=== PATIENT | female | born 1955 | race Caucasian/White ===

== ENCOUNTER → 2018-05-03 07:01 | Outpatient (CLI) | payer OTHER, SELFPAY ==
--- NOTE | 2018-05-03 07:07 | BI_ITS ---
MAMMOGRAPHY - BILATERAL SCREENING REASON FOR EXAM: Female, 62 years old. Routine annual screening examination. PERTINENT HISTORY: Mother with breast cancer. TECHNIQUE: Digital bilateral breast gunnar (3D mammographic acquisition) in the CC and MLO projections. 2-D mediolateral oblique (MLO) and craniocaudad (CC) views of both breasts were obtained. CAD: Full Field Digital Mammography with Computer Added Detection was performed. COMPARISON: Comparison is made with prior study dated November 30, 2016 and November 07, 2015. FINDINGS: Breast Composition: There are scattered areas of fibroglandular density. There are no dominant masses or suspicious calcifications. No other significant abnormalities are identified. There has been no significant change since the prior study. BI/SCREENING MAMM (CAD), BILAT IMPRESSION: Stable bilateral screening mammogram. Yearly follow-up mammogram recommended. (A) ASSESSMENT CATEGORY: BIRADS Category 1: Negative. A letter regarding these results will be sent to the patient by the facility within 30 days. Approximately 10% of breast cancers are not detected by mammography. A normal mammogram should not delay biopsy of a clinically suspicious abnormality. [id number] Electronically Signed: Albaro Pena MD at 8:53 EST Tel [phone], Service support ,
== END ==
PROVIDERS: Family Provider Internal Medicine; PCP Internal Medicine; Referring Provider Obstetrics & Gynecology; Visit Provider Obstetrics & Gynecology
DX: Z12.31 Encounter for screening mammogram for malignant neoplasm of breast (principal)
CPT/HCPCS: 77063; 77067

== ENCOUNTER → 2018-06-02 13:59 | Outpatient (CLI) | payer OTHER, SELFPAY ==
[2018-06-06 10:36] LABS: HPV Reflexed? NOT INDICATED
--- OUTSIDE RECORDS SUMMARY | 2018-07-19 10:27 | XMS RPT_ITS | Continuity of Care Document ---
:1955 Author Organization [facility] Address [address] [facility] [address] [place] [address] Phone Care Team Providers Name Role Phone Nerissa CASTELLANO, Krysten Levi Unavailable Dr. Reginaldo Corbin Unavailable Erwin Rose Unavailable Maciej Cadena Unavailable Timothy CASTELLANO, Speedy S Unavailable Andrew CASTELLANO, Regan Unavailable RITA Mendez Unavailable Unavailable Slajacqueline TUBE TURNER, Moraima Unavailable Unavailable Unavailable Unavailable Problems Name Dates Details Abnormal fasting glucose (R73.01, 790.29) Status: Active Allergic rhinitis (J30.9, 477.9) Comments: off allergy shots. back this spring and seeing director database. add kaleb. will get abck to ENT. dulera singulair nasacort and nettipot. Status: Active Asthma (J45.909, 493.90) Comments: stable now. issue with getting dulera.allergy induced asthma per ENT Elmer Eid, off of asmanex, now on sigulair Status: Active Atrial tachycardia (I47.1, 427.89) Comments: 17 beat run noted on holter during day. pt never went to cardio because no cardio on plan here. now readdress today. no signs and symptoms now. on dilitizem in past and not notice difference . not worsen and know what feel like. told if get them and rest and bearing down not help over 15 min to ER Status: Active BMI 45.0-49.9, adult (Z68.42, V85.42) Status: Active Current nonsmoker (Renamed from Current non-smoker) (Z78.9, V49.89) Status: Active Deliveries (Parity) Comments: 2 Status: Active Elevated LFTs (R94.5, 790.6) Comments: liver up some. liver us show fatty liver and working now with rod piler. comign down some. Status: Active Encounter for routine adult medical exam with abnormal findings (Z00.01, V70.0) Comments: 03-22-17 [facility] [address] Thorpe. colonoscopy polyp due in 5 years mammo , BD Hep C neg. recommend shingles and flu today. talk about prevnar then pneumovax with asthma Status: Active Family history of heart disease (Z82.49, V17.49) Comments: brother at 56 yo Status: Active Fatigue (R53.83, 780.79) Comments: has been better. now recommend add exercises Status: Active Fatty liver (K76.0, 571.8) Comments: talk about liver cirrhosis risk must get weight off. Status: Active Hypercholesteremia (Renamed from Hypercholesterolemia) (E78.00, 272.0) Comments: reviewed with patient recent tests and chol higher than should be. must get diet under control. talk about again not where should be by next executive physical then meds. Status: Active Hypertension with heart disease (I11.9, 402.90) Comments: miss dose this am and mor complaint with losartan. has been 128/80's at home. 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 working on how to treat. at this point kaylin get left large hard lens. at this poitn not recommend richadr transplant. Status: Active Metabolic syndrome (E88.81, 277.7) Comments: would really like to try Trulicity and get her loosing weight. went over side effects including pancreatitis, nausea and vomiting, rare in rats of medullary thyroid cancer. pt with no famil y history of medullary thyroid cancer. told how to use and take and demonstrate in office Status: Active Nonsmoker (Z78.9, V49.89) Status: Active Obesity (Renamed from Obese) (E66.9, 278.00) Comments: doing yoga, sleep better with oren. walking once a week for 2 miles. will do cleanse then into healthy eating. if not see weight come off wtih cleanse and eating healthier then 24 hour urine for cortisol Status: Active OREN on CPAP (G47.33, 327.23) Comments: now on cpap machine. does notice improvement with sleep and daytime energy Status: Active Paresthesia of hand (R20.2, 782.0) Comments: occassional CTS and better than was has splints. more in am. will wear splints at night check NCS Status: Active Postmenopausal (Renamed from Post-menopausal) (Z78.0, V49.81) Status: Active Pregnancies () Comments: 2 Status: Active Stress reaction (F43.0, 308.9) Comments: hangerhoffer counseling. her not have the intimacy she wants. having new grandchild, mother getting heart valve replaced. she finally changed stressed job. she working [employer] as as [employer] which likes better. easier to communate. less emotional eating. refrig went out...so new one and with now better stocking with healthy foods. will be home earlier so can exercise Status: Active Medications Name Dates Details Adrenal Rebuilder Active uad 2 q am, 1 at 3pm ASPIRIN, 81MG (Oral Tablet) Active 1 qd (81 MG) Atorvastatin Calcium 10 MG Oral Tablet 1 (one) Tablet at night for 0 days Quantity: 90 {Tablet} Refills: 3 Ordered:22-Mar-2017 Nerissa CASTELLANO, Krysten Grande MD Start : 22-Mar-2017 Active Cytomel 5 MCG Oral Tablet 1 (one) Tablet qd for 0 days Quantity: 90 {Tablet} Refills: 3 Ordered:28-May-2017 Nerissa CASTELLANO, Krysten Grande MD Start : 28-May-2017 Active Dulera 100-5 MCG/ACT Inhalation Aerosol 1 (one) Puff bid for 0 days Quantity: 3 {Inhaler} Refills: 3 Ordered:10-Jun-2017 Krysten Dial MD, MD, Dana M Start : 10-Jun-2017 Active Escitalopram Oxalate 5 MG Oral Tablet 1 (one) Tablet daily for 0 days Quantity: 90 {Tablet} Refills: 3 Ordered:22-Mar-2017 Krysten Dial MD, MD, Dana M Start : 22-Mar-2017 Active FISH OIL CONCENTRATE, 1000MG (Oral Capsule) 1 Capsule qd for 0 days Quantity: 90 {Capsule} Refills: 0 Ordered:20-Jun-2012 Krysten Dial MD, MD, Dana M Start : 20-Jun-2012 Active LEVSIN/SL, 0.125MG (Sublingual Tablet Sublingual) 1 (one) Tab Sublingual Tab Sublingual every 6 hours prn SL for 0 days Quantity: 20 {Tablet} Refills: 1 Ordered:01-Mar-2015 RITA Mendez Start : 01-Mar-2015 Active Losartan Potassium 100 MG Oral Tablet 1 Tablet daily for 0 days Quantity: 90 {Tablet} Refills: 3 Ordered:29-Jul-2017 Krysten Dial MD, MD, Dana M Start : 29-Jul-2017 Active Losartan Potassium 100 MG Oral Tablet 1 Tablet daily for 0 days Quantity: 90 {Tablet} Refills: 3 Ordered:29-Jul-2017 Krysten Dial MD, MD, Dana M Start : 29-Jul-2017 Active Singulair 10 MG Oral Tablet 1 Tablet qd for 0 days Quantity: 90 {Tablet} Refills: 3 Ordered:10-Jun-2017 Krysten Dial MD, MD, Dana M Start : 10-Jun-2017 Active Super Adrenal Stress Formula 2 in am 1 in afternoon Active Synthroid 50 MCG Oral Tablet 1 Tablet daily for 0 days Quantity: 90 {Tablet} Refills: 3 Ordered:28-May-2017 Krysten Dial MD, MD, Dana M Start : 28-May-2017 Active ADRENAL (Oral Capsule) uad [address] Thorpe for 0 days Refills: 0 Ordered:30-May-2010 Lilia Bond LPN End : 30-May-2010 Inactive ADRENAL COMPLEX (Oral Capsule) uad [address] Thorpe for 0 days Refills: 0 Ordered:30-May-2010 Lilia Bond LPN End : 30-May-2010 Inactive Comments:compounding pharmacy ADVAIR DISKUS, 250-50MCG/DOSE (Inhalation Aerosol Powder Breath Activated) 1 Aero Pow Br Act bid for 0 days Quantity: 1 {Aero_Pow_Br_Act} Refills: 0 Ordered:14-Dec-2011 Yusra BROFrancoise Start : 16-Apr-2011 End : 14-Dec-2011 Inactive ALEVE, 220MG (Oral Tablet) 1 (one) Tablet Tablet q6-8hrs for 0 days Quantity: 30 {Tablet} Refills: 0 Ordered:11-Jul-2015 RITA Mendez Start : 14-May-2015 End : 11-Jul-2015 Inactive ALIGN (Oral Capsule) 1 Capsule daily for 0 days Quantity: 30 {Capsule} Refills: 0 Ordered:26-Jan-2013 RITA Mendez Start : 19-Sep-2012 End : 26-Jan-2013 Inactive AMLODIPINE BESYLATE, 5MG (Oral Tablet) 1 Tablet daily for 0 days Quantity: 30 {Tablet} Refills: 2 Ordered:20-Jun-2012 RITA Mendez Start : 18-Sep-2011 End : 20-Jun-2012 Inactive AMLODIPINE BESYLATE, 5MG (Oral Tablet) 1 Tablet daily for 0 days Quantity: 90 {Tablet} Refills: 3 Ordered:20-Jun-2012 RITA Mendez Start : 18-Sep-2011 End : 20-Jun-2012 Inactive ASMANEX 30 METERED DOSES, 220MCG/INH (Inhalation Aerosol Powder Breath Activated) 1 Aero Pow Br Act daily for 0 days Quantity: 30 {Aero_Pow_Br_Act} Refills: 6 Ordered:20-Jun-2012 RITA Mendez Start : 14-Dec-2011 End : 20-Jun-2012 Inactive ASPIRIN, 81MG (Oral Tablet) 1 qd for 0 days Refills: 0 Ordered:28-Mar-2010 RITA Mendez End : 28-Mar-2010 Inactive Cipro 500 MG Oral Tablet 1 (one) Tablet bid for 0 days Quantity: 14 {Tablet} Refills: 0 Ordered:01-Jan-2017 RITA Mendez Start : 13-Nov-2016 End : 01-Jan-2017 Inactive CIPROFLOXACIN HCL, 500MG (Oral Tablet) 1 (one) Tablet bid for 7 days Quantity: 14 {Tablet} Refills: 0 Ordered:14-May-2015 Francoise Meng CNP Start : 14-May-2015 End : 21-May-2015 Inactive CLINDAMYCIN HCL, 300MG (Oral Capsule) 1 (one) Capsule three times daily for 7 days Quantity: 21 {Capsule} Refills: 0 Ordered:11-Jul-2015 Bruno Garcia MD Start : 11-Jul-2015 End : 18-Jul-2015 Inactive FOLIC ACID, 800MCG (Oral Tablet) 1 qd for 0 days Refills: 0 Ordered:01-Sep-2013 RITA Mendez End : 01-Sep-2013 Inactive LEVAQUIN, 500MG (Oral Tablet) 1 Tablet daily for 7 days Quantity: 7 {Tablet} Refills: 0 Ordered:14-Dec-2011 Yusra CRATBREEFrancoise Start : 14-Dec-2011 End : 21-Dec-2011 Inactive MOBIC, 15MG (Oral Tablet) 1 Tablet daily for 0 days Quantity: 30 {Tablet} Refills: 0 Ordered:20-Jun-2012 RITA Mendez Start : 19-Apr-2012 End : 20-Jun-2012 Inactive NASACORT AQ, 55MCG/ACT (Nasal Aerosol Solution) 1-2 sprays each nostril qd/prn for 0 days Refills: 0 Ordered:30-Jan-2011 RITA Mendez End : 30-Jan-2011 Inactive NASONEX, 50MCG/ACT (Nasal Suspension) 2 sparys each nostril qd (50 MCG/ACT) Inactive PREDNISONE, 20MG (Oral Tablet) 1 Tablet 2bid x3 days, 1 bidx 3 day, 1/2 bid x3 days for 0 days Refills: 0 Ordered:20-Jun-2012 RITA Mendez Start : 14-Dec-2011 End : 20-Jun-2012 Inactive PROAIR HFA, 108 (90 Base)MCG/ACT (Inhalation Aerosol Solution) 2 (two) Puff(s) tid prn for 0 days Quantity: 1 {Aerosol_Soln} Refills: 0 Ordered:20-Jun-2012 RITA Mendez Start : 14-Dec-2011 End : 20-Jun-2012 Inactive SYNTHROID, 25MCG (Oral Tablet) 1 Tablet qd for 0 days Quantity: 30 {Tablet} Refills: 2 Ordered:07-Apr-2010 RITA Mendez Start : 20-Mar-2010 End : 07-Apr-2010 Inactive TESSALON PERLES, 100MG (Oral Capsule) 1 Capsule tid prn for 0 days Quantity: 30 {Capsule} Refills: 0 Ordered:20-Jun-2012 RITA Mendez Start : 14-Dec-2011 End : 20-Jun-2012 Inactive TRIAMCINOLONE ACETONIDE, 55MCG/ACT (Nasal Inhaler) 1 spray each nostril qd (55 MCG/ACT) Inactive ZANTAC, 300MG (Oral Tablet) 1 Tablet bid for 0 days Quantity: 60 {Tablet} Refills: 0 Ordered:26-Jan-2013 RITA Mendez Start : 19-Sep-2012 End : 26-Jan-2013 Inactive Zithromax Z-Juan 250 MG Oral Tablet 1 Tablet Tablet uad for 0 days Quantity: 1 {Tablet} Refills: 0 Ordered:13-Nov-2016 RITA Mendez Start : 07-Aug-2016 End : 13-Nov-2016 Inactive ZOFRAN, 4MG (Oral Tablet) 1 (one) Tablet q8 hrs prn for 0 days Quantity: 15 {Tablet} Refills: 0 Ordered:11-Jul-2015 RITA Mendez Start : 28-Jun-2015 End : 11-Jul-2015 Inactive CONTRAVE, 8/ 90MG (Oral Tablet) (Free Text) 1 (one) Tablet uad for 30 days Refills: 1 Ordered:08-Jun-2014 Krysten Dial MD, MD, Krysten Levi Start : 08-Jun-2014 End : 08-Jun-2014 Discontinued Comments:Week 1: 1 Tablet in the AMWeek 2: 1 Tablet in the AM and 1 Tablet in the PMWeek 3: 2 Tablets in the AM and 1 Tablet in the PMWeek 4: 2 Tablets in the AM and 2 Tablets in the PM DILTIAZEM HCL ER BEADS, 120MG (Oral Capsule Extended Release 24 Hour) 1 (one) Capsule ER 24HR Capsule ER 24HR daily for 0 days Quantity: 90 {Capsule} Refills: 3 Ordered:28-Jun-2015 Moraima Tan LPN Start : 08-Jun-2014 End : 28-Jun-2015 Discontinued PROBIOTIC (Oral Capsule) 1 qd End : 28-Jun-2015 Discontinued PROTONIX, 40MG (Oral Tablet Delayed Release) 1 qd (40 MG) End : 09-Jun-2010 Discontinued SAW PALMETTO COMPLEX (Oral Capsule) 1 qd for 0 days Refills: 0 Ordered:14-Dec-2011 Francoise Meng CNP End : 14-Dec-2011 Discontinued Comments:This order discontinued per [facility]. SUPER B COMPLEX (Oral Tablet) 1 qd for 0 days Refills: 0 Ordered:20-Jun-2012 RITA Mendez End : 20-Jun-2012 Discontinued Comments:This order discontinued per [facility]. TRIAMTERENE-HCTZ, 37.5-25MG (Oral Tablet) 1 Tablet qd for 0 days Quantity: 90 {Tablet} Refills: 3 Ordered:18-Jun-2011 Krysten Dial MD, MD, Dana M Start : 18-Jun-2011 End : 18-Jun-2011 Discontinued Trulicity 1.5 MG/0.5ML Subcutaneous Solution Pen-injector 1.5 Milligrams SC once weekly for 0 days Quantity: 9 {Pre-filled_Pen_Syringe} Refills: 3 Ordered:29-Jul-2017 Krysten Dial MD, MD, Dana M Start : 29-Jul-2017 End : 29-Jul-2017 Discontinued Victoza 18 MG/3ML Subcutaneous Solution Pen-injector 1 (one) Milliliter 0.6 mg sc daily for week then 1.2 mg ssc daily for 0 days Quantity: 1 {Each} Refills: 2 Ordered:12-Jan-2017 Krysten Dial MD, MD, Dana M Start : 12-Jan-2017 End : 12-Jan-2017 Discontinued Comments:with needles WELLBUTRIN XL, 150MG (Oral Tablet Extended Release 24 Hour) 1 (one) Tablet ER 24HR qd for 0 days Quantity: 90 {Tablet} Refills: 3 Ordered:08-Jun-2014 Krysten Dial MD, MD, Dana M Start : 08-Jun-2014 End : 01-Mar-2015 Discontinued WELLBUTRIN XL, 150MG (Oral Tablet Extended Release 24 Hour) 1 (one) Tablet ER 24HR qd for 0 days Quantity: 30 {Tablet} Refills: 3 Ordered:08-Jun-2014 Nerissa CASTELLANO, Krysten Dunbar MD, Krysten Levi Start : 08-Jun-2014 End : 01-Mar-2015 Discontinued Allergies and Adverse Reactions Name Dates Details Compazine *ANTIPSYCHOTICS/ANTIMANIC AGENTS* Status: Active (Allergy) Comments: Shock Mold Spores (Allergy) Status: Active Comments: rec. allergy injections Trees (Allergy) Status: Active Past Medical History Name Dates Details Abdominal pain, acute, right lower quadrant (R10.31, 789.03) Comments: in flank check urine ? colon consider muscular. had colonscopy few years ago. try levsin. not sound like GB but consider not better. if worsen then CT scan. Status: Inactive as of 05-Apr-2015 Abnormal TSH (R79.89, 790.6) Comments: endocrine Dr. Herrera at [facility], changed cytomel. adjusted 2-12. reduced cytomel to 3 25 mcq a day..now on 25 mcq once a day. same synthriod dose. notice difference. will be rechecking. Status: Inactive as of 06-Jul-2013 Acute foot pain, left (M79.672, 729.5) Status: Inactive as of 11-Jul-2015 Acute maxillary sinusitis, recurrence not specified (J01.00, 461.0) Status: Inactive as of 18-Sep-2016 Allergic rhinitis due to other allergen (J30.89, 477.8) Comments: dyllan Eid with allergy shots Status: Inactive as of 20-Jun-2012 BMI 40.0-44.9, adult (Z68.41, V85.41) Status: Inactive as of 13-Nov-2016 BMI 45.0-49.9, adult (Z68.42, V85.42) Comments: 47.47 Status: Inactive as of 18-Sep-2016 Bronchitis (J40, 490) Status: Inactive as of 26-Jan-2013 Chronic obstructive asthma with acute exacerbation (J44.1, 493.22) Comments: on sigulair, prn pro air Status: Inactive as of 26-Jan-2013 Cough (R05, 786.2) Status: Inactive as of 20-Jun-2012 Dehydration (E86.0, 276.51) Status: Inactive as of 11-Jul-2015 Dysuria (R30.0, 788.1) Status: Resolved as of 22-Mar-2017 Encounter for hepatitis C virus screening test for high risk patient (Z11.59, V73.89) Status: Resolved as of 22-Mar-2017 Flatulence (R14.3, 787.3) Comments: talk about ? cpap swallow air. talk about diet. on align handout given. track foods. Status: Inactive as of 01-Sep-2013 Flu-like symptoms (R68.89, 780.99) Status: Inactive as of 11-Jul-2015 Gastroenteritis (K52.9, 558.9) Status: Inactive as of 11-Jul-2015 Heartburn (Renamed from Bras) (R12, 787.1) Comments: more bloating. using alogn try adding zantac twice a day Status: Inactive as of 18-Jan-2014 Hormone imbalance (E34.9, 259.9) Comments: still internal heat ? elevated BP ? hormonal ? thryiod t3 being high. Status: Inactive as of 06-Jul-2013 Hyperkalemia (E87.5, 276.7) Status: Inactive as of 18-Sep-2016 Hypertension, benign (I10, 401.1) Comments: get back on losartan with elevated Status: Inactive as of 15-Feb-2014 Menorrhagia (N92.0, 626.2) Comments: better not heavy. did have menses again but not really totally postmenapausal. seeing wedding florist. Status: Inactive as of 06-Jul-2013 NEED FOR PROPHYLACTIC VACCINATION AND INOCULATION AGAINST INFLUENZA (V04.81) (Renamed from NEED FOR PROPHYLACTIC VACCINATION AND INOCULATION AGAINST INFLUENZA) (Z23, V04.81) Status: Inactive as of 19-Jun-2016 Need for Tdap vaccination (Z23, V06.1) Status: Inactive as of 19-Jun-2016 Other chest pain (R07.89, 786.59) Status: Inactive as of 26-Jan-2013 Pain in limb (729.5) Comments: lower legs end of day ? weight and showear. oa. will check doppler. nsaid weight loss stretch Status: Inactive as of 15-Feb-2014 Pharyngitis, acute (J02.9, 462) Status: Inactive as of 26-Jan-2013 Pre-operative examination (Z01.818, V72.84) Status: Inactive as of 26-Jan-2013 Pre-syncope (Renamed from Near syncope) (R55, 780.2) Comments: lighthead. sounded vagal. better now. will do echo. not sound like seizure. Status: Resolved as of 19-Apr-2014 Sebaceous cyst (L72.3, 706.2) Comments: Infected sebaceous cyst. Doesn't seem like it's going to benefit from excision today as its infected. Start clindamycin 300 mg 3 times a day for total of 7 days.Take probiotics with the clindamycin.Pt was advised to use monistat cream OTC if gets vaginal yeast infection.If it keeps bothering her in 4-6 weeks will come back for excision.60-year-old female with past medical history of hypertension, O SA on CPAP presents with a sebaceous cyst on the left mid back area, near bra line. patient noticed a lesion on her back to 3 days ago when taking off her shirt. Also noticed stable yellowish discharge on the shirt. It was also itchy but not painful. Had not had before. patient's had noticed that and wanted her to see a doctor. Denies having any fevers Status: Inactive as of 09-Aug-2015 Shortness of breath at rest (R06.02, 786.05) Comments: nonspecific ekg and with famiy history need to check stress could be asthma. 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 get brace. try rest forearm, nsaids not better then come in inject. Status: Inactive as of 20-Jun-2012 Urinary frequency (R35.0, 788.41) Status: Inactive as of 26-Jan-2013 UTI (urinary tract infection) (N39.0, 599.0) Status: Inactive as of 11-Jul-2015 UTI symptoms (R39.9, 788.99) Status: Inactive as of 11-Jul-2015 Vomiting and diarrhea (R11.10, 787.03) Status: Inactive as of 11-Jul-2015 WWV V73.21 Comments: Dr. thorpe. colonscopy 2008 Status: Inactive as of 06-Jul-2013 Procedures Procedure Dates Details Female ablation 2004 Dr. Powell Completed TAHBSO 2012 Completed Tonsillectomy Completed Comments: 19 years old Tubal Ligation Completed Date Value Details 30-Nov-2016 SCREENING MAMM (CAD), BILAT Result: Comments: See Note; NOTES: [facility] Imaging Services [address] [place] [address] Verdana 4d SCREENING MAMM (CAD), BILAT MR#: [id number] Acct: [id number] Name: GRZEGORZ BANGURA Rep #: [id number] : 1955 F 61 From: Sarbjit Hansen MD PCP: Krysten Dial MD Status: REG CLI Study: SCREENING MAMM (CAD), BILAT Date of Exam: 11/30/16 Exam# [id number] Ordering Dr: Marie Thorpe MD MAMMOGRAPHY - BILATERAL SCREENING REASON FOR EXAM: Female, 61 years old. Routine annual screening examination. PERTINENT HISTORY: FM HX MOTHER 71, 10# GAIN, RT LOQ RESOLVING SEBACEOUS CYST SHABBIR ED TECHNIQUE: Digital bilateral breast gunnar (3D mammographic acquisition) in the CC and MLO projections. 2-D mediolateral oblique (MLO) and craniocaudad (CC) views of both breasts were obtained. CAD: F ull Field Digital Mammography with Computer Added Detection was performed. COMPARISON: Nov 07 2015 7:14AM and mammogram from Sep 11 2014 7:14AM FINDINGS: Breast Co mposition: There are scattered areas of fibroglandular density. There are no dominant masses or suspicious calcifications. No other significant abnormalities are identified. HPBI/SCREENING MAMM (CAD), BILAT IMPRESSION: Stable bilateral screening mammogram. Yearly follow-up mammogram recommended. (A) ASSESS MENT CATEGORY: BIRADS Category 2: Benign. A letter regarding these results will be sent to the patient by the facility within 30 days. Approximately 10% of breast cancers are not detected by mammograph y. A normal mammogram should not delay biopsy of a clinically suspicious abnormality. [id number] Electronically Signed: Sarbjit Hansen MD at 14:44 EDT Tel , Service support , CC: Ruthie Thorpe MD; Krysten Dial MD Tube Inspector: Signed 25-Feb-2016 Dexa Bone Density Study (HP) Result: Comments: See Note; NOTES: [facility] Imaging Services [address] [facility] [address] Verdana 4d Dexa Bone Density Study (HP) MR#: [id number] Acct: [id number] Name: PHAN Shaquille Rep #: [id number] : 1955 F 60 From: Albaro Pnea MD PCP: Krysten Dial MD Status: REG CLI Study: Dexa Bone Density Study (HP) Date of Exam: 02/25/16 Exam# [id number] Ordering Dr: Krysten Portillo MD STUDY: DUAL ENERGY X-RAY ABSORPTIOMETRY / DXA REASON FOR EXAM: Female, 60 years old. The patient is postmenopausal. TECHNIQUE: Bone Mineral Density (BMD) measurements of lumbar spine a nd bilateral hips were obtained. COMPARISON: None. FINDINGS: Lumbar Spine (L1-L4): g/cm2 (1.246) / T-score (0.6) / Z-score (1.9) Findings are suggestive of normal bone density with a low fracture risk. Left Femur Total: g/cm2 (1.249) / T-score (1.9) / Z-score (2.9) Left Femoral Neck: g/cm2 (1.113) / T-score (0.5) / Z- score (1.8) Right Femur Total: g/cm2 (1.154) / T-score (1.2) / Z-score (2.2) Right Femoral Neck: g/cm2 (1.075) / T-score (0.3) / Z-score (1.6) HPBD/Dexa Bone Density Study (HP) IMPRESSION: The patient is considered normal as outlined below according to World Tristin Organization (WHO) criteria with a low fracture risk. Reference Information: The T-scor e is the number of standard deviations above or below the standard which is normal for young adults at their peak bone mineral density. The World Health Organization (WHO) interprets the T-scores as fol lows: Above -1 Normal bone density Between -1 and -2.5 Osteopenia Equal to / or below -2.5 Osteoporosis As a practical clinical guideline, osteopenia may be graded as follows: Mild -1 through -1.5 Mod erate -1.6 through -2.0 Severe -2.1 through -2.4 The Z-score is the number of standard deviations above or below age-matched controls. A Z-score of less than -1.5 would be considered abnormal. Referen martell: 1. NIH Osteoporosis and Related Bone Diseases http://www.osteo.org 2. International Society for Clinical Densitometry http://www.iscd.org 3. National Osteoporosis Foundation http://www.nof.org Lupe ctronically Signed: Albaro Pena MD at 9:34 EDT Tel [phone], Service support [phone], CC: Krysten Dial MD Tube Inspector: Signed 07-Nov-2015 Bilat Scrn Digital AND CAD Result: Comments: See Note; NOTES: [facility] Imaging Services [address] [facility] [place] [address] Verdana 4d Bilat Scrn Digital AND CAD MR#: [id number] Acct: [id number] Name: ARCHANA BANGURA Rep #: [id number] : 1955 F 60 From: Albaro Pena MD PCP: Krysten Dial MD Status: REG CLI Study: Jackson Hamlinn Digital AND CAD Date of Exam: 11/07/15 Exam# [id number] Order ing Dr: Ruthie Thorpe MD MAMMOGRAPHY - BILATERAL SCREENING REASON FOR EXAM: Female, 60 years old. Routine annual screening examination. PERTINENT HISTORY: Mother with breast cancer. TECHNIQUE : Digital bilateral breast tomosynthesis (3-D mammographic acquisition) in the CC and MLO projections. Synthesized 2-D images (C-View reconstruction from tomosynthesis acquisition) providing bilateral breast CC and MLO views. Mediolateral oblique (MLO) and craniocaudad (CC) views of both breasts were obtained. CAD: Full Field Digital Mammography with Computer Added Detection was performed. COMP ARISON: Comparison is made with prior study dated September 11, 2014 and September 01, 2013. FINDINGS: Breast Composition: There are scattered areas of fibroglandular de nsity. There are no dominant masses or suspicious calcifications. No other significant abnormalities are identified. There has been no significant change since the prior study. IMPRESSION: Stable bilateral screening mammogram. Yearly follow- up mammogram recommended. (A) ASSESSMENT CATEGORY: BIRADS Category 1: Negati ve. A letter regarding these results will be sent to the patient by the facility within 30 days. Approximately 10% of breast cancers are not detected by mammography. A normal mammogram should not de lay biopsy of a clinically suspicious abnormality. [id number] Electronically Signed: Albaro Pena MD at 11:07 EDT Tel [phone], Service support [phone], CC: Ruthie Thorpe MD; Krysten Dial MD Tube Inspector: Signed 28-Jun-2015 Gallbladder Result: Comments: See Note; NOTES: [facility] Imaging Services [address] [place] [address] [address] 4d Gallbladder MR#: [id number] Acct: [id number] Name: ARCHANA BANGURA Rep #: [id number] : 1955 F 60 From: Albaro Pena MD PCP: Krysten Dial MD Status: REG CLI Study: Gallbladder Date of Exam: 06/28/15 Exam# [id number] Ordering Dr: Francoise Meng STUDY: ABDOMINAL ULTRASOUND - RIGHT UPPER QUADRANT REASON FOR VISIT: Female, 60 years old. 3 day history of right upper quadrant pain with nausea and vomiting. TECHNIQUE: Ultrasound evaluation of the rig ht upper quadrant was performed with real-time and static downs-scale imaging. TECHNICAL QUALITY: Adequate. COMPARISON: Comparison is made with prior study dated September 08, 2013. FINDINGS: Liver: The liver is mildly enlarged and measures 19.1 cm. 3 The bile ducts are within normal limits. There is hepatic color flow. The direction of portal flow is hepatop etal. There is no demonstrated mass lesion. Gallbladder: Normal distended gallbladder. The gallbladder wall measures 2.9 mm. There is a negative sonographic Funk's sign. There is no pericholecyst ic fluid. There are no gallstones. Common Bile Duct (C.B.D.): The common bile duct measures 4.3 mm. Pancreas: Normal size of the head, body and tail of the pancreas. There is normal echogenicity of the pancreas. There is no demonstrated pancreatic mass or cyst. Right Kidney: Normal size of the right kidney. The right kidney measures 11.5 cm x 6.5 cm x 6.8 cm. Normal renal cortex. The right co rtex measures 2.1 cm. There is no demonstrated renal mass or cyst. There is no right hydronephrosis. IMPRESSION: Mild hepatomegaly with fatty infiltration of th e liver. Electronically Signed: Albaro Pena MD at 11:40 EST Tel [phone], Service support [phone], CC: Francoise Meng; Krysten Dial MD Tube Inspector: Signed 14-May-2015 Foot min 3 Views Result: Comments: See Note; NOTES: [facility] Imaging Services [address] [place] [address] Verdana 4d Foot min 3 Views MR#: [id number] Acct: [id number] Name: PRICE Rep #: [id number] : 1955 F 60 From: Vazquez Briggs MD PCP: Krysten Dial MD Status: REG CLI Study: Foot min 3 Views Date of Exam: 05/14/15 Exam# [id number] Ordering Dr: Francoise Meng STUDY: X-RAY - LEFT FOOT CLINICAL: Female, 60 years old. Pain across the top of the foot TECHNIQUE: 3 view(s) of the foot. COMPARISON: None. FINDINGS: There is a plantar calcaneal spur. There are degenerative changes of the first tarsometatarsal joint with dorsal osteophytes. A flattening of the heads of the second and third metatarsals which could b e related to stress subchondral fractures or bony infarcts. There are degenerative changes of the first metatarsal phalangeal joint with dorsal osteophytes. There are degenerative changes of the firs t metatarsal sesamoid joints. Normal interphalangeal joint of the great toe. Normal phalanges of the great toe. Normal second through fifth metatarsophalangeal joints. Normal interphalangeal joints and phalanges of the lesser toes. The soft tissue structures are unremarkable. IMPRESSION: Osteoarthritis of the first MTP joint and first tarsometatarsal join t. Prominent plantar calcaneal spur. Flattening of the heads of the second and third metatarsals which could be related to stress subchondral fracture or bone infarcts. Electronically Signed: Adam Briggs MD, FACR at 19:17 EST , Service support [phone], RAD/Foot min 3 Views IMPRESSION: 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 Prominent plantar calcaneal spur. Flattening of the heads of the second and third metatarsals which could be related to stress subchondral fracture or cyrus ne infarcts. Electronically Signed: Vazquez Briggs MD, FACR at 19:17 EST , Service support [phone], CC: Francoise Meng; Krysten Dial MD Tube Inspector: Signed 04-Jan-2015 PT Discharge Summary Result: Comments: See Note; NOTES: [facility] [address] [place] [address] Fax REHABILITATION SERVICES DISCHARGE SUMMARY MR#: [id number] Acct: [id number] Name: ARCHANA BANGURA Rep #: [id number] : 1955 59 From: Roberto Leon Referring Dr.: Krysten Dial MD Status: PRE RCR Ev Date: Date: DATE OF SERVICE: REFERRING PHYSICIAN: Dr. Krysten Dial. Archana Bangura was evaluated at [facility] on the date of October 18, 2014 with chief diagnosis of right s houlder pain and treated for a total of 1 followup physical therapy visit through the date October 31, 2014. At that time, this patient reported 0/10 right shoulder pain. I issued this patient a home exer cise program consisting of rotator cuff strengthening exercises that she demo to be independent with. We planned on continuing for 1 more followup physical therapy visit if needed per this patient's r equest in order to review her home exercise program. However, this patient did not show up through today's date of December 31, 2014 and therefore will be officially discharged with the one treatment goa l of being independent with home exercise program being achieved. Roberto Leon, PT T: NTS JOB: [id number] <Electronically signed by Roberto Leon > 01/04/15 0937 CC: Signed 22-Oct-2014 Inital Evaluation - PT Result: Comments: See Note; NOTES: [facility] [place] [address] [facility] [place] [address] Fax REHABILITATION SERVICES INITIAL EVALUATION MR#: [id number] Acct: [id number] Name: ARCHANA BANGURA Rep #: [id number] : 1955 59 From: Roberto Leon Referring Dr.: Krysten Dial MD Status: DIS RCR [facility] Date: DATE OF SERVICE: 10/18/2014 REFERRING PHYSICIAN: Krysten Dial M.D. SUBJECTIVE INFORMATION: A 59-year-old female referred to [facility] on the date of October 18, 2014 with chief complaint of right shoulder pain. This patient reports having right shoulder pain for approximately 4-5 months. The patient reports that her pain had an insidious onset in natur e. The patient notes that she does have occasional sleep difficulty at this time secondary to pain. The patient reports that she does sleep on her stomach oftentimes waking with her right arm undern eath her head. This patient is right hand dominant. The patient reports that her hands will occasionally go numb upon awakening in the morning as well as whenever she showers and then dries her hair with a chair maker. This patient denies any cervical spine pain at this time. The patient reports that most of her pain is on the lateral aspect of her right shoulder. The patient reports that reac avery behind her really increases her pain. The patient also reports when she is lying on her left side in bed and externally rotates her shoulder in order to pull covers over her that she experience s increased pain. The patient has had no recent diagnostic tests. 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 The patient currentl y reports that her pain is rated at 0-1/10 while sitting here in the clinic at rest, but notes it elevates to 5/10 at worst. OBJECTIVE: With palpation, this patient is very tender along the feeder operator ior superior aspect of her right shoulder along the distribution of the supraspinatus muscle. This patient also has minimal tenderness where the supraspinatus inserts into the lateral humerus. With active range of motion, left shoulder, flexion is 165 degrees, external rotation is 55 degrees, internal rotation is within normal limits and abduction is 180 degrees. With active range of motion of the right shoulder, flexion is 160 degrees, external rotation is 58 degrees, internal rotation is minimally limited and abduction is 172 degrees. With manual muscle testing of the left shoulder, th is patient is grossly 5/5 throughout. With manual muscle testing of the right shoulder flexion is 5/5, external rotation is 4+/5, internal rotation is 4+/5 and abduction is 5/5. With special testing , this patient does present with a positive empty can sign today indicating possible pathology to the supraspinatus muscle. With neurological testing, bilateral upper extremity sensation is within n ormal limits to light touch throughout this patient's dermatomal pattern and bilateral bicipital reflexes rated at 1/3. ASSESSMENT: This patient has right shoulder pain, decreased range motion in the right shoulder and weakness in right shoulder secondary to rotator cuff syndrome of the right shoulder. Rehabilitation potential for this patient is good. PROBLEMS: 1. Right shoulder pain. 2 . Decreased range of motion in right shoulder. 3. Weakness in right upper extremity. 4. Difficulty with sleeping. 5. Difficulty with reaching behind her back. GOALS: For this patient are as follow s: This patient will be independent with home exercise program after 1-2 physical therapy visits. PLAN: Plan of care for this patient will be as follows: I will develop a home exercise program fo r this patient secondary to financial concerns in order to promote right shoulder strengthening with primary focus on rotator cuff and scapular stabilization exercises. I will use ultrasound and/or cold pack in order to control this patient's pain. I plan on seeing this patient for 2 followup visits. Roberto Leon PT T: CHRIS JOB: [id number] <Electronically signed by Roberto lopez > 10/22/14 1124 CC: Signed For Medicare only, by signing this I certify the plan of care. Physicians Signature Date 11-Sep-2014 Bilat Scrn Digital AND CAD Result: Comments: See Note; NOTES: [facility] Imaging Services [address] [place] [address] Breast Imaging Report MR#: [id number] Acct: [id number] Name: ARCHANA BANGURA Rep #: [id number] : 1955 F 59 From: Albaro Pena MD PCP: Krysten Dial MD Status: PRE CLI Study: Bilat Scrn Digital AND CAD Date of Exam: 09/11/14 Exam# [id number] Ordering Dr: Ruthie Thorpe MAMMOGRAPHY - BILATERAL SCREENING REASON FOR EXAM: Female, 59 years old. Routine annual screening examination. PERTINENT HISTORY: Mother with breast cancer. TECHNIQUE: Digital examination. Mediolateral oblique (MLO) and craniocaudad (CC) views of both breasts were obtained. CAD: CAD was performed on this study. COMPARISON: Comparison is made with prior study dated September 01, 2013 and July 15, 2012. FINDINGS: Breast Composition: There are scattered areas of fibroglandular density. There are no dominant masses or suspicious calcifications. No other significant abnormalities are identified. There has been no significant change since the prior study. IMPRESSION: Stable bilateral screening mammogram . Yearly follow-up recommended. (A) ASSESSMENT CATEGORY: BIRADS Category 2: Benign. A letter regarding these results will be sent to the patient by the facility within 30 days. Approximately 10% of breast cancers are not detected by mammography. A normal mammogram should not delay biopsy of a clinically suspicious abnormality. Electronically Signed: Kavin Pena MD at 8:27 EDT Tel [phone], Service support [phone], CC: Ruthie Thorpe MD; Krysten Dial MD Tube Inspector: Signed 19-Apr-2014 Spirometry ([id number]) Result: 08-Sep-2013 Liver Result: Comments: See Note; NOTES: [facility] Imaging Services [address] [place] [address] Ultrasound Report MR#: [id number] Acct: [id number] Name: ARCHANA BANGURA Rep #: [id number] : 1955 F 58 From: Albaro Pena MD PCP: Krysten Dial MD Status: REG CLI Study: Liver Date of Exam: 09/08/13 Exam# [id number] Ordering Dr: Krysten Dial MD STUDY: ABDOMINAL UL TRASOUND - RIGHT UPPER QUADRANT REASON FOR VISIT: Female, 58 years old. Elevated liver function tests. Postprandial discomfort. TECHNIQUE: Ultrasound evaluation of the right upper quadrant was per formed with real-time and static downs-scale imaging. TECHNICAL QUALITY: Adequate. COMPARISON: None. FINDINGS: Liver: The liver is mildly enlarged and measure s 18.2 cm. There is increased echogenicity consistent with fatty infiltration. The bile ducts are within normal limits. There is hepatic color flow. The direction of portal flow is hepatopetal. There is no demonstrated mass lesion. Gallbladder: Normal distended gallbladder. The gallbladder wall measures 2.9 mm. There is a negative sonographic Funk's sign. There is no pericholecystic fluid. Th ere are no gallstones. Common Bile Duct (C.B.D.): The common bile duct measures 5.8 mm. Pancreas: Normal size of the head, body and tail of the pancreas. There is increased echogenicity of the panc reas. There is no demonstrated pancreatic mass or cyst. Right Kidney: Normal size of the right kidney. The right kidney measures 11.2 cm. Normal renal cortex. The right cortex measures 1.3 cm. There is no demonstrated renal mass or cyst. There is no right hydronephrosis. IMPRESSION: Mild hepatomegaly and fatty infiltration of the liver. Electronically Sig mitch: Albaro Pena M.D. at 10:46 EDT , Service support [phone], CC: Krysten Dial MD Tube Inspector: Signed Family History Unknown Family Member Name Dates Details Brother 1 Comments: HTN, [place] at 56 yo. younger. nonsmoker Status: Active Brother 2 Comments: HTN, high cholesterol, younger. muscular dystrophy? Status: Active Father Comments: prostate cancer, Type II diabetes, heart disease early in 50's, HTN, age 76 Status: Active Mother Comments: Breast Cancer 72 yo, depression/anxiety, MVP. 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 Comments: updated 09-18-11 Status: Inactive Vital Signs Date Test Result Details :52 Temperature 97.6 f Comments: Method: Temporal Pulse 78 /min Comments: Pattern: Regular Respiration Rate 20 /min Comments: Pattern: Unlabored O2 SAT 97 % Comments: Room air BP Systolic 144 mm[Hg] Comments: Patient Position: Sitting; Cuff Location: Left Arm; Cuff Size: Large BP Diastolic 94 mm[Hg] Comments: Patient Position: Sitting; Cuff Location: Left Arm; Cuff Size: Large Weight 262 lb Height 62.5 in Body Mass Index Calculated 47.16 kg/m2 Body Surface Area Calculated 2.16 m2 :47 Temperature 97.6 f Comments: Method: Temporal Pulse 74 /min Comments: Pattern: Regular Respiration Rate 20 /min Comments: Pattern: Unlabored O2 SAT 98 % Comments: Room air BP Systolic 146 mm[Hg] Comments: Patient Position: Sitting; Cuff Location: Left Arm; Cuff Size: Large BP Diastolic 96 mm[Hg] Comments: Patient Position: Sitting; Cuff Location: Left Arm; Cuff Size: Large Weight 264 lb Height 62.5 in Body Mass Index Calculated 47.52 kg/m2 Body Surface Area Calculated 2.16 m2 :17 Temperature 97.6 f Comments: Method: Temporal Pulse 78 /min Comments: Pattern: Regular Respiration Rate 24 /min Comments: Pattern: Unlabored O2 SAT 98 % Comments: Room air BP Systolic 134 mm[Hg] Comments: Patient Position: Sitting; Cuff Location: Left Arm; Cuff Size: Large BP Diastolic 90 mm[Hg] Comments: Patient Position: Sitting; Cuff Location: Left Arm; Cuff Size: Large Weight 265 lb Height 62.5 in Body Mass Index Calculated 47.7 kg/m2 Body Surface Area Calculated 2.17 m2 :36 Temperature 97.6 f Comments: Method: Temporal Pulse 80 /min Comments: Pattern: Regular Respiration Rate 22 /min Comments: Pattern: Unlabored O2 SAT 97 % Comments: Room air BP Systolic 126 mm[Hg] Comments: Patient Position: Sitting; Cuff Location: Left Arm; Cuff Size: Large BP Diastolic 90 mm[Hg] Comments: Patient Position: Sitting; Cuff Location: Left Arm; Cuff Size: Large Weight 266 lb Height 63 in Body Mass Index Calculated 47.12 kg/m2 Body Surface Area Calculated 2.18 m2 :41 Temperature 97.6 f Comments: Method: Temporal Pulse 78 /min Comments: Pattern: Regular Respiration Rate 20 /min Comments: Pattern: Unlabored O2 SAT 98 % Comments: Room air BP Systolic 144 mm[Hg] Comments: Patient Position: Sitting; Cuff Location: Left Arm; Cuff Size: Large BP Diastolic 92 mm[Hg] Comments: Patient Position: Sitting; Cuff Location: Left Arm; Cuff Size: Large Weight 264 lb Height 63 in Body Mass Index Calculated 46.77 kg/m2 Body Surface Area Calculated 2.18 m2 :19 Comments: just took BP med, not quite in system yet BP Systolic 138 mm[Hg] Comments: Patient Position: Sitting; Cuff Location: Left Arm; Cuff Size: Standard BP Diastolic 98 mm[Hg] Comments: Patient Position: Sitting; Cuff Location: Left Arm; Cuff Size: Standard :49 BP Systolic 160 mm[Hg] Comments: Patient Position: Sitting BP Diastolic 90 mm[Hg] Comments: Patient Position: Sitting :06 Temperature 97.6 f Comments: Method: Temporal Pulse 94 /min Comments: Pattern: Regular Respiration Rate 20 /min Comments: Pattern: Unlabored O2 SAT 97 % Comments: Room air BP Systolic 164 mm[Hg] Comments: Patient Position: Sitting; Cuff Location: Left Arm; Cuff Size: Large BP Diastolic 100 mm[Hg] Comments: Patient Position: Sitting; Cuff Location: Left Arm; Cuff Size: Large Weight 264 lb Height 63 in Body Mass Index Calculated 46.77 kg/m2 Body Surface Area Calculated 2.18 m2 :36 Temperature 98.2 f Pulse 96 /min Comments: Pattern: Regular Respiration Rate 17 /min Comments: Pattern: Unlabored O2 SAT 97 % Comments: Room air BP Systolic 142 mm[Hg] Comments: Patient Position: Sitting; Cuff Location: Left Arm; Cuff Size: Standard BP Diastolic 88 mm[Hg] Comments: Patient Position: Sitting; Cuff Location: Left Arm; Cuff Size: Standard Weight 263 lb Height 63 in Body Mass Index Calculated 46.59 kg/m2 Body Surface Area Calculated 2.17 m2 :04 Temperature 97.6 f Comments: Method: Temporal Pulse 84 /min Comments: Pattern: Regular Respiration Rate 24 /min Comments: Pattern: Unlabored O2 SAT 97 % Comments: Room air BP Systolic 140 mm[Hg] Comments: Patient Position: Sitting; Cuff Location: Left Arm; Cuff Size: Large BP Diastolic 90 mm[Hg] Comments: Patient Position: Sitting; Cuff Location: Left Arm; Cuff Size: Large Weight 268 lb Height 63 in Body Mass Index Calculated 47.47 kg/m2 Body Surface Area Calculated 2.19 m2 :07 Temperature 97.6 f Comments: Method: Temporal Pulse 70 /min Comments: Pattern: Regular Respiration Rate 18 /min Comments: Pattern: Unlabored O2 SAT 98 % Comments: Room air BP Systolic 120 mm[Hg] Comments: Patient Position: Sitting; Cuff Location: Left Arm; Cuff Size: Large BP Diastolic 90 mm[Hg] Comments: Patient Position: Sitting; Cuff Location: Left Arm; Cuff Size: Large Weight 254 lb Height 63 in Body Mass Index Calculated 44.99 kg/m2 Body Surface Area Calculated 2.14 m2 :24 BP Systolic 146 mm[Hg] Comments: Patient Position: Sitting; Cuff Size: Large BP Diastolic 92 mm[Hg] Comments: Patient Position: Sitting; Cuff Size: Large :09 Temperature 97.6 f Comments: Method: Temporal Pulse 78 /min Comments: Pattern: Regular Respiration Rate 24 /min Comments: Pattern: Unlabored O2 SAT 98 % Comments: Room air BP Systolic 140 mm[Hg] Comments: Patient Position: Sitting; Cuff Location: Left Arm; Cuff Size: Large BP Diastolic 90 mm[Hg] Comments: Patient Position: Sitting; Cuff Location: Left Arm; Cuff Size: Large Weight 256 lb Height 63.25 in Body Mass Index Calculated 44.99 kg/m2 Body Surface Area Calculated 2.15 m2 :04 Temperature 97.6 f Comments: Method: Temporal Pulse 80 /min Comments: Pattern: Regular Respiration Rate 18 /min Comments: Pattern: Unlabored O2 SAT 97 % Comments: Room air BP Systolic 130 mm[Hg] Comments: Patient Position: Sitting; Cuff Location: Left Arm; Cuff Size: Large BP Diastolic 90 mm[Hg] Comments: Patient Position: Sitting; Cuff Location: Left Arm; Cuff Size: Large Weight 259 lb Height 63.25 in Body Mass Index Calculated 45.52 kg/m2 Body Surface Area Calculated 2.16 m2 :03 Temperature 97.6 f Comments: Method: Temporal Pulse 72 /min Comments: Pattern: Regular Respiration Rate 18 /min Comments: Pattern: Unlabored O2 SAT 98 % Comments: Room air BP Systolic 160 mm[Hg] Comments: Patient Position: Sitting; Cuff Location: Left Arm; Cuff Size: Large BP Diastolic 90 mm[Hg] Comments: Patient Position: Sitting; Cuff Location: Left Arm; Cuff Size: Large Weight 255 lb Height 63.25 in Body Mass Index Calculated 44.81 kg/m2 Body Surface Area Calculated 2.15 m2 :38 Temperature 97.9 f Comments: Method: Temporal Pulse 78 /min Comments: Pattern: Regular Respiration Rate 18 /min Comments: Pattern: Unlabored O2 SAT 98 % Comments: Room air BP Systolic 164 mm[Hg] Comments: Patient Position: Sitting; Cuff Location: Left Arm; Cuff Size: Large BP Diastolic 100 mm[Hg] Comments: Patient Position: Sitting; Cuff Location: Left Arm; Cuff Size: Large Weight 250 lb Height 63.25 in Body Mass Index Calculated 43.94 kg/m2 Body Surface Area Calculated 2.13 m2 :56 Temperature 98 f Pulse 81 /min Comments: Pattern: Regular Respiration Rate 18 /min Comments: Pattern: Unlabored O2 SAT 97 % Comments: Room air BP Systolic 118 mm[Hg] Comments: Patient Position: Sitting; Cuff Location: Left Arm; Cuff Size: Standard BP Diastolic 82 mm[Hg] Comments: Patient Position: Sitting; Cuff Location: Left Arm; Cuff Size: Standard Weight 250 lb Height 63.25 in Body Mass Index Calculated 43.94 kg/m2 Body Surface Area Calculated 2.13 m2 :05 Temperature 97.4 f Pulse 92 /min Comments: Pattern: Regular Respiration Rate 17 /min Comments: Pattern: Unlabored O2 SAT 98 % Comments: Room air BP Systolic 140 mm[Hg] Comments: Patient Position: Sitting; Cuff Location: Left Arm; Cuff Size: Standard BP Diastolic 88 mm[Hg] Comments: Patient Position: Sitting; Cuff Location: Left Arm; Cuff Size: Standard Weight 250 lb Height 63.25 in Body Mass Index Calculated 43.94 kg/m2 Body Surface Area Calculated 2.13 m2 :46 Temperature 97.8 f Comments: Method: Temporal Pulse 74 /min Comments: Pattern: Regular Respiration Rate 18 /min Comments: Pattern: Unlabored O2 SAT 98 % Comments: Room air BP Systolic 144 mm[Hg] Comments: Patient Position: Sitting; Cuff Location: Left Arm; Cuff Size: Large BP Diastolic 86 mm[Hg] Comments: Patient Position: Sitting; Cuff Location: Left Arm; Cuff Size: Large Weight 247 lb Height 63.25 in Body Mass Index Calculated 43.41 kg/m2 Body Surface Area Calculated 2.12 m2 :55 Temperature 97.9 f Comments: Method: Temporal Pulse 84 /min Comments: Pattern: Regular Respiration Rate 18 /min Comments: Pattern: Unlabored O2 SAT 97 % Comments: Room air BP Systolic 120 mm[Hg] Comments: Patient Position: Sitting; Cuff Location: Left Arm; Cuff Size: Large BP Diastolic 80 mm[Hg] Comments: Patient Position: Sitting; Cuff Location: Left Arm; Cuff Size: Large Weight 247 lb Height 63.25 in Body Mass Index Calculated 43.41 kg/m2 Body Surface Area Calculated 2.12 m2 :58 Temperature 97.8 f Comments: Method: Temporal Pulse 78 /min Comments: Pattern: Regular Respiration Rate 24 /min Comments: Pattern: Unlabored O2 SAT 98 % Comments: Room air BP Systolic 140 mm[Hg] Comments: Patient Position: Sitting; Cuff Location: Left Arm; Cuff Size: Large BP Diastolic 90 mm[Hg] Comments: Patient Position: Sitting; Cuff Location: Left Arm; Cuff Size: Large Weight 248 lb Height 63.25 in Body Mass Index Calculated 43.58 kg/m2 Body Surface Area Calculated 2.13 m2 :36 Temperature 97.6 f Comments: Method: Temporal Pulse 74 /min Comments: Pattern: Regular Respiration Rate 20 /min Comments: Pattern: Unlabored O2 SAT 98 % Comments: Room air BP Systolic 160 mm[Hg] Comments: Patient Position: Sitting; Cuff Location: Left Arm; Cuff Size: Large BP Diastolic 90 mm[Hg] Comments: Patient Position: Sitting; Cuff Location: Left Arm; Cuff Size: Large Weight 247 lb Height 63.25 in Body Mass Index Calculated 43.41 kg/m2 Body Surface Area Calculated 2.12 m2 :16 Temperature 97.8 f Comments: Method: Temporal Pulse 78 /min Comments: Pattern: Regular Respiration Rate 20 /min Comments: Pattern: Unlabored BP Systolic 120 mm[Hg] Comments: Patient Position: Sitting; Cuff Location: Left Arm; Cuff Size: Large BP Diastolic 80 mm[Hg] Comments: Patient Position: Sitting; Cuff Location: Left Arm; Cuff Size: Large Weight 245 lb Height 63.25 in Body Mass Index Calculated 43.06 kg/m2 Body Surface Area Calculated 2.11 m2 :06 Temperature 97.6 f Comments: Method: Temporal Pulse 72 /min Comments: Pattern: Regular Respiration Rate 20 /min Comments: Pattern: Unlabored O2 SAT 97 % Comments: Room air BP Systolic 132 mm[Hg] Comments: Patient Position: Sitting; Cuff Location: Left Arm; Cuff Size: Large BP Diastolic 80 mm[Hg] Comments: Patient Position: Sitting; Cuff Location: Left Arm; Cuff Size: Large Weight 246 lb Height 63.25 in Body Mass Index Calculated 43.23 kg/m2 Body Surface Area Calculated 2.12 m2 :32 Temperature 97.6 f Comments: Method: Temporal Pulse 70 /min Comments: Pattern: Regular Respiration Rate 20 /min Comments: Pattern: Unlabored BP Systolic 140 mm[Hg] Comments: Patient Position: Sitting; Cuff Location: Left Arm; Cuff Size: Large BP Diastolic 84 mm[Hg] Comments: Patient Position: Sitting; Cuff Location: Left Arm; Cuff Size: Large Weight 248 lb Height 63.25 in Body Mass Index Calculated 43.58 kg/m2 Body Surface Area Calculated 2.13 m2 :15 Temperature 97.6 f Comments: Method: Oral Pulse 76 /min Comments: Pattern: Regular Respiration Rate 20 /min Comments: Pattern: Unlabored BP Systolic 142 mm[Hg] Comments: Patient Position: Sitting; Cuff Location: Left Arm; Cuff Size: Large BP Diastolic 80 mm[Hg] Comments: Patient Position: Sitting; Cuff Location: Left Arm; Cuff Size: Large Weight 242 lb Height 63.25 in Body Mass Index Calculated 42.53 kg/m2 Body Surface Area Calculated 2.1 m2 :07 Comments: stressors with home daughter moving out of state, with prostate cancer Temperature 97.6 f Comments: Method: Oral Pulse 76 /min Comments: Pattern: Regular Respiration Rate 20 /min Comments: Pattern: Unlabored BP Systolic 144 mm[Hg] Comments: Patient Position: Sitting; Cuff Location: Left Arm; Cuff Size: Large BP Diastolic 100 mm[Hg] Comments: Patient Position: Sitting; Cuff Location: Left Arm; Cuff Size: Large Weight 242 lb Height 63.25 in Body Mass Index Calculated 42.53 kg/m2 Body Surface Area Calculated 2.1 m2 :13 Temperature 97.6 f Comments: Method: Oral Pulse 76 /min Comments: Pattern: Regular Respiration Rate 20 /min Comments: Pattern: Unlabored BP Systolic 142 mm[Hg] Comments: Patient Position: Sitting; Cuff Location: Left Arm; Cuff Size: Large BP Diastolic 98 mm[Hg] Comments: Patient Position: Sitting; Cuff Location: Left Arm; Cuff Size: Large Weight 241 lb Height 63.25 in Body Mass Index Calculated 42.35 kg/m2 Body Surface Area Calculated 2.1 m2 :19 Temperature 97.6 f Comments: Method: Oral Pulse 74 /min Comments: Pattern: Regular Respiration Rate 20 /min Comments: Pattern: Unlabored BP Systolic 140 mm[Hg] Comments: Patient Position: Sitting; Cuff Location: Left Arm; Cuff Size: Large BP Diastolic 90 mm[Hg] Comments: Patient Position: Sitting; Cuff Location: Left Arm; Cuff Size: Large Weight 244 lb Height 63.25 in Body Mass Index Calculated 42.88 kg/m2 Body Surface Area Calculated 2.11 m2 :21 Temperature 98.2 f Comments: Method: Oral Pulse 74 /min Comments: Pattern: Regular Respiration Rate 20 /min Comments: Pattern: Unlabored BP Systolic 164 mm[Hg] Comments: Patient Position: Sitting; Cuff Location: Left Arm; Cuff Size: Large BP Diastolic 90 mm[Hg] Comments: Patient Position: Sitting; Cuff Location: Left Arm; Cuff Size: Large Weight 242 lb Height 63.25 in Body Mass Index Calculated 42.53 kg/m2 Body Surface Area Calculated 2.1 m2 :31 Temperature 98.2 f Comments: Method: Temporal Pulse 70 /min Comments: Pattern: Regular Respiration Rate 16 /min Comments: Pattern: Unlabored O2 SAT 97 % Comments: Room air BP Systolic 122 mm[Hg] Comments: Patient Position: Sitting; Cuff Location: Left Arm; Cuff Size: Standard BP Diastolic 70 mm[Hg] Comments: Patient Position: Sitting; Cuff Location: Left Arm; Cuff Size: Standard Weight 234 lb Height 63.25 in Body Mass Index Calculated 41.12 kg/m2 Body Surface Area Calculated 2.07 m2 :38 Comments: patient has been off her b/p med for approx a month says was 140/[address] Guthrie office this am Temperature 97.9 f Comments: Method: Oral Pulse 72 /min Comments: Pattern: Regular Respiration Rate 20 /min Comments: Pattern: Unlabored BP Systolic 164 mm[Hg] Comments: Patient Position: Sitting; Cuff Location: Left Arm; Cuff Size: Standard BP Diastolic 100 mm[Hg] Comments: Patient Position: Sitting; Cuff Location: Left Arm; Cuff Size: Standard Weight 234 lb Height 63.25 in Body Mass Index Calculated 41.12 kg/m2 Body Surface Area Calculated 2.07 m2 :13 Temperature 97.9 f Comments: Method: Oral Pulse 64 /min Comments: Pattern: Regular Respiration Rate 18 /min Comments: Pattern: Unlabored BP Systolic 140 mm[Hg] Comments: Patient Position: Sitting; Cuff Location: Left Arm; Cuff Size: Large BP Diastolic 82 mm[Hg] Comments: Patient Position: Sitting; Cuff Location: Left Arm; Cuff Size: Large Weight 239 lb Height 63.25 in Body Mass Index Calculated 42 kg/m2 Body Surface Area Calculated 2.09 m2 :59 Temperature 98.2 f Comments: Method: Temporal Pulse 78 /min Comments: Pattern: Regular Respiration Rate 16 /min Comments: Pattern: Unlabored O2 SAT 98 % Comments: Room air BP Systolic 132 mm[Hg] Comments: Patient Position: Sitting; Cuff Location: Left Arm; Cuff Size: Standard BP Diastolic 74 mm[Hg] Comments: Patient Position: Sitting; Cuff Location: Left Arm; Cuff Size: Standard Weight 239 lb Height 63.25 in Body Mass Index Calculated 42 kg/m2 Body Surface Area Calculated 2.09 m2 :27 Temperature 97.2 f Comments: Method: Temporal Pulse 80 /min Comments: Pattern: Regular Respiration Rate 18 /min Comments: Pattern: Unlabored O2 SAT 98 % Comments: Room air BP Systolic 152 mm[Hg] Comments: Patient Position: Sitting; Cuff Location: Left Arm; Cuff Size: Standard BP Diastolic 88 mm[Hg] Comments: Patient Position: Sitting; Cuff Location: Left Arm; Cuff Size: Standard Weight 239 lb Height 63.25 in Body Mass Index Calculated 42 kg/m2 Body Surface Area Calculated 2.09 m2 :36 Temperature 97.8 f Comments: Method: Oral Pulse 74 /min Comments: Pattern: Regular Respiration Rate 18 /min Comments: Pattern: Unlabored BP Systolic 122 mm[Hg] Comments: Patient Position: Sitting; Cuff Location: Left Arm; Cuff Size: Large BP Diastolic 80 mm[Hg] Comments: Patient Position: Sitting; Cuff Location: Left Arm; Cuff Size: Large Weight 236 lb Height 63.25 in Body Mass Index Calculated 41.48 kg/m2 Body Surface Area Calculated 2.08 m2 :37 Temperature 98.2 f Comments: Method: Oral Pulse 76 /min Comments: Pattern: Regular Respiration Rate 16 /min Comments: Pattern: Unlabored BP Systolic 124 mm[Hg] Comments: Patient Position: Sitting; Cuff Location: Left Arm; Cuff Size: Standard BP Diastolic 78 mm[Hg] Comments: Patient Position: Sitting; Cuff Location: Left Arm; Cuff Size: Standard Weight 233 lb Height 63.25 in Body Mass Index Calculated 40.95 kg/m2 Body Surface Area Calculated 2.07 m2 :47 Temperature 98.9 f Comments: Method: Oral Pulse 78 /min Comments: Pattern: Regular Respiration Rate 18 /min Comments: Pattern: Unlabored O2 SAT 97 % Comments: Room air BP Systolic 134 mm[Hg] Comments: Patient Position: Sitting; Cuff Location: Left Arm; Cuff Size: Standard BP Diastolic 86 mm[Hg] Comments: Patient Position: Sitting; Cuff Location: Left Arm; Cuff Size: Standard Weight 233 lb Height 63.25 in Body Mass Index Calculated 40.95 kg/m2 Body Surface Area Calculated 2.07 m2 :24 Temperature 98.4 f Comments: Method: Oral Pulse 90 /min Comments: Pattern: Regular Respiration Rate 20 /min O2 SAT 97 % Comments: Room air BP Systolic 144 mm[Hg] Comments: Patient Position: Sitting; Cuff Location: Left Arm; Cuff Size: Standard BP Diastolic 88 mm[Hg] Comments: Patient Position: Sitting; Cuff Location: Left Arm; Cuff Size: Standard Weight 233 lb Height 63.25 in Body Mass Index Calculated 40.95 kg/m2 Body Surface Area Calculated 2.07 m2 :06 Temperature 97.9 f Comments: Method: Oral Pulse 70 /min Comments: Pattern: Regular Respiration Rate 20 /min Comments: Pattern: Unlabored BP Systolic 164 mm[Hg] Comments: Patient Position: Sitting; Cuff Location: Left Arm; Cuff Size: Large BP Diastolic 90 mm[Hg] Comments: Patient Position: Sitting; Cuff Location: Left Arm; Cuff Size: Large Weight 233 lb Height 63.25 in Body Mass Index Calculated 40.95 kg/m2 Body Surface Area Calculated 2.07 m2 :18 Temperature 97.7 f Comments: Method: Oral Pulse 74 /min Comments: Pattern: Regular Respiration Rate 18 /min Comments: Pattern: Unlabored BP Systolic 134 mm[Hg] Comments: Patient Position: Sitting; Cuff Location: Left Arm; Cuff Size: Standard BP Diastolic 86 mm[Hg] Comments: Patient Position: Sitting; Cuff Location: Left Arm; Cuff Size: Standard Weight 228 lb Height 63.25 in Body Mass Index Calculated 40.07 kg/m2 Body Surface Area Calculated 2.05 m2 :44 Temperature 98.3 f Comments: Method: Oral Pulse 80 /min Comments: Pattern: Regular Respiration Rate 20 /min Comments: Pattern: Unlabored BP Systolic 122 mm[Hg] Comments: Patient Position: Sitting; Cuff Location: Left Arm; Cuff Size: Large BP Diastolic 80 mm[Hg] Comments: Patient Position: Sitting; Cuff Location: Left Arm; Cuff Size: Large Weight 233 lb Height 63.25 in Body Mass Index Calculated 40.95 kg/m2 Body Surface Area Calculated 2.07 m2 :16 Temperature 98.3 f Comments: Method: Oral Pulse 70 /min Comments: Pattern: Regular Respiration Rate 18 /min Comments: Pattern: Unlabored BP Systolic 120 mm[Hg] Comments: Patient Position: Sitting; Cuff Location: Left Arm; Cuff Size: Standard BP Diastolic 80 mm[Hg] Comments: Patient Position: Sitting; Cuff Location: Left Arm; Cuff Size: Standard Weight 226 lb Height 63.25 in Body Mass Index Calculated 39.72 kg/m2 Body Surface Area Calculated 2.04 m2 :44 Temperature 98 f Comments: Method: Oral Pulse 84 /min Comments: Pattern: Regular Respiration Rate 16 /min Comments: Pattern: Unlabored O2 SAT 97 % Comments: Room air BP Systolic 130 mm[Hg] Comments: Patient Position: Sitting; Cuff Location: Left Arm; Cuff Size: Large BP Diastolic 82 mm[Hg] Comments: Patient Position: Sitting; Cuff Location: Left Arm; Cuff Size: Large Weight 225 lb Height 63.25 in Body Mass Index Calculated 39.54 kg/m2 Body Surface Area Calculated 2.04 m2 :26 Temperature 96.3 f Comments: Method: Oral Pulse 76 /min Comments: Pattern: Regular Respiration Rate 18 /min Comments: Pattern: Unlabored BP Systolic 132 mm[Hg] Comments: Patient Position: Sitting; Cuff Location: Left Arm; Cuff Size: Large BP Diastolic 80 mm[Hg] Comments: Patient Position: Sitting; Cuff Location: Left Arm; Cuff Size: Large :51 Pulse 74 /min Comments: Pattern: Regular Respiration Rate 16 /min Comments: Pattern: Unlabored BP Systolic 132 mm[Hg] Comments: Patient Position: Sitting; Cuff Location: Left Arm; Cuff Size: Standard BP Diastolic 82 mm[Hg] Comments: Patient Position: Sitting; Cuff Location: Left Arm; Cuff Size: Standard Weight 226 lb Height 62.75 in Body Mass Index Calculated 40.35 kg/m2 Body Surface Area Calculated 2.03 m2 :27 Temperature 98.1 f Comments: Method: Oral Pulse 84 /min Comments: Pattern: Regular Respiration Rate 20 /min Comments: Pattern: Unlabored O2 SAT 97 % Comments: Room air BP Systolic 122 mm[Hg] Comments: Patient Position: Sitting; Cuff Location: Left Arm; Cuff Size: Large BP Diastolic 80 mm[Hg] Comments: Patient Position: Sitting; Cuff Location: Left Arm; Cuff Size: Large Weight 226 lb Height 62.75 in Body Mass Index Calculated 40.35 kg/m2 Body Surface Area Calculated 2.03 m2 :24 Temperature 97.6 f Comments: Method: Oral Pulse 68 /min Comments: Pattern: Regular Respiration Rate 18 /min Comments: Pattern: Unlabored BP Systolic 134 mm[Hg] Comments: Patient Position: Sitting; Cuff Location: Left Arm; Cuff Size: Large BP Diastolic 86 mm[Hg] Comments: Patient Position: Sitting; Cuff Location: Left Arm; Cuff Size: Large Weight 226 lb Height 62.75 in Body Mass Index Calculated 40.35 kg/m2 Body Surface Area Calculated 2.03 m2 :57 Pulse 78 /min Comments: Pattern: Regular Respiration Rate 18 /min Comments: Pattern: Unlabored BP Systolic 134 mm[Hg] Comments: Patient Position: Sitting; Cuff Location: Left Arm; Cuff Size: Standard BP Diastolic 82 mm[Hg] Comments: Patient Position: Sitting; Cuff Location: Left Arm; Cuff Size: Standard :35 Temperature 97.9 f Comments: Method: Oral Pulse 82 /min Comments: Pattern: Regular Respiration Rate 18 /min Comments: Pattern: Unlabored BP Systolic 160 mm[Hg] Comments: Patient Position: Sitting; Cuff Location: Left Arm; Cuff Size: Large BP Diastolic 100 mm[Hg] Comments: Patient Position: Sitting; Cuff Location: Left Arm; Cuff Size: Large Weight 226 lb Height 62.75 in Body Mass Index Calculated 40.35 kg/m2 Body Surface Area Calculated 2.03 m2 :31 Temperature 98.2 f Comments: Method: Oral Pulse 64 /min Comments: Pattern: Regular Respiration Rate 20 /min Comments: Pattern: Unlabored BP Systolic 144 mm[Hg] Comments: Patient Position: Sitting; Cuff Location: Left Arm; Cuff Size: Large BP Diastolic 90 mm[Hg] Comments: Patient Position: Sitting; Cuff Location: Left Arm; Cuff Size: Large Weight 226 lb Height 62.75 in Body Mass Index Calculated 40.35 kg/m2 Body Surface Area Calculated 2.03 m2 Results Date Description Value Details :31 METABOLIC PANEL, COMPREHENSIVE Comments: PATIENT WAS FASTINGPERFORMED BY: ARIADNE [facility] Zykasv3642 [facility] [id number] ([id number]) ALT (SGPT) 52 [iU]/L (Abnormal) Range: 0-32 AST (SGOT) 51 [iU]/L (Abnormal) Range: 0-40 Alkaline Phosphatase, S 68 [iU]/L (Normal) Range: 39-117 Bilirubin, Total 0.5 mg/dL (Normal) Range: 0.0-1.2 A/G Ratio 1.3 (Normal) Range: 1.2-2.2 Globulin, Total 3.2 g/dL (Normal) Range: 1.5-4.5 Albumin, Serum 4.2 g/dL (Normal) Range: 3.6-4.8 Protein, Total, Serum 7.4 g/dL (Normal) Range: 6.0-8.5 Calcium, Serum 9.6 mg/dL (Normal) Range: 8.7-10.3 Carbon Dioxide, Total 22 mmol/L (Normal) Range: 18-29 Chloride, Serum 100 mmol/L (Normal) Range: 96-106 Potassium, Serum 4.8 mmol/L (Normal) Range: 3.5-5.2 Sodium, Serum 139 mmol/L (Normal) Range: 134-144 BUN/Creatinine Ratio 20 (Normal) Range: 12-28 eGFR If Africn Am 100 mL/min/1.73 (Normal) eGFR If NonAfricn Am 86 mL/min/1.73 (Normal) Creatinine, Serum 0.74 mg/dL (Normal) Range: 0.57-1.00 BUN 15 mg/dL (Normal) Range: 8-27 Glucose, Serum 97 mg/dL (Normal) Range: 65-99 -Jul-20177:31 LIPID PANEL (63171) Comments: PATIENT WAS FASTINGPERFORMED BY: [facility] [id number] [facility] [id number] LDL/HDL Ratio 2.5 {ratio_units} (Normal) Range: 0.0-3.2 Comments: LDL/HDL Ratio Men Women 1/2 Avg.Risk 1.0 1.5 Av g.Risk 3.6 3.2 2X Avg.Risk 6.2 5.0 3X Avg.Risk 8.0 6.1 LDL Cholesterol Calc 150 mg/dL (Abnormal) Range: 0-99 VLDL Cholesterol Christopher 23 mg/dL (Normal) Range: 5-40 HDL Cholesterol 59 mg/dL (Normal) Triglycerides 115 mg/dL (Normal) Range: 0-149 Cholesterol, Total 232 mg/dL (Abnormal) Range: 100-199 :30 HEPATITIS C ANTIBODY Comments: PATIENT WAS FASTINGPERFORMED BY: DOMAIN TherapeuticsP[facility] CenterZfltvk5853 [facility] [id number] Information: NURSE DRAW (43937) Hep C Virus Ab <0.1 {s/co_ratio} (Normal) Range: 0.0-0.9 Comments: Negative: < 0.8 Indeterminate: 0.8 - 0.9 Positive: > 0.9 . The CDC recommends that a positive HCV antibody result be followed up with a HCV Nucleic Acid Amplification test (565616). :44 HgA1C , Office (29547) HgA1C , Office 5.7 % (Normal) Range: 4.6 - 7.1 :32 Vitamin B-12 (cyanocobalamin) Comments: PATIENT WAS FASTINGPERFORMED BY: [employer] [id number] BY: DOM[facility]rapeuticsP[facility] CenterDakfsl7414 [facility] [id number] (27870) Vitamin B12 867 pg/mL (Normal) Range: 211-946 :32 CALCIFIDIOL (52132) VIT D Comments: PATIENT WAS FASTINGPERFORMED BY: [employer] [id number] BY: DOMAIN TherapeuticsLauren Ville 9555670 [facility] [id number] 25 Vitamin D, 25-Hydroxy 49.1 ng/mL (Normal) Range: 30.0-100.0 Comments: Vitamin D deficiency has been defined by the [place] of[place] and an Endocrine Society practice guideline as alevel of serum 25-OH vitamin D less than 20 ng/mL (1,2).The Endocrine Society went on to further define vitamin Dinsufficiency as a level between 21 and 29 ng/mL (2).1. IOM ([place] of [employer]). 2010. Dietary reference intakes for calcium and D. [place]: The National Academies Press.2. Joe MF, Bailee NC, Woody PALM, et al. Evaluation, treatment, and prevention of vitamin D deficiency: an Endocrine Society clinical practice guideline. JCEM. 2010; 96(7):1911-30. :32 MICROALBUMIN: CREATININE Comments: PATIENT WAS FASTINGPERFORMED BY: [employer] [place] [address] [id number] BY: [employer] Qitjpj3697 [facility] [id number] RATIO (27483) AND (55099) Microalb/Creat Ratio 11.2 {mg/g_creat} (Normal) Range: 0.0-30.0 Microalbumin, Urine 18.2 ug/mL (Normal) Creatinine, Urine 162.1 mg/dL (Normal) :32 CBC, Platelets & Auto Comments: PATIENT WAS FASTINGPERFORMED BY: [employer] [place] [address] [id number] BY: [employer]6370 [facility] CareWoven SystemsFormerly [facility] [id number] Diff (68296) Immature Grans (Abs) 0.0 {x10E3/uL} (Normal) Range: 0.0-0.1 Immature Granulocytes 0 % (Normal) Baso (Absolute) 0.0 {x10E3/uL} (Normal) Range: 0.0-0.2 Eos (Absolute) 0.2 {x10E3/uL} (Normal) Range: 0.0-0.4 Monocytes(Absolute) 0.7 {x10E3/uL} (Normal) Range: 0.1-0.9 Lymphs (Absolute) 2.0 {x10E3/uL} (Normal) Range: 0.7-3.1 Neutrophils (Absolute) 3.0 {x10E3/uL} (Normal) Range: 1.4-7.0 Basos 1 % (Normal) Eos 3 % (Normal) Monocytes 12 % (Normal) Lymphs 34 % (Normal) Neutrophils 50 % (Normal) Platelets 258 {x10E3/uL} (Normal) Range: 150-379 RDW 14.6 % (Normal) Range: 12.3-15.4 MCHC 33.6 g/dL (Normal) Range: 31.5-35.7 MCH 31.0 pg (Normal) Range: 26.6-33.0 MCV 92 fL (Normal) Range: 79-97 Hematocrit 41.7 % (Normal) Range: 34.0-46.6 Hemoglobin 14.0 g/dL (Normal) Range: 11.1-15.9 RBC 4.52 {x10E6/uL} (Normal) Range: 3.77-5.28 WBC 5.9 {x10E3/uL} (Normal) Range: 3.4-10.8 :32 Metabolic Panel, Comments: PATIENT WAS FASTINGPERFORMED BY: BN [facility] [address] [id number] BY: CB [facility] [id number] [facility] [id number] Comprehensive (91439) ALT (SGPT) 46 [iU]/L (Abnormal) Range: 0-32 AST (SGOT) 36 [iU]/L (Normal) Range: 0-40 Alkaline Phosphatase, S 67 [iU]/L (Normal) Range: 39-117 Bilirubin, Total 0.2 mg/dL (Normal) Range: 0.0-1.2 A/G Ratio 1.3 (Normal) Range: 1.2-2.2 Globulin, Total 3.1 g/dL (Normal) Range: 1.5-4.5 Albumin, Serum 3.9 g/dL (Normal) Range: 3.6-4.8 Protein, Total, Serum 7.0 g/dL (Normal) Range: 6.0-8.5 Calcium, Serum 9.2 mg/dL (Normal) Range: 8.7-10.3 Carbon Dioxide, Total 21 mmol/L (Normal) Range: 18-29 Chloride, Serum 104 mmol/L (Normal) Range: 96-106 Potassium, Serum 4.9 mmol/L (Normal) Range: 3.5-5.2 Sodium, Serum 140 mmol/L (Normal) Range: 134-144 BUN/Creatinine Ratio 18 (Normal) Range: 12-28 eGFR If Africn Am 93 mL/min/1.73 (Normal) eGFR If NonAfricn Am 80 mL/min/1.73 (Normal) Creatinine, Serum 0.79 mg/dL (Normal) Range: 0.57-1.00 BUN 14 mg/dL (Normal) Range: 8-27 Glucose, Serum 109 mg/dL (Abnormal) Range: 65-99 08-Bgo-13377:32 LIPOPROTEIN, BLD, BY NMR Comments: PATIENT WAS FASTINGPERFORMED BY: BN [facility] [id number] [facility] [id number] BY: CB [facility] Gstbjt0762 [facility] [id number] Information: NURSE DRAW (91916) LP-IR Score 42 (Normal) Comments: INSULIN RESISTANCE MARKER <--Insulin Sensitive Insulin Resistant--> Percentile in Reference PopulationInsulin Resistance ScoreLP-IR Score Low 25th 50th 75th High <27 27 45 63 >63LP-IR Score is inaccurate if patient is non-fasting. .The LP-IR score is a laboratory developed i [facility] that has beenassociated with insulin resistance and diabetes risk and should beused as one component of a physician's clinical assessment. TheLP-IR score listed above has not been cleared by the [place] Food andDrug Administration. LDL Size 21.4 nm (Normal) Comments: INTERPRETATIVE INFORMATION PARTICLE CONCENTRATION AND SIZE <--Lower CVD Risk Highe r CVD Risk--> LDL AND HDL PARTICLES Percentile in Reference Population HDL-P (total) High 75th 50th 25th Low >34.9 34.9 30.5 26.7 <26.7 . Small LDL-P Low 25th 50th 75th High <117 117 527 839 >839 . LDL Size <-Large (Pattern A)-> <-Small (Pattern B)-> 23.0 20.6 20.5 19.0 Small LDL-P and LDL Size are associated with CVD risk, but not afterLDL-P is taken into account. .These assays were developed and their performance characteristicsdetermined by [employer]. These assays have not been cleared by [place] Food and Drug Administration. The clinical utility of theselaboratory values have not been fully established. Small LDL-P 450 nmol/L (Normal) HDL-P (Total) 34.5 umol/L (Normal) Cholesterol, Total 184 mg/dL (Normal) Range: 100-199 Triglycerides 86 mg/dL (Normal) Range: 0-149 HDL-C 55 mg/dL (Normal) LDL-C 112 mg/dL (Abnormal) Range: 0-99 Comments: . Optimal < 100 Above optimal 100 - 129 Borderline 1 30 - 159 High 160 - 189 Very high > 189 .LDL-C is inaccurate if patient is non-fasting. LDL-P 1340 nmol/L (Abnormal) Comments: Low < 1000 Moderate 1000 - 1299 Borderline-High 1300 - 1599 High 1600 - 2000 Very High > 2000 :32 T3, FREE (TRIDOTHYRONINE) Comments: PATIENT WAS FASTINGPERFORMED BY: [employer] [id number] BY: [employer]70 [facility] [id number] (85320) Triiodothyronine,Free,Serum 4.2 pg/mL (Normal) Range: 2.0-4.4 :32 T4, FREE (THYROXINE) Comments: PATIENT WAS FASTINGPERFORMED BY: [employer] [id number] BY: [employer]70 [facility] [id number] (64076) T4,Free(Direct) 1.02 ng/dL (Normal) Range: 0.82-1.77 :32 TSH (39556) Comments: PATIENT WAS FASTINGPERFORMED BY: [employer] [id number] BY: [employer]70 [facility] [id number] TSH 2.070 {uIU/mL} (Normal) Range: 0.450-4.500 :49 URINE ANNETTE CULTURE-IDENTIFICATN Comments: PATIENT NOT FASTINGPERFORMED BY: [place]its[place] 9629070 [facility] [id number] Information: [id number] SRC:UC (13646) Result 1 MUG (Normal) Comments: Mixed urogenital flora10,000-25,000 colony forming units per mL Urine Final report (Normal) Culture,Comprehensive :47 Urinalysis, Office (40101) UA - LEUKOCYTE ESTERASE Small (Normal) UA - NITRITE Negative (Normal) URINE UROBILINGN TEMO TIMED 2 mg/dL (Normal) UA - PROTEIN Negative mg/dL (Normal) UA - PH 6.0 (Normal) UA - BLOOD Negative (Normal) UA - SPECIFIC GRAVITY 1.025 (Normal) UA - KETONES Negative mg/dL (Normal) UA - BILIRUBIN Negative (Normal) UA - GLUCOSE Negative (Normal) :47 HgA1C , Office (48475) HgA1C , Office 5.7 % (Normal) Range: 4.6 - 7.1 :11 HgA1C , Office (63654) HgA1C , Office 5.7 % (Normal) Range: 4.6 - 7.1 :43 TSH (63294) Comments: PATIENT WAS FASTINGPERFORMED BY: [employer] [id number] BY: [facility]Mar[facility]6370 [facility] [id number] TSH 2.950 {uIU/mL} (Normal) Range: 0.450-4.500 :43 LIPOPROTEIN, BLD, BY NMR Comments: PATIENT WAS FASTINGPERFORMED BY: [employer] [id number] BY: [facility]itsMar[facility] Hospital6370 [facility] [id number] (40941) LP-IR Score 39 (Normal) Comments: INSULIN RESISTANCE MARKER <--Insulin Sensitive Insulin Resistant--> Percentile in Reference PopulationInsulin Resistance ScoreLP-IR Score Low 25th 50th 75th High <27 27 45 63 >63LP-IR Score is inaccurate if patient is non-fasting. .The LP-IR score is a laboratory developed i [facility] that has beenassociated with insulin resistance and diabetes risk and should beused as one component of a physician's clinical assessment. TheLP-IR score listed above has not been cleared by the [place] Food andDrug Administration. LDL Size 21.5 nm (Normal) Comments: INTERPRETATIVE INFORMATION PARTICLE CONCENTRATION AND SIZE <--Lower CVD Risk Highe r CVD Risk--> LDL AND HDL PARTICLES Percentile in Reference Population HDL-P (total) High 75th 50th 25th Low >34.9 34.9 30.5 26.7 <26.7 . Small LDL-P Low 25th 50th 75th High <117 117 527 839 >839 . LDL Size <-Large (Pattern A)-> <-Small (Pattern B)-> 23.0 20.6 20.5 19.0 Small LDL-P and LDL Size are associated with CVD risk, but not afterLDL-P is taken into account. .These assays were developed and their performance characteristicsdetermined by [employer]. These assays have not been cleared by [place] Food and Drug Administration. The clinical utility of theselaboratory values have not been fully established. Small LDL-P 470 nmol/L (Normal) HDL-P (Total) 33.1 umol/L (Normal) Cholesterol, Total 220 mg/dL (Abnormal) Range: 100-199 Triglycerides 107 mg/dL (Normal) Range: 0-149 HDL-C 53 mg/dL (Normal) LDL-C 146 mg/dL (Abnormal) Range: 0-99 Comments: . Optimal < 100 Above optimal 100 - 129 Borderline 1 30 - 159 High 160 - 189 Very high > 189 .LDL-C is inaccurate if patient is non-fasting. LDL-P 1293 nmol/L (Abnormal) Comments: Low < 1000 Moderate 1000 - 1299 Borderline-High 1300 - 1599 High 1600 - 2000 Very High > 2000 75-Wxb-16861:43 CBC, Platelets & Auto Comments: PATIENT WAS FASTINGPERFORMED BY: BN [facility] Rzcmrwmrog4979 [facility] [id number] BY: CB [facility] Psjozv7203 [facility] [id number] Diff (79580) Immature Grans (Abs) 0.0 {x10E3/uL} (Normal) Range: 0.0-0.1 Immature Granulocytes 0 % (Normal) Baso (Absolute) 0.0 {x10E3/uL} (Normal) Range: 0.0-0.2 Eos (Absolute) 0.1 {x10E3/uL} (Normal) Range: 0.0-0.4 Monocytes(Absolute) 0.7 {x10E3/uL} (Normal) Range: 0.1-0.9 Lymphs (Absolute) 2.1 {x10E3/uL} (Normal) Range: 0.7-3.1 Neutrophils (Absolute) 3.0 {x10E3/uL} (Normal) Range: 1.4-7.0 Basos 1 % (Normal) Eos 2 % (Normal) Monocytes 11 % (Normal) Lymphs 36 % (Normal) Neutrophils 50 % (Normal) Platelets 266 {x10E3/uL} (Normal) Range: 150-379 RDW 14.3 % (Normal) Range: 12.3-15.4 MCHC 33.1 g/dL (Normal) Range: 31.5-35.7 MCH 30.6 pg (Normal) Range: 26.6-33.0 MCV 92 fL (Normal) Range: 79-97 Hematocrit 43.8 % (Normal) Range: 34.0-46.6 Hemoglobin 14.5 g/dL (Normal) Range: 11.1-15.9 RBC 4.74 {x10E6/uL} (Normal) Range: 3.77-5.28 WBC 5.9 {x10E3/uL} (Normal) Range: 3.4-10.8 :43 Metabolic Panel, Comments: PATIENT WAS FASTINGPERFORMED BY: BN [facility] Vhjvverxmx9200 [facility] [id number] BY: CB [facility] Gsnlek5797 [address] [place] [id number]; fu 3- Comprehensive (80548) ALT (SGPT) 49 [iU]/L (Abnormal) Range: 0-32 AST (SGOT) 40 [iU]/L (Normal) Range: 0-40 Alkaline Phosphatase, S 70 [iU]/L (Normal) Range: 39-117 Bilirubin, Total 0.3 mg/dL (Normal) Range: 0.0-1.2 A/G Ratio 1.5 (Normal) Range: 1.2-2.2 Comments: Please note reference interval change Globulin, Total 2.8 g/dL (Normal) Range: 1.5-4.5 Albumin, Serum 4.1 g/dL (Normal) Range: 3.6-4.8 Protein, Total, Serum 6.9 g/dL (Normal) Range: 6.0-8.5 Calcium, Serum 9.5 mg/dL (Normal) Range: 8.7-10.3 Carbon Dioxide, Total 21 mmol/L (Normal) Range: 18-29 Chloride, Serum 102 mmol/L (Normal) Range: 96-106 Potassium, Serum 4.6 mmol/L (Normal) Range: 3.5-5.2 Sodium, Serum 142 mmol/L (Normal) Range: 134-144 BUN/Creatinine Ratio 21 (Normal) Range: 11-26 eGFR If Africn Am 97 mL/min/1.73 (Normal) eGFR If NonAfricn Am 84 mL/min/1.73 (Normal) Creatinine, Serum 0.76 mg/dL (Normal) Range: 0.57-1.00 BUN 16 mg/dL (Normal) Range: 8-27 Glucose, Serum 116 mg/dL (Abnormal) Range: 65-99 :13 HgA1C , Office (39181) HgA1C , Office 5.8 % (Normal) Range: 4.6 - 7.1 :07 POTASSIUM SERUM (14051) Comments: one month; PATIENT WAS FASTINGPERFORMED BY: [employer] [id number] BY: [place] 8501370 [facility] [id number] Potassium, Serum 4.5 mmol/L (Normal) Range: 3.5-5.2 :07 HEPATIC FUNCTION PANEL Comments: in one month and three months (approximately); PATIENT WAS FASTINGPERFORMED BY: [employer] [id number] BY: [facility]6370 [facility] [id number] (49927) ALT (SGPT) 77 [iU]/L (Abnormal) Range: 0-32 AST (SGOT) 62 [iU]/L (Abnormal) Range: 0-40 Alkaline Phosphatase, S 69 [iU]/L (Normal) Range: 39-117 Bilirubin, Direct 0.11 mg/dL (Normal) Range: 0.00-0.40 Bilirubin, Total 0.4 mg/dL (Normal) Range: 0.0-1.2 Albumin, Serum 4.1 g/dL (Normal) Range: 3.6-4.8 Protein, Total, Serum 7.2 g/dL (Normal) Range: 6.0-8.5 :07 LIPOPROTEIN, BLD, BY NMR Comments: in three months (approximately); PATIENT WAS FASTINGPERFORMED BY: [employer] [id number] BY: [place] 8501370 [facility] [id number] (96138) LP-IR Score 77 (Abnormal) Comments: INSULIN RESISTANCE MARKER <--Insulin Sensitive Insulin Resistant--> Percentile in Reference PopulationInsulin Resistance ScoreLP-IR Score Low 25th 50th 75th High <27 27 45 63 >63LP-IR Score is inaccurate if patient is non-fasting. .The LP-IR score is a laboratory developed i [facility] that has beenassociated with insulin resistance and diabetes risk and should beused as one component of a physician's clinical assessment. TheLP-IR score listed above has not been cleared by the [place] Food andDrug Administration. LDL Size 21.0 nm (Normal) Comments: INTERPRETATIVE INFORMATION PARTICLE CONCENTRATION AND SIZE <--Lower CVD Risk Highe r CVD Risk--> LDL AND HDL PARTICLES Percentile in Reference Population HDL-P (total) High 75th 50th 25th Low >34.9 34.9 30.5 26.7 <26.7 . Small LDL-P Low 25th 50th 75th High <117 117 527 839 >839 . LDL Size <-Large (Pattern A)-> <-Small (Pattern B)-> 23.0 20.6 20.5 19.0 Small LDL-P and LDL Size are associated with CVD risk, but not afterLDL-P is taken into account. .These assays were developed and their performance characteristicsdetermined by [employer]. These assays have not been cleared by [place] Food and Drug Administration. The clinical utility of theselaboratory values have not been fully established. Small LDL-P 870 nmol/L (Abnormal) HDL-P (Total) 33.4 umol/L (Normal) Cholesterol, Total 228 mg/dL (Abnormal) Range: 100-199 Triglycerides 99 mg/dL (Normal) Range: 0-149 HDL-C 51 mg/dL (Normal) LDL-C 157 mg/dL (Abnormal) Range: 0-99 Comments: . Optimal < 100 Above optimal 100 - 129 Borderline 1 30 - 159 High 160 - 189 Very high > 189 .LDL-C is inaccurate if patient is non-fasting. LDL-P 1992 nmol/L (Abnormal) Comments: Low < 1000 Moderate 1000 - 1299 Borderline-High 1300 - 1599 High 1600 - 2000 Very High > 1999:10 HgA1C , Office (99774) HgA1C , Office 5.8 % (Normal) Range: 4.6 - 7.1 :47 CBC WITH MANUAL DIFF Comments: PATIENT NOT FASTINGPERFORMED BY: [facility] TherapeuticsCarlsbad Medical CenterEyshfa4637 [facility] [id number] Information: [id number] (99693) Immature Grans (Abs) 0.0 {x10E3/uL} (Normal) Range: 0.0-0.1 Immature Granulocytes 0 % (Normal) Baso (Absolute) 0.0 {x10E3/uL} (Normal) Range: 0.0-0.2 Eos (Absolute) 0.1 {x10E3/uL} (Normal) Range: 0.0-0.4 Monocytes(Absolute) 0.6 {x10E3/uL} (Normal) Range: 0.1-0.9 Lymphs (Absolute) 1.8 {x10E3/uL} (Normal) Range: 0.7-3.1 Neutrophils (Absolute) 3.2 {x10E3/uL} (Normal) Range: 1.4-7.0 Basos 1 % (Normal) Eos 2 % (Normal) Monocytes 10 % (Normal) Lymphs 32 % (Normal) Neutrophils 55 % (Normal) Platelets 283 {x10E3/uL} (Normal) Range: 150-379 RDW 14.6 % (Normal) Range: 12.3-15.4 MCHC 34.4 g/dL (Normal) Range: 31.5-35.7 MCH 30.8 pg (Normal) Range: 26.6-33.0 MCV 90 fL (Normal) Range: 79-97 Hematocrit 40.4 % (Normal) Range: 34.0-46.6 Hemoglobin 13.9 g/dL (Normal) Range: 11.1-15.9 RBC 4.51 {x10E6/uL} (Normal) Range: 3.77-5.28 WBC 5.8 {x10E3/uL} (Normal) Range: 3.4-10.8 :47 TSH (82415) Comments: PATIENT NOT FASTINGPERFORMED BY: [facility]6370 [facility] [id number]; apt. 2-19 TSH 2.390 {uIU/mL} (Normal) Range: 0.450-4.500 :48 HSLUI-DGMGVGADNNE-BROEQ (87790) Comments: PATIENT WAS FASTINGPERFORMED BY: [facility] TherapeuticsPenn Medicine Princeton Medical CenterGebuds7436 [facility] [id number] AFP, Serum, Tumor Marker 1.7 ng/mL (Normal) Range: 0.0-8.3 Comments: Altagracia ECLIA methodology :48 HEPATITIS PANEL (90521) Comments: PATIENT WAS FASTINGPERFORMED BY: [employer] [id number] Hep C Virus Ab <0.1 {s/co_ratio} (Normal) Range: 0.0-0.9 Comments: Negative: < 0.8 Indeterminate: 0.8 - 0.9 Positive: > 0.9 . The CDC recommends that a positive HCV antibody result be followed up with a HCV Nucleic Acid Amplification test (897678). Hep B Core Ab, IgM Negative (Normal) HBsAg Screen Negative (Normal) Hep A Ab, IgM Negative (Normal) :48 LIPID PANEL (17912) Comments: PATIENT WAS FASTINGPERFORMED BY: [employer] [id number]; apt. 2-19 LDL/HDL Ratio 2.0 {ratio_units} (Normal) Range: 0.0-3.2 Comments: LDL/HDL Ratio Men Women 1/2 Avg.Risk 1.0 1.5 Av g.Risk 3.6 3.2 2X Avg.Risk 6.2 5.0 3X Avg.Risk 8.0 6.1 LDL Cholesterol Calc 121 mg/dL (Abnormal) Range: 0-99 VLDL Cholesterol Christopher 19 mg/dL (Normal) Range: 5-40 HDL Cholesterol 61 mg/dL (Normal) Comments: According to ATP-III Guidelines, HDL-C >59 mg/dL is considered anegative risk factor for CHD. Triglycerides 96 mg/dL (Normal) Range: 0-149 Cholesterol, Total 201 mg/dL (Abnormal) Range: 100-199 :48 METABOLIC PANEL, Comments: PATIENT WAS FASTINGPERFORMED BY: [facility] TherapeuticsP[facility] Medicine [facility] Medical CenterDnngyf9782 [facility] [id number] Information: [id number],2ND ORDER COMPREHENSIVE (97991) ALT (SGPT) 36 [iU]/L (Abnormal) Range: 0-32 AST (SGOT) 34 [iU]/L (Normal) Range: 0-40 Alkaline Phosphatase, S 63 [iU]/L (Normal) Range: 39-117 Bilirubin, Total 0.5 mg/dL (Normal) Range: 0.0-1.2 A/G Ratio 1.5 (Normal) Range: 1.1-2.5 Globulin, Total 2.8 g/dL (Normal) Range: 1.5-4.5 Albumin, Serum 4.2 g/dL (Normal) Range: 3.6-4.8 Protein, Total, Serum 7.0 g/dL (Normal) Range: 6.0-8.5 Calcium, Serum 9.5 mg/dL (Normal) Range: 8.7-10.3 Carbon Dioxide, Total 22 mmol/L (Normal) Range: 18-29 Chloride, Serum 100 mmol/L (Normal) Range: 97-108 Potassium, Serum 4.6 mmol/L (Normal) Range: 3.5-5.2 Sodium, Serum 138 mmol/L (Normal) Range: 134-144 BUN/Creatinine Ratio 20 (Normal) Range: 11-26 eGFR If Africn Am 106 mL/min/1.73 (Normal) eGFR If NonAfricn Am 92 mL/min/1.73 (Normal) Creatinine, Serum 0.71 mg/dL (Normal) Range: 0.57-1.00 BUN 14 mg/dL (Normal) Range: 8-27 Glucose, Serum 96 mg/dL (Normal) Range: 65-99 28-Jun-20159:29 CBC, Platelets & Auto Diff Comments: PATIENT NOT FASTINGPERFORMED BY: [facility]6370 [facility] [id number] Information: [id number] (81799) Immature Grans (Abs) 0.0 {x10E3/uL} (Normal) Range: 0.0-0.1 Immature Granulocytes 0 % (Normal) Baso (Absolute) 0.0 {x10E3/uL} (Normal) Range: 0.0-0.2 Eos (Absolute) 0.1 {x10E3/uL} (Normal) Range: 0.0-0.4 Monocytes(Absolute) 1.0 {x10E3/uL} (Abnormal) Range: 0.1-0.9 Lymphs (Absolute) 1.3 {x10E3/uL} (Normal) Range: 0.7-3.1 Neutrophils (Absolute) 4.3 {x10E3/uL} (Normal) Range: 1.4-7.0 Basos 0 % (Normal) Eos 1 % (Normal) Monocytes 16 % (Normal) Lymphs 19 % (Normal) Neutrophils 64 % (Normal) Platelets 241 {x10E3/uL} (Normal) Range: 150-379 RDW 14.5 % (Normal) Range: 12.3-15.4 MCHC 33.4 g/dL (Normal) Range: 31.5-35.7 MCH 30.3 pg (Normal) Range: 26.6-33.0 MCV 91 fL (Normal) Range: 79-97 Hematocrit 42.5 % (Normal) Range: 34.0-46.6 Hemoglobin 14.2 g/dL (Normal) Range: 11.1-15.9 RBC 4.69 {x10E6/uL} (Normal) Range: 3.77-5.28 WBC 6.7 {x10E3/uL} (Normal) Range: 3.4-10.8 :29 Renal function Panel (61750) Comments: PATIENT NOT FASTINGPERFORMED BY: LabCoP[facility] Medicine [facility] Medical CenterFbeamw3166 [facility] [id number] Albumin, Serum 3.8 g/dL (Normal) Range: 3.6-4.8 Phosphorus, Serum 3.2 mg/dL (Normal) Range: 2.5-4.5 Calcium, Serum 8.4 mg/dL (Abnormal) Range: 8.7-10.3 Carbon Dioxide, Total 24 mmol/L (Normal) Range: 18-29 Chloride, Serum 104 mmol/L (Normal) Range: 97-108 Potassium, Serum 4.3 mmol/L (Normal) Range: 3.5-5.2 Sodium, Serum 142 mmol/L (Normal) Range: 134-144 BUN/Creatinine Ratio 20 (Normal) Range: 11-26 eGFR If Africn Am 110 mL/min/1.73 (Normal) eGFR If NonAfricn Am 96 mL/min/1.73 (Normal) Creatinine, Serum 0.66 mg/dL (Normal) Range: 0.57-1.00 BUN 13 mg/dL (Normal) Range: 8-27 Glucose, Serum 88 mg/dL (Normal) Range: 65-99 :58 Rapid Flu (52034 x 2) Influenza A Ag Negative a/b (Normal) 07-Iyx-498104:09 URINE ANNETTE CULTURE-TEMO COL Comments: PATIENT NOT FASTINGPERFORMED BY: BatonP[facility] Medicine [facility] Medical CenterOizqah6220 [facility] [id number] Information: SRC:UR [id number] COUNT (11956) Result 1 NG36 (Normal) Comments: No growth in 36 - 48 hours. Urine Culture,Comprehensive Final report (Normal) :05 Urinalysis, Office (73055) UA - LEUKOCYTE ESTERASE Trace (Normal) UA - NITRITE Negative (Normal) URINE UROBILINGN TEMO TIMED Normal mg/dL (Normal) UA - PROTEIN Negative mg/dL (Normal) UA - PH 5 (Abnormal) UA - BLOOD Negative (Normal) UA - SPECIFIC GRAVITY 1.030 (Abnormal) UA - KETONES Negative mg/dL (Normal) UA - BILIRUBIN Negative (Normal) UA - GLUCOSE Negative (Normal) :28 URINE ANNETTE CULTURE-IDENTIFICATN Comments: PATIENT NOT FASTINGPERFORMED BY: [facility]CoP[facility] Medical CenterFkwcdc7536 [facility] [id number] Information: [id number] (89720) Result 1 NG36 (Normal) Comments: No growth in 36 - 48 hours. Urine Culture,Comprehensive Final report (Normal) :50 Urinalysis, Office (92697) UA - LEUKOCYTE ESTERASE Negative (Normal) UA - NITRITE Negative (Normal) URINE UROBILINGN TEMO TIMED 2 mg/dL (Normal) UA - PROTEIN Negative mg/dL (Normal) UA - PH 5.0 (Normal) UA - BLOOD Negative (Normal) UA - SPECIFIC GRAVITY 1.030 (Abnormal) UA - KETONES Negative mg/dL (Normal) UA - BILIRUBIN Negative (Normal) UA - GLUCOSE Negative (Normal) :01 URINE ANNETTE CULTURE-IDENTIFICATN Comments: PATIENT NOT FASTINGPERFORMED BY: [employer] Pflgad8121 [facility] [id number] Information: [id number] (96294) Result 2 MUG (Normal) Comments: Mixed urogenital flora1,000 Colonies/mL S = Susceptible; I = Intermediate; R = Resistant P = Positive; N = Negative MICS are expressed in micrograms per mL Anti biotic RSLT#1 RSLT#2 RSLT#3 RSLT#4Amoxicillin/Clavulanic Acid RCefazolin RCefepime SCeftriaxone SCefuroxime RCephalothin RCiprofloxacin SErtapenem SGentamicin SImipenem SLevofloxacin SNitrofurantoin RPiperacillin STetracycline RTobramycin STrimethoprim/Sulfa S Result 1 Serratia marcescens Comments: 200 Colonies/mL . (Abnormal) Urine Final report Culture,Comprehensi (Abnormal) ve :16 HgA1C , Office (48404) HgA1C , Office 5.6 % (Normal) Range: 4.6 - 7.1 :16 Blood Glucose , Office (19112) Blood Glucose , Office 110 (Normal) :59 Urinalysis, Office (97535) UA - LEUKOCYTE ESTERASE Trace (Normal) UA - NITRITE Negative (Normal) URINE UROBILINGN TEMO TIMED Normal mg/dL (Normal) UA - PROTEIN Negative mg/dL (Normal) UA - PH 5 (Abnormal) UA - BLOOD Negative (Normal) UA - SPECIFIC GRAVITY 1.015 (Normal) UA - KETONES Negative mg/dL (Normal) UA - BILIRUBIN Negative (Normal) UA - GLUCOSE Negative (Normal) 5-Lom-868581:41 Metabolic Panel, Comprehensive Comments: PATIENT WAS FASTINGPERFORMED BY: DOM[facility] TherapeuticsP[facility] CenterBjsvlv4017 [facility] [id number] (20697) ALT (SGPT) 30 [iU]/L (Normal) Range: 0-32 AST (SGOT) 26 [iU]/L (Normal) Range: 0-40 Alkaline Phosphatase, S 70 [iU]/L (Normal) Range: 39-117 Bilirubin, Total 0.3 mg/dL (Normal) Range: 0.0-1.2 A/G Ratio 1.7 (Normal) Range: 1.1-2.5 Globulin, Total 2.6 g/dL (Normal) Range: 1.5-4.5 Albumin, Serum 4.3 g/dL (Normal) Range: 3.6-4.8 Protein, Total, Serum 6.9 g/dL (Normal) Range: 6.0-8.5 Calcium, Serum 9.5 mg/dL (Normal) Range: 8.7-10.3 Carbon Dioxide, Total 22 mmol/L (Normal) Range: 18-29 Chloride, Serum 101 mmol/L (Normal) Range: 97-108 Potassium, Serum 4.4 mmol/L (Normal) Range: 3.5-5.2 Sodium, Serum 140 mmol/L (Normal) Range: 134-144 BUN/Creatinine Ratio 17 (Normal) Range: 11-26 eGFR If Africn Am 96 mL/min/1.73 (Normal) eGFR If NonAfricn Am 83 mL/min/1.73 (Normal) Creatinine, Serum 0.78 mg/dL (Normal) Range: 0.57-1.00 BUN 13 mg/dL (Normal) Range: 8-27 Glucose, Serum 109 mg/dL (Abnormal) Range: 65-99 3-Jgj-291946:41 Lipid Panel (50886) Comments: PATIENT WAS FASTINGPERFORMED BY: LabCoP[facility] CenterZzenky9114 [facility] [id number]; apt 9-11 LDL/HDL Ratio 2.3 {ratio_units} (Normal) Range: 0.0-3.2 Comments: LDL/HDL Ratio Men Women 1/2 Avg.Risk 1.0 1.5 Av g.Risk 3.6 3.2 2X Avg.Risk 6.2 5.0 3X Avg.Risk 8.0 6.1 LDL Cholesterol Calc 128 mg/dL (Abnormal) Range: 0-99 VLDL Cholesterol Christopher 18 mg/dL (Normal) Range: 5-40 HDL Cholesterol 55 mg/dL (Normal) Comments: According to ATP-III Guidelines, HDL-C >59 mg/dL is considered anegative risk factor for CHD. Triglycerides 88 mg/dL (Normal) Range: 0-149 Cholesterol, Total 201 mg/dL (Abnormal) Range: 100-199 :41 CBC WITH MANUAL DIFF Comments: PATIENT WAS FASTINGPERFORMED BY: [facility]6370 [facility] [id number] Information: [id number] (21726) Immature Grans (Abs) 0.0 {x10E3/uL} (Normal) Range: 0.0-0.1 Immature Granulocytes 0 % (Normal) Baso (Absolute) 0.0 {x10E3/uL} (Normal) Range: 0.0-0.2 Eos (Absolute) 0.1 {x10E3/uL} (Normal) Range: 0.0-0.4 Monocytes(Absolute) 0.5 {x10E3/uL} (Normal) Range: 0.1-0.9 Lymphs (Absolute) 2.1 {x10E3/uL} (Normal) Range: 0.7-3.1 Neutrophils (Absolute) 3.6 {x10E3/uL} (Normal) Range: 1.4-7.0 Basos 1 % (Normal) Eos 2 % (Normal) Monocytes 8 % (Normal) Lymphs 33 % (Normal) Neutrophils 56 % (Normal) Platelets 258 {x10E3/uL} (Normal) Range: 150-379 RDW 14.2 % (Normal) Range: 12.3-15.4 MCHC 34.3 g/dL (Normal) Range: 31.5-35.7 MCH 30.3 pg (Normal) Range: 26.6-33.0 MCV 88 fL (Normal) Range: 79-97 Hematocrit 39.6 % (Normal) Range: 34.0-46.6 Hemoglobin 13.6 g/dL (Normal) Range: 11.1-15.9 RBC 4.49 {x10E6/uL} (Normal) Range: 3.77-5.28 WBC 6.5 {x10E3/uL} (Normal) Range: 3.4-10.8 6-Nun-463329:41 TSH (67412) Comments: PATIENT WAS FASTINGPERFORMED BY: LabCoP[facility] CenterCpuibl8210 [facility] [id number] TSH 2.690 {uIU/mL} (Normal) Range: 0.450-4.500 :40 HgA1C , Office (13067) HgA1C , Office 5.6 % (Normal) Range: 4.6 - 7.1 :40 Blood Glucose , Office (05151) Blood Glucose , Office 98 (Normal) :11 TSH (82432) Comments: PATIENT WAS FASTINGPERFORMED BY: LabSoloStocksP[facility] Medicine [facility] Medical CenterJlwiza8017 [facility] [id number] TSH 2.680 {uIU/mL} (Normal) Range: 0.450-4.500 :11 METABOLIC PANEL, COMPREHENSIVE Comments: PATIENT WAS FASTINGPERFORMED BY: [facility] Rdxati6824 [facility] [id number] (84276) ALT (SGPT) 35 [iU]/L (Abnormal) Range: 0-32 AST (SGOT) 30 [iU]/L (Normal) Range: 0-40 Alkaline Phosphatase, S 71 [iU]/L (Normal) Range: 39-117 Bilirubin, Total 0.2 mg/dL (Normal) Range: 0.0-1.2 A/G Ratio 1.6 (Normal) Range: 1.1-2.5 Globulin, Total 2.9 g/dL (Normal) Range: 1.5-4.5 Albumin, Serum 4.5 g/dL (Normal) Range: 3.6-4.8 Protein, Total, Serum 7.4 g/dL (Normal) Range: 6.0-8.5 Calcium, Serum 9.4 mg/dL (Normal) Range: 8.7-10.3 Comments: Please note reference interval change Carbon Dioxide, Total 21 mmol/L (Normal) Range: 18-29 Chloride, Serum 100 mmol/L (Normal) Range: 97-108 Potassium, Serum 4.6 mmol/L (Normal) Range: 3.5-5.2 Sodium, Serum 139 mmol/L (Normal) Range: 134-144 BUN/Creatinine Ratio 18 (Normal) Range: 11-26 eGFR If Africn Am 87 mL/min/1.73 (Normal) eGFR If NonAfricn Am 76 mL/min/1.73 (Normal) Creatinine, Serum 0.84 mg/dL (Normal) Range: 0.57-1.00 BUN 15 mg/dL (Normal) Range: 8-27 Glucose, Serum 97 mg/dL (Normal) Range: 65-99 :11 LIPID PANEL (12952) Comments: PATIENT WAS FASTINGPERFORMED BY: [facility]Mar[facility]6370 [facility] [id number] LDL/HDL Ratio 2.3 {ratio_units} (Normal) Range: 0.0-3.2 Comments: LDL/HDL Ratio Men Women 1/2 Avg.Risk 1.0 1.5 Av g.Risk 3.6 3.2 2X Avg.Risk 6.2 5.0 3X Avg.Risk 8.0 6.1 LDL Cholesterol Calc 139 mg/dL (Abnormal) Range: 0-99 VLDL Cholesterol Christopher 23 mg/dL (Normal) Range: 5-40 HDL Cholesterol 60 mg/dL (Normal) Comments: According to ATP-III Guidelines, HDL-C >59 mg/dL is considered anegative risk factor for CHD. Triglycerides 115 mg/dL (Normal) Range: 0-149 Cholesterol, Total 222 mg/dL (Abnormal) Range: 100-199 :11 CBC W/AUTO DIFF WBC Comments: PATIENT WAS FASTINGPERFORMED BY: [facility]itsMar[facility] Hospital6370 [facility] [id number] Information: [id number] (50923) Immature Grans (Abs) 0.0 {x10E3/uL} (Normal) Range: 0.0-0.1 Immature Granulocytes 0 % (Normal) Baso (Absolute) 0.0 {x10E3/uL} (Normal) Range: 0.0-0.2 Eos (Absolute) 0.1 {x10E3/uL} (Normal) Range: 0.0-0.4 Monocytes(Absolute) 0.6 {x10E3/uL} (Normal) Range: 0.1-0.9 Lymphs (Absolute) 2.1 {x10E3/uL} (Normal) Range: 0.7-3.1 Neutrophils (Absolute) 3.6 {x10E3/uL} (Normal) Range: 1.4-7.0 Basos 1 % (Normal) Eos 2 % (Normal) Monocytes 9 % (Normal) Lymphs 32 % (Normal) Neutrophils 56 % (Normal) Platelets 273 {x10E3/uL} (Normal) Range: 150-379 RDW 14.5 % (Normal) Range: 12.3-15.4 MCHC 34.0 g/dL (Normal) Range: 31.5-35.7 MCH 30.0 pg (Normal) Range: 26.6-33.0 MCV 88 fL (Normal) Range: 79-97 Hematocrit 40.9 % (Normal) Range: 34.0-46.6 Hemoglobin 13.9 g/dL (Normal) Range: 11.1-15.9 RBC 4.63 {x10E6/uL} (Normal) Range: 3.77-5.28 WBC 6.5 {x10E3/uL} (Normal) Range: 3.4-10.8 :37 HgA1C , Office (19618) HgA1C , Office 5.9 % (Normal) Range: 4.6 - 7.1 :36 Blood Glucose , Office (69657) Blood Glucose , Office 107 (Normal) :44 Metabolic Panel, Comments: PATIENT WAS FASTINGPERFORMED BY: LabCoP[facility] CenterDnfymz4263 [facility] [id number] Information: [id number] ORDER Comprehensive (64422) ALT (SGPT) 35 [iU]/L (Abnormal) Range: 0-32 AST (SGOT) 32 [iU]/L (Normal) Range: 0-40 Alkaline Phosphatase, S 78 [iU]/L (Normal) Range: 39-117 Bilirubin, Total 0.3 mg/dL (Normal) Range: 0.0-1.2 A/G Ratio 1.4 (Normal) Range: 1.1-2.5 Globulin, Total 3.0 g/dL (Normal) Range: 1.5-4.5 Albumin, Serum 4.2 g/dL (Normal) Range: 3.5-5.5 Protein, Total, Serum 7.2 g/dL (Normal) Range: 6.0-8.5 Calcium, Serum 9.7 mg/dL (Normal) Range: 8.7-10.2 Carbon Dioxide, Total 25 mmol/L (Normal) Range: 18-29 Chloride, Serum 99 mmol/L (Normal) Range: 97-108 Potassium, Serum 5.0 mmol/L (Normal) Range: 3.5-5.2 Sodium, Serum 139 mmol/L (Normal) Range: 134-144 BUN/Creatinine Ratio 18 (Normal) Range: 9-23 eGFR If Africn Am 99 mL/min/1.73 (Normal) eGFR If NonAfricn Am 86 mL/min/1.73 (Normal) Creatinine, Serum 0.76 mg/dL (Normal) Range: 0.57-1.00 BUN 14 mg/dL (Normal) Range: 6-24 Glucose, Serum 96 mg/dL (Normal) Range: 65-99 :44 HEPATITIS PANEL (05990) Comments: PATIENT WAS FASTINGPERFORMED BY: [facility] [id number] [facility] [id number] Hep C Virus Ab <0.1 {s/co_ratio} (Normal) Range: 0.0-0.9 Comments: Negative: < 0.8 Indeterminate: 0.8 - 0.9 Positive: > 0.9 . In order to reduce the incidence of a false positive result, the CDC recommends that all s/co ratios between 1.0 and 10.9 be confirmed by a more specific supplemental or PCR testing. [facility] offers HCV Ab w/Reflex to Verification test #[id number]. Hep B Core Ab, IgM Negative (Normal) HBsAg Screen Negative (Normal) Hep A Ab, IgM Negative (Normal) :44 FERRITIN ([id number]) Comments: PATIENT WAS FASTINGPERFORMED BY: [facility]6370 [facility] [id number] Ferritin, Serum 72 ng/mL (Normal) Range: 15-150 :44 CBC WITH MANUAL DIFF Comments: PATIENT WAS FASTINGPERFORMED BY: [facility] [id number] Information: [id number] (14468) Immature Grans (Abs) 0.0 {x10E3/uL} (Normal) Range: 0.0-0.1 Immature Granulocytes 0 % (Normal) Baso (Absolute) 0.0 {x10E3/uL} (Normal) Range: 0.0-0.2 Eos (Absolute) 0.1 {x10E3/uL} (Normal) Range: 0.0-0.4 Monocytes(Absolute) 0.6 {x10E3/uL} (Normal) Range: 0.1-0.9 Lymphs (Absolute) 1.6 {x10E3/uL} (Normal) Range: 0.7-3.1 Neutrophils (Absolute) 3.5 {x10E3/uL} (Normal) Range: 1.4-7.0 Basos 1 % (Normal) Eos 2 % (Normal) Monocytes 11 % (Normal) Lymphs 27 % (Normal) Neutrophils 59 % (Normal) Platelets 268 {x10E3/uL} (Normal) Range: 150-379 RDW 14.1 % (Normal) Range: 12.3-15.4 MCHC 33.7 g/dL (Normal) Range: 31.5-35.7 MCH 30.3 pg (Normal) Range: 26.6-33.0 MCV 90 fL (Normal) Range: 79-97 Hematocrit 40.3 % (Normal) Range: 34.0-46.6 Hemoglobin 13.6 g/dL (Normal) Range: 11.1-15.9 RBC 4.49 {x10E6/uL} (Normal) Range: 3.77-5.28 WBC 5.9 {x10E3/uL} (Normal) Range: 3.4-10.8 :44 HEPATIC FUNCTION PANEL Comments: PATIENT WAS FASTINGPERFORMED BY: [facility]6[address] [facility] [id number] (19677) ALT (SGPT) 36 [iU]/L (Abnormal) Range: 0-32 AST (SGOT) 29 [iU]/L (Normal) Range: 0-40 Alkaline Phosphatase, S 80 [iU]/L (Normal) Range: 39-117 Bilirubin, Direct 0.10 mg/dL (Normal) Range: 0.00-0.40 Bilirubin, Total 0.3 mg/dL (Normal) Range: 0.0-1.2 Albumin, Serum 4.2 g/dL (Normal) Range: 3.5-5.5 Protein, Total, Serum 7.0 g/dL (Normal) Range: 6.0-8.5 :13 HgA1C , Office (19506) HgA1C , Office 5.9 % (Normal) Range: 4.6 - 7.1 :13 Blood Glucose , Office (95118) Blood Glucose , Office 110 (Normal) :14 HEPATIC FUNCTION PANEL Comments: PATIENT WAS FASTINGPERFORMED BY: DOMAIN TherapeuticsLauren Ville 9555670 [facility] [id number]; elevated but not critical -- has appt already sched (28481) ALT (SGPT) 43 [iU]/L (Abnormal) Range: 0-32 AST (SGOT) 39 [iU]/L (Normal) Range: 0-40 Alkaline Phosphatase, S 76 [iU]/L (Normal) Range: 39-117 Bilirubin, Direct 0.12 mg/dL (Normal) Range: 0.00-0.40 Bilirubin, Total 0.4 mg/dL (Normal) Range: 0.0-1.2 Albumin, Serum 4.2 g/dL (Normal) Range: 3.5-5.5 Protein, Total, Serum 7.0 g/dL (Normal) Range: 6.0-8.5 :14 LIPID PANEL (79093) Comments: PATIENT WAS FASTINGPERFORMED BY: DOMAIN TherapeuticsLauren [place] 9555670 [facility] [id number] Information: [id number] LDL/HDL Ratio 2.0 {ratio_units} (Normal) Range: 0.0-3.2 LDL Cholesterol Calc 118 mg/dL (Abnormal) Range: 0-99 VLDL Cholesterol Christopher 22 mg/dL (Normal) Range: 5-40 HDL Cholesterol 60 mg/dL (Normal) Comments: According to ATP-III Guidelines, HDL-C >59 mg/dL is considered anegative risk factor for CHD. Triglycerides 111 mg/dL (Normal) Range: 0-149 Cholesterol, Total 200 mg/dL (Abnormal) Range: 100-199 :14 TSH (THYROID STIMULATING Comments: PATIENT NOT FASTINGPERFORMED BY: DOMAIN TherapeuticsP[facility] Medicine Princeton Medical CenterGofvty5712 [facility] [id number] Information: [id number],2ND ORDER HORMONE) (93515) TSH 2.290 {uIU/mL} (Normal) Range: 0.450-4.500 :22 TSH (43852) Comments: PATIENT NOT FASTINGPERFORMED BY: [facility]6370 [facility] [id number] TSH 1.850 {uIU/mL} (Normal) Range: 0.450-4.500 :22 HEPATIC FUNCTION PANEL Comments: PATIENT NOT FASTINGPERFORMED BY: [facility]6370 [facility] [id number] Information: [id number] (34119) ALT (SGPT) 40 [iU]/L (Abnormal) Range: 0-32 Alkaline Phosphatase, S 70 [iU]/L (Normal) Range: 39-117 AST (SGOT) 34 [iU]/L (Normal) Range: 0-40 Bilirubin, Direct 0.09 mg/dL (Normal) Range: 0.00-0.40 Bilirubin, Total 0.3 mg/dL (Normal) Range: 0.0-1.2 Albumin, Serum 4.3 g/dL (Normal) Range: 3.5-5.5 Protein, Total, Serum 7.1 g/dL (Normal) Range: 6.0-8.5 :22 HgA1C , Office (13858) HgA1C , Office 6.0 % (Normal) Range: 4.6 - 7.1 :22 Blood Glucose , Office (55454) Blood Glucose , Office 113 (Normal) :51 METABOLIC PANEL, COMPREHENSIVE Comments: PATIENT WAS FASTINGPERFORMED BY: [facility]6370 [facility] [id number] (77610) ALT (SGPT) 40 [iU]/L (Abnormal) Range: 0-32 AST (SGOT) 33 [iU]/L (Normal) Range: 0-40 Alkaline Phosphatase, S 73 [iU]/L (Normal) Range: 39-117 Bilirubin, Total 0.3 mg/dL (Normal) Range: 0.0-1.2 A/G Ratio 1.4 (Normal) Range: 1.1-2.5 Globulin, Total 2.9 g/dL (Normal) Range: 1.5-4.5 Albumin, Serum 4.2 g/dL (Normal) Range: 3.5-5.5 Protein, Total, Serum 7.1 g/dL (Normal) Range: 6.0-8.5 Calcium, Serum 9.7 mg/dL (Normal) Range: 8.7-10.2 Carbon Dioxide, Total 24 mmol/L (Normal) Range: 19-28 Chloride, Serum 101 mmol/L (Normal) Range: 97-108 Potassium, Serum 5.1 mmol/L (Normal) Range: 3.5-5.2 Sodium, Serum 138 mmol/L (Normal) Range: 134-144 BUN/Creatinine Ratio 17 (Normal) Range: 9-23 eGFR If Africn Am 101 mL/min/1.73 (Normal) eGFR If NonAfricn Am 88 mL/min/1.73 (Normal) Creatinine, Serum 0.75 mg/dL (Normal) Range: 0.57-1.00 BUN 13 mg/dL (Normal) Range: 6-24 Glucose, Serum 92 mg/dL (Normal) Range: 65-99 85-Fzm-98170:51 CBC WITH MANUAL DIFF Comments: PATIENT WAS FASTINGPERFORMED BY: LabCoP[facility] Medicine [facility] Medical CenterLvdwgp7247 [facility] [id number] Information: [id number] (83183) Immature Grans (Abs) 0.0 {x10E3/uL} (Normal) Range: 0.0-0.1 Immature Granulocytes 0 % (Normal) Range: 0-2 Baso (Absolute) 0.0 {x10E3/uL} (Normal) Range: 0.0-0.2 Eos (Absolute) 0.1 {x10E3/uL} (Normal) Range: 0.0-0.4 Monocytes(Absolute) 0.7 {x10E3/uL} (Normal) Range: 0.1-0.9 Lymphs (Absolute) 1.6 {x10E3/uL} (Normal) Range: 0.7-3.1 Neutrophils (Absolute) 3.4 {x10E3/uL} (Normal) Range: 1.4-7.0 Basos 1 % (Normal) Range: 0-3 Eos 2 % (Normal) Range: 0-5 Monocytes 12 % (Normal) Range: 4-12 Lymphs 27 % (Normal) Range: 14-46 Neutrophils 58 % (Normal) Range: 40-74 Platelets 268 {x10E3/uL} (Normal) Range: 155-379 RDW 13.9 % (Normal) Range: 12.3-15.4 MCHC 34.7 g/dL (Normal) Range: 31.5-35.7 MCH 30.9 pg (Normal) Range: 26.6-33.0 MCV 89 fL (Normal) Range: 79-97 Hematocrit 40.6 % (Normal) Range: 34.0-46.6 Hemoglobin 14.1 g/dL (Normal) Range: 11.1-15.9 RBC 4.57 {x10E6/uL} (Normal) Range: 3.77-5.28 WBC 5.8 {x10E3/uL} (Normal) Range: 3.4-10.8 :51 LIPID PANEL (59383) Comments: PATIENT WAS FASTINGPERFORMED BY: [employer] [facility] [id number] LDL/HDL Ratio 2.3 {ratio_units} (Normal) Range: 0.0-3.2 LDL Cholesterol Calc 138 mg/dL (Abnormal) Range: 0-99 VLDL Cholesterol Christopher 21 mg/dL (Normal) Range: 5-40 HDL Cholesterol 60 mg/dL (Normal) Comments: According to ATP-III Guidelines, HDL-C >59 mg/dL is considered anegative risk factor for CHD. Triglycerides 105 mg/dL (Normal) Range: 0-149 Cholesterol, Total 219 mg/dL (Abnormal) Range: 100-199 :17 TSH (48459) Comments: PATIENT WAS FASTINGPERFORMED BY: BatonP[facility] Medicine [facility] Medical CenterOpokmc2782 [facility] [id number] TSH 1.960 {uIU/mL} (Normal) Range: 0.450-4.500 :17 METABOLIC PANEL, Comments: PATIENT WAS FASTINGPERFORMED BY: BatonP[facility] Medicine [facility] Medical CenterZudaiq5770 [facility] [id number] Information: [id number] COMPREHENSIVE (08998) ALT (SGPT) 33 [iU]/L (Abnormal) Range: 0-32 AST (SGOT) 29 [iU]/L (Normal) Range: 0-40 Alkaline Phosphatase, S 84 [iU]/L (Normal) Range: 42-107 Comments: Effective April 24, 2013 the reference interval for Alkaline Phosphatase, S will be changing to: Age Male Female 0 - 1 day 45 - 111 45 - 111 2 - 5 days 46 - 119 46 - 119 6 - 10 days 48 - 229 48 - 229 11 - 3 0 days 59 - 414 59 - 414 1 - 6 months 91 - 445 91 - 445 7 - 12 months 124 - 341 124 - 341 1 - 3 years 130 - 317 130 - 317 4 - 6 years 133 - 309 133 - 309 7 - 12 years 134 - 349 134 - 349 13 years 143 - 396 68 - 209 14 years 107 - 340 62 - 149 15 years 84 - 254 54 - 121 16 years 71 - 186 49 - 108 17 years 61 - 146 45 - 101 18 years 56 - 127 43 - 101 >18 years 39 - 117 39 - 117 Bilirubin, Total 0.3 mg/dL (Normal) Range: 0.0-1.2 A/G Ratio 1.4 (Normal) Range: 1.1-2.5 Globulin, Total 3.0 g/dL (Normal) Range: 1.5-4.5 Albumin, Serum 4.3 g/dL (Normal) Range: 3.5-5.5 Protein, Total, Serum 7.3 g/dL (Normal) Range: 6.0-8.5 Calcium, Serum 9.4 mg/dL (Normal) Range: 8.7-10.2 Carbon Dioxide, Total 21 mmol/L (Normal) Range: 19-28 Chloride, Serum 103 mmol/L (Normal) Range: 97-108 Potassium, Serum 5.0 mmol/L (Normal) Range: 3.5-5.2 Sodium, Serum 140 mmol/L (Normal) Range: 134-144 BUN/Creatinine Ratio 20 (Normal) Range: 9-23 eGFR If Africn Am 102 mL/min/1.73 (Normal) eGFR If NonAfricn Am 88 mL/min/1.73 (Normal) Creatinine, Serum 0.75 mg/dL (Normal) Range: 0.57-1.00 BUN 15 mg/dL (Normal) Range: 6-24 Glucose, Serum 88 mg/dL (Normal) Range: 65-99 2-Wcx-474098:45 Blood Glucose , Office (82509) Blood Glucose , Office 89 (Normal) :45 HgA1C , Office (80863) HgA1C , Office 5.6 % (Normal) Range: 4.6 - 7.1 88-Iwz-08547:22 FOOT MIN 3 VIEWS Radiology Report See Note (Normal) Comments: PROCEDURE: X-RAY - RIGHT FOOT CLINICAL: Female, 57 years old. Pain TECHNIQUE: 3 view(s) of the foot. COMPARISON: None. FINDINGS: No fractures or dislocations are demonstrated. There is an 8mmo steophytic spur of the inferior calcaneus. There is narrowing of thefirst metatarsophalangeal joint with some osteophyte formation andsclerosis. Moderate degenerative change. No lytic osseous lesions areobserved. IMPRESSION:1. Moderate degenerative changes about the first metatarsophalangealjoint. 2. 8mm osteophytic spur of the inferior calcaneus.. Signed:Alexandre Womack M.D.November 10, 2012 at 8:55 :21 AM [id number] Signed RU/RU If you are the referring physician and would like to consult with theradiologist who provided this interpretation, please contact Andree Mcleod. a t [phone]. If this radiologist is unavailable, youwillbe directed to another radiologist to assist. If you are a patient with a question regarding this report, pleasecontactyour referring physician directly. Professional Interpretation Provided By: [employer], Phone , These documents contain legally protected and confidential healthinformation intended only for the use of the individual or entity namedabove. If you are not the intended recipient, you are hereby notifiedthatany disclosure, copying, distribution, or other use of these documents isstrictly prohibited . If you have received this information in error,pleasenotify the sender immediately and arrange for the return or destructionofthese documents. Dictated on 11/10/12854 by Alexandre WomackTransishane d on 11/10/1259 by ITS IMPORTSign by Alexandre Womack on 11/10/12 0900 Sign by: Alexandre Womack :45 T4, FREE (THYROXINE) (06159) Comments: PATIENT WAS FASTINGPERFORMED BY: [facility] Vjjpls2034 [address] RoadDublin [place] [id number] T4,Free(Direct) 1.06 ng/dL (Normal) Range: 0.82-1.77 :45 T3, FREE (TRIDOTHYRONINE) (56313) Comments: PATIENT WAS FASTINGPERFORMED BY: [facility] Xmrzdh1770 [address] RoadDublin [place] [id number] Triiodothyronine,Free,Serum 3.7 pg/mL (Normal) Range: 2.0-4.4 :45 TSH (48208) Comments: PATIENT WAS FASTINGPERFORMED BY: [facility] Zswyff3875 [address] RoadDublin [place] [id number] TSH 1.670 {uIU/mL} (Normal) Range: 0.450-4.500 :45 METABOLIC PANEL, COMPREHENSIVE Comments: PATIENT WAS FASTINGPERFORMED BY: [facility] Vskvwg[address] [facility]blin [place] [id number] (15916) ALT (SGPT) 31 [iU]/L (Normal) Range: 0-32 AST (SGOT) 29 [iU]/L (Normal) Range: 0-40 Alkaline Phosphatase, S 72 [iU]/L (Normal) Range: 42-107 Bilirubin, Total 0.4 mg/dL (Normal) Range: 0.0-1.2 A/G Ratio 1.4 (Normal) Range: 1.1-2.5 Globulin, Total 2.9 g/dL (Normal) Range: 1.5-4.5 Albumin, Serum 4.2 g/dL (Normal) Range: 3.5-5.5 Protein, Total, Serum 7.1 g/dL (Normal) Range: 6.0-8.5 Calcium, Serum 9.3 mg/dL (Normal) Range: 8.7-10.2 Carbon Dioxide, Total 23 mmol/L (Normal) Range: 19-28 Chloride, Serum 106 mmol/L (Normal) Range: 97-108 Potassium, Serum 4.8 mmol/L (Normal) Range: 3.5-5.2 Sodium, Serum 140 mmol/L (Normal) Range: 134-144 BUN/Creatinine Ratio 23 (Normal) Range: 9-23 eGFR If Africn Am 109 mL/min/1.73 (Normal) eGFR If NonAfricn Am 94 mL/min/1.73 (Normal) Creatinine, Serum 0.71 mg/dL (Normal) Range: 0.57-1.00 BUN 16 mg/dL (Normal) Range: 6-24 Glucose, Serum 96 mg/dL (Normal) Range: 65-99 :45 LIPID PANEL (59417) Comments: PATIENT WAS FASTINGPERFORMED BY: [employer]6370 [facility] [id number] LDL/HDL Ratio 2.7 {ratio_units} (Normal) Range: 0.0-3.2 LDL Cholesterol Calc 127 mg/dL (Abnormal) Range: 0-99 VLDL Cholesterol Christopher 27 mg/dL (Normal) Range: 5-40 HDL Cholesterol 47 mg/dL (Normal) Comments: According to ATP-III Guidelines, HDL-C >59 mg/dL is considered anegative risk factor for CHD. Triglycerides 133 mg/dL (Normal) Range: 0-149 Cholesterol, Total 201 mg/dL (Abnormal) Range: 100-199 :45 CBC WITH MANUAL DIFF Comments: PATIENT WAS FASTINGPERFORMED BY: [employer] Securitylin6370 [facility] [id number] Information: [id number] (33106) Immature Grans (Abs) 0.0 {x10E3/uL} Range: 0.0-0.1 (Normal) Immature Granulocytes 0 % (Normal) Range: 0-2 Baso (Absolute) 0.0 {x10E3/uL} Range: 0.0-0.2 (Normal) Eos (Absolute) 0.1 {x10E3/uL} Range: 0.0-0.4 (Normal) Monocytes(Absolute) 0.6 {x10E3/uL} Range: 0.1-1.0 (Normal) Lymphs (Absolute) 1.6 {x10E3/uL} Range: 0.7-4.5 (Normal) Neutrophils (Absolute) 3.2 {x10E3/uL} Range: 1.8-7.8 (Normal) Basos 1 % (Normal) Range: 0-3 Eos 2 % (Normal) Range: 0-7 Monocytes 11 % (Normal) Range: 4-13 Lymphs 30 % (Normal) Range: 14-46 Neutrophils 56 % (Normal) Range: 40-74 Platelets 253 {x10E3/uL} Range: 140-415 (Normal) RDW 13.8 % (Normal) Range: 12.3-15.4 MCHC 33.4 g/dL (Normal) Range: 31.5-35.7 MCH 30.0 pg (Normal) Range: 26.6-33.0 MCV 90 fL (Normal) Range: 79-97 Hematocrit 41.6 % (Normal) Range: 34.0-46.6 Hemoglobin 13.9 g/dL (Normal) Range: 11.1-15.9 RBC 4.64 {x10E6/uL} Range: 3.77-5.28 (Normal) WBC 5.5 {x10E3/uL} Range: 4.0-10.5 (Normal) TSH 1.770 {uIU/mL} Comments: PATIENT WAS FASTINGPERFORMED BY: DOMAIN TherapeuticsP[facility] Medicine [facility] Medical CenterWscefd4815 [facility] [id number] Information: [id number] :02 (Normal) Range: 0.450-4.500 Written Authorization WAR (Normal) Comments: PATIENT WAS FASTINGPERFORMED BY: [facility]6370 [facility] [id number] :02 Comments: Written Authorization Received.Authorization received from DR DIAL [id number] by Ignacia Lozano :02 LIPID PANEL (10483) Comments: PATIENT WAS FASTINGPERFORMED BY: [facility]6370 [facility] [id number] LDL/HDL Ratio 2.3 {ratio_units} (Normal) Range: 0.0-3.2 LDL Cholesterol Calc 133 mg/dL (Abnormal) Range: 0-99 VLDL Cholesterol Christopher 23 mg/dL (Normal) Range: 5-40 HDL Cholesterol 59 mg/dL (Normal) Comments: According to ATP-III Guidelines, HDL-C >59 mg/dL is considered anegative risk factor for CHD. Triglycerides 116 mg/dL (Normal) Range: 0-149 Cholesterol, Total 215 mg/dL (Abnormal) Range: 100-199 :02 CBC (Auto) (55505) Comments: PATIENT WAS FASTINGPERFORMED BY: [facility] Caddies70 [facility] [id number] Platelets 269 {x10E3/uL} (Normal) Range: 140-415 RDW 14.4 % (Normal) Range: 12.3-15.4 MCHC 33.6 g/dL (Normal) Range: 31.5-35.7 MCH 29.8 pg (Normal) Range: 26.6-33.0 MCV 89 fL (Normal) Range: 79-97 Hematocrit 40.5 % (Normal) Range: 34.0-46.6 Hemoglobin 13.6 g/dL (Normal) Range: 11.1-15.9 RBC 4.57 {x10E6/uL} (Normal) Range: 3.77-5.28 WBC 6.2 {x10E3/uL} (Normal) Range: 4.0-10.5 :02 Metabolic Panel, Comments: PATIENT WAS FASTINGPERFORMED BY: LabCoP[facility] Medical CenterIanwit8330 [facility] [id number] Information: [id number] [facility] (23111) ALT (SGPT) 32 [iU]/L (Normal) Range: 0-32 AST (SGOT) 28 [iU]/L (Normal) Range: 0-40 Alkaline Phosphatase, S 70 [iU]/L (Normal) Range: 25-150 Bilirubin, Total 0.3 mg/dL (Normal) Range: 0.0-1.2 A/G Ratio 1.4 (Normal) Range: 1.1-2.5 Globulin, Total 3.1 g/dL (Normal) Range: 1.5-4.5 Albumin, Serum 4.2 g/dL (Normal) Range: 3.5-5.5 Protein, Total, Serum 7.3 g/dL (Normal) Range: 6.0-8.5 Calcium, Serum 10.2 mg/dL (Normal) Range: 8.7-10.2 Carbon Dioxide, Total 24 mmol/L (Normal) Range: 20-32 Chloride, Serum 104 mmol/L (Normal) Range: 97-108 Potassium, Serum 4.9 mmol/L (Normal) Range: 3.5-5.2 Sodium, Serum 140 mmol/L (Normal) Range: 134-144 BUN/Creatinine Ratio 26 (Abnormal) Range: 9-23 eGFR If Africn Am 110 mL/min/1.73 (Normal) eGFR If NonAfricn Am 96 mL/min/1.73 (Normal) Creatinine, Serum 0.70 mg/dL (Normal) Range: 0.57-1.00 BUN 18 mg/dL (Normal) Range: 6-24 Glucose, Serum 101 mg/dL (Abnormal) Range: 65-99 :02 T3, FREE (TRIDOTHYRONINE) (29405) Comments: PATIENT WAS FASTINGPERFORMED BY: [employer] Sqshcy4893 [facility] [id number] Triiodothyronine,Free,Serum 3.9 pg/mL (Normal) Range: 2.0-4.4 :02 T4, FREE (THYROXINE) (97768) Comments: PATIENT WAS FASTINGPERFORMED BY: [employer] Uvuywy2096 [facility] [id number] T4,Free(Direct) 0.94 ng/dL (Normal) Range: 0.82-1.77 :02 T4, TOTAL (37827) Comments: PATIENT WAS FASTINGPERFORMED BY: DOMAIN TherapeuticsCarlsbad Medical CenterQohilg5998 [facility] [id number] Thyroxine (T4) 7.3 ug/dL (Normal) Range: 4.5-12.0 :07 TSH (48162) Comments: PATIENT NOT FASTINGPERFORMED BY: BatonCarlsbad Medical CenterPcbpzp2373 [facility] [id number] Information: [id number] TSH 1.970 {uIU/mL} (Normal) Range: 0.450-4.500 :35 URINE ANNETTE CULTURE (TEMO Comments: and sensitivity; PATIENT NOT FASTINGPERFORMED BY: DOMAIN TherapeuticsP[facility] Medicine [facility] Medical CenterXzljfc9594 [facility] [id number] Information: SRC: [id number] COL COUNT) (64717) Result 1 BETAGB (Normal) Comments: Beta hemolytic Streptococcus, group B10,000- 25,000 colony forming units per mLPenicillin and ampicillin are drugs of choice for treatment ofbeta-hemolytic streptococcal infections. Susceptibility testin g ofpenicillins and other beta-lactam agents approved by the FDA fortreatment of beta-hemolytic streptococcal infections need not beperformed routinely because nonsusceptible isolates are extremelyrare in any beta-hemolytic streptococcus and have not been reportedfor Streptococcus pyogenes (group A). (CLSI 2010) Urine Final report (Normal) Culture,Comprehensive 20-Jjc-606540:49 Urinalysis, Office (14019) UA - LEUKOCYTE ESTERASE Negative (Normal) UA - NITRITE Negative (Normal) URINE UROBILINGN TEMO TIMED Normal mg/dL (Normal) UA - PROTEIN Negative mg/dL (Normal) UA - PH 7.0 (Normal) UA - BLOOD Negative (Normal) UA - SPECIFIC GRAVITY 1.025 (Normal) UA - KETONES Negative mg/dL (Normal) UA - GLUCOSE Negative (Normal) :15 CBC WITH MANUAL DIFF Comments: PATIENT WAS FASTINGPERFORMED BY: [facility] Xskfmh8546 [facility] [id number] Information: [id number] (54840) Immature Grans (Abs) 0.0 {x10E3/uL} (Normal) Range: 0.0-0.1 Immature Granulocytes 0 % (Normal) Range: 0-2 Baso (Absolute) 0.0 {x10E3/uL} (Normal) Range: 0.0-0.2 Eos (Absolute) 0.1 {x10E3/uL} (Normal) Range: 0.0-0.4 Monocytes(Absolute) 0.5 {x10E3/uL} (Normal) Range: 0.1-1.0 Lymphs (Absolute) 2.1 {x10E3/uL} (Normal) Range: 0.7-4.5 Neutrophils (Absolute) 3.6 {x10E3/uL} (Normal) Range: 1.8-7.8 Basos 1 % (Normal) Range: 0-3 Eos 2 % (Normal) Range: 0-7 Monocytes 8 % (Normal) Range: 4-13 Lymphs 33 % (Normal) Range: 14-46 Neutrophils 56 % (Normal) Range: 40-74 Platelets 275 {x10E3/uL} (Normal) Range: 140-415 RDW 14.3 % (Normal) Range: 11.7-15.0 MCHC 35.0 g/dL (Normal) Range: 32.0-36.0 MCH 31.2 pg (Normal) Range: 27.0-34.0 MCV 89 fL (Normal) Range: 80-98 Hematocrit 41.1 % (Normal) Range: 34.0-44.0 Hemoglobin 14.4 g/dL (Normal) Range: 11.5-15.0 RBC 4.61 {x10E6/uL} (Normal) Range: 3.80-5.10 WBC 6.4 {x10E3/uL} (Normal) Range: 4.0-10.5 :15 LIPID PANEL (65412) Comments: PATIENT WAS FASTINGPERFORMED BY: [employer] [facility] [id number] LDL/HDL Ratio 2.5 {ratio_units} (Normal) Range: 0.0-3.2 LDL Cholesterol Calc 140 mg/dL (Abnormal) Range: 0-99 VLDL Cholesterol Christopher 25 mg/dL (Normal) Range: 5-40 HDL Cholesterol 57 mg/dL (Normal) Comments: According to ATP-III Guidelines, HDL-C >59 mg/dL is considered anegative risk factor for CHD. Triglycerides 124 mg/dL (Normal) Range: 0-149 Cholesterol, Total 222 mg/dL (Abnormal) Range: 100-199 :15 HEPATIC FUNCTION PANEL Comments: PATIENT WAS FASTINGPERFORMED BY: [employer] Securitylin6370 [facility] [id number] (88295) ALT (SGPT) 32 [iU]/L (Normal) Range: 0-40 AST (SGOT) 29 [iU]/L (Normal) Range: 0-40 Alkaline Phosphatase, S 69 [iU]/L (Normal) Range: 25-150 Bilirubin, Direct 0.10 mg/dL (Normal) Range: 0.00-0.40 Bilirubin, Total 0.4 mg/dL (Normal) Range: 0.0-1.2 Albumin, Serum 4.3 g/dL (Normal) Range: 3.5-5.5 Protein, Total, Serum 7.4 g/dL (Normal) Range: 6.0-8.5 :15 Metabolic Panel, Basic (39796) Comments: PATIENT WAS FASTINGPERFORMED BY: [employer] [facility] [id number] Calcium, Serum 9.6 mg/dL (Normal) Range: 8.7-10.2 Carbon Dioxide, Total 22 mmol/L (Normal) Range: 20-32 Chloride, Serum 102 mmol/L (Normal) Range: 97-108 Potassium, Serum 4.6 mmol/L (Normal) Range: 3.5-5.2 Sodium, Serum 135 mmol/L (Normal) Range: 134-144 BUN/Creatinine Ratio 19 (Normal) Range: 9-23 eGFR If Africn Am 112 mL/min/1.73 (Normal) eGFR If NonAfricn Am 97 mL/min/1.73 (Normal) Creatinine, Serum 0.69 mg/dL (Normal) Range: 0.57-1.00 BUN 13 mg/dL (Normal) Range: 6-24 Glucose, Serum 96 mg/dL (Normal) Range: 65-99 :15 TSH (37955) Comments: PATIENT WAS FASTINGPERFORMED BY: DOMAIN TherapeuticsP[facility] Medicine [facility] Medical CenterDvotck9523 [facility] [id number] TSH 1.500 {uIU/mL} (Normal) Range: 0.450-4.500 :15 T4, FREE (THYROXINE) (51108) Comments: PATIENT WAS FASTINGPERFORMED BY: DOMAIN TherapeuticsP[facility] Medicine [facility] Medical CenterSgubyt4324 [facility] [id number] T4,Free(Direct) 0.96 ng/dL (Normal) Range: 0.82-1.77 :15 T3, FREE (TRIDOTHYRONINE) ([id number]) Comments: PATIENT WAS FASTINGPERFORMED BY: [facility]Co[facility] [id number] [facility] [id number] Triiodothyronine,Free,Serum 3.3 pg/mL (Normal) Range: 2.0-4.4 :02 FT3 4.0 pg/mL (Abnormal) Range: 2.18-3.98 :02 T4F 0.87 ng/dL (Normal) Range: 0.76-1.46 :02 TSH 0.76 {uIU/mL} (Normal) Range: 0.358-3.74 :02 BMP GAP 8 (Normal) Range: 5-15 CO2 25.0 mmol/L (Normal) Range: 21.0-32.0 CL 105 mmol/L (Normal) Range: 98-107 K 4.7 mmol/L (Normal) Range: 3.5-5.1 NA 138 mmol/L (Normal) Range: 136-145 CA 9.0 mg/dL (Normal) Range: 8.5-10.1 BC 18.8 {RATIO} (Normal) Range: 10-20 GFRAA 96 mL/min (Normal) GFR 79 mL/min (Normal) CREAT 0.8 mg/dL (Normal) Range: 0.6-1.0 BUN 15 mg/dL (Normal) Range: 7-18 GLU 98 mg/dL (Normal) Range: 70-110 :48 TSH 0.37 {uIU/mL} (Normal) Range: 0.358-3.74 :48 T4 FREE DIRECT 0.57 ng/dL (Abnormal) Range: 0.76-1.46 :48 FREE T3 6.1 pg/mL (Abnormal) Comments: appt 04/16/11 Range: 2.18-3.98 :48 BMP GAP 9 (Normal) Range: 5-15 CO2 26.0 mmol/L (Normal) Range: 21.0-32.0 CL 102 mmol/L (Normal) Range: 98-107 K 4.2 mmol/L (Normal) Range: 3.5-5.1 NA 137 mmol/L (Normal) Range: 136-145 CA 8.8 mg/dL (Normal) Range: 8.5-10.1 BUN/CRE 20.0 {RATIO} (Normal) Range: 10-20 EST GFR - AA 112 mL/min (Normal) EST GFR 92 mL/min (Normal) CREAT,SERUM 0.7 mg/dL (Normal) Range: 0.6-1.0 BUN 14 mg/dL (Normal) Range: 7-18 GLU 97 mg/dL (Normal) Range: 70-110 :48 CBCD,SMEAR DIFF RED CELL MORPH SeeNote {NORMAL} (Normal) Comments: Result: NORM C+C PLT EST SeeNote (Normal) Comments: Result: ADEQUATE BASOPHIL 1 % (Normal) Range: 0-1 EOS 5 % (Normal) Range: 0-5 MONOCYTE 6 % (Normal) Range: 0-10 LYMPH 37 % (Normal) Range: 19-41 SEGS 51 % (Normal) Range: 47-70 CELLS COUNTED 100 (Normal) ABSOLUTE NEUT 4.1 3/uL (Normal) Range: 2.0-7.7 PLT 293 K/mm3 (Normal) Range: 150-450 RDW 13.5 % (Normal) Range: 11.6-14.6 MCHC 34.8 g/dL (Normal) Range: 32-36 MCH 31.7 pg (Normal) Range: 27.0-32.0 MCV 91.1 fL (Normal) Range: 81-99 HCT 40.9 % (Normal) Range: 37-47 HGB 14.2 g/dL (Normal) Range: 12.0-16.0 RBC 4.49 {M/mm3} (Normal) Range: 4.2-5.4 WBC 6.9 K/mm3 (Normal) Range: 4.4-11.0 :48 LIPID VLDL 27 mg/dL (Normal) Range: 5-40 LDL 132 mg/dL (Abnormal) Range: 0-130 HDL 51 mg/dL (Normal) Comments: Reference Range HDL <40 mg/dL Low HDL Cholesterol HDL >or= 60 mg/dL High HDL Cholesterol TRIG 137 mg/dL (Normal) Comments: Serum Triglycerides Reference Interval Normal <150 mg/dL Borderline high 150 - 199 mg/dL High 200 - 499 mg/dL Very High > or = 500 mg/dL CHOL 210 mg/dL (Abnormal) Comments: <200 mg/dL Desirable 200-240 mg/dL Borderline >240 mg/dL High Risk :48 LIVER D BILI 0.15 mg/dL (Normal) Range: 0.00-0.30 T BILI 0.60 mg/dL (Normal) Range: 0.00-1.00 ALT 42 U/L (Normal) Range: 12-78 ALK P 60 U/L (Normal) Range: 50-136 AST 29 U/L (Normal) Range: 15-37 ALB 3.8 g/dL (Normal) Range: 3.4-5.0 T PROT 7.7 g/dL (Normal) Range: 6.4-8.2 :37 Rapid Strep Test, Office (26201) Rapid Strep Test, Office Negative (Normal) :37 HgA1C , Office (46253) HgA1C , Office 6.0 % (Normal) Range: 4.6 - 7.1 :37 Blood Glucose , Office (70064) Blood Glucose , Office 122 (Normal) :26 T4 FREE DIRECT 0.40 ng/dL (Abnormal) Range: 0.76-1.46 :26 TSH 1.31 {uIU/mL} (Normal) Range: 0.358-3.74 :26 FREE T3 6.7 pg/mL (Abnormal) Range: 2.18-3.98 :26 LIPID VLDL 16 mg/dL (Normal) Range: 5-40 LDL 116 mg/dL (Normal) Range: 0-130 HDL 43 mg/dL (Normal) Comments: Reference Range HDL <40 mg/dL Low HDL Cholesterol HDL >or= 60 mg/dL High HDL Cholesterol TRIG 81 mg/dL (Normal) Comments: Serum Triglycerides Reference Interval Normal <150 mg/dL Borderline high 150 - 199 mg/dL High 200 - 499 mg/dL Very High > or = 500 mg/dL CHOL 175 mg/dL (Normal) Comments: <200 mg/dL Desirable 200-240 mg/dL Borderline >240 mg/dL High Risk :26 LIVER D BILI 0.11 mg/dL (Normal) Range: 0.00-0.30 T BILI 0.30 mg/dL (Normal) Range: 0.00-1.00 ALT 30 U/L (Normal) Range: 12-78 ALK P 54 U/L (Normal) Range: 50-136 AST 21 U/L (Normal) Range: 15-37 ALB 3.3 g/dL (Abnormal) Range: 3.4-5.0 T PROT 6.4 g/dL (Normal) Range: 6.4-8.2 :26 BMP GAP 8 (Normal) Range: 5-15 CO2 25.0 mmol/L (Normal) Range: 21.0-32.0 CL 109 mmol/L (Abnormal) Range: 98-107 K 4.6 mmol/L (Normal) Range: 3.5-5.1 NA 142 mmol/L (Normal) Range: 136-145 CA 8.7 mg/dL (Normal) Range: 8.5-10.1 BUN/CRE 20.0 {RATIO} (Normal) Range: 10-20 EST GFR - AA 112 mL/min (Normal) EST GFR 92 mL/min (Normal) CREAT,SERUM 0.7 mg/dL (Normal) Range: 0.6-1.0 BUN 14 mg/dL (Normal) Range: 7-18 GLU 102 mg/dL (Normal) Range: 70-110 98-Vzm-127640:26 CBCD,SMEAR DIFF RED CELL MORPH SeeNote {NORMAL} (Normal) Comments: Result: NORM C+C PLT EST SeeNote (Normal) Comments: Result: ADEQUATE EOS 4 % (Normal) Range: 0-5 LYMPH 43 % (Abnormal) Range: 19-41 SEGS 53 % (Normal) Range: 47-70 CELLS COUNTED 100 (Normal) ABSOLUTE NEUT 2.4 3/uL (Normal) Range: 2.0-7.7 PLT 256 K/mm3 (Normal) Range: 150-450 RDW 13.1 % (Normal) Range: 11.6-14.6 MCHC 33.9 g/dL (Normal) Range: 32-36 MCH 31.4 pg (Normal) Range: 27.0-32.0 MCV 92.6 fL (Normal) Range: 81-99 HCT 37.0 % (Normal) Range: 37-47 HGB 12.6 g/dL (Normal) Range: 12.0-16.0 RBC 4.00 {M/mm3} (Abnormal) Range: 4.2-5.4 WBC 5.0 K/mm3 (Normal) Range: 4.4-11.0 :09 FREE T3 6.7 pg/mL (Abnormal) Range: 2.18-3.98 : T4 FREE DIRECT 0.38 ng/dL (Abnormal) Range: 0.76-1.46 : TSH 1.34 {uIU/mL} (Normal) Range: 0.358-3.74 :07 BMP GAP 10 (Normal) Range: 5-15 BUN/CRE 20.0 {RATIO} (Normal) Range: 10-20 CA 9.3 mg/dL (Normal) Range: 8.5-10.1 CL 103 mmol/L (Normal) Range: 98-107 CO2 27.0 mmol/L (Normal) Range: 21.0-32.0 EST GFR - AA 96 mL/min (Normal) K 4.5 mmol/L (Normal) Range: 3.5-5.1 NA 140 mmol/L (Normal) Range: 136-145 CREAT,SERUM 0.8 mg/dL (Normal) Range: 0.6-1.0 EST GFR 79 mL/min (Normal) BUN 16 mg/dL (Normal) Range: 7-18 GLU 94 mg/dL (Normal) Range: 70-110 :07 CULTURE, THROAT See Note (Normal) Comments: Normal throat ronda isolated. No beta-hemolyticstreptococcus isolated. :07 EBVIgG/M [id number] EB-NAg [id number] > 8.0 {AI} (Abnormal) Range: 0.0-0.8 Comments: Negative <0.9 Equivocal 0.9 - 1.0 Positive >1.0 INTERPRETATION Comment (Normal) Comments: EBV Interpretation Chart . Interpretation VCA-IgM EA-IgG VCA-IgG NA-ABS . Susceptible - - - - Acute Infection + +or- +or- - Convalescent Phase +or- +or- + + Chronic or Reactivated - + + +or- Old Infection - - +or- + + Antibody Pr esent - Antibody AbsentPerformed at: [facility] [place], [place] [id number] Director: Melanie Hartman MD, Phone: [phone] EB-EA IgG 66922 1.3 {AI} (Abnormal) Range: 0.0-0.8 Comments: Negative <0.9 Equivocal 0.9 - 1.0 Positive >1.0 EB-VCA [id number] > 8.0 {AI} (Abnormal) Range: 0.0-0.8 Comments: Negative <0.9 Equivocal 0.9 - 1.0 Positive >1.0 EB-VCA [id number] < 0.2 {AI} (Normal) Range: 0.0-0.8 Comments: Negative <0.9 Equivocal 0.9 - 1.0 Positive >1.0 :07 FREE T3 7.0 pg/mL (Abnormal) Range: 2.18-3.98 :07 T4 FREE DIRECT 0.46 ng/dL (Abnormal) Range: 0.76-1.46 :07 TSH 1.82 {uIU/mL} (Normal) Range: 0.358-3.74 :50 Rapid Strep Test, Office (31434) Rapid Strep Test, Negative (Normal) Office :36 EB-NAg [id number] > 8.0 {AI} (Abnormal) Range: 0.0-0.8 Comments: Negative <0.9 Equivocal 0.9 - 1.0 Positive >1.0 :36 EB-VCA [id number] > 8.0 {AI} (Abnormal) Range: 0.0-0.8 Comments: Negative <0.9 Equivocal 0.9 - 1.0 Positive >1.0 :36 EB-EA IgG 36698 1.5 {AI} (Abnormal) Range: 0.0-0.8 Comments: Negative <0.9 Equivocal 0.9 - 1.0 Positive >1.0Performed at: [facility] [place], [place] [id number] Director: Melanie Hartman MD, Phone: [phone] :25 CKMB Comments: Please Note: TROPONIN REFERENCE RANGE CHANGEEffective MAY 21, 2009. CPKMB 0.5 ng/mL (Normal) Range: 0.0-5.0 Comments: CK-MB and RI Interpretation MB Relative Index Non-AMI <or= 5 NA Indeterminate > 5 <or= 4 AMI > 5 > 4 CPK TOTAL 60 U/L (Normal) Range: 21-215 :25 TROPONIN-I < 0.02 ng/mL (Normal) Comments: Please Note: TROPONIN REFERENCE RANGE CHANGEEffective MAY 21, 2009. Comments: TROPONIN-I EXPECTED VALUES <0.05 NEGATIVE 0.06 - 0.59 AT RISK OF TN > OR = 0.60 SUGGEST TN : CKMB Comments: Please Note: TROPONIN REFERENCE RANGE CHANGEEffective MAY 21, 2009. CPKMB < 0.5 ng/mL (Normal) Range: 0.0-5.0 Comments: CK-MB and RI Interpretation MB Relative Index Non-AMI <or= 5 NA Indeterminate > 5 <or= 4 AMI > 5 > 4 CPK TOTAL 50 U/L (Normal) Range: 21-215 :01 TROPONIN-I < 0.02 ng/mL (Normal) Comments: Please Note: TROPONIN REFERENCE RANGE CHANGEEffective MAY 21, 2009. Comments: TROPONIN-I EXPECTED VALUES <0.05 NEGATIVE 0.06 - 0.59 AT RISK OF TN > OR = 0.60 SUGGEST TN [id number]:40 TROPONIN-I < 0.02 ng/mL (Normal) Comments: Please Note: TROPONIN REFERENCE RANGE CHANGEEffective MAY 21, 2009. Comments: TROPONIN-I EXPECTED VALUES <0.05 NEGATIVE 0.06 - 0.59 AT RISK OF TN > OR = 0.60 SUGGEST TN : CORTISOL 11.41 ug/dL (Normal) Range: 3.09-22.40 Comments: Adult (AM) 4.30 - 22.40 ug/dLAdult (PM) 3.09 - 16.66 ug/dL :00 FREE T3 2.8 pg/mL (Normal) Range: 2.18-3.98 : T4 FREE DIRECT 0.51 ng/dL (Abnormal) Range: 0.76-1.46 :00 TSH 1.54 {uIU/mL} (Normal) Range: 0.358-3.74 :26 HgA1C , Office (73445) HgA1C , Office 5.4 % (Normal) Range: 4.6 - 7.1 :26 Blood Glucose , Office (67590) Blood Glucose , Office 89 (Normal) :54 CORTISOL 7.59 ug/dL (Normal) Range: 3.09-22.40 Comments: Adult (AM) 4.30 - 22.40 ug/dLAdult (PM) 3.09 - 16.66 ug/dL :54 DHEA SULF 4697 33.4 ug/dL (Normal) Range: 18.9-205.0 :54 ESTRADIOL 4515 28.9 pg/mL (Normal) Comments: Adult Female:Follicular phase 12.5 - 166.0Ovulation phase 85.8 - 498.0Luteal phase 43.8 - 211.0Postmenopausal <6.0 - 54.1Tdfiwghkl1kz trimester 215.0 - >4300.0Girls (1- 10 years) 6.0 - 27.0Roche ECLIA methodology :54 FREE T3 2.1 pg/mL (Abnormal) Range: 2.18-3.98 :54 GLU 90 mg/dL (Normal) Range: 70-110 :54 INSULIN 4333 16.9 {uIU/mL} Range: 0.0-24.9 (Normal) Comments: Performed at: [facility] [id number] Director: Melanie Hartman MD, Phone: [phone] :54 PROGESTER. 4317 2.7 ng/mL (Normal) Comments: Follicular phase 0.2 - 1.5Luteal phase 1.7 - 27.0Ovulation phase 0.8 - 3.0First trimester 8.8 - 48.6Second trimester 12.4 - 75.8Third trimester 58.5 - 222.3Postmenopausal 0.1 - 0.8 :54 T4 FREE DIRECT 0.83 ng/dL (Normal) Range: 0.76-1.46 :54 TESTOSTER 4226 10 ng/dL (Normal) Range: 6-82 :54 TSH 2.67 {uIU/mL} Range: 0.358-3.74 (Normal) Plan of Care Name Dates Details Instructions Hypercholesteremia (Renamed from Hypercholesterolemia) : Cholesterol mgmt Indication: Hypercholesteremia (Renamed from Hypercholesterolemia) Hypercholesteremia (Renamed from Hypercholesterolemia) : *Cholesterol - Nonprescription Treatment Indication: Hypercholesteremia (Renamed from Hypercholesterolemia) Hypercholesteremia (Renamed from Hypercholesterolemia) : *Cholesterol - Medication Side Effects Indication: Hypercholesteremia (Renamed from Hypercholesterolemia) Sebaceous cyst : *Antibiotic Usage Education - Female Indication: Sebaceous cyst Dehydration : *Abd Pain Red Flags Indication: Dehydration Dehydration : Diarrhea instructions Indication: Dehydration UTI symptoms : Follow up if no improvement or if symptoms worsen Indication: UTI symptoms Asthma : Eprescribed prescriptions (G8553) Indication: Asthma Stress reaction : Eprescribed prescriptions (G8553) Indication: Stress reaction Obesity (Renamed from Obese) : Contrave Patient Instructions Indication: Obesity (Renamed from Obese) Asthma : Asthma: Brief Version *: allergic reaction Indication: Asthma Stress reaction : Eprescribed prescriptions (G8553) Indication: Stress reaction Flatulence : Flatulence (Gas): bloating Indication: Flatulence NEED FOR PROPHYLACTIC VACCINATION AND INOCULATION AGAINST INFLUENZA (V04.81) (Renamed from NEED FOR PROPHYLACTIC VACCINATION AND INOCULATION AGAINST INFLUENZA) : Flu (Influenza) *: flu Indication: NEED FOR PROPHYLACTIC VACCINATION AND INOCULATION AGAINST INFLUENZA (V04.81) (Renamed from NEED FOR PROPHYLACTIC VACCINATION AND INOCULATION AGAINST INFLUENZA) NEED FOR PROPHYLACTIC VACCINATION AND INOCULATION AGAINST INFLUENZA (V04.81) (Renamed from NEED FOR PROPHYLACTIC VACCINATION AND INOCULATION AGAINST INFLUENZA) : Flu (Influenza) *: flu shot Indication: NEED FOR PROPHYLACTIC VACCINATION AND INOCULATION AGAINST INFLUENZA (V04.81) (Renamed from NEED FOR PROPHYLACTIC VACCINATION AND INOCULATION AGAINST INFLUENZA) Hypertension, benign : High Blood Pressure (Essential Hypertension) *: cardiovascular health Indication: Hypertension, benign Urinary frequency : Follow up if no improvement or if symptoms worsen Indication: Urinary frequency Allergic rhinitis due to other allergen : Follow up in 2 weeks Indication: Allergic rhinitis due to other allergen Allergic rhinitis due to other allergen : Allergy proofing Indication: Allergic rhinitis due to other allergen Allergic rhinitis due to other allergen : Allergy control Indication: Allergic rhinitis due to other allergen Pharyngitis, acute : *URI Treatment Indication: Pharyngitis, acute Bronchitis : *URI Treatment Indication: Bronchitis Bronchitis : *URI Symptoms Indication: Bronchitis Bronchitis : *Antibiotic Usage Education - Female Indication: Bronchitis Planned Observations Metabolic Panel, Comprehensive (78579)Indication: Hypertension with heart disease On: :53 Request CBC WITH MANUAL DIFF (60177)Indication: Hypertension with heart disease On: :53 Request MICROALBUMIN: CREATININE RATIO (64868) AND (09678)Indication: Hypertension with heart disease On: :53 Request URINALYSIS (47797)Indication: Hypertension with heart disease On: :53 Request OCCULT BLOOD FECES SCREEN (43437)Indication: Dehydration On: :30 Request OVA & PARASITE DIR SMEAR (70720)Indication: Dehydration On: :30 Request LEUKOCYTE COUNT, FECAL (41971)Indication: Dehydration On: :30 Request C-DIFFICILE, STOOL (85521)Indication: Dehydration On: :30 Request ANNETTE CULTURE-STOOL (55902)Indication: Dehydration On: :30 Request Metabolic Panel, Basic (78262)Indication: Hypertension, benign On: 69-Hlb-341797:06 Request Comments: due in 1 week. Metabolic Panel, Basic (26574)Indication: Hypertension, benign On: 71-Ady-678887:40 Request ANNETTE CULTURE-OTHER (30925)Indication: Pharyngitis, acute On: :37 Request TSH (96946)Indication: Abnormal TSH On: :30 Request T4, FREE (THYROXINE) (31366)Indication: Abnormal TSH On: :30 Request T3, FREE (TRIDOTHYRONINE) (70778)Indication: Abnormal TSH On: :30 Request TSH (54048)Indication: Abnormal TSH On: :57 Request T4, FREE (THYROXINE) (99328)Indication: Abnormal TSH On: :57 Request T3, FREE (TRIDOTHYRONINE) (67145)Indication: Abnormal TSH On: :57 Request ANNETTE CULTURE-OTHER (49504)Indication: Pharyngitis, acute On: :50 Request EB ANTIBODY EARLY ANTIGN (78706)Indication: Fatigue On: 28-Mar-20108:00 Request Comments: today EB ANTIBODY VIRAL CAPSID (59600) [id number]: Fatigue On: :57 Request EB ANTIBODY NUCLR ANTIGN (74512)Indication: Fatigue On: :57 Request Planned Encounters Medical; [facility] Pre Wellness Exam (DB Nurse) - On: 14-Apr-2018 7:15 [facility] RITA Mendez; [facility] Well[facility] Exam (Doctor) - On: 28-Apr-2018 7:00 [facility] Nerissa CASTELLANO, Krysten Hogan MD Planned Procedures COMPLETE ELECTROMYOGRAPHY (EMG) WITH On: 19-Jun-2016 Intent NERVE CONDUCTION STUDIES OF EACH EXTREMITY (96383)By: Krysten Dial MD, MD, Dana M Flu Vaccine (Quadrivalent) 00464Yg: On: 08-May-2016 Intent Krysten Dial MD, MD, Dana M Comments: Lot:[id number]:12/18/16Dose:0.5mLRoute:IMSite:L DltdGiven By:MLVIS signed Nuclear Stress Test/Stress On: 10-Feb-2016 Intent SPECT/TreadmillBy: Krysten Dial MD, MD, Dana M DEXA SCAN AXIAL SKELETON (81399)By: On: 10-Feb-2016 Intent Krysten Dial MD, MD, Dana M TDAP VACCINE >7 IM (23156)By: Nerissa On: 10-Feb-2016 Intent Krysten CASTELLANO MD, Dana M Comments: tdaplot:[id number]:07/12/18site:lt deltroute:IMDMARY ELLEN Lusi IV Needle placement (85669)By: Yusra On: 28-Jun-2015 Intent Francoise CRABTREE Ultrasound - GallbladderBy: Deisiladnonshanika SHIP PAINTER HELPER, On: 28-Jun-2015 Intent Francoise Trotter INFUSION, NORMAL SALINE SOLUTION , On: 28-Jun-2015 Intent 1000 CC (Special Coverage Instructions Comments: lot [id number] ccright antecubas TUBE TURNER Apply. See MCM: 9) ([id number])By: Yusra CRABTREE Francoise Trotter Radiology - Foot - LeftBy: Yusra CRABTREE, On: 14-May-2015 Intent Francoise Trotter ADMINISTRATION OF INFLUENZA VIRUS On: 05-Apr-2015 Intent VACCINE (G0008)By: Krysten Dial MD, MD, Dana M Flu Vaccine (Quadrivalent) 07385Df: On: 05-Apr-2015 Intent Krysten Dial MD, MD, Dana M Comments: Lot #:[id number] date:2015Amount given:0.5mlRoute: IMSite given:L DltdGiven by: Nnamdi and ABN signed Quad Flu Flu Vaccine (Quadrivalent) 84969Gp: On: 19-Apr-2014 Intent Krysten Dial MD, MD, Dana M ADMINISTRATION OF INFLUENZA VIRUS On: 19-Apr-2014 Intent VACCINE (G0008)By: Aruna Amaral Venous Doppler - RightBy: Nerissa CASTELLANO, On: 18-Jan-2014 Intent Krysten Hogan MD EKG (77680)By: Krysten Dial MD On: 01-Sep-2013 Intent Krysten Dial MD Comments: see scanned document of test done to see results reviewed today with patient Ultrasound - GallbladderBy: Nerissa On: 01-Sep-2013 Krysten Carter MD, MD, Dana M Ultrasound - LiverBy: Krysten Dial MD On: 01-Sep-2013 Krysten Coppola MD Holter Monitor 24 hrsBy: Nerissa CASTELLANO, On: 01-Sep-2013 Intent Krysten Hogan MD Eprescribed prescriptions (G8553)By: On: 01-Sep-2013 Krysten Paris MD, MD, Dana M Holter Monitor 24 hrsBy: Nerissa CASTELLANO, On: 02-Jun-2013 Intent Krysten Hogan MD Echo CompleteBy: Krysten Dial MD On: 02-Jun-2013 Intent Krysten Dial MD Eprescribed prescriptions (G8553)By: On: 02-Jun-2013 Intent Long TUBE TURNER, Kady L FLU VAC, SPLIT, >3 YEARS, INTRAMUSC On: 14-Apr-2013 Intent (15707)By: Meagan Hoffman Comments: lot [id number] 2014site/route L latonya, IMamt 0.5mlVIS and ABN signed when applicableChelsea, WEB OPERATIONS SPECIALIST IMMUNIZ ADMNIN, 1 VAC, SNGL/COMBO On: 14-Apr-2013 Intent (13010)By: Meagan Hoffman Radiology - Foot - RightBy: Nerissa On: 10-Nov-2012 Intent Krysten CASTELLANO MD, Dana M Comments: please call wet read Eprescribed prescriptions (G8553)By: On: 19-Sep-2012 Intent Long TUBE TURNER, Kady L EKG (11702)By: RITA Mendez On: 20-Jun-2012 Intent Aerosol Treatment (06381)By: Deisiesa On: 30-Nov-2011 Intent Francoise CRABTREE Spirometry (75564)By: Nerissa CASTELLANO, On: 26-Sep-2010 Intent Krysten Hogan MD Comments: re do of one that was not abl eot be performed at last visit. Spirometry (45704)By: Nerissa CASTELLANO, On: 18-Sep-2010 Intent Krysten Hogan MD Pulse Oximetry (01920)By: Jessie RN, On: 18-Sep-2010 Intent Leidy Pulse Oximetry (37033)By: Andrea On: 17-Apr-2010 Intent RITA ELECTROCARDIOGRAM, COMPLETE (ECG) On: 01-Apr-2010 Intent (70217)By: Vikki Wetzel Planned Medications INFUSION, NORMAL SALINE SOLUTION , 1000 CC Ordered: 28-Jun-2015 Pending Ciesa Francoise CRABTREE Instructions Name Dates Details BMI 45.0-49.9, adult : How to access health information online Indication: BMI 45.0-49.9, adult BMI 45.0-49.9, adult : How to access health information online - Detail Indication: BMI 45.0-49.9, adult BMI 45.0-49.9, adult : Patient Instructions Indication: BMI 45.0-49.9, adult BMI 45.0-49.9, adult : How to access health information online Indication: BMI 45.0-49.9, adult BMI 45.0-49.9, adult : How to access health information online - Detail Indication: BMI 45.0-49.9, adult BMI 45.0-49.9, adult : Patient Instructions Indication: BMI 45.0-49.9, adult BMI 45.0-49.9, adult : How to access health information online Indication: BMI 45.0-49.9, adult BMI 45.0-49.9, adult : How to access health information online - Detail Indication: BMI 45.0-49.9, adult BMI 45.0-49.9, adult : Patient Instructions Indication: BMI 45.0-49.9, adult Dysuria : How to access health information online Indication: Dysuria Dysuria : How to access health information online - Detail Indication: Dysuria Dysuria : Patient Instructions Indication: Dysuria BMI 45.0-49.9, adult : How to access health information online Indication: BMI 45.0-49.9, adult BMI 45.0-49.9, adult : How to access health information online - Detail Indication: BMI 45.0-49.9, adult BMI 45.0-49.9, adult : Patient Instructions Indication: BMI 45.0-49.9, adult BMI 45.0-49.9, adult : How to access health information online Indication: BMI 45.0-49.9, adult BMI 45.0-49.9, adult : How to access health information online - Detail Indication: BMI 45.0-49.9, adult BMI 45.0-49.9, adult : Patient Instructions Indication: BMI 45.0-49.9, adult BMI 40.0-44.9, adult : How to access health information online Indication: BMI 40.0-44.9, adult BMI 40.0-44.9, adult : How to access health information online - Detail Indication: BMI 40.0-44.9, adult BMI 40.0-44.9, adult : Patient Instructions Indication: BMI 40.0-44.9, adult Hypertension with heart disease : How to access health information online Indication: Hypertension with heart disease Hypertension with heart disease : How to access health information online - Detail Indication: Hypertension with heart disease Hypertension with heart disease : Patient Instructions Indication: Hypertension with heart disease Hypertension with heart disease : How to access health information online Indication: Hypertension with heart disease Hypertension with heart disease : How to access health information online - Detail Indication: Hypertension with heart disease Hypertension with heart disease : Patient Instructions Indication: Hypertension with heart disease Impaired fasting glucose (Renamed from Elevated fasting blood sugar) : How to access health information online Indication: Impaired fasting glucose (Renamed from Elevated fasting blood sugar) Impaired fasting glucose (Renamed from Elevated fasting blood sugar) : How to access health information online - Detail Indication: Impaired fasting glucose (Renamed from Elevated fasting blood sugar) Impaired fasting glucose (Renamed from Elevated fasting blood sugar) : Patient Instructions Indication: Impaired fasting glucose (Renamed from Elevated fasting blood sugar) Sebaceous cyst : How to access health information online Indication: Sebaceous cyst Sebaceous cyst : How to access health information online - Detail Indication: Sebaceous cyst Sebaceous cyst : Patient Instructions Indication: Sebaceous cyst UTI (urinary tract infection) : How to access health information online Indication: UTI (urinary tract infection) UTI (urinary tract infection) : How to access health information online - Detail Indication: UTI (urinary tract infection) UTI (urinary tract infection) : Patient Instructions Indication: UTI (urinary tract infection) Abdominal pain, acute, right lower quadrant : How to access health information online Indication: Abdominal pain, acute, right lower quadrant Abdominal pain, acute, right lower quadrant : How to access health information online - Detail Indication: Abdominal pain, acute, right lower quadrant Abdominal pain, acute, right lower quadrant : Patient Instructions Indication: Abdominal pain, acute, right lower quadrant Obesity (Renamed from Obese) : Patient Instructions Indication: Obesity (Renamed from Obese) Asthma : Patient Instructions Indication: Asthma Stress reaction : How to access health information online - Detail Indication: Stress reaction Hypertension, benign : Patient Instructions Indication: Hypertension, benign Hypertension, benign : Patient Instructions Indication: Hypertension, benign Fatigue : Patient Instructions Indication: Fatigue Encounters Lab Order On: 25-Mar-2018 12:52 Encounter Diagnosis: Hypertension with heart disease End: 25-Mar-2018 12:54 [facility] Office Visit On: 29-Jul-2017 6:51 Encounter Reason: Follow up acute care visit - The patient feeling better since last seen and improving. Patient has been compliant with instructions. Current medication use: no side effects and compliant with dosing reg End: 29-Jul-2017 7:18 imen. Patient sleeps 7 hours per night. Impact of disease: emotional impact-moderate. Nutrition: balanced diet and supplemental vitamins. The medical issues the patient is following up for include other (weight check).Encounter Diagnosis: BMI 45.0-49.9, adult, Nonsmoker, Obesity (Renamed from Obese), Metabolic syndrome, Hypertension with heart disease [facility] Office Visit On: 10-Jun-2017 6:47 Encounter Reason: Follow up acute care visit - The patient feeling better since last seen. Current medication use: no side effects. Patient sleeps 7 hours per night. Impact of disease: emotional impact-moderate. Nutritio End: 10-Jun-2017 7:31 n: balanced diet and supplemental vitamins. The medical issues the patient is following up for include other (obesity/weight).Encounter Diagnosis: BMI 45.0-49.9, adult, Nonsmoker, Elevated LFTs, Hypertension with heart disease, Stress reaction, Metabolic syndrome [facility] Office Visit On: 22-Mar-2017 13:15 Encounter Diagnosis: Encounter for routine adult medical exam with abnormal findings, Fatty liver, Postmenopausal (Renamed from Post-menopausal), Elevated LFTs, Atrial tachycardia, Keratoconus, bilateral, BMI 45.0-49.9, adult, Nonsmoker, End: 29-Mar-2017 19:40 Paresthesia of hand, Asthma, Family history of heart disease, Hypertension with heart disease, Stress reaction, OREN on CPAP, Metabolic syndrome, Obesity (Renamed from Obese), Fatigue, Hypercholesteremia (Renamed from Hypercholesterolemia), Allergic rhinitis, Hypothyroidism, Abnormal fasting glucose [facility] Lab Order On: 02-Mar-2017 8:02 Encounter Diagnosis: Encounter for hepatitis C virus screening test for high risk patient End: 02-Mar-2017 8:05 [facility] Phone Encounter On: 12-Jan-2017 20:47 Encounter Diagnosis: Metabolic syndrome End: 12-Jan-2017 20:51 [facility] Office Visit On: 01-Jan-2017 7:36 Encounter Reason: Follow up for chronic medical issues - The patient feels well with minor complaints, has decreased energy level and is sleeping well. Patient has been compliant with instructions. Current medication use End: 01-Jan-2017 8:20 : no side effects, compliant with dosing regimen and considered effective by patient. Patient sleeps 7 hours per night. Impact of disease: emotional impact-moderate. Nutrition: balanced diet and supplem ental vitamins. The medical issues the patient is following up for include asthma, blood sugar issues, cardiac issues, depression (anxiety), high blood pressure, high cholesterol, hypothyroid and other (obesity, elevated lft's, OREN on cpap). Encounter Diagnosis: BMI 45.0-49.9, adult, Nonsmoker, Impaired fasting glucose (Renamed from Elevated fasting blood sugar), Paresthesia of hand, Family history of heart disease, Asthma, Postmenopausal (Renamed from Post-menopausal), Fatty liver, Elevated LFTs, Keratoconus, bilateral, Atrial tachycardia, Hypertension with heart disease, Hypercholesteremia (Renamed from Hypercholesterolemia), Fatigue, Hypothyroidism, Allergic rhinitis, OREN on CPAP, Stress reaction, Obesity (Renamed from Obese) , Prediabetes, Metabolic syndrome [facility] Office Visit On: 13-Nov-2016 7:40 Encounter Reason: Follow up for chronic medical issues - The patient feels well with minor complaints and has decreased energy level. Patient has been compliant with instructions. Current medication use: no side effects, End: 13-Nov-2016 8:15 compliant with dosing regimen and considered effective by patient. Patient sleeps 6 hours per night. Impact of disease: emotional impact-moderate. Nutrition: balanced diet and supplemental vitamins. Th e medical issues the patient is following up for include asthma, blood sugar issues, cardiac issues, depression, high blood pressure, high cholesterol, hypothyroid and other (obesity, elevated lft's, OREN on Cpap ).Encounter Diagnosis: BMI 45.0-49.9, adult, Nonsmoker, Impaired fasting glucose (Renamed from Elevated fasting blood sugar), Dysuria, Obesity (Renamed from Obese), Stress reaction, Hypercholesteremia (Renamed from Hypercholesterolemia), Hypertension with heart disease, Hypothyroidism, Fatigue [facility] Phone Encounter On: 09-Oct-2016 8:11 [facility] End: 09-Oct-2016 8:24 Office Visit On: 18-Sep-2016 7:06 Encounter Reason: Follow up for chronic medical issues - The patient feels well with minor complaints and has decreased energy level. Patient has been compliant with instructions. Current medication use: no side effects, End: 18-Sep-2016 7:50 compliant with dosing regimen and considered effective by patient. Patient sleeps 7 hours per night. Impact of disease: emotional impact-moderate. Nutrition: balanced diet and supplemental vitamins. Th e medical issues the patient is following up for include asthma, blood sugar issues, cardiac issues, depression (anxiety ), high blood pressure, high cholesterol, hypothyroid and other (obesity, OREN, fatty liver ).Encounter Diagnosis: BMI 45.0-49.9, adult, Nonsmoker, Impaired fasting glucose (Renamed from Elevated fasting blood sugar), Paresthesia of hand, Keratoconus, bilateral, Family history of heart disease, Fatty liver, Postmenopausal (Renamed from Post-menopausal), Atrial tachycardia, Hypothyroidism, Hypercholesteremia (Renamed from Hypercholesterolemia), Allergic rhinitis, Obesity (Renamed from Obese), Hypertension with heart disease, Stress reaction, OREN on CPAP, Asthma, Elevated LFTs, Fatigue, BMI 40.0-44.9, adult [facility] Office Visit On: 07-Aug-2016 6:32 Encounter Reason: Forms - The patient presents to the office to be evaluate for work form (see scanned in form filled out)., [ADDITIONAL REASON] Cold Symptoms - Symptoms include sneezing, nasal congestion, runny nose, postnas End: 07-Aug-2016 7:13 al drainage, sore throat, facial pressure and headache. Onset was 3 day(s) ago. The symptoms occur constantly. The patient describes this as worsening. Previous presentation included sneezing, nasal con gestion, runny nose, postnasal drainage and sore throat. Note for Cold symptoms: pt had scheduled time off coming up she was working towards this time off to mentally regroup. patient needs time off foranxiety and mentally reprieve. Her boss has caused isses with work. 2 people in her job have had heart attacks. she is emotionally on edge. she does not sleep well. having anxiety attacks. Encounter Diagnosis: BMI 45.0-49.9, adult, Nonsmoker, Stress reaction, Obesity (Renamed from Obese), Hypertension with heart disease, Acute maxillary sinusitis, recurrence not specified [facility] Office Visit On: 19-Jun-2016 7:04 Encounter Reason: Follow up for chronic medical issues - The patient feels well with minor complaints and has decreased energy level. Patient has been compliant with instructions. Current medication use: no side effects, End: 19-Jun-2016 7:47 compliant with dosing regimen and considered effective by patient. Patient sleeps 6 hours per night. Impact of disease: emotional impact-moderate. Nutrition: balanced diet and supplemental vitamins. Th e medical issues the patient is following up for include asthma, blood sugar issues, cardiac issues, depression, high blood pressure, high cholesterol, hypothyroid and other (obesity, fatty liver, elevated lft's, keratoconus, OREN on cpap ). Encounter Diagnosis: BMI 45.0-49.9, adult, Current nonsmoker (Renamed from Current non-smoker), Paresthesia of hand, Impaired fasting glucose (Renamed from Elevated fasting blood sugar), Obesity (Renamed from Obese), Fatty liver, Family history of heart disease, Fatigue, OREN on CPAP, Elevated LFTs, Allergic rhinitis, Asthma, Hypercholesteremia (Renamed from Hypercholesterolemia), Hypothyroidism, Hypertension with heart disease, Atrial tachycardia, Postmenopausal (Renamed from Post-menopausal), Hyperkalemia, Keratoconus, bilateral, Stress reaction, BMI 40.0-44.9, adult [facility] Office Visit On: 08-May-2016 7:25 Encounter Reason: Injections - The medication the patient is here to receive is other (flu).Encounter Diagnosis: NEED FOR PROPHYLACTIC VACCINATION AND INOCULATION AGAINST INFLUENZA (V04.81) End: 10-May-2016 9:10 [facility] Phone Encounter On: 18-Feb-2016 9:19 Encounter Diagnosis: Atrial tachycardia End: 18-Feb-2016 9:20 [facility] Office Visit On: 10-Feb-2016 8:07 Encounter Diagnosis: BMI 40.0-44.9, adult, Current nonsmoker (Renamed from Current non-smoker), Encounter for routine adult medical exam with abnormal findings, Elevated LFTs, OREN on CPAP, Asthma, Allergic rhinitis, Hypothyroidism, End: 11-Feb-2016 8:14 Impaired fasting glucose (Renamed from Elevated fasting blood sugar), Fatty liver, Atrial tachycardia, Obesity (Renamed from Obese), Paresthesia of hand, Fatigue, Hypertension with heart disease, Stress reaction, Family history of heart disease, Hypercholesteremia (Renamed from Hypercholesterolemia), Hyperkalemia, Keratoconus, bilateral, Shortness of breath at rest, Need for Tdap vaccination, Postmenopausal (Renamed from Post-menopausal) [facility] Nurse Visit (Non-[place]) On: 17-Jan-2016 10:36 [facility] End: 17-Jan-2016 11:45 Office Visit On: 19-Dec-2015 7:09 Encounter Reason: Follow up acute care visit - The patient feels the same. Patient has been compliant with instructions. Current medication use: no side effects, compliant with dosing regimen and considered effective by End: 19-Dec-2015 7:40 patient. Patient sleeps 6 hours per night. Impact of disease: emotional impact-mild. Nutrition: balanced diet and supplemental vitamins. The medical issues the patient is following up for include high blood pressure.Encounter Diagnosis: Hypertension with heart disease, Current nonsmoker (Renamed from Current non-smoker), Allergic rhinitis, Hypothyroidism, Impaired fasting glucose (Renamed from Elevated fasting blood sugar), Obesity (Renamed from Obese), Atrial tachycardia, Stress reaction, Elevated LFTs, OREN on CPAP, Asthma, Fatty liver, Paresthesia of hand, Fatigue [facility] Office Visit On: 27-Sep-2015 7:04 Encounter Reason: Follow up acute care visit - The patient feeling better since last seen and improving. Patient has been compliant with instructions. Current medication use: no side effects, compliant with dosing regime End: 30-Sep-2015 6:57 n and considered effective by patient. Patient sleeps 7 hours per night. Impact of disease: emotional impact-mild. Nutrition: balanced diet and supplemental vitamins. The medical issues the patient is following up for include high blood pressure. Encounter Diagnosis: Hypertension with heart disease, Current nonsmoker (Renamed from Current non-smoker), OREN on CPAP, Asthma [facility] Office Visit On: 09-Aug-2015 7:03 Encounter Reason: Follow up for chronic medical issues - The patient feels well with minor complaints and has decreased energy level. Patient has been compliant with instructions. Current medication use: no side effects, End: 09-Aug-2015 7:44 compliant with dosing regimen and considered effective by patient. Patient sleeps 7 hours per night. Impact of disease: emotional impact-mild. Nutrition: balanced diet and supplemental vitamins. The me dical issues the patient is following up for include asthma, blood sugar issues, cardiac issues, depression, high blood pressure, high cholesterol, hypothyroid and other (obesity, elevated lft's, OREN on cpap).Encounter Diagnosis: Impaired fasting glucose (Renamed from Elevated fasting blood sugar), Current nonsmoker (Renamed from Current non-smoker), Asthma, Hypothyroidism, Fatigue, Elevated LFTs, Fatty liver, Stress reaction, Paresthesia of hand, Allergic rhinitis, Hypertension with heart disease, Obesity (Renamed from Obese), Atrial tachycardia, OREN on CPAP [facility] Office Visit On: 11-Jul-2015 14:38 Encounter Diagnosis: Sebaceous cyst, Current nonsmoker (Renamed from Current non- smoker), Hypothyroidism, Hypertension with heart disease End: 11-Jul-2015 15:30 [facility] Phone Encounter On: 28-Jun-2015 13:11 Encounter Diagnosis: Fatty liver End: 28-Jun-2015 13:20 [facility] Office Visit On: 28-Jun-2015 7:49 Encounter Reason: Diarrhea - Adult - The last clinic visit was 3 day(s) ago. Symptoms include diarrhea, abdominal pain, nausea and vomiting (gone now, but had it wednesday). The stools are described as loose and green. O End: 28-Jun-2015 9:24 nset was sudden 3 day(s) ago. Onset followed foreign travel ([facility] for new years). The symptoms occur intermittently. The episodes occur 6 time(s) a day. This is described as improving. Symptoms are not exacerbated by eating, spicy foods, greasy foods, dairy products, stress or activity. Symptoms are not relieved by antidiarrheals, antiemetics, antispasmodics, stomach rest, high fiber diet or fluid intake. Associated symptoms do not include irritability, lethargy, headache, weight loss, myalgias, rash, dry mouth, excessive thirst, sunken eyes, diminished tears or decreased urine outp ut. Previous presentation included diarrhea, abdominal pain, nausea and vomiting.Encounter Diagnosis: Vomiting and diarrhea, Dehydration, Gastroenteritis [facility] Office Visit On: 14-May-2015 8:02 Encounter Reason: Foot Problem - This condition occurred without any known injury. The injury involved the left foot. This occurred 1 month(s) ago at home. Symptoms include foot pain. Symptoms are located in the left buster End: 14-May-2015 8:28 t. Onset was gradual 1 month(s) ago. The symptoms occur intermittently. The patient describes symptoms as unchanged. Symptoms are not exacerbated by tight shoes, weight bearing, walking, standing or dir ect pressure. Associated symptoms do not include thickened toenails, discolored toenails, peeling skin, ingrown toenails, pain with shoes, inability to fit shoes, low arch, ankle swelling, limited weigh t bearing, abnormal gait, leg pain or back pain. The patient is not currently being treated for this problem. By report there is good compliance with treatment. Pertinent medical history does not includ e bunions, hammertoe, onychomycosis, peripheral neuropathy, gangrene, synovitis, tenosynovitis, diabetes, osteoporosis, rheumatoid arthritis, connective tissue disease, claudication, degenerative joint disease, congenital foot deformity, plantar fasciitis, metatarsalgia, heel spurs, Tolliver neuroma or stress fracture. Previous presentation included foot pain., [ADDITIONAL REASON] Urinary problems - The onset of the urinary problems has been gradual. Encounter Diagnosis: UTI symptoms, Acute foot pain, left [facility] Office Visit On: 05-Apr-2015 6:24 Encounter Reason: Follow up acute care visit - The patient feeling better since last seen and improving. Patient has been compliant with instructions. Current medication use: no side effects, compliant with dosing regime End: 05-Apr-2015 8:38 n and considered effective by patient. Patient sleeps 7 hours per night. Impact of disease: emotional impact-mild. Nutrition: balanced diet and supplemental vitamins. The medical issues the patient is following up for include depression and UTI. Encounter Diagnosis: Current nonsmoker (Renamed from Current non-smoker), UTI (urinary tract infection), NEED FOR PROPHYLACTIC VACCINATION AND INOCULATION AGAINST INFLUENZA (V04.81), Stress reaction [facility] Refill Request On: 05-Mar-2015 12:56 Encounter Diagnosis: UTI (urinary tract infection) End: 05-Mar-2015 12:58 [facility] Office Visit On: 01-Mar-2015 6:55 Encounter Reason: Follow up for chronic medical issues - The patient feels well with minor complaints and has decreased energy level. Patient has been compliant with instructions. Current medication use: no side effects, End: 01-Mar-2015 7:35 compliant with dosing regimen and considered effective by patient. Patient sleeps 6 hours per night. Impact of disease: emotional impact-moderate. Nutrition: balanced diet and supplemental vitamins. Th e medical issues the patient is following up for include asthma, blood sugar issues, cardiac issues, depression, high blood pressure, high cholesterol, hypothyroid and other (obesity, OREN, elevated LFT's ).Encounter Diagnosis: Hypothyroidism(244.9), Abdominal Pain,RLQ (789.03), Atrial tachycardia, Obstructive sleep apnea (327.23), Asthma (493.11), Fatigue, Impaired fasting glucose (Renamed from Elevated fasting blood sugar), Stress Reaction (308.4), Paresthesia of hand, Elevated LFT (794.8), Obesity (Renamed from Obese), Hypertension with Heart Disease (402.90), Allergic Rhinitis(477.9) [facility] Lab Order On: 22-Feb-2015 10:23 Encounter Diagnosis: Hypothyroidism(244.9), Elevated LFT (794.8) End: 22-Feb-2015 10:25 [facility] Office Visit On: 16-Nov-2014 7:58 Encounter Diagnosis: Obesity (Renamed from Obese), Stress Reaction (308.4), Hypertension with Heart Disease (402.90), Allergic Rhinitis(477.9), Paresthesia of hand End: 16-Nov-2014 9:05 [facility] Office Visit On: 11-Oct-2014 7:35 Encounter Reason: Follow up for chronic medical issues - The patient feels well with minor complaints and has decreased energy level. Patient has been compliant with instructions. Current medication use: no side effects, End: 11-Oct-2014 8:00 compliant with dosing regimen and considered effective by patient. Patient sleeps 6 hours per night. Impact of disease: emotional impact-mild. Nutrition: balanced diet and supplemental vitamins. The ne dical issues the patient is following up for include asthma, blood sugar issues, cardiac issues, depression, high cholesterol, hypothyroid and other (obesity, allergic rhinitis, OREN, elevated LFT's ).Encounter Diagnosis: Asthma (493.11), Impaired fasting glucose (Renamed from Elevated fasting blood sugar), Allergic Rhinitis(477.9), Fatigue, Obstructive sleep apnea (327.23), Elevated LFT (794.8), Atrial tachycardia, Obesity (Renamed from Obese), Hypertension with Heart Disease (402.90), Stress Reaction (308.4), Hypothyroidism(244.9) [facility] Office Visit On: 19-Jul-2014 7:15 Encounter Reason: Follow up acute care visit - The patient feeling better since last seen and improving. Patient has been compliant with instructions. Current medication use: no side effects, compliant with dosing regime End: 19-Jul-2014 7:45 n and considered effective by patient. Patient sleeps 6 hours per night. Impact of disease: emotional impact-mild. Nutrition: balanced diet and supplemental vitamins. The medical issues the patient is f ollowing up for include other (wellbutrin and review last labs ).Encounter Diagnosis: Hypothyroidism(244.9), Obesity (Renamed from Obese), Stress Reaction (308.4), Hypertension with Heart Disease (402.90) [facility] Office Visit On: 08-Jun-2014 7:06 Encounter Reason: Follow up acute care visit - The patient feeling better since last seen and improving. Patient has been compliant with instructions. Current medication use: experiencing side effects (some nausea with c End: 08-Jun-2014 7:33 ontrave will re try it ). Patient sleeps 6 hours per night. Impact of disease: emotional impact-moderate. Nutrition: balanced diet and supplemental vitamins. The medical issues the patient is following up for include other (obesity ). Encounter Diagnosis: Hypertension with Heart Disease (402.90), Obesity (Renamed from Obese), Stress Reaction (308.4), Obstructive sleep apnea (327.23) [facility] Office Visit On: 19-Apr-2014 8:13 Encounter Diagnosis: Asthma (493.11), NEED FOR PROPHYLACTIC VACCINATION AND INOCULATION AGAINST INFLUENZA (V04.81) End: 20-Apr-2014 6:35 [facility] Office Visit On: 19-Apr-2014 7:32 Encounter Reason: Follow up for chronic medical issues - The patient feels well with minor complaints and has decreased energy level. Patient has been compliant with instructions. Current medication use: no side effects, End: 19-Apr-2014 8:04 compliant with dosing regimen and considered effective by patient. Patient sleeps 6 hours per night. Impact of disease: emotional impact-mild. Nutrition: balanced diet and supplemental vitamins. The me dical issues the patient is following up for include asthma, blood sugar issues, cardiac issues, high blood pressure, high cholesterol, hypothyroid and other (obesity, OREN, allergic rhinitis ).Encounter Diagnosis: Impaired fasting glucose (Renamed from Elevated fasting blood sugar), Asthma (493.11), Allergic Rhinitis(477.9), Fatigue, Obstructive sleep apnea (327.23), Hypothyroidism(244.9), Elevated LFT (794.8), Obesity (Renamed from Obese), Hypertension with Heart Disease (402.90), Stress Reaction (308.4), Pre-syncope (Renamed from Near syncope), Atrial tachycardia [facility] Office Visit On: 15-Feb-2014 7:14 Encounter Reason: Follow up acute care visit - The patient feeling better since last seen and improving. Patient has been compliant with instructions. Current medication use: no side effects, compliant with dosing regime End: 15-Feb-2014 8:01 n and considered effective by patient. Patient sleeps 7 hours per night. Impact of disease: emotional impact-mild. Nutrition: balanced diet and supplemental vitamins. The medical issues the patient is following up for include other (anxiety, HTN ). Encounter Diagnosis: Stress Reaction (308.4), Hypertension with Heart Disease (402.90), Obesity (Renamed from Obese) [facility] Office Visit On: 18-Jan-2014 7:07 Encounter Reason: Follow up for chronic medical issues - The patient feels well with minor complaints and has decreased energy level. Patient has been compliant with instructions. Current medication use: no side effects, End: 18-Jan-2014 7:37 compliant with dosing regimen and considered effective by patient. Patient sleeps 7 (uses cpap ) hours per night. Impact of disease: emotional impact-mild. Nutrition: balanced diet. The medical issues the patient is following up for include asthma, blood sugar issues, cardiac issues, high blood pressure, high cholesterol, hypothyroid and other (obesity, OREN, allergic rhinitis, elevated LFT's ).Encounter Diagnosis: Hypertension with Heart Disease (402.90), Impaired fasting glucose (Renamed from Elevated fasting blood sugar), Allergic Rhinitis(477.9), Asthma (493.11), Hypothyroidism(244.9), Obstructive sleep apnea (327.23), Pre-syncope (Renamed from Near syncope), Atrial tachycardia, Elevated LFT (794.8), Fatigue, Obesity (Renamed from Obese), Pain in limb (729.5), Stress Reaction (308.4), Hypertension,benign(401.1) [facility] Office Visit On: 16-Oct-2013 13:13 Encounter Reason: Follow up, Diagnostic Procedure Results - Diagnostic tests include other (labs ). Date: (10-06-13). Current symptoms include other (allergy sx. ).Encounter Diagnosis: Obesity (Renamed from Obese), End: 16-Oct-2013 13:49 Hypertension with Heart Disease (402.90), Fatigue, Elevated LFT (794.8), Atrial tachycardia [facility] Phone Encounter On: 13-Sep-2013 9:06 Encounter Diagnosis: Hypothyroidism(244.9) End: 13-Sep-2013 9:09 [facility] Office Visit On: 01-Sep-2013 7:19 Encounter Reason: Follow up for chronic medical issues - The patient feels well with minor complaints and has decreased energy level. Patient has been compliant with instructions. Current medication use: no side effects. End: 01-Sep-2013 7:51 Patient sleeps 6 (uses cpap ) hours per night. Impact of disease: emotional impact- mild. Nutrition: balanced diet and supplemental vitamins. The medical issues the patient is following up for include a sthma, blood sugar issues, cardiac issues, high blood pressure, hypothyroid and other (obesity, OREN, fatgiue, allergic rhinitis ).Encounter Diagnosis: Impaired fasting glucose (Renamed from Elevated fasting blood sugar), Hypertension with Heart Disease (402.90), Allergic Rhinitis(477.9), Asthma (493.11), Fatigue, Obesity (Renamed from Obese), Hypothyroidism(244.9), Obstructive sleep apnea (327.23), Flatulence, Pre-syncope (Renamed from Near syncope), Atrial tachycardia, Heartburn (Renamed from Brash), Elevated LFT (794.8) [facility] Office Visit On: 06-Jul-2013 7:20 Encounter Reason: Follow up, Diagnostic Procedure Results - Diagnostic tests include other (holter ) and ECHO. Date: ().Encounter Diagnosis: Hypertension,benign(401.1), Atrial tachycardia, Pre-syncope (Renamed from Near syncope), End: 06-Jul-2013 7:54 Hypertension with Heart Disease (402.90), Obstructive sleep apnea (327.23), Flatulence [facility] Office Visit On: 02-Jun-2013 13:31 Encounter Reason: DizzinessEncounter Diagnosis: Hypertension,benign(401.1), Pre- syncope (Renamed from Near syncope), Fatigue, Obstructive sleep apnea (327.23) End: 02-Jun-2013 14:02 [facility] Office Visit On: 14-Apr-2013 10:05 Encounter Reason: Injections - The medication the patient is here to receive is other (flu vaccine).Encounter Diagnosis: NEED FOR PROPHYLACTIC VACCINATION AND INOCULATION AGAINST INFLUENZA (V04.81) End: 17-Apr-2013 7:51 [facility] Office Visit On: 26-Jan-2013 11:38 Encounter Reason: Follow up for chronic medical issues - The patient feels well with minor complaints and has decreased energy level. Current medication use: no side effects. Patient sleeps 7 hours per night. Impact of d End: 26-Jan-2013 12:31 isease: emotional impact-moderate. Nutrition: balanced diet and supplemental vitamins. The medical issues the patient is following up for include cardiac issues, gastric reflux, high blood pressure, hig h cholesterol, hypothyroid and other (obesity, allergic rhinitis, menorrhagia ).Encounter Diagnosis: Impaired fasting glucose (790.21), Hypertension,benign(401.1), Hypothyroidism(244.9), Hormonal Imbalance (259.9), Menorrhagia(626.2), Abnormal TSH (794.5), Fatigue (780.79), Asthma (493.11), Allergic Rhinitis(477.9), Obesity (278.00), Heartburn (787.1), WWV V73.21 [facility] Office Visit On: 10-Nov-2012 7:13 Encounter Reason: Foot Problem - This condition occurred following a specific injury. The injury involved the right foot. This occurred 1 week(s) ago at home. Symptoms include foot pain, foot swelling and foot skin lesio End: 10-Nov-2012 8:13 ns, while symptoms do not include foot numbness. Symptoms are located in the right foot. The symptoms occur constantly. The patient describes symptoms as moderate in severity and unchanged.Encounter Diagnosis: Hypertension,benign(401.1), Foot pain (729.5) [facility] Office Visit On: 17-Oct-2012 7:57 Encounter Reason: Follow up tests - Date: (September 2012)., [ADDITIONAL REASON] Follow up acute care visit - The patient feels the same (also has black toe nail following pedicure). Encounter Diagnosis: Fatigue (780.79), Hypothyroidism(244.9), End: 17-Oct-2012 8:56 Obesity (278.00), Hypertension,benign(401.1), Heartburn (787.1) [facility] Office Visit On: 19-Sep-2012 8:27 Encounter Reason: Fatigue - Onset was 3 month(s) ago., [ADDITIONAL REASON] indigestion Encounter Diagnosis: Fatigue (780.79), Hypothyroidism(244.9), Hypertension,benign(401.1), Heartburn (787.1) End: 19-Sep-2012 9:00 [facility] Office Visit On: 20-Jun-2012 11:35 Encounter Reason: Preoperative evaluation - The patient feels well with minor complaints, has good energy level and is sleeping well. Surgical procedures include: other (Robotic assist Total hysterectomy ). Date of proce End: 20-Jun-2012 12:09 dure: (06-30-12 Dr. Thorpe ) . There have been no problems with general anesthesia or blood/blood products. Prosthetics include: contact lens and other (metal post implant ).Encounter Diagnosis: PRE-OPERATIVE EXAMINATION, UNSPECIFIED (V72.84), Hypertension,benign(401.1), Asthma (493.11), Obesity (278.00), Hypothyroidism(244.9) [facility] Office Visit On: 19-Apr-2012 14:33 Encounter Reason: Arm pain - The pain has been occurring for 2 weeks. The course has been increasing (here a little worse, catches more).Encounter Diagnosis: Tennis elbow syndrome (726.32) End: 19-Apr-2012 15:01 [facility] Office Visit On: 14-Dec-2011 15:49 Encounter Reason: Urinary problems - The urinary problems have been occurring for 2 days., [ADDITIONAL REASON] Follow up acute care visit - The patient does not feel well (I am a little nakul End: 14-Dec-2011 17:33 r with the cough but not where I think I should be and now I have odor and mucous with my urine.). Patient has been compliant with instructions. The medical issues the patient is following up for include other. Encounter Diagnosis: Cough (786.2), Asthma (493.11), Urinary frequency (788.41) [facility] Office Visit On: 30-Nov-2011 11:18 Encounter Reason: Bronchitis - The onset of the bronchitis has been sudden and has been occurring in an increasing pattern for 3 days. The course has been increasing. The bronchitis has no relieving factors. Associated End: 30-Nov-2011 12:03 features include chest tightness and shortness of breath. No previous evaluations were reported.The patient has a habit to not smoke.Encounter Diagnosis: CHRONIC OBSTRUCTIVE ASTHMA WITH (ACUTE) EXACERBATION (493.22), Allergic rhinitis due to other allergen (477.8) [facility] Lab Order On: 04-Nov-2011 8:38 Encounter Diagnosis: Abnormal TSH (794.5), Hypertension,benign(401.1) End: 04-Nov-2011 8:41 [facility] Annotation/Addendum On: 08-Oct-2011 15:05 Encounter Diagnosis: Hypertension,benign(401.1) End: 08-Oct-2011 15:06 [facility] Office Visit On: 18-Sep-2011 14:06 Encounter Reason: Follow up tests - Diagnostic tests include other (labs ). Date: (). Current symptoms include other (HTN).Encounter Diagnosis: Hypertension,benign(401.1), Fatigue (780.79), Abnormal TSH (794.5), Hormonal Imbalance (259.9), End: 18-Sep-2011 14:50 Obesity (278.00) [facility] Office Visit On: 18-Jun-2011 7:18 Encounter Reason: Follow up for chronic medical issues - The patient feels well with minor complaints and has decreased energy level. Patient has been compliant with instructions. Current medication use: no side effects, End: 18-Jun-2011 7:42 compliant with dosing regimen and considered effective by patient. Patient sleeps 7 hours per night. Impact of disease: emotional impact-mild. Nutrition: balanced diet and supplemental vitamins. The ne dical issues the patient is following up for include asthma, cardiac issues, depression, high blood pressure, hypothyroid and other (obesity, allergic rhinitis ).Encounter Diagnosis: Abnormal TSH (794.5), Fatigue (780.79), Hypertension,benign(401.1) , Hormonal Imbalance (259.9) [facility] Office Visit On: 16-Apr-2011 7:42 Encounter Reason: Follow up tests - Diagnostic tests include other (labs). Date: (04/08/11).Encounter Diagnosis: Abnormal TSH (794.5), Fatigue (780.79), Obesity (278.00), Asthma (493.11) End: 16-Apr-2011 8:13 [facility] Office Visit On: 30-Jan-2011 7:16 Encounter Diagnosis: Abnormal TSH (794.5), Menorrhagia(626.2), Impaired fasting glucose (790.21), ACUTE PHARYNGITIS (462.) End: 30-Jan-2011 7:37 [facility] Office Visit On: 26-Sep-2010 8:52 Encounter Reason: Nurse procedure visit - Reason for visit: other (spirometry).Encounter Diagnosis: Asthma (493.11) End: 28-Sep-2010 9:00 [facility] Office Visit On: 18-Sep-2010 7:39 Encounter Reason: Follow up for chronic medical issues - The patient feels well with minor complaints (shortness of breath says r/t her asthma), has decreased energy level and is sleeping poorly. Patient has been complia End: 18-Sep-2010 8:18 nt with instructions. Current medication use: no side effects, compliant with dosing regimen and considered effective by patient. Patient sleeps 6 hours per night. Impact of disease: emotional impact-mi ld. Nutrition: poor nutrition and supplemental vitamins. The medical issues the patient is following up for include All identified problems below, asthma and high blood pressure.Encounter Diagnosis: SYMPTOM, SHORTNESS OF BREATH (786.05), Abnormal TSH (794.5), Hypertension,benign(401.1), Fatigue (780.79), Asthma (493.11), Obesity (278.00) [facility] Office Visit On: 09-Jun-2010 16:18 Encounter Reason: Follow up acute care visit - The patient feeling better since last seen (I am not on the adrenal builders, I am not taking the asthmatic inhaler and I had to see my director database and my ENT dosent want me o End: 09-Jun-2010 17:12 n the inhaler. And I am not take the protonix. and I am taking 1/2 the welbutrin in half (150XL). I respond very strongly to meds.). Patient has been non- compliant (see note on changes . . some were per ENT) with instructions. Patient sleeps 6 hours per night. Nutrition: balanced diet and supplemental vitamins., [ADDITIONAL REASON] Follow up, Laboratory Test Results - Lab results: other (abmormal EBVIgG/ M 2166 55, Free T3 and Free T4 --05/30/10). Encounter Diagnosis: Abnormal TSH (794.5), Hypertension,benign(401.1), Asthma (493.11), Fatigue (780.79), Allergic Rhinitis(477.9), Hormonal Imbalance (259.9) [facility] Phone Encounter On: 30-May-2010 7:56 Encounter Diagnosis: Abnormal TSH (794.5) End: 30-May-2010 7:58 [facility] Office Visit On: 30-May-2010 7:43 Encounter Reason: Sore throat - The onset of the sore throat has been sudden and has been occurring in a persistent pattern for 2 days. The course has been worsening. The symptoms have been associated with foreign body s End: 30-May-2010 8:23 ensation in throat, change in voice, cough (dry ), difficulty in swallowing, post- nasal drip, recent contact with a person with sore throat ([employer] ([employer])) and swelling of neck glands, whil e the symptoms have not been associated with chills or ear pain.Encounter Diagnosis: ACUTE PHARYNGITIS (462.) [facility] Office Visit On: 17-Apr-2010 11:27 Encounter Reason: Cough - The onset of the cough has been acute and has been occurring in a persistent pattern for days (3). The course has been recurrent. The cough is characterized as productive of mucoid sputum. The a End: 17-Apr-2010 12:06 mount of sputum produced is scanty. The cough occurs all the time. The symptoms have been associated with dyspnea, hoarseness and runny nose.Encounter Diagnosis: SYMPTOM, SHORTNESS OF BREATH (786.05), BRONCHITIS, NOT SPECIFIED ACUTE OR CHRONIC (490.) [facility] Office Visit On: 07-Apr-2010 10:20 Encounter Reason: Follow up hospital - Reason for ER visit: note: (chest pain, elevated b/p). The patient feels well with minor complaints and has decreased energy level. Patient has been compliant with instructions. Cur End: 07-Apr-2010 10:52 rent medication use: compliant with dosing regimen. Patient sleeps 7 hours per night. Impact of disease: emotional impact-mild. Nutrition: balanced diet and supplemental vitamins. The hospital results of the stress test wereEncounter Diagnosis: Chest pain (786.59), Fatigue (780.79), Allergic Rhinitis(477.9), Asthma (493.11) [facility] Office Visit On: 01-Apr-2010 14:53 Encounter Reason: Chest pain at rest - The onset of the pain has been gradual and has been occurring in a recurrent pattern for 1 week. The pain is described as a moderate pressure sensation (sternum ). The pain is descr End: 01-Apr-2010 15:58 ibed as being located in the substernal area. The pain radiates to the back. The symptoms have no aggravating factors. The symptoms have been associated with headache.Encounter Diagnosis: Hypertension,benign(401.1), Chest pain (786.59), Fatigue (780.79), Abnormal TSH (794.5) [facility] Office Visit On: 28-Mar-2010 7:34 Encounter Diagnosis: Abnormal TSH (794.5), Fatigue (780.79), Allergic Rhinitis(477.9), Hypertension,benign(401.1) End: 28-Mar-2010 8:23 [facility] Phone Encounter On: 20-Mar-2010 9:52 [facility] End: 20-Mar-2010 9:53 Historical Summary On: 17-Feb-2010 13:43 [facility] End: 17-Feb-2010 13:43 Office Visit On: 10-Feb-2010 15:31 Encounter Reason: new patient female physical - Last seen between 1-3 months ago. General health: feels well with minor complaints and has decreased energy level. The patient's appetite is normal. Nutrition: normal/adequ End: 10-Feb-2010 16:41 ate. Exercises 3 days per week. Sleeps on average 7 hours per night. Normal bowel and bladder habits. Safety measures include appropriate use of safety belts and home smoke detectors. Current emotional problems include anxiety and depression. screening, colonoscopy (2003) ,screening, mammography (2009) ,screening, Pap smear (Dr. Thorpe 2009) ,screening, visual acuity (2008) and rectal exam (2009). Encounter Diagnosis: Obesity (278.00), Hypertension,benign(401.1), Allergic Rhinitis(477.9), Hormonal Imbalance (259.9), Asthma (493.11), Abnormal TSH (794.5), Fatigue (780.79), Menorrhagia(626.2) [facility] [employer] [place] [facility] [place]Ed[place]; shanika guarantor
--- OUTSIDE RECORDS SUMMARY | 2018-07-19 10:29 | XMS RPT_ITS | Continuity of Care Document ---
:1955 Author Organization [facility] Address [address] [facility] [address] [place] [address] Phone Care Team Providers Name Role Phone Nerissa CASTELLANO, Krysten Levi Unavailable Dr. Reginaldo Corbin Unavailable Erwin Rose Unavailable Maciej Cadena Unavailable Timothy CASTELLANO, Speedy S Unavailable Andrew CASTELLANO, Regan Unavailable RITA Mendez Unavailable Unavailable Slajacqueline CANS VACUUM TESTER, Moraima Unavailable Unavailable Unavailable Unavailable Problems Name Dates Details Abnormal fasting glucose (R73.01, 790.29) Status: Active Allergic rhinitis (J30.9, 477.9) Comments: off allergy shots. back this spring and seeing caser shoe parts. add kaleb. will get abck to ENT. 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 comign down some. Status: Active Encounter for routine adult medical exam with abnormal findings (Z00.01, V70.0) Comments: 03-22-17 [facility] [address] Thorpe. colonoscopy polyp due [...] hard lens. at this poitn not recommend richard transplant. Status: Active Metabolic syndrome (E88.81, 277.7) Comments: would really like to try Trulicity and get her loosing weight. went over side effects including pancreatitis, nausea and vomiting, rare in rats of medullary thyroid cancer. pt with no famil y history of medullary thyroid cancer. told how to use and take and demonstrate in office Status: Active NEED FOR PROPHYLACTIC VACCINATION AND INOCULATION AGAINST INFLUENZA (V04.81) (Renamed from NEED FOR PROPHYLACTIC VACCINATION AND INOCULATION AGAINST INFLUENZA) (Z23, V04.81) Status: Active Nonsmoker (Z78.9, V49.89) Status: Active [...] she finally changed stressed job. she working [employer] as as [employer] which likes better. easier to communate. less [...] {Tablet} Refills: 3 Ordered:22-Mar-2017 Nerissa CASTELLANO, Krysten Dunbar MD, Krysten Levi Start : 22-Mar-2017 Active Cytomel 5 MCG Oral Tablet 1 (one) Tablet qd for 0 days Quantity: 90 {Tablet} Refills: 3 Ordered:28-May-2017 Krysten Dial MD, MD, Dana M Start : 28-May-2017 Active Dulera 100-5 MCG/ACT [...] 90 {Tablet} Refills: 3 Ordered:28-May-2017 Krysten Dial MDonezzi MD, Krysten Levi Start : 28-May-2017 Active ADRENAL (Oral Capsule) [...] days Quantity: 1 {Aero_Pow_Br_Act} Refills: 0 Ordered:14-Dec-2011 Francoise Meng CNP Start : 16-Apr-2011 End : 14-Dec-2011 Inactive [...] days Quantity: 14 {Tablet} Refills: 0 Ordered:14-May-2015 Emilysarabjit BROFrancoise Start : 14-May-2015 End : 21-May-2015 Inactive [...] days Quantity: 7 {Tablet} Refills: 0 Ordered:14-Dec-2011 Emilysarabjit CRABTREEFrancoise Start : 14-Dec-2011 End : 21-Dec-2011 Inactive [...] days Quantity: 90 {Capsule} Refills: 3 Ordered:28-Jun-2015 SlaMoraima phillips LPN Start : 08-Jun-2014 End : 28-Jun-2015 Discontinued PROBIOTIC (Oral Capsule) 1 qd End : 28-Jun-2015 Discontinued PROTONIX, 40MG (Oral Tablet Delayed Release) 1 qd (40 MG) End : 09-Jun-2010 Discontinued SAW PALMETTO COMPLEX (Oral Capsule) 1 qd for 0 days Refills: 0 Ordered:14-Dec-2011 Yusra CRABTREEFrancoise E End : 14-Dec-2011 Discontinued Comments:This order discontinued [...] (R79.89, 790.6) Comments: endocrine Dr. Herrera at [facility], changed cytomel. adjusted 2-12. reduced cytomel to [...] Inactive as of 11-Jul-2015 Heartburn (Renamed from Brash) (R12, 787.1) Comments: more bloating. using alogn [...] again but not really totally postmenapausal. seeing manager continuous improvement. Status: Inactive as of 06-Jul-2013 Need for Tdap vaccination (Z23, V06.1) Status: [...] (CAD), BILAT Result: Comments: See Note; NOTES: [facility] Imaging Services [address] [place] [address] Verdana 4d SCREENING MAMM (CAD), BILAT MR#: [id number] Acct: [id number] Name: GRZEGORZ BANGURA Rep #: [id number] : 1955 F 61 From: Sarbjit Hansen MD PCP: Krysten Dial MD Status: REG CLI Study: SCREENING MAMM (CAD), BILAT Date of Exam: 11/30/16 Exam# [id number] Ordering Dr: Marie Thorpe MD MAMMOGRAPHY - [...] delay biopsy of a clinically suspicious abnormality. [id number] Electronically Signed: Sarbjit Hansen MD at 14:44 EDT Tel , Service support [phone], CC: Ruthie Thorpe MD; Krysten Dial MD Cna Instructor: Signed 25-Feb-2016 Dexa Bone Density Study (HP) Result: Comments: See Note; NOTES: [facility] Imaging Services [address] [place] [address] Verdana 4d Dexa Bone Density Study (HP) MR#: [id number] Acct: [id number] Name: PRICE Rep #: [id number] : 1955 F 60 From: Albaro Pena MD PCP: Krysten Dial MD Status: REG CLI Study: Dexa Bone Density Study (HP) Date of Exam: 02/25/16 Exam# [id number] Ordering Dr: Krysten Portillo MD STUDY: DUAL [...] Albaro Pena MD at 9:34 EDT Tel [phone], Service support [phone], CC: Krysten Dial MD Cna Instructor: Signed 07-Nov-2015 Bilat Scrn Digital AND CAD Result: Comments: See Note; NOTES: [facility] Imaging Services [address] [place] [address] Verdana 4d Bilat Scrn Digital AND CAD MR#: [id number] Acct: [id number] Name: ARCHANA BANGURA Rep #: [id number] : 1955 F 60 From: Albaro Pena MD PCP: Bonezzi MD,Krysten Status: REG CLI Study: Bilat Scrn Digital AND CAD Date of Exam: 11/07/15 Exam# [id number] Order ing Dr: Ruthie Thorpe MD MAMMOGRAPHY [...] lay biopsy of a clinically suspicious abnormality. [id number] Electronically Signed: Albaro Pena MD at 11:07 EDT Tel [phone], Service support [phone], CC: Ruthie Thorpe MD; Krysten Dial MD Cna Instructor: Signed 28-Jun-2015 Gallbladder Result: Comments: See Note; NOTES: [facility] Imaging Services [address] [place], [place] [address] [address] Luis Enrique 4d Gallbladder MR#: [id number] Acct: [id number] Name: ARCHANA BANGURA Rep #: [id number] : 1955 F 60 From: Albaro Pena MD PCP: Krysten Dial MD Status: REG CLI Study: Gallbladder Date of Exam: 06/28/15 Exam# [id number] Ordering Dr: Francoise Meng STUDY: ABDOMINAL ULTRASOUND [...] Albaro Pena MD at 11:40 EST Tel [phone], Service support [phone], CC: Francoise Meng; Krysten Dial MD Cna Instructor: Signed 14-May-2015 Foot min 3 Views Result: Comments: See Note; NOTES: [facility] Imaging Services [address] [place] [address] Verdana 4d Foot min 3 Views MR#: [id number] Acct: [id number] Name: PRICE Rep #: [id number] : 1955 F 60 From: Vazquez Briggs MD PCP: Krysten Dial MD Status: REG CLI Study: Foot min 3 Views Date of Exam: 05/14/15 Exam# [id number] Ordering Dr: Francoise Meng STUDY: X-RAY - [...] FACR at 19:17 EST , Service support [phone], RAD/Foot min 3 Views IMPRESSION: 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 Prominent plantar calcaneal spur. Flattening of the heads of the second and third metatarsals which could be related to stress subchondral fracture or cyrus ne infarcts. Electronically Signed: Vazquez Briggs MD, FACR at 19:17 EST , Service support [phone], CC: Francoise Meng; Krysten Dial MD Cna Instructor: Signed 04-Jan-2015 PT Discharge Summary Result: Comments: See Note; NOTES: [facility] Physical Therapy [address] [place] [address] Fax REHABILITATION SERVICES DISCHARGE SUMMARY MR#: [id number] Acct: [id number] Name: ARCHANA BANGURA Rep #: [id number] : 1955 59 From: Roberto Leon Referring Dr.: Krysten Dial MD Status: PRE RCR Eval Date: Date: DATE OF SERVICE: REFERRING PHYSICIAN: Dr. Krysten Dial. Archana Bangura was evaluated at [facility] on the date of October [...] achieved. Roberto Leon, PT T: NTS JOB: [id number] <Electronically signed by Roberto Leon > 01/04/15 0937 CC: Signed 22-Oct-2014 Inital Evaluation - PT Result: Comments: See Note; NOTES: [facility] Physical Therapy [place] [address] [facility] [place] [address] Fax REHABILITATION SERVICES INITIAL EVALUATION MR#: [id number] Acct: [id number] Name: ARCHANA BANGURA Rep #: [id number] : 1955 59 From: Roberto Leon Referring Dr.: Krysten Dial MD Status: DIS RCR [facility] Date: DATE OF SERVICE: 10/18/2014 REFERRING PHYSICIAN: Krysten Dial M.D. 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 Roberto Leon, PT T: CHRIS JOB: [id number] <Electronically signed by Roberto lopez > 10/22/14 1124 CC: Signed For Medicare only, by signing this I certify the plan of care. Physicians Signature Date 11-Sep-2014 Bilat Scrn Digital AND CAD Result: Comments: See Note; NOTES: [facility] Imaging Services [address] [place] [address] Breast Imaging Report MR#: [id number] Acct: [id number] Name: ARCHANA BANGURA Rep #: [id number] : 1955 F 59 From: Albaro Pena MD PCP: Krysten Dial MD Status: PRE CLI Study: Bilat Scrn Digital AND CAD Date of Exam: 09/11/14 Exam# [id number] Ordering Dr: Ruthie Thorpe MAMMOGRAPHY - BILATERAL [...] Kavin Pena MD at 8:27 EDT Tel [phone], Service support [phone], CC: Ruthie Thorpe MD; Krysten Dial MD Cna Instructor: Signed 19-Apr-2014 Spirometry (76116) Result: 08-Sep-2013 Liver Result: Comments: See Note; NOTES: [facility] Imaging Services [address] [place] [address] Ultrasound Report MR#: [id number] Acct: [id number] Name: ARCHANA BANGURA Rep #: [id number] : 1955 F 58 From: Albaro Pena MD PCP: Krysten Dial MD Status: REG CLI Study: Liver Date of Exam: 09/08/13 Exam# [id number] Ordering Dr: Krysten Dial MD STUDY: ABDOMINAL [...] M.D. at 10:46 EDT , Service support [phone], CC: Krysten Dial MD Cna Instructor: Signed Family History Unknown Family Member Name Dates Details Brother 1 Comments: HTN, [place] at 56 yo. younger. 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 Exercise History Comments: [...] COMPREHENSIVE Comments: PATIENT WAS FASTINGPERFORMED BY: ARIADNE [facility] Bvswmk2715 [facility] [id number] (13027) ALT (SGPT) 52 [iU]/L (Abnormal) Range: 0-32 [...] Glucose, Serum 97 mg/dL (Normal) Range: 65-99 29-Jul-20177:31 LIPID PANEL (37851) Comments: PATIENT WAS FASTINGPERFORMED BY: LabCoSaint Clare's Hospital at SussexBohifm2234 [address] [facility] [id number] LDL/HDL Ratio 2.5 {ratio_units} (Normal) Range: 0.0-3.2 [...] C ANTIBODY Comments: PATIENT WAS FASTINGPERFORMED BY: Carolus TherapeuticsSaint Clare's Hospital at SussexTmuega0796 [facility] [id number] Information: NURSE DRAW (47991) Hep C Virus Ab <0.1 {s/co_ratio} (Normal) Range: 0.0-0.9 Comments: Negative: < 0.8 Indeterminate: 0.8 - 0.9 Positive: > 0.9 . The CDC recommends that a positive HCV antibody result be followed up with a HCV Nucleic Acid Amplification test (544591). :44 HgA1C , Office (03207) HgA1C , Office 5.7 % (Normal) Range: 4.6 - 7.1 :32 Vitamin B-12 (cyanocobalamin) Comments: PATIENT WAS FASTINGPERFORMED BY: [employer] [id number] BY: Vuv AnalyticsSarah [place] [address] [facility] [id number] (63809) Vitamin B12 867 pg/mL (Normal) Range: 211-946 :32 CALCIFIDIOL (44091) VIT D Comments: PATIENT WAS FASTINGPERFORMED BY: [employer] [id number] BY: Vuv AnalyticsSarah [place] [address] [facility] [id number] 25 Vitamin D, 25-Hydroxy 49.1 ng/mL (Normal) Range: 30.0-100.0 Comments: Vitamin D deficiency has been defined by the [place] of[place]icine and an Endocrine Society practice guideline as alevel of serum 25-OH vitamin D less than 20 ng/mL (1,2).The Endocrine Society went on to further define vitamin Dinsufficiency as a level between 21 and 29 ng/mL (2).1. IOM ([place] of [employer]). 2010. Dietary reference intakes for calcium and D. [place]: The National Academies Press.2. Joe MF, Bailee [place], Woody PALM, et al. Evaluation, treatment, and prevention of vitamin D deficiency: an Endocrine Society clinical practice guideline. JCEM. 2010; 96(7):1911-30. :32 MICROALBUMIN: CREATININE Comments: PATIENT WAS FASTINGPERFORMED BY: [employer] [id number] BY: [employer]70 [facility] [id number] RATIO (74161) AND (51411) Microalb/Creat Ratio 11.2 {mg/g_creat} (Normal) Range: 0.0-30.0 Microalbumin, Urine 18.2 ug/mL (Normal) Creatinine, Urine 162.1 mg/dL (Normal) :32 CBC, Platelets & Auto Comments: PATIENT WAS FASTINGPERFORMED BY: CC video[address] [place] [address] [id number] BY: [employer]6370 [address] [facility] [id number] Diff (61655) Immature Grans (Abs) 0.0 {x10E3/uL} (Normal) Range: [...] 3.77-5.28 WBC 5.9 {x10E3/uL} (Normal) Range: 3.4-10.8 84-Zoq-04894:32 Metabolic Panel, Comments: PATIENT WAS FASTINGPERFORMED BY: BN [facility] Wdlzexsbdh3225 [facility] [id number] BY: CB [facility] Tforso6819 [facility] [id number] Comprehensive (05095) ALT (SGPT) 46 [iU]/L (Abnormal) Range: 0-32 [...] Glucose, Serum 109 mg/dL (Abnormal) Range: 65-99 23-Gvv-37365:32 LIPOPROTEIN, BLD, BY NMR Comments: PATIENT WAS FASTINGPERFORMED BY: BN [facility] Twltkehrsa0787 [facility] [id number] BY: CB [facility] Bjyclq0611 [facility] [id number] Information: NURSE DRAW (12509) LP-IR Score 42 (Normal) Comments: INSULIN RESISTANCE MARKER <--Insulin Sensitive Insulin Resistant--> Percentile in Reference PopulationInsulin Resistance ScoreLP-IR Score Low 25th 50th 75th High <27 27 45 63 >63LP-IR Score is inaccurate if patient is non-fasting. .The LP-IR score is a laboratory developed i [facility] that has beenassociated with insulin resistance and [...] were developed and their performance characteristicsdetermined by [employer]. These assays have not been cleared by [...] FREE (TRIDOTHYRONINE) Comments: PATIENT WAS FASTINGPERFORMED BY: [employer] [id number] BY: Carolus TherapeuticsKayenta Health CenterDftqno4559 [facility] [id number] (43988) Triiodothyronine,Free,Serum 4.2 pg/mL (Normal) Range: 2.0-4.4 :32 T4, FREE (THYROXINE) Comments: PATIENT WAS FASTINGPERFORMED BY: [employer] [id number] BY: [employer] Zrzqev0107 [facility] [id number] (49815) T4,Free(Direct) 1.02 ng/dL (Normal) Range: 0.82-1.77 :32 TSH (71376) Comments: PATIENT WAS FASTINGPERFORMED BY: [employer] [id number] BY: [employer] Etomoq9456 [facility] [id number] TSH 2.070 {uIU/mL} (Normal) Range: 0.450-4.500 :49 URINE ANNETTE CULTURE-IDENTIFICATN Comments: PATIENT NOT FASTINGPERFORMED BY: Vuv AnalyticsSarah [place] 4473170 [facility] [id number] Information: [id number] SRC:UC (12238) Result 1 MUG (Normal) Comments: Mixed urogenital flora10,000-25,000 colony forming units per mL Urine Final report (Normal) Culture,Comprehensive :47 Urinalysis, Office (60141) UA - LEUKOCYTE ESTERASE Small (Normal) UA - NITRITE Negative (Normal) URINE UROBILINGN TEMO TIMED 2 mg/dL (Normal) UA - PROTEIN Negative mg/dL (Normal) UA - PH 6.0 (Normal) UA - BLOOD Negative (Normal) UA - SPECIFIC GRAVITY 1.025 (Normal) UA - KETONES Negative mg/dL (Normal) UA - BILIRUBIN Negative (Normal) UA - GLUCOSE Negative (Normal) :47 HgA1C , Office (23316) HgA1C , Office 5.7 % (Normal) Range: 4.6 - 7.1 :11 HgA1C , Office (78411) HgA1C , Office 5.7 % (Normal) Range: 4.6 - 7.1 :43 TSH (47162) Comments: PATIENT WAS FASTINGPERFORMED BY: [employer] [id number] BY: LabMun[facility]6370 [facility] [id number] TSH 2.950 {uIU/mL} (Normal) Range: 0.450-4.500 :43 LIPOPROTEIN, BLD, BY NMR Comments: PATIENT WAS FASTINGPERFORMED BY: Lab[address] [id number] BY: [facility]6370 [facility] [id number] (55226) LP-IR Score 39 (Normal) Comments: INSULIN RESISTANCE MARKER <--Insulin Sensitive Insulin Resistant--> Percentile in Reference PopulationInsulin Resistance ScoreLP-IR Score Low 25th 50th 75th High <27 27 45 63 >63LP-IR Score is inaccurate if patient is non-fasting. .The LP-IR score is a laboratory developed i [facility] that has beenassociated with insulin resistance and [...] were developed and their performance characteristicsdetermined by [employer]. These assays have not been cleared by [...] 1600 - 2000 Very High > 2000 81-Xhd-45710:43 CBC, Platelets & Auto Comments: PATIENT WAS FASTINGPERFORMED BY: BN [facility] Alblwpazva8282 [facility] [id number] BY: CB [facility] Dqbtnx9586 [facility] [id number] Diff (49617) Immature Grans (Abs) 0.0 {x10E3/uL} (Normal) Range: [...] Comments: PATIENT WAS FASTINGPERFORMED BY: BN [facility] Zyioegdsbn9897 [facility] [id number] BY: CB [facility] Ppazue6361 [address] [place] [id number]; fu 3- Comprehensive (45567) ALT (SGPT) 49 [iU]/L (Abnormal) Range: 0-32 [...] (Abnormal) Range: 65-99 :13 HgA1C , Office (85064) HgA1C , Office 5.8 % (Normal) Range: 4.6 - 7.1 :07 POTASSIUM SERUM (59330) Comments: one month; PATIENT WAS FASTINGPERFORMED BY: [employer] [id number] BY: [place] [address] [facility] [id number] Potassium, Serum 4.5 mmol/L (Normal) Range: 3.5-5.2 :07 HEPATIC FUNCTION PANEL Comments: in one month and three months (approximately); PATIENT WAS FASTINGPERFORMED BY: [employer] [id number] BY: [place] [address]32[address] [facility] [id number] (46986) ALT (SGPT) 77 [iU]/L (Abnormal) Range: 0-32 [...] three months (approximately); PATIENT WAS FASTINGPERFORMED BY: [employer] [id number] BY: [facility]6370 [facility] [id number] (42385) LP-IR Score 77 (Abnormal) Comments: INSULIN RESISTANCE MARKER <--Insulin Sensitive Insulin Resistant--> Percentile in Reference PopulationInsulin Resistance ScoreLP-IR Score Low 25th 50th 75th High <27 27 45 63 >63LP-IR Score is inaccurate if patient is non-fasting. .The LP-IR score is a laboratory developed i [facility] that has beenassociated with insulin resistance and [...] were developed and their performance characteristicsdetermined by [employer]. These assays have not been cleared by [...] High 1600 - 2000 Very High > 09-Aug-20157:10 HgA1C , Office (13048) HgA1C , Office 5.8 % (Normal) Range: 4.6 - 7.1 :47 CBC WITH MANUAL DIFF Comments: PATIENT NOT FASTINGPERFORMED BY: Carolus TherapeuticsSaint Clare's Hospital at SussexJtjtgh4488 [facility] [id number] Information: [id number] (98554) Immature Grans (Abs) 0.0 {x10E3/uL} (Normal) Range: [...] 5.8 {x10E3/uL} (Normal) Range: 3.4-10.8 :47 TSH (86360) Comments: PATIENT NOT FASTINGPERFORMED BY: LabCoSaint Clare's Hospital at SussexMmgdki7097 [facility] [id number]; [address] TSH 2.390 {uIU/mL} (Normal) Range: 0.450-4.500 :48 BJKOX-XYRVVZUKREL-NNVOM (63273) Comments: PATIENT WAS FASTINGPERFORMED BY: Carolus TherapeuticsSaint Clare's Hospital at SussexJixvei7649 [facility] [id number] AFP, Serum, Tumor Marker 1.7 ng/mL (Normal) Range: 0.0-8.3 Comments: Altagracia ECLIA methodology :48 HEPATITIS PANEL (95463) Comments: PATIENT WAS FASTINGPERFORMED BY: Vuv AnalyticsMunson Healthcare [facility] Hospital6370 [facility] [id number] Hep C Virus Ab <0.1 {s/co_ratio} (Normal) Range: 0.0-0.9 Comments: Negative: < 0.8 Indeterminate: 0.8 - 0.9 Positive: > 0.9 . The CDC recommends that a positive HCV antibody result be followed up with a HCV Nucleic Acid Amplification test (324830). Hep B Core Ab, IgM Negative (Normal) HBsAg Screen Negative (Normal) Hep A Ab, IgM Negative (Normal) :48 LIPID PANEL (07135) Comments: PATIENT WAS FASTINGPERFORMED BY: Carolus TherapeuticsSaint Clare's Hospital at SussexIsmyae5740 [facility] [id number]; [address] LDL/HDL Ratio 2.0 {ratio_units} (Normal) [...] METABOLIC PANEL, Comments: PATIENT WAS FASTINGPERFORMED BY: Vuv AnalyticsMunson Healthcare [facility] Hospital6370 [facility] [id number] Information: [id number],2ND ORDER COMPREHENSIVE (91540) ALT (SGPT) 36 [iU]/L (Abnormal) Range: 0-32 [...] Auto Diff Comments: PATIENT NOT FASTINGPERFORMED BY: [facility] Jgambl1341 [facility] [id number] Information: [id number],[id number] (55795) Immature Grans (Abs) 0.0 {x10E3/uL} (Normal) Range: [...] 3.77-5.28 WBC 6.7 {x10E3/uL} (Normal) Range: 3.4-10.8 28-Jun-20159:29 Renal function Panel (32810) Comments: PATIENT NOT FASTINGPERFORMED BY: LabCoSaint Clare's Hospital at SussexGmcbti6860 [facility] [id number] Albumin, Serum 3.8 g/dL (Normal) Range: 3.6-4.8 [...] mg/dL (Normal) Range: 65-99 :58 Rapid Flu (41460 x 2) Influenza A Ag Negative a/b (Normal) 55-Kba-501143:09 URINE ANNETTE CULTURE-TEMO COL Comments: PATIENT NOT FASTINGPERFORMED BY: [employer] DX LabeRepublik[address] [id number] Information: SRC:UR [id number] COUNT (17128) Result 1 NG36 (Normal) Comments: No growth in 36 - 48 hours. Urine Culture,Comprehensive Final report (Normal) :05 Urinalysis, Office (12723) UA - LEUKOCYTE ESTERASE Trace (Normal) UA [...] ANNETTE CULTURE-IDENTIFICATN Comments: PATIENT NOT FASTINGPERFORMED BY: LabCoFaith [place] 0304770 [facility] [id number] Information: [id number] (01336) Result 1 NG36 (Normal) Comments: No growth in 36 - 48 hours. Urine Culture,Comprehensive Final report (Normal) :50 Urinalysis, Office (24308) UA - LEUKOCYTE ESTERASE Negative (Normal) UA - NITRITE Negative (Normal) URINE UROBILINGN TEMO TIMED 2 mg/dL (Normal) UA - PROTEIN Negative mg/dL (Normal) UA - PH 5.0 (Normal) UA - BLOOD Negative (Normal) UA - SPECIFIC GRAVITY 1.030 (Abnormal) UA - KETONES Negative mg/dL (Normal) UA - BILIRUBIN Negative (Normal) UA - GLUCOSE Negative (Normal) 06-Xay-55705:01 URINE ANNETTE CULTURE-IDENTIFICATN Comments: PATIENT NOT FASTINGPERFORMED BY: Carolus TherapeuticsSaint Clare's Hospital at SussexGletoh3208 [facility] [id number] Information: [id number] (03799) Result 2 MUG (Normal) Comments: Mixed urogenital [...] Culture,Comprehensi (Abnormal) ve :16 HgA1C , Office (17568) HgA1C , Office 5.6 % (Normal) Range: 4.6 - 7.1 :16 Blood Glucose , Office (97724) Blood Glucose , Office 110 (Normal) :59 Urinalysis, Office (70982) UA - LEUKOCYTE ESTERASE Trace (Normal) UA - NITRITE Negative (Normal) URINE UROBILINGN TEMO TIMED Normal mg/dL (Normal) UA - PROTEIN Negative mg/dL (Normal) UA - PH 5 (Abnormal) UA - BLOOD Negative (Normal) UA - SPECIFIC GRAVITY 1.015 (Normal) UA - KETONES Negative mg/dL (Normal) UA - BILIRUBIN Negative (Normal) UA - GLUCOSE Negative (Normal) 7-Vso-335085:41 Metabolic Panel, Comprehensive Comments: PATIENT WAS FASTINGPERFORMED BY: V[facility] AnalyticsMunson Healthcare [facility] [id number] (34806) ALT (SGPT) 30 [iU]/L (Normal) Range: 0-32 [...] Glucose, Serum 109 mg/dL (Abnormal) Range: 65-99 5-Idx-766609:41 Lipid Panel (64350) Comments: PATIENT WAS FASTINGPERFORMED BY: LabCoSaint [facility]'s Hospital at SussexMswzfp9611 [facility] [id number]; apt 9[address] LDL/HDL Ratio 2.3 {ratio_units} (Normal) [...] MANUAL DIFF Comments: PATIENT WAS FASTINGPERFORMED BY: [facility] [id number] Information: [id number] (12313) Immature Grans (Abs) 0.0 {x10E3/uL} (Normal) Range: [...] 3.77-5.28 WBC 6.5 {x10E3/uL} (Normal) Range: 3.4-10.8 :41 TSH (13023) Comments: PATIENT WAS FASTINGPERFORMED BY: LabCoSaint [facility]'s Hospital at SussexHzruur9967 [facility] [id number] TSH 2.690 {uIU/mL} (Normal) Range: 0.450-4.500 :40 HgA1C , Office (40833) HgA1C , Office 5.6 % (Normal) Range: 4.6 - 7.1 :40 Blood Glucose , Office (32695) Blood Glucose , Office 98 (Normal) :11 TSH (63154) Comments: PATIENT WAS FASTINGPERFORMED BY: LabCoSaint [facility]'s Hospital at SussexRaflaj3427 [facility] [id number] TSH 2.680 {uIU/mL} (Normal) Range: 0.450-4.500 :11 METABOLIC PANEL, COMPREHENSIVE Comments: PATIENT WAS FASTINGPERFORMED BY: LabCoSaint Clare's Hospital at SussexOyejls9014 [facility] [id number] (53953) ALT (SGPT) 35 [iU]/L (Abnormal) Range: 0-32 [...] mg/dL (Normal) Range: 65-99 :11 LIPID PANEL (56913) Comments: PATIENT WAS FASTINGPERFORMED BY: [facility] [id number] LDL/HDL Ratio 2.3 {ratio_units} (Normal) Range: 0.0-3.2 [...] Cholesterol, Total 222 mg/dL (Abnormal) Range: 100-199 49-Qbt-52875:11 CBC W/AUTO DIFF WBC Comments: PATIENT WAS FASTINGPERFORMED BY: [facility]6370 [facility] [id number] Information: [id number] (93811) Immature Grans (Abs) 0.0 {x10E3/uL} (Normal) Range: [...] (Normal) Range: 3.4-10.8 :37 HgA1C , Office (67935) HgA1C , Office 5.9 % (Normal) Range: 4.6 - 7.1 :36 Blood Glucose , Office (41955) Blood Glucose , Office 107 (Normal) :44 Metabolic Panel, Comments: PATIENT WAS FASTINGPERFORMED BY: LabCoSaint [facility]'s Hospital at SussexWajrob8779 [facility] [id number] Information: [id number] ORDER Comprehensive (40537) ALT (SGPT) 35 [iU]/L (Abnormal) Range: 0-32 [...] mg/dL (Normal) Range: 65-99 :44 HEPATITIS PANEL (50193) Comments: PATIENT WAS FASTINGPERFORMED BY: [facility] AnalyticsMunson Healthcare [facility] [id number] Hep C Virus Ab <0.1 {s/co_ratio} (Normal) Range: 0.0-0.9 Comments: Negative: < 0.8 Indeterminate: 0.8 - 0.9 Positive: > 0.9 . In order to reduce the incidence of a false positive result, the CDC recommends that all s/co ratios between 1.0 and 10.9 be confirmed by a more specific supplemental or PCR testing. [facility] offers HCV Ab w/Reflex to Verification test #[id number]. Hep B Core Ab, IgM Negative (Normal) HBsAg Screen Negative (Normal) Hep A Ab, IgM Negative (Normal) :44 FERRITIN (59832) Comments: PATIENT WAS FASTINGPERFORMED BY: [facility]6[address] [facility] [id number] Ferritin, Serum 72 ng/mL (Normal) Range: 15-150 :44 CBC WITH MANUAL DIFF Comments: PATIENT WAS FASTINGPERFORMED BY: [facility]6370 [facility] [id number] Information: [id number] (37394) Immature Grans (Abs) 0.0 {x10E3/uL} (Normal) Range: [...] FUNCTION PANEL Comments: PATIENT WAS FASTINGPERFORMED BY: LabCoSaint Clare's Hospital at SussexHpxfel3614 [facility] [id number] (50008) ALT (SGPT) 36 [iU]/L (Abnormal) Range: 0-32 AST (SGOT) 29 [iU]/L (Normal) Range: 0-40 Alkaline Phosphatase, S 80 [iU]/L (Normal) Range: 39-117 Bilirubin, Direct 0.10 mg/dL (Normal) Range: 0.00-0.40 Bilirubin, Total 0.3 mg/dL (Normal) Range: 0.0-1.2 Albumin, Serum 4.2 g/dL (Normal) Range: 3.5-5.5 Protein, Total, Serum 7.0 g/dL (Normal) Range: 6.0-8.5 :13 HgA1C , Office (31084) HgA1C , Office 5.9 % (Normal) Range: 4.6 - 7.1 :13 Blood Glucose , Office (56403) Blood Glucose , Office 110 (Normal) :14 HEPATIC FUNCTION PANEL Comments: PATIENT WAS FASTINGPERFORMED BY: Carolus TherapeuticsKayenta Health CenterKuzqsq2005 [facility] [id number]; elevated but not critical -- has appt already sched (44430) ALT (SGPT) 43 [iU]/L (Abnormal) Range: 0-32 AST (SGOT) 39 [iU]/L (Normal) Range: 0-40 Alkaline Phosphatase, S 76 [iU]/L (Normal) Range: 39-117 Bilirubin, Direct 0.12 mg/dL (Normal) Range: 0.00-0.40 Bilirubin, Total 0.4 mg/dL (Normal) Range: 0.0-1.2 Albumin, Serum 4.2 g/dL (Normal) Range: 3.5-5.5 Protein, Total, Serum 7.0 g/dL (Normal) Range: 6.0-8.5 :14 LIPID PANEL (63475) Comments: PATIENT WAS FASTINGPERFORMED BY: Carolus TherapeuticsKayenta Health CenterLxacvm8804 [facility] [id number] Information: [id number] LDL/HDL Ratio 2.0 {ratio_units} (Normal) Range: 0.0-3.2 [...] (THYROID STIMULATING Comments: PATIENT NOT FASTINGPERFORMED BY: Carolus TherapeuticsSaint Clare's Hospital at SussexXptntk8499 [facility] [id number] Information: [id number],2ND ORDER HORMONE) (47372) TSH 2.290 {uIU/mL} (Normal) Range: 0.450-4.500 :22 TSH (97687) Comments: PATIENT NOT FASTINGPERFORMED BY: [facility]6370 [facility] [id number] TSH 1.850 {uIU/mL} (Normal) Range: 0.450-4.500 :22 HEPATIC FUNCTION PANEL Comments: PATIENT NOT FASTINGPERFORMED BY: [place] 8032270 [facility] [id number] Information: [id number] (79822) ALT (SGPT) 40 [iU]/L (Abnormal) Range: 0-32 Alkaline Phosphatase, S 70 [iU]/L (Normal) Range: 39-117 AST (SGOT) 34 [iU]/L (Normal) Range: 0-40 Bilirubin, Direct 0.09 mg/dL (Normal) Range: 0.00-0.40 Bilirubin, Total 0.3 mg/dL (Normal) Range: 0.0-1.2 Albumin, Serum 4.3 g/dL (Normal) Range: 3.5-5.5 Protein, Total, Serum 7.1 g/dL (Normal) Range: 6.0-8.5 :22 HgA1C , Office (41595) HgA1C , Office 6.0 % (Normal) Range: 4.6 - 7.1 :22 Blood Glucose , Office (01401) Blood Glucose , Office 113 (Normal) :51 METABOLIC PANEL, COMPREHENSIVE Comments: PATIENT WAS FASTINGPERFORMED BY: [facility]6370 [facility] [id number] (28272) ALT (SGPT) 40 [iU]/L (Abnormal) Range: 0-32 [...] Glucose, Serum 92 mg/dL (Normal) Range: 65-99 11-Kyn-52484:51 CBC WITH MANUAL DIFF Comments: PATIENT WAS FASTINGPERFORMED BY: LabCoSaint Clare's Hospital at SussexVtxxrv7124 [facility] [id number] Information: [id number] (70308) Immature Grans (Abs) 0.0 {x10E3/uL} (Normal) Range: [...] {x10E3/uL} (Normal) Range: 3.4-10.8 :51 LIPID PANEL (38513) Comments: PATIENT WAS FASTINGPERFORMED BY: [employer] [place] [facility] [id number] LDL/HDL Ratio 2.3 {ratio_units} (Normal) Range: 0.0-3.2 LDL Cholesterol Calc 138 mg/dL (Abnormal) Range: 0-99 VLDL Cholesterol Christopher 21 mg/dL (Normal) Range: 5-40 HDL Cholesterol 60 mg/dL (Normal) Comments: According to ATP-III Guidelines, HDL-C >59 mg/dL is considered anegative risk factor for CHD. Triglycerides 105 mg/dL (Normal) Range: 0-149 Cholesterol, Total 219 mg/dL (Abnormal) Range: 100-199 :17 TSH (13365) Comments: PATIENT WAS FASTINGPERFORMED BY: Carolus TherapeuticsSaint Clare's Hospital at SussexBspqqv7526 [facility] [id number] TSH 1.960 {uIU/mL} (Normal) Range: 0.450-4.500 :17 METABOLIC PANEL, Comments: PATIENT WAS FASTINGPERFORMED BY: Carolus TherapeuticsSaint Clare's Hospital at SussexYcihgq[address] [place] [address] [id number] Information: [id number] COMPREHENSIVE (08472) ALT (SGPT) 33 [iU]/L (Abnormal) Range: 0-32 [...] Glucose, Serum 88 mg/dL (Normal) Range: 65-99 0-Wpv-853814:45 Blood Glucose , Office (46327) Blood Glucose , Office 89 (Normal) 8-Aze-697392:45 HgA1C , Office (33353) HgA1C , Office 5.6 % (Normal) Range: 4.6 - 7.1 93-Qsb-33242:22 FOOT MIN 3 VIEWS Radiology Report See [...] M.D.November 10, 2012 at 8:55 :21 AM [id number] Signed RU/RU If you are the referring physician and would like to consult with theradiologist who provided this interpretation, please contact Andree Mcleod. a t [phone]. If this radiologist is unavailable, youwillbe directed to another radiologist to assist. If you are a patient with a question regarding this report, pleasecontactyour referring physician directly. Professional Interpretation Provided By: [email or web address], Phone , These documents contain legally protected [...] destructionofthese documents. Dictated on 11/10/12854 by Alexandre WomackTranscribe d on 11/10/1259 by ITS IMPORTSign by Alexandre Womack on 11/10/12 0900 Sign by: Alexandre Womack :45 T4, FREE (THYROXINE) (42523) Comments: PATIENT WAS FASTINGPERFORMED BY: LabCo Spubvh7787 [facility] [id number] T4,Free(Direct) 1.06 ng/dL (Normal) Range: 0.82-1.77 :45 T3, FREE (TRIDOTHYRONINE) (27758) Comments: PATIENT WAS FASTINGPERFORMED BY: LabCo Oomwro6454 [facility] [id number] Triiodothyronine,Free,Serum 3.7 pg/mL (Normal) Range: 2.0-4.4 :45 TSH (25736) Comments: PATIENT WAS FASTINGPERFORMED BY: LabCo Pvmtqb2431 [facility] [id number] TSH 1.670 {uIU/mL} (Normal) Range: 0.450-4.500 :45 METABOLIC PANEL, COMPREHENSIVE Comments: PATIENT WAS FASTINGPERFORMED BY: LabeRepublik Lonyjw7627 [facility] [id number] (35797) ALT (SGPT) 31 [iU]/L (Normal) Range: 0-32 [...] mg/dL (Normal) Range: 65-99 :45 LIPID PANEL (55238) Comments: PATIENT WAS FASTINGPERFORMED BY: [employer]6370 [facility] [id number] LDL/HDL Ratio 2.7 {ratio_units} (Normal) Range: 0.0-3.2 [...] MANUAL DIFF Comments: PATIENT WAS FASTINGPERFORMED BY: Carolus TherapeuticsSaint Clare's Hospital at SussexHpsxqj3866 [facility] [id number] Information: [id number] (65371) Immature Grans (Abs) 0.0 {x10E3/uL} Range: 0.0-0.1 [...] 1.770 {uIU/mL} Comments: PATIENT WAS FASTINGPERFORMED BY: Carolus TherapeuticsSaint Clare's Hospital at SussexHdkrqk8001 [facility] [id number] Information: [id number] :02 (Normal) Range: 0.450-4.500 Written Authorization WAR (Normal) Comments: PATIENT WAS FASTINGPERFORMED BY: Carolus TherapeuticsSaint Clare's Hospital at SussexKfxkot4859 [facility] [id number] :02 Comments: Written Authorization Received.Authorization received from DR DIAL [id number] by Ignacia Lozano :02 LIPID PANEL (46292) Comments: PATIENT WAS FASTINGPERFORMED BY: Carolus TherapeuticsSaint Clare's Hospital at SussexAwpire7994 [facility] [id number] LDL/HDL Ratio 2.3 {ratio_units} (Normal) Range: 0.0-3.2 LDL Cholesterol Calc 133 mg/dL (Abnormal) Range: 0-99 VLDL Cholesterol Christopher 23 mg/dL (Normal) Range: 5-40 HDL Cholesterol 59 mg/dL (Normal) Comments: According to ATP-III Guidelines, HDL-C >59 mg/dL is considered anegative risk factor for CHD. Triglycerides 116 mg/dL (Normal) Range: 0-149 Cholesterol, Total 215 mg/dL (Abnormal) Range: 100-199 :02 CBC (Auto) (67765) Comments: PATIENT WAS FASTINGPERFORMED BY: [employer]6370 [facility] [id number] Platelets 269 {x10E3/uL} (Normal) Range: 140-415 RDW 14.4 % (Normal) Range: 12.3-15.4 MCHC 33.6 g/dL (Normal) Range: 31.5-35.7 MCH 29.8 pg (Normal) Range: 26.6-33.0 MCV 89 fL (Normal) Range: 79-97 Hematocrit 40.5 % (Normal) Range: 34.0-46.6 Hemoglobin 13.6 g/dL (Normal) Range: 11.1-15.9 RBC 4.57 {x10E6/uL} (Normal) Range: 3.77-5.28 WBC 6.2 {x10E3/uL} (Normal) Range: 4.0-10.5 :02 Metabolic Panel, Comments: PATIENT WAS FASTINGPERFORMED BY: [employer] Bffsdy8305 [facility] [id number] Information: [id number] Comprehensive (19419) ALT (SGPT) 32 [iU]/L (Normal) Range: 0-32 [...] (Abnormal) Range: 65-99 :02 T3, FREE (TRIDOTHYRONINE) (24276) Comments: PATIENT WAS FASTINGPERFORMED BY: [employer] [place] [facility] [id number] Triiodothyronine,Free,Serum 3.9 pg/mL (Normal) Range: 2.0-4.4 :02 T4, FREE (THYROXINE) (39208) Comments: PATIENT WAS FASTINGPERFORMED BY: Carolus TherapeuticsKayenta Health CenterNsptqf7936 [facility] [id number] T4,Free(Direct) 0.94 ng/dL (Normal) Range: 0.82-1.77 :02 T4, TOTAL (57601) Comments: PATIENT WAS FASTINGPERFORMED BY: LiveNinjaKayenta Health CenterPycfpl7815 [facility] [id number] Thyroxine (T4) 7.3 ug/dL (Normal) Range: 4.5-12.0 :07 TSH (93516) Comments: PATIENT NOT FASTINGPERFORMED BY: LiveNinjaKayenta Health CenterVuvhfz5464 [facility] [id number] Information: [id number] TSH 1.970 {uIU/mL} (Normal) Range: 0.450-4.500 72-Djw-76799:35 URINE ANNETTE CULTURE (TEMO Comments: and sensitivity; PATIENT NOT FASTINGPERFORMED BY: LabCoSaint Clare's Hospital at SussexNtxiwm2849 [facility] [id number] Information: SRC:JOSTIN [id number] COL COUNT) (60968) Result 1 BETAGB (Normal) Comments: Beta hemolytic [...] (CLSI 2010) Urine Final report (Normal) Culture,Comprehensive 50-Emd-747976:49 Urinalysis, Office (00549) UA - LEUKOCYTE ESTERASE Negative (Normal) UA - NITRITE Negative (Normal) URINE UROBILINGN TEMO TIMED Normal mg/dL (Normal) UA - PROTEIN Negative mg/dL (Normal) UA - PH 7.0 (Normal) UA - BLOOD Negative (Normal) UA - SPECIFIC GRAVITY 1.025 (Normal) UA - KETONES Negative mg/dL (Normal) UA - GLUCOSE Negative (Normal) :15 CBC WITH MANUAL DIFF Comments: PATIENT WAS FASTINGPERFORMED BY: LabCoSaint Clare's Hospital at SussexJcnsxf4638 [facility] [id number] Information: [id number] (65017) Immature Grans (Abs) 0.0 {x10E3/uL} (Normal) Range: [...] {x10E3/uL} (Normal) Range: 4.0-10.5 :15 LIPID PANEL (50170) Comments: PATIENT WAS FASTINGPERFORMED BY: [employer] [facility] [id number] LDL/HDL Ratio 2.5 {ratio_units} (Normal) Range: 0.0-3.2 [...] FUNCTION PANEL Comments: PATIENT WAS FASTINGPERFORMED BY: LiveNinjaSaint Clare's Hospital at SussexXnoskt3376 [facility] [id number] (72012) ALT (SGPT) 32 [iU]/L (Normal) Range: 0-40 AST (SGOT) 29 [iU]/L (Normal) Range: 0-40 Alkaline Phosphatase, S 69 [iU]/L (Normal) Range: 25-150 Bilirubin, Direct 0.10 mg/dL (Normal) Range: 0.00-0.40 Bilirubin, Total 0.4 mg/dL (Normal) Range: 0.0-1.2 Albumin, Serum 4.3 g/dL (Normal) Range: 3.5-5.5 Protein, Total, Serum 7.4 g/dL (Normal) Range: 6.0-8.5 :15 Metabolic Panel, Basic (62356) Comments: PATIENT WAS FASTINGPERFORMED BY: [employer] Deotrr1666 [facility] [id number] Calcium, Serum 9.6 mg/dL (Normal) Range: 8.7-10.2 [...] 96 mg/dL (Normal) Range: 65-99 :15 TSH (49560) Comments: PATIENT WAS FASTINGPERFORMED BY: Carolus TherapeuticsSaint Clare's Hospital at SussexPaqrbx3081 [facility] [id number] TSH 1.500 {uIU/mL} (Normal) Range: 0.450-4.500 :15 T4, FREE (THYROXINE) (40019) Comments: PATIENT WAS FASTINGPERFORMED BY: Vuv AnalyticsMunson Healthcare [facility]6370 [facility] [id number] T4,Free(Direct) 0.96 ng/dL (Normal) Range: 0.82-1.77 :15 T3, FREE (TRIDOTHYRONINE) (03551) Comments: PATIENT WAS FASTINGPERFORMED BY: LabCoSaint Clare's Hospital at SussexFewwef8017 [facility] [id number] Triiodothyronine,Free,Serum 3.3 pg/mL (Normal) Range: 2.0-4.4 :02 [...] Range: 6.4-8.2 :37 Rapid Strep Test, Office (31611) Rapid Strep Test, Office Negative (Normal) :37 HgA1C , Office (55744) HgA1C , Office 6.0 % (Normal) Range: 4.6 - 7.1 :37 Blood Glucose , Office (42414) Blood Glucose , Office 122 (Normal) :26 [...] 7-18 GLU 102 mg/dL (Normal) Range: 70-110 94-Zmn-671124:26 CBCD,SMEAR DIFF RED CELL MORPH SeeNote {NORMAL} [...] FREE DIRECT 0.38 ng/dL (Abnormal) Range: 0.76-1.46 :09 TSH 1.34 {uIU/mL} (Normal) Range: 0.358-3.74 :07 [...] ronda isolated. No beta-hemolyticstreptococcus isolated. :07 EBVIgG/M [id number] EB-NAg LpF94567 > 8.0 {AI} (Abnormal) Range: 0.0-0.8 Comments: [...] Antibody Pr esent - Antibody AbsentPerformed at: [facility] [place], [place] [id number] Director: Melanie Hartman MD, Phone: [phone] EB-EA IgG 43905 1.3 {AI} (Abnormal) Range: 0.0-0.8 Comments: Negative <0.9 Equivocal 0.9 - 1.0 Positive >1.0 EB-VCA UtG34475 > 8.0 {AI} (Abnormal) Range: 0.0-0.8 Comments: Negative <0.9 Equivocal 0.9 - 1.0 Positive >1.0 EB-VCA QlY41017 < 0.2 {AI} (Normal) Range: 0.0-0.8 Comments: Negative <0.9 Equivocal 0.9 - 1.0 Positive >1.0 :07 FREE T3 7.0 pg/mL (Abnormal) Range: 2.18-3.98 :07 T4 FREE DIRECT 0.46 ng/dL (Abnormal) Range: 0.76-1.46 :07 TSH 1.82 {uIU/mL} (Normal) Range: 0.358-3.74 :50 Rapid Strep Test, Office (12345) Rapid Strep Test, Negative (Normal) Office :36 EB-NAg WtY84863 > 8.0 {AI} (Abnormal) Range: 0.0-0.8 Comments: Negative <0.9 Equivocal 0.9 - 1.0 Positive >1.0 :36 EB-VCA RpT57675 > 8.0 {AI} (Abnormal) Range: 0.0-0.8 Comments: Negative <0.9 Equivocal 0.9 - 1.0 Positive >1.0 :36 EB-EA IgG 71454 1.5 {AI} (Abnormal) Range: 0.0-0.8 Comments: Negative <0.9 Equivocal 0.9 - 1.0 Positive >1.0Performed at: [facility] [place], [place] [id number] Director: Melanie Hartman MD, Phone: [phone] 90-Pok-13063:25 CKMB Comments: Please Note: TROPONIN REFERENCE RANGE [...] NEGATIVE 0.06 - 0.59 AT RISK OF SD > OR = 0.60 SUGGEST SD :01 CKMB Comments: Please Note: TROPONIN REFERENCE RANGE [...] NEGATIVE 0.06 - 0.59 AT RISK OF SD > OR = 0.60 SUGGEST SD 52-Bxx-836870:40 TROPONIN-I < 0.02 ng/mL (Normal) Comments: Please Note: TROPONIN REFERENCE RANGE CHANGEEffective MAY 21, 2009. Comments: TROPONIN-I EXPECTED VALUES <0.05 NEGATIVE 0.06 - 0.59 AT RISK OF SD > OR = 0.60 SUGGEST SD : CORTISOL 11.41 ug/dL (Normal) Range: 3.09-22.40 Comments: Adult (AM) 4.30 - 22.40 ug/dLAdult (PM) 3.09 - 16.66 ug/dL : FREE T3 2.8 pg/mL (Normal) Range: 2.18-3.98 : T4 FREE DIRECT 0.51 ng/dL (Abnormal) Range: 0.76-1.46 :00 TSH 1.54 {uIU/mL} (Normal) Range: 0.358-3.74 :26 HgA1C , Office (08265) HgA1C , Office 5.4 % (Normal) Range: 4.6 - 7.1 :26 Blood Glucose , Office (97877) Blood Glucose , Office 89 (Normal) :54 CORTISOL 7.59 ug/dL (Normal) Range: 3.09-22.40 Comments: Adult (AM) 4.30 - 22.40 ug/dLAdult (PM) 3.09 - 16.66 ug/dL :54 DHEA SULF 4697 33.4 ug/dL (Normal) Range: 18.9-205.0 :54 ESTRADIOL 4515 28.9 pg/mL (Normal) Comments: Adult Female:Follicular phase 12.5 - 166.0Ovulation phase 85.8 - 498.0Luteal phase 43.8 - 211.0Postmenopausal <6.0 - 54.4Xxzttjrmo1bw trimester 215.0 - >4300.0Girls (1- 10 years) 6.0 - 27.0Roche ECLIA methodology :54 FREE T3 2.1 pg/mL (Abnormal) Range: 2.18-3.98 :54 GLU 90 mg/dL (Normal) Range: 70-110 :54 INSULIN 4333 16.9 {uIU/mL} Range: 0.0-24.9 (Normal) Comments: Performed at: [facility] [address] [id number] Director: Melanie Hartman MD, Phone: [phone] :[phone] PROGESTER. 4317 2.7 ng/mL (Normal) Comments: [...] Indication: Bronchitis Planned Observations Metabolic Panel, Comprehensive (92646)Indication: Hypertension with heart disease On: :53 Request CBC WITH MANUAL DIFF (07167)Indication: Hypertension with heart disease On: :53 Request MICROALBUMIN: CREATININE RATIO (95116) AND (70863)Indication: Hypertension with heart disease On: :53 Request URINALYSIS (29179)Indication: Hypertension with heart disease On: :53 Request OCCULT BLOOD FECES SCREEN (22515)Indication: Dehydration On: :30 Request OVA & PARASITE DIR SMEAR (87936)Indication: Dehydration On: :30 Request LEUKOCYTE COUNT, FECAL (49315)Indication: Dehydration On: :30 Request C-DIFFICILE, STOOL (81392)Indication: Dehydration On: :30 Request ANNETTE CULTURE-STOOL (17676)Indication: Dehydration On: :30 Request Metabolic Panel, Basic (45633)Indication: Hypertension, benign On: 85-Fwl-375723:06 Request Comments: due in 1 week. Metabolic Panel, Basic (21810)Indication: Hypertension, benign On: 89-Qti-828505:40 Request ANNETTE CULTURE-OTHER (92758)Indication: Pharyngitis, acute On: :37 Request TSH (45723)Indication: Abnormal TSH On: :30 Request T4, FREE (THYROXINE) (68966)Indication: Abnormal TSH On: :30 Request T3, FREE (TRIDOTHYRONINE) (27169)Indication: Abnormal TSH On: :30 Request TSH (72200)Indication: Abnormal TSH On: :57 Request T4, FREE (THYROXINE) (53557)Indication: Abnormal TSH On: :57 Request T3, FREE (TRIDOTHYRONINE) (12886)Indication: Abnormal TSH On: :57 Request ANNETTE CULTURE-OTHER (00354)Indication: Pharyngitis, acute On: :50 Request EB ANTIBODY EARLY ANTIGN (93087)Indication: Fatigue On: 28-Mar-20108:00 Request Comments: today EB ANTIBODY VIRAL CAPSID (33580) W7Ejttiteqme: Fatigue On: :57 Request EB ANTIBODY NUCLR ANTIGN (02343)Indication: Fatigue On: :57 Request Planned Encounters Medical; [facility] Pre Wellness Exam (DB Nurse) - On: 14-Apr-2018 7:15 [facility] RITA Mendez Medical; [facility] Wellness Exam (Doctor) - On: 28-Apr-2018 7:00 [facility] Nerissa CASTELLANO, Krysten Hogan MD Planned Procedures Flu Vaccine (Quadrivalent) On: 08-Apr-2018 Intent 77603Uy: RITA Mendez Comments: Lot #:[id number] date: 6-53-95Flhhzy given:0.5mlRoute: IMSite given:L DltdGiven by: DBVIS and ABN signed [employer] COMPLETE ELECTROMYOGRAPHY (EMG) On: 19-Jun-2016 Intent WITH NERVE CONDUCTION STUDIES OF EACH EXTREMITY (24937)By: Krysten Dial MD, MD, Dana M Flu Vaccine (Quadrivalent) On: 08-May-2016 Intent 81538Le: Krysten Dial MD Comments: Lot:[id number]:12/18/16Dose:0.5mLRoute:IMSite:L DltdGiven By:MLVIS signed Krysten Dial MD Nuclear Stress Test/Stress On: 10-Feb-2016 Intent SPECT/TreadmillBy: Krysten Dial MD, MD, Dana M DEXA SCAN AXIAL SKELETON On: 10-Feb-2016 Intent (97748)By: Krysten Dial MD, MD, Dana M TDAP VACCINE >7 IM (62357)By: On: 10-Feb-2016 Intent Krysten Dial MD, MD, Comments: tdaplot:CY3A3jmz:07/12/18site:lt deltroute:IMD.MARY ELLEN Canales IV Needle placement (96225)By: On: 28-Jun-2015 Intent Yusra CRABTREE Zakia Ultrasound - GallbladderBy: Ciesa On: 28-Jun-2015 Intent BRO Zakia INFUSION, NORMAL SALINE SOLUTION , On: 28-Jun-2015 Intent 1000 CC (Special Coverage Comments: [id number] ccright antecubas CANS VACUUM TESTER Instructions Apply. See MCM: 2049) ([id number])By: Francoise Meng CNP Radiology - Foot - LeftBy: Yusra On: 14-May-2015 Intent BRO Zakia ADMINISTRATION OF INFLUENZA VIRUS On: 05-Apr-2015 Intent VACCINE (G0008)By: Krysten Dial MD, MD, Dana M Flu Vaccine (Quadrivalent) On: 05-Apr-2015 Intent 33276Sx: Krysten Dial MD Comments: Lot #:[id number] date:Amount given:0.5mlRoute: IMSite given:L DltdGiven by: ElaineVIS and ABN signed Quad Flu Krysten Dial MD Flu Vaccine (Quadrivalent) On: 19-Apr-2014 Intent 20730Cc: Krysten Dial MD, MD, Dana M ADMINISTRATION OF INFLUENZA VIRUS On: 19-Apr-2014 Intent VACCINE (G0008)By: Aruna Amaral Venous Doppler - RightBy: Nerissa On: 18-Jan-2014 Intent Krysten CASTELLANO MD, Dana M EKG ([id number])By: Krysten Dial MD On: 01-Sep-2013 Intent Krysten Dial MD Comments: see scanned document of test done to see results reviewed today with patient Ultrasound - GallbladderBy: On: 01-Sep-2013 Intent Krysten Dial MD, MD, Dana M Ultrasound - LiverBy: Nerissa CASTELLANO, On: 01-Sep-2013 Intent Krysten Hogan MD Holter Monitor 24 hrsBy: Nerissa On: 01-Sep-2013 Intent Krysten CASTELLANO MD, Dana M Eprescribed prescriptions On: 01-Sep-2013 Intent (G8553)By: Krysten iDal MD, MD, Dana M Holter Monitor 24 hrsBy: Nerissa On: 02-Jun-2013 Intent Krysten CASTELLANO MD, Dana M Echo CompleteBy: Krysten Dial MD On: 02-Jun-2013 Intent Krysten Colunga MD Eprescribed prescriptions On: 02-Jun-2013 Intent (G8553)By: Kady Deleon LPN FLU VAC, SPLIT, >3 YEARS, On: 14-Apr-2013 Intent INTRAMUSC (24611)By: Dalton, Comments: lot [id number] 2014site/route L latonya, IMamt 0.5mlVIS and ABN signed when applicableChelsea, [facility] Meagan IMMUNIZ ADMNIN, 1 VAC, SNGL/COMBO On: 14-Apr-2013 Intent (16822)By: Meagan Hoffman Radiology - Foot - RightBy: On: 10-Nov-2012 Intent Krysten Dial MD, MD, Comments: please call wet read Krysten Levi Eprescribed prescriptions On: 19-Sep-2012 Intent (G8553)By: Kady Deleon LPN EKG ([id number])By: RITA Mendez On: 20-Jun-2012 Intent Aerosol Treatment (80174)By: Yusra On: 30-Nov-2011 Intent Francoise CRABTREE E Spirometry (87112)By: Nerissa CASTELLANO, On: 26-Sep-2010 Intent Krysten Hogan MD Comments: re do of one that was not abl eot be performed at last visit. Spirometry (85096)By: Nerissa CASTELLANO, On: 18-Sep-2010 Intent Krysten Hogan MD Pulse Oximetry (43161)By: Jessie RN, On: 18-Sep-2010 Intent Leidy Pulse Oximetry (56308)By: Andrea On: 17-Apr-2010 Intent RITA ELECTROCARDIOGRAM, COMPLETE (ECG) On: 01-Apr-2010 Intent (49363)By: Vikki Wetzel Planned Medications INFUSION, NORMAL SALINE SOLUTION , 1000 CC Ordered: 28-Jun-2015 Pending Francoise Meng CNP Instructions Name Dates Details BMI 45.0-49.9, adult [...] Fatigue : Patient Instructions Indication: Fatigue Encounters Office Visit On: 08-Apr-2018 11:30 Encounter Diagnosis: NEED FOR PROPHYLACTIC VACCINATION AND INOCULATION AGAINST INFLUENZA (V04.81) End: 08-Apr-2018 13:57 [facility] Order On: 25-Mar-2018 12:52 Encounter Diagnosis: [...] Nutrition: balanced diet and supplemental vitamins. The ia dical issues the patient is following up [...] 3 day(s) ago. Onset followed foreign travel ([facility] for new years). The symptoms occur intermittently. [...] Nutrition: balanced diet and supplemental vitamins. The ia dical issues the patient is following up [...] inhaler and I had to see my caser shoe parts and my ENT dosent want me o [...] contact with a person with sore throat (works [employer]) and swelling of neck glands, whil e [...] (780.79), Menorrhagia(626.2) [facility] Payers [facility] Rehabilitation InstituteDeisiRubina BANGURA; sarabjit guarantor
--- OUTSIDE RECORDS SUMMARY | 2018-07-19 10:30 | XMS RPT_ITS | Continuity of Care Document ---
:1955 Author Organization [facility] Address [address] [facility] [address] [place] [address] Phone Care Team Providers Name Role Phone Nerissa CASTELLANO, Krysten Levi Unavailable Dr. Reginaldo Corbin Unavailable Erwin Rose Unavailable Maciej Cadena Unavailable Timothy CASTELLANO, Speedy S Unavailable Andrew CASTELLANO, Regan Unavailable RITA Mendez Unavailable Unavailable Slajacqueline BAIT PAINTER, Moraima Unavailable Unavailable Unavailable Unavailable Problems Name Dates Details Abnormal fasting glucose (R73.01, 790.29) Status: Active Allergic rhinitis (J30.9, 477.9) Comments: off allergy shots. back this spring and seeing photocopying equipment mechanic. add kaleb. will get abck to ENT. 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 comign down some. Status: Active Encounter for routine adult medical exam with abnormal findings (Z00.01, V70.0) Comments: 03-22-17 [facility] [address] Thorpe. colonoscopy polyp [...] she finally changed stressed job. she working [employer] as as [employer] which likes better. easier to communate. less [...] MD, Krysten Levi Start : 22-Mar-2017 Active Cipro 500 MG Oral Tablet 1 (one) Tablet bid for 0 days Quantity: 14 {Tablet} Refills: 0 Ordered:18-Apr-2018 Krysten Dial MD, MD, Dana M Start : 18-Apr-2018 Active Cytomel 5 MCG Oral Tablet 1 [...] Ordered:28-Mar-2010 RITA Mendez End : 28-Mar-2010 Inactive CIPROFLOXACIN HCL, 500MG (Oral Tablet) 1 (one) Tablet bid for 7 days Quantity: 14 {Tablet} Refills: 0 Ordered:14-May-2015 Yusra CRABTREEFrancoise Start : 14-May-2015 End : 21-May-2015 Inactive [...] uad for 30 days Refills: 1 Ordered:08-Jun-2014 Nerissa CASTELLANO, Krysten Dunbar MD, Krysten [...] qd for 0 days Refills: 0 Ordered:14-Dec-2011 Deisilandonsarabjit CRABTREEFrancoise End : 14-Dec-2011 Discontinued Comments:This order discontinued [...] days Quantity: 30 {Tablet} Refills: 3 Ordered:08-Jun-2014 Krysten Dial MD, MD, Dana M Start : 08-Jun-2014 End : 01-Mar-2015 Discontinued WELLBUTRIN XL, 150MG (Oral Tablet Extended Release 24 Hour) 1 (one) Tablet ER 24HR qd for 0 days Quantity: 90 {Tablet} Refills: 3 Ordered:08-Jun-2014 Nerissa CASTELLANO, Krysten [...] (R79.89, 790.6) Comments: endocrine Dr. Herrera at [facility], changed cytomel. adjusted 2-12. reduced cytomel to [...] again but not really totally postmenapausal. seeing twist maker. Status: Inactive as of 06-Jul-2013 Need for [...] (CAD), BILAT Result: Comments: See Note; NOTES: [facility] Services [address] [place] [address] Verdana 4d SCREENING MAMM (CAD), BILAT MR#: [id number] Acct: [id number] Name: GRZEGORZ BANGURA Rep #: [id number] : 1955 F 61 From: Sarbjit Hansen MD PCP: Krysten Dial MD Status: REG CLI Study: SCREENING MAMM (CAD), BILAT Date of Exam: 11/30/16 Exam# [id number] Ordering Dr: Marie Thorpe MD MAMMOGRAPHY - [...] delay biopsy of a clinically suspicious abnormality. [id number] Electronically Signed: Sarbjit Hansen MD at 14:44 EDT Tel , Service support [phone], CC: Ruthie Thorpe MD; Krysten Dial MD Sheet Metal Duct Worker Supervisor: Signed 25-Feb-2016 Dexa Bone Density Study (HP) Result: Comments: See Note; NOTES: [facility] Services [address] [place] [address] Verdana 4d Dexa Bone Density Study (HP) MR#: [id number] Acct: [id number] Name: FENTON SURY Corbin Rep #: [id number] : 1955 F 60 From: Albaro Pena MD PCP: Krysten Dial MD Status: REG CLI Study: Dexa Bone Density Study (HP) Date of Exam: 02/25/16 Exam# [id number] Ordering Dr: Krysten Portillo MD STUDY: DUAL [...] Albaro Pena MD at 9:34 EDT Tel [phone], Service support [phone], CC: Krysten Dial MD Sheet Metal Duct Worker Supervisor: Signed 07-Nov-2015 Bilat Scrn Digital AND CAD Result: Comments: See Note; NOTES: [facility] [address] [facility] [place] [address] Verdana 4d Bilat Scrn Digital AND CAD MR#: [id number] Acct: [id number] Name: ARCHANA BANGURA Rep #: [id number] : 1955 F 60 From: Albaro Pena MD PCP: Krysten Dial MD Status: REG CLI Study: Bilat Scrn Digital AND CAD Date of Exam: 11/07/15 Exam# [id number] Order ing Dr: Ruthie Thorpe MD MAMMOGRAPHY [...] lay biopsy of a clinically suspicious abnormality. [id number] Electronically Signed: Albaro Pena MD at 11:07 EDT Tel [phone], Service support [phone], CC: Ruthie Thorpe MD; Krysten Dial MD Sheet Metal Duct Worker Supervisor: Signed 28-Jun-2015 Gallbladder Result: Comments: See Note; NOTES: [facility] Services [address] [place] [address], [place] [address] Verdana 4d Gallbladder MR#: [id number] Acct: [id number] Name: ARCHANA ABNGURA Rep #: [id number] : 1955 F 60 From: Albaro Pena MD PCP: Krysten Dial MD Status: REG CLI Study: Gallbladder Date of Exam: 06/28/15 Exam# [id number] Ordering Dr: Francoise Meng STUDY: ABDOMINAL ULTRASOUND [...] Albaro Pena MD at 11:40 EST Tel [phone], Service support [phone], CC: Francoise Meng; Krysten Dial MD Sheet Metal Duct Worker Supervisor: Signed 14-May-2015 Foot min 3 Views Result: Comments: See Note; NOTES: [facility] [address] [place] [address] Verdana 4d Foot min 3 Views MR#: [id number] Acct: [id number] Name: PRICE Rep #: [id number] : 1955 F 60 From: Vazquez Briggs MD PCP: Krysten Dial MD Status: REG CLI Study: Foot min 3 Views Date of Exam: 05/14/15 Exam# [id number] Ordering Dr: Francoise Meng STUDY: X-RAY - [...] FACR at 19:17 EST , Service support [phone], RAD/Foot min 3 Views IMPRESSION: 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 Prominent plantar calcaneal spur. Flattening of the heads of the second and third metatarsals which could be related to stress subchondral fracture or cyrus ne infarcts. Electronically Signed: Vazquez Briggs MD, FACR at 19:17 EST , Service support [phone], CC: Francoise Meng; Krysten Dial MD Sheet Metal Duct Worker Supervisor: Signed 04-Jan-2015 PT Discharge Summary Result: Comments: See Note; NOTES: [facility] [address] [place] [address] Fax REHABILITATION SERVICES DISCHARGE SUMMARY MR#: [id number] Acct: [id number] Name: ARCHANA BANGURA Rep #: [id number] : 1955 59 From: Roberto Leon Referring Dr.: Krysten Dial MD Status: PRE RCR Ev Date: Date: DATE OF SERVICE: REFERRING PHYSICIAN: Dr. Krysten Dial. Archana Bangura was evaluated at [facility] on the date of October [...] officially discharged with the one treatment goa bela of being independent with home exercise program being achieved. Roberto Leon, PT T: NTS JOB: [id number] <Electronically signed by Roberto Leon > 01/04/15 0937 CC: Signed 22-Oct-2014 Inital Evaluation - PT Result: Comments: See Note; NOTES: [facility] [place] [address] [facility] [place] [address] Fax REHABILITATION SERVICES INITIAL EVALUATION MR#: [id number] Acct: [id number] Name: ARCHANA BANGURA Rep #: [id number] : 1955 59 From: Roberto Leon Referring Dr.: Krysten Dial MD Status: DIS RCR [facility] Date: DATE OF SERVICE: 10/18/2014 REFERRING PHYSICIAN: Krysten Dial M.D. 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 This patient denies any cervical spine pain [...] this patient is very tender along the belt measurer ior superior aspect of her right shoulder [...] visits. Roberto Leon, PT T: CHRIS JOB: [id number] <Electronically signed by Roberto lopez > 10/22/14 1124 CC: Signed For Medicare only, by signing this I certify the plan of care. Physicians Signature Date 11-Sep-2014 Bilat Scrn Digital AND CAD Result: Comments: See Note; NOTES: [facility] Services [address] [place] [address] Breast Imaging Report MR#: [id number] Acct: [id number] Name: ARCHANA BANGURA Rep #: [id number] : 1955 F 59 From: Albaro Pena MD PCP: Krysten Dial MD Status: PRE CLI Study: Bilat Scrn Digital AND CAD Date of Exam: 09/11/14 Exam# [id number] Ordering Dr: Ruthie Thorpe MAMMOGRAPHY - BILATERAL [...] Kavin Pena MD at 8:27 EDT Tel [phone], Service support [phone], CC: Ruthie Thorpe MD; Krysten Dial MD Sheet Metal Duct Worker Supervisor: Signed 19-Apr-2014 Spirometry (47480) Result: 08-Sep-2013 Liver Result: Comments: See Note; NOTES: [facility] Services [address] [place] [address] Ultrasound Report MR#: [id number] Acct: [id number] Name: ARCHANA BANGURA Rep #: [id number] : 1955 F 58 From: Albaro Pena MD PCP: Krysten Dial MD Status: REG CLI Study: Liver Date of Exam: 09/08/13 Exam# [id number] Ordering Dr: Krysten Dial MD STUDY: ABDOMINAL [...] M.D. at 10:46 EDT , Service support [phone], CC: Krysten Dial MD Sheet Metal Duct Worker Supervisor: Signed Family History Unknown Family Member Name Dates Details Brother 1 Comments: HTN, [place] at 56 yo. younger. 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: Active Exercise History Comments: [...] Comments: Patient Position: Sitting; Cuff Size: Large 29-Aff-27798:09 Temperature 97.6 f Comments: Method: Temporal Pulse [...] kg/m2 Body Surface Area Calculated 2.1 m2 43-Wzo-699549:13 Temperature 97.6 f Comments: Method: Oral Pulse [...] 2.03 m2 Results Date Description Value Details :50 Microscopic Examination Comments: PATIENT WAS FASTINGPERFORMED BY: ARIADNE [employer] Hvkdtv3170 [facility] [id number] Bacteria Few (Normal) Mucus Threads Present (Normal) Cast Type Hyaline casts (Normal) Casts Present {/lpf} (Abnormal) Epithelial Cells (non renal) 0-10 {/hpf} (Normal) Range: 0 - 10 RBC 0-2 {/hpf} (Normal) Range: 0 - 2 WBC 11-30 {/hpf} (Abnormal) Range: 0 - 5 71-Ycq-08434:50 Metabolic Panel, Comprehensive Comments: PATIENT WAS FASTINGPERFORMED BY: [employer]70 [facility] [id number] (64859) ALT (SGPT) 33 [iU]/L (Abnormal) Range: 0-32 AST (SGOT) 33 [iU]/L (Normal) Range: 0-40 Alkaline Phosphatase 76 [iU]/L (Normal) Range: 39-117 Bilirubin, Total 0.5 mg/dL (Normal) Range: 0.0-1.2 A/G Ratio 1.6 (Normal) Range: 1.2-2.2 Globulin, Total 2.9 g/dL (Normal) Range: 1.5-4.5 Albumin 4.5 g/dL (Normal) Range: 3.6-4.8 Protein, Total 7.4 g/dL (Normal) Range: 6.0-8.5 Calcium 9.8 mg/dL (Normal) Range: 8.7-10.3 Carbon Dioxide, Total 22 mmol/L (Normal) Range: 20-29 Chloride 102 mmol/L (Normal) Range: 96-106 Potassium 4.7 mmol/L (Normal) Range: 3.5-5.2 Sodium 140 mmol/L (Normal) Range: 134-144 BUN/Creatinine Ratio 18 (Normal) Range: 12-28 eGFR If Africn Am 91 mL/min/1.73 (Normal) eGFR If NonAfricn Am 79 mL/min/1.73 (Normal) Creatinine 0.80 mg/dL (Normal) Range: 0.57-1.00 BUN 14 mg/dL (Normal) Range: 8-27 Glucose 102 mg/dL (Abnormal) Range: 65-99 37-Pdz-54251:50 CBC WITH MANUAL DIFF (07914) Comments: PATIENT WAS FASTINGPERFORMED BY: [employer] [facility] [id number] Immature Grans (Abs) 0.0 {x10E3/uL} (Normal) Range: 0.0-0.1 Immature Granulocytes 0 % (Normal) Baso (Absolute) 0.0 {x10E3/uL} (Normal) Range: 0.0-0.2 Eos (Absolute) 0.2 {x10E3/uL} (Normal) Range: 0.0-0.4 Monocytes(Absolute) 0.8 {x10E3/uL} (Normal) Range: 0.1-0.9 Lymphs (Absolute) 2.2 {x10E3/uL} (Normal) Range: 0.7-3.1 Neutrophils (Absolute) 3.5 {x10E3/uL} (Normal) Range: 1.4-7.0 Basos 1 % (Normal) Eos 2 % (Normal) Monocytes 12 % (Normal) Lymphs 33 % (Normal) Neutrophils 52 % (Normal) Platelets 275 {x10E3/uL} (Normal) Range: 150-379 RDW 13.6 % (Normal) Range: 12.3-15.4 MCHC 35.0 g/dL (Normal) Range: 31.5-35.7 MCH 31.2 pg (Normal) Range: 26.6-33.0 MCV 89 fL (Normal) Range: 79-97 Hematocrit 42.0 % (Normal) Range: 34.0-46.6 Hemoglobin 14.7 g/dL (Normal) Range: 11.1-15.9 RBC 4.71 {x10E6/uL} (Normal) Range: 3.77-5.28 WBC 6.7 {x10E3/uL} (Normal) Range: 3.4-10.8 32-Hpp-83713:50 MICROALBUMIN: CREATININE RATIO Comments: PATIENT WAS FASTINGPERFORMED BY: ARIADNE LabCore[facility]6370 [facility] [id number] (08147) AND (10596) Alb/Creat Ratio 7.8 {mg/g_creat} (Normal) Range: 0.0-30.0 Comments: Normal: 0.0 - 30.0 Albuminuria: 31.0 - 300.0 Clinical albuminuria: >300.0 Albumin, Urine 17.2 ug/mL (Normal) Creatinine, Urine 219.2 mg/dL (Normal) :50 URINALYSIS (64659) Comments: PATIENT WAS FASTINGPERFORMED BY: [employer] [facility] Lrpthf8243 [facility] [id number] Microscopic Examination See below: (Normal) Comments: Microscopic was indicated and was performed. Nitrite, Urine Negative (Normal) Urobilinogen,Semi-Qn 0.2 mg/dL (Normal) Range: 0.2-1.0 Bilirubin Negative (Normal) Occult Blood Negative (Normal) Ketones Negative (Normal) Glucose Negative (Normal) Protein Negative (Normal) WBC Esterase 2+ (Abnormal) Appearance Clear (Normal) Urine-Color Yellow (Normal) pH 5.5 (Normal) Range: 5.0-7.5 Specific Mcclusky 1.026 (Normal) Range: 1.005-1.030 :31 METABOLIC PANEL, COMPREHENSIVE Comments: PATIENT WAS FASTINGPERFORMED BY: [employer]6370 [facility] [id number] (64581) ALT (SGPT) 52 [iU]/L (Abnormal) Range: 0-32 [...] Glucose, Serum 97 mg/dL (Normal) Range: 65-99 :31 LIPID PANEL (72961) Comments: PATIENT WAS FASTINGPERFORMED BY: [email or web address] V[place] [address] [facility] [id number] LDL/HDL Ratio 2.5 {ratio_units} (Normal) Range: 0.0-3.2 [...] C ANTIBODY Comments: PATIENT WAS FASTINGPERFORMED BY: Cashflowtuna.comMountainside HospitalFojqjw7895 [facility] [id number] Information: NURSE DRAW (30699) Hep C Virus Ab <0.1 {s/co_ratio} (Normal) Range: 0.0-0.9 Comments: Negative: < 0.8 Indeterminate: 0.8 - 0.9 Positive: > 0.9 . The CDC recommends that a positive HCV antibody result be followed up with a HCV Nucleic Acid Amplification test (561992). :44 HgA1C , Office (98542) HgA1C , Office 5.7 % (Normal) Range: 4.6 - 7.1 :32 Vitamin B-12 (cyanocobalamin) Comments: PATIENT WAS FASTINGPERFORMED BY: [facility] BiosciencesSaint John'S Bree[facility] Center1447 [facility] [id number] BY: LabCore[facility]6370 [facility] [facility] [place] [id number] (42804) Vitamin B12 867 pg/mL (Normal) Range: 211-946 :32 CALCIFIDIOL (58649) VIT D Comments: PATIENT WAS FASTINGPERFORMED BY: [employer]flowt[employer]com[address] [id number] BY: Cashflowtuna.comMountainside HospitalYpdufa6213 [address] [facility] Hospitalbl[facility] [place] [id number] 25 Vitamin D, 25-Hydroxy 49.1 ng/mL (Normal) Range: 30.0-100.0 Comments: Vitamin D deficiency has been defined by the [place] ofMedicine and an Endocrine Society practice guideline as alevel of serum 25-OH vitamin D less than 20 ng/mL (1,2).The Endocrine Society went on to further define vitamin Dinsufficiency as a level between 21 and 29 ng/mL (2).1. IOM ([place] of Medicine). 2010. Dietary reference intakes for calcium and D. [place]: The National Academies Press.2. Joe MF, Bailee JAY, Woody PALM, et al. Evaluation, treatment, and prevention of vitamin D deficiency: an Endocrine Society clinical practice guideline. JCEM. 2010; 96(7):1911-30. :32 MICROALBUMIN: CREATININE Comments: PATIENT WAS FASTINGPERFORMED BY: [employer] [address] [id number] BY: [email or web address].comMountainside HospitalIrpnba9012 [facility] [place] [id number] RATIO (52850) AND (59316) Microalb/Creat Ratio 11.2 {mg/g_creat} (Normal) Range: 0.0-30.0 Microalbumin, Urine 18.2 ug/mL (Normal) Creatinine, Urine 162.1 mg/dL (Normal) :32 CBC, Platelets & Auto Comments: PATIENT WAS FASTINGPERFORMED BY: [email or web address] [id number] BY: Cashflowtuna.comMountainside HospitalLoxwrr6759 [address] [facility] Hospitalbl[facility] [place] [id number] Diff (76247) Immature Grans (Abs) 0.0 {x10E3/uL} (Normal) Range: [...] 3.77-5.28 WBC 5.9 {x10E3/uL} (Normal) Range: 3.4-10.8 36-Frg-84030:32 Metabolic Panel, Comments: PATIENT WAS FASTINGPERFORMED BY: [facility] [address] [id number] BY: [facility] Nstemf7773 [facility] [id number] Comprehensive (54820) ALT (SGPT) 46 [iU]/L (Abnormal) Range: 0-32 [...] Glucose, Serum 109 mg/dL (Abnormal) Range: 65-99 05-Wzv-60551:32 LIPOPROTEIN, BLD, BY NMR Comments: PATIENT WAS FASTINGPERFORMED BY: BN [facility] [address] [id number] BY: CB [facility] [address] [id number] Information: NURSE DRAW (25227) LP-IR Score 42 (Normal) Comments: INSULIN RESISTANCE MARKER <--Insulin Sensitive Insulin Resistant--> Percentile in Reference PopulationInsulin Resistance ScoreLP-IR Score Low 25th 50th 75th High <27 27 45 63 >63LP-IR Score is inaccurate if patient is non-fasting. .The LP-IR score is a laboratory developed i [facility] that has beenassociated with insulin resistance [...] were developed and their performance characteristicsdetermined by [employer]. These assays have not been cleared by [...] 1600 - 2000 Very High > 2000 64-Sjm-78554:32 T3, FREE (TRIDOTHYRONINE) Comments: PATIENT WAS FASTINGPERFORMED BY: [address] [id number] BY: [facility]6370 [facility] [id number] (97781) Triiodothyronine,Free,Serum 4.2 pg/mL (Normal) Range: 2.0-4.4 :32 T4, FREE (THYROXINE) Comments: PATIENT WAS FASTINGPERFORMED BY: [address] [id number] BY: [place] [address] [facility] [id number] (82460) T4,Free(Direct) 1.02 ng/dL (Normal) Range: 0.82-1.77 :32 TSH (29635) Comments: PATIENT WAS FASTINGPERFORMED BY: [employer] [id number] BY: [place] [address] [facility] [id number] TSH 2.070 {uIU/mL} (Normal) Range: 0.450-4.500 :49 URINE ANNETTE CULTURE-IDENTIFICATN Comments: PATIENT NOT FASTINGPERFORMED BY: [place] [address] [facility] [id number] Information: [id number] SRC:UC (62451) Result 1 MUG (Normal) Comments: Mixed urogenital flora10,000-25,000 colony forming units per mL Urine Final report (Normal) Culture,Comprehensive :47 Urinalysis, Office (78907) UA - LEUKOCYTE ESTERASE Small (Normal) UA - NITRITE Negative (Normal) URINE UROBILINGN TEMO TIMED 2 mg/dL (Normal) UA - PROTEIN Negative mg/dL (Normal) UA - PH 6.0 (Normal) UA - BLOOD Negative (Normal) UA - SPECIFIC GRAVITY 1.025 (Normal) UA - KETONES Negative mg/dL (Normal) UA - BILIRUBIN Negative (Normal) UA - GLUCOSE Negative (Normal) :47 HgA1C , Office (37985) HgA1C , Office 5.7 % (Normal) Range: 4.6 - 7.1 :11 HgA1C , Office (94977) HgA1C , Office 5.7 % (Normal) Range: 4.6 - 7.1 :43 TSH (26278) Comments: PATIENT WAS FASTINGPERFORMED BY: [employer] [facility] [address] [id number] BY: CB [facility] Gkvkkb0481 [facility] [id number] TSH 2.950 {uIU/mL} (Normal) Range: 0.450-4.500 :43 LIPOPROTEIN, BLD, BY NMR Comments: PATIENT WAS FASTINGPERFORMED BY: [employer] [facility] Hvlutcnynv0605 [facility] [id number] BY: [employer] [facility] Xhejya3778 [facility] [id number] (68943) LP-IR Score 39 (Normal) Comments: INSULIN RESISTANCE MARKER <--Insulin Sensitive Insulin Resistant--> Percentile in Reference PopulationInsulin Resistance ScoreLP-IR Score Low 25th 50th 75th High <27 27 45 63 >63LP-IR Score is inaccurate if patient is non-fasting. .The LP-IR score is a laboratory developed i [facility] that has beenassociated with insulin resistance [...] were developed and their performance characteristicsdetermined by [employer]. These assays have not been cleared by [...] 1600 - 2000 Very High > 2000 36-Uml-86056:43 CBC, Platelets & Auto Comments: PATIENT WAS FASTINGPERFORMED BY: [facility] Bnhwuiocxz6164 [facility] [id number] BY: [facility] Usgyiq2193 [facility] [id number] Diff (00755) Immature Grans (Abs) 0.0 {x10E3/uL} (Normal) Range: [...] 3.77-5.28 WBC 5.9 {x10E3/uL} (Normal) Range: 3.4-10.8 88-Ccf-73149:43 Metabolic Panel, Comments: PATIENT WAS FASTINGPERFORMED BY: [facility] [address] [id number] BY: [facility] Anmmqp1177 [facility] [id number]; fu 3-31 Comprehensive (63931) ALT (SGPT) 49 [iU]/L (Abnormal) Range: 0-32 [...] (Abnormal) Range: 65-99 :13 HgA1C , Office (09045) HgA1C , Office 5.8 % (Normal) Range: 4.6 - 7.1 :07 POTASSIUM SERUM (80451) Comments: one month; PATIENT WAS FASTINGPERFORMED BY: [employer] [address] [id number] BY: [employer] Hwlzaz3785 [facility] [id number] Potassium, Serum 4.5 mmol/L (Normal) Range: 3.5-5.2 :07 HEPATIC FUNCTION PANEL Comments: in one month and three months (approximately); PATIENT WAS FASTINGPERFORMED BY: [employer] [address] [id number] BY: [email or web address].comMountainside HospitalLnnpfp08[address] [place] [address] [id number] (34683) ALT (SGPT) 77 [iU]/L (Abnormal) Range: 0-32 AST (SGOT) 62 [iU]/L (Abnormal) Range: 0-40 Alkaline Phosphatase, S 69 [iU]/L (Normal) Range: 39-117 Bilirubin, Direct 0.11 mg/dL (Normal) Range: 0.00-0.40 Bilirubin, Total 0.4 mg/dL (Normal) Range: 0.0-1.2 Albumin, Serum 4.1 g/dL (Normal) Range: 3.6-4.8 Protein, Total, Serum 7.2 g/dL (Normal) Range: 6.0-8.5 52-Lez-39866:07 LIPOPROTEIN, BLD, BY NMR Comments: in three months (approximately); PATIENT WAS FASTINGPERFORMED BY: BN [facility] Nsnekdabve1988 [facility] [id number] BY: CB [facility] Higrsv8706 [facility] [id number] (91702) LP-IR Score 77 (Abnormal) Comments: INSULIN RESISTANCE MARKER <--Insulin Sensitive Insulin Resistant--> Percentile in Reference PopulationInsulin Resistance ScoreLP-IR Score Low 25th 50th 75th High <27 27 45 63 >63LP-IR Score is inaccurate if patient is non-fasting. .The LP-IR score is a laboratory developed i [facility] that has beenassociated with insulin resistance [...] were developed and their performance characteristicsdetermined by [employer]. These assays have not been cleared by [...] 1600 - 2000 Very High > 2000 :10 HgA1C , Office (61196) HgA1C , Office 5.8 % (Normal) Range: 4.6 - 7.1 :47 CBC WITH MANUAL DIFF Comments: PATIENT NOT FASTINGPERFORMED BY: LabCoMountainside HospitalEnvfmj1921 [facility] [id number] Information: [id number] (23544) Immature Grans (Abs) 0.0 {x10E3/uL} (Normal) Range: [...] 5.8 {x10E3/uL} (Normal) Range: 3.4-10.8 :47 TSH (25638) Comments: PATIENT NOT FASTINGPERFORMED BY: [employer] [facility] [id number]; apt. 2-19 TSH 2.390 {uIU/mL} (Normal) Range: 0.450-4.500 :48 [id number] (26993) Comments: PATIENT WAS FASTINGPERFORMED BY: [employer] [facility] [id number] AFP, Serum, Tumor Marker 1.7 ng/mL (Normal) Range: 0.0-8.3 Comments: Altagracia ECLIA methodology :48 HEPATITIS PANEL (79536) Comments: PATIENT WAS FASTINGPERFORMED BY: [employer] Xsxkqe6344 [facility] [id number] Hep C Virus Ab <0.1 {s/co_ratio} (Normal) Range: 0.0-0.9 Comments: Negative: < 0.8 Indeterminate: 0.8 - 0.9 Positive: > 0.9 . The CDC recommends that a positive HCV antibody result be followed up with a HCV Nucleic Acid Amplification test (463434). Hep B Core Ab, IgM Negative (Normal) HBsAg Screen Negative (Normal) Hep A Ab, IgM Negative (Normal) :48 LIPID PANEL (31385) Comments: PATIENT WAS FASTINGPERFORMED BY: [employer] [facility] DiagnosticsMountainside HospitalNboeab9360 [facility] [id number]; apt. 2-19 LDL/HDL Ratio 2.0 {ratio_units} (Normal) [...] Cholesterol, Total 201 mg/dL (Abnormal) Range: 100-199 26-Jul-20158:48 METABOLIC PANEL, Comments: PATIENT WAS FASTINGPERFORMED BY: [employer] Mylilp9497 [facility] [id number] Information: [id number],2ND ORDER COMPREHENSIVE (49399) ALT (SGPT) 36 [iU]/L (Abnormal) Range: 0-32 [...] Diff Comments: PATIENT NOT FASTINGPERFORMED BY: [facility] Xfcxvm6527 [facility] [id number] Information: [id number] (73089) Immature Grans (Abs) 0.0 {x10E3/uL} (Normal) Range: [...] (Normal) Range: 3.4-10.8 :29 Renal function Panel (08486) Comments: PATIENT NOT FASTINGPERFORMED BY: [facility] BiosciencesCore[facility]6370 [facility] [id number] Albumin, Serum 3.8 g/dL (Normal) Range: 3.6-4.8 [...] mg/dL (Normal) Range: 65-99 :58 Rapid Flu (35603 x 2) Influenza A Ag Negative a/b (Normal) 17-Trx-750901:09 URINE ANNETTE CULTURE-TEMO COL Comments: PATIENT NOT FASTINGPERFORMED BY: [facility] BiosciencesCorewell [facility]6370 [facility] [id number] Information: SRC:URC [id number] COUNT (59991) Result 1 NG36 (Normal) Comments: No growth in 36 - 48 hours. Urine Culture,Comprehensive Final report (Normal) :05 Urinalysis, Office (06284) UA - LEUKOCYTE ESTERASE Trace (Normal) UA - NITRITE Negative (Normal) URINE UROBILINGN TEMO TIMED Normal mg/dL (Normal) UA - PROTEIN Negative mg/dL (Normal) UA - PH 5 (Abnormal) UA - BLOOD Negative (Normal) UA - SPECIFIC GRAVITY 1.030 (Abnormal) UA - KETONES Negative mg/dL (Normal) UA - BILIRUBIN Negative (Normal) UA - GLUCOSE Negative (Normal) 38-Xpi-22603:28 URINE ANNETTE CULTURE-IDENTIFICATN Comments: PATIENT NOT FASTINGPERFORMED BY: [facility]6370 [facility] [id number] Information: [id number] (78650) Result 1 NG36 (Normal) Comments: No growth in 36 - 48 hours. Urine Culture,Comprehensive Final report (Normal) :50 Urinalysis, Office (75919) UA - LEUKOCYTE ESTERASE Negative (Normal) UA - NITRITE Negative (Normal) URINE UROBILINGN TEMO TIMED 2 mg/dL (Normal) UA - PROTEIN Negative mg/dL (Normal) UA - PH 5.0 (Normal) UA - BLOOD Negative (Normal) UA - SPECIFIC GRAVITY 1.030 (Abnormal) UA - KETONES Negative mg/dL (Normal) UA - BILIRUBIN Negative (Normal) UA - GLUCOSE Negative (Normal) 80-Vdl-93831:01 URINE ANNETTE CULTURE-IDENTIFICATN Comments: PATIENT NOT FASTINGPERFORMED BY: [facility] BiosciencesCore[facility]6370 [facility] [id number] Information: [id number] (02602) Result 2 MUG (Normal) Comments: Mixed urogenital [...] Culture,Comprehensi (Abnormal) ve :16 HgA1C , Office (92010) HgA1C , Office 5.6 % (Normal) Range: 4.6 - 7.1 :16 Blood Glucose , Office (57811) Blood Glucose , Office 110 (Normal) 84-Htr-30166:59 Urinalysis, Office (47769) UA - LEUKOCYTE ESTERASE Trace (Normal) UA - NITRITE Negative (Normal) URINE UROBILINGN TEMO TIMED Normal mg/dL (Normal) UA - PROTEIN Negative mg/dL (Normal) UA - PH 5 (Abnormal) UA - BLOOD Negative (Normal) UA - SPECIFIC GRAVITY 1.015 (Normal) UA - KETONES Negative mg/dL (Normal) UA - BILIRUBIN Negative (Normal) UA - GLUCOSE Negative (Normal) 6-Vpb-153809:41 Metabolic Panel, Comprehensive Comments: PATIENT WAS FASTINGPERFORMED BY: LabCoMountainside HospitalZtiezg3629 [facility] [id number] (62958) ALT (SGPT) 30 [iU]/L (Normal) Range: 0-32 [...] Glucose, Serum 109 mg/dL (Abnormal) Range: 65-99 9-Itf-466097:41 Lipid Panel (51917) Comments: PATIENT WAS FASTINGPERFORMED BY: [facility] Utiuao0785 [facility] [id number]; apt 9-[address] LDL/HDL Ratio 2.3 {ratio_units} (Normal) [...] MANUAL DIFF Comments: PATIENT WAS FASTINGPERFORMED BY: LabCoModern Family DoctorAsofkj3575 [facility] [id number] Information: [id number] (10785) Immature Grans (Abs) 0.0 {x10E3/uL} (Normal) Range: [...] 6.5 {x10E3/uL} (Normal) Range: 3.4-10.8 :41 TSH (84256) Comments: PATIENT WAS FASTINGPERFORMED BY: [facility]6370 [facility] [id number] TSH 2.690 {uIU/mL} (Normal) Range: 0.450-4.500 :40 HgA1C , Office (86042) HgA1C , Office 5.6 % (Normal) Range: 4.6 - 7.1 :40 Blood Glucose , Office (85492) Blood Glucose , Office 98 (Normal) :11 TSH (41642) Comments: PATIENT WAS FASTINGPERFORMED BY: [facility]6370 [facility] [id number] TSH 2.680 {uIU/mL} (Normal) Range: 0.450-4.500 :11 METABOLIC PANEL, COMPREHENSIVE Comments: PATIENT WAS FASTINGPERFORMED BY: [place] 5008070 [facility] [id number] (19883) ALT (SGPT) 35 [iU]/L (Abnormal) Range: 0-32 [...] mg/dL (Normal) Range: 65-99 :11 LIPID PANEL (87326) Comments: PATIENT WAS FASTINGPERFORMED BY: [employer] Hkkbwm2336 [facility] [id number] LDL/HDL Ratio 2.3 {ratio_units} (Normal) Range: 0.0-3.2 [...] DIFF WBC Comments: PATIENT WAS FASTINGPERFORMED BY: [employer]6370 [facility] [id number] Information: [id number] (39708) Immature Grans (Abs) 0.0 {x10E3/uL} (Normal) Range: [...] (Normal) Range: 3.4-10.8 :37 HgA1C , Office (94834) HgA1C , Office 5.9 % (Normal) Range: 4.6 - 7.1 :36 Blood Glucose , Office (20627) Blood Glucose , Office 107 (Normal) :44 Metabolic Panel, Comments: PATIENT WAS FASTINGPERFORMED BY: [facility]CoMountainside HospitalLtkfgi7053 [facility] [id number] Information: [id number],2ND ORDER Comprehensive (59142) ALT (SGPT) 35 [iU]/L (Abnormal) Range: 0-32 [...] Glucose, Serum 96 mg/dL (Normal) Range: 65-99 78-Srt-76852:44 HEPATITIS PANEL (56563) Comments: PATIENT WAS FASTINGPERFORMED BY: LabCoMountainside HospitalRbxlby0045 [facility] [id number] Hep C Virus Ab <0.1 {s/co_ratio} (Normal) Range: 0.0-0.9 Comments: Negative: < 0.8 Indeterminate: 0.8 - 0.9 Positive: > 0.9 . In order to reduce the incidence of a false positive result, the CDC recommends that all s/co ratios between 1.0 and 10.9 be confirmed by a more specific supplemental or PCR testing. [facility] offers HCV Ab w/Reflex to Verification test #[id number]. Hep B Core Ab, IgM Negative (Normal) HBsAg Screen Negative (Normal) Hep A Ab, IgM Negative (Normal) :44 FERRITIN (62270) Comments: PATIENT WAS FASTINGPERFORMED BY: [facility]6370 [facility] [id number] Ferritin, Serum 72 ng/mL (Normal) Range: 15-150 :44 CBC WITH MANUAL DIFF Comments: PATIENT WAS FASTINGPERFORMED BY: [facility]6370 [facility] [id number] Information: [id number] (29354) Immature Grans (Abs) 0.0 {x10E3/uL} (Normal) Range: [...] FUNCTION PANEL Comments: PATIENT WAS FASTINGPERFORMED BY: Avelas BiosciencesT[place] V[place] 0162970 [facility] [id number] (20564) ALT (SGPT) 36 [iU]/L (Abnormal) Range: 0-32 AST (SGOT) 29 [iU]/L (Normal) Range: 0-40 Alkaline Phosphatase, S 80 [iU]/L (Normal) Range: 39-117 Bilirubin, Direct 0.10 mg/dL (Normal) Range: 0.00-0.40 Bilirubin, Total 0.3 mg/dL (Normal) Range: 0.0-1.2 Albumin, Serum 4.2 g/dL (Normal) Range: 3.5-5.5 Protein, Total, Serum 7.0 g/dL (Normal) Range: 6.0-8.5 :13 HgA1C , Office (02465) HgA1C , Office 5.9 % (Normal) Range: 4.6 - 7.1 :13 Blood Glucose , Office (36261) Blood Glucose , Office 110 (Normal) :14 HEPATIC FUNCTION PANEL Comments: PATIENT WAS FASTINGPERFORMED BY: [place] 5008070 [facility] [id number]; elevated but not critical -- has appt already sched (62487) ALT (SGPT) 43 [iU]/L (Abnormal) Range: 0-32 AST (SGOT) 39 [iU]/L (Normal) Range: 0-40 Alkaline Phosphatase, S 76 [iU]/L (Normal) Range: 39-117 Bilirubin, Direct 0.12 mg/dL (Normal) Range: 0.00-0.40 Bilirubin, Total 0.4 mg/dL (Normal) Range: 0.0-1.2 Albumin, Serum 4.2 g/dL (Normal) Range: 3.5-5.5 Protein, Total, Serum 7.0 g/dL (Normal) Range: 6.0-8.5 :14 LIPID PANEL (73966) Comments: PATIENT WAS FASTINGPERFORMED BY: [place] 5008070 [facility] [id number] Information: [id number] LDL/HDL Ratio 2.0 {ratio_units} (Normal) Range: 0.0-3.2 [...] (THYROID STIMULATING Comments: PATIENT NOT FASTINGPERFORMED BY: [address] [id number] Information: [id number],2ND ORDER HORMONE) (71443) TSH 2.290 {uIU/mL} (Normal) Range: 0.450-4.500 51-Aon-54892:22 TSH (10207) Comments: PATIENT NOT FASTINGPERFORMED BY: [address] [id number] TSH 1.850 {uIU/mL} (Normal) Range: 0.450-4.500 23-Qzv-61806:22 HEPATIC FUNCTION PANEL Comments: PATIENT NOT FASTINGPERFORMED BY: [address] [id number] Information: [id number] (53492) ALT (SGPT) 40 [iU]/L (Abnormal) Range: 0-32 Alkaline Phosphatase, S 70 [iU]/L (Normal) Range: 39-117 AST (SGOT) 34 [iU]/L (Normal) Range: 0-40 Bilirubin, Direct 0.09 mg/dL (Normal) Range: 0.00-0.40 Bilirubin, Total 0.3 mg/dL (Normal) Range: 0.0-1.2 Albumin, Serum 4.3 g/dL (Normal) Range: 3.5-5.5 Protein, Total, Serum 7.1 g/dL (Normal) Range: 6.0-8.5 :22 HgA1C , Office (63095) HgA1C , Office 6.0 % (Normal) Range: 4.6 - 7.1 :22 Blood Glucose , Office (68489) Blood Glucose , Office 113 (Normal) :51 METABOLIC PANEL, COMPREHENSIVE Comments: PATIENT WAS FASTINGPERFORMED BY: [employer]d70 [facility]DataC[facility] [id number] (30225) ALT (SGPT) 40 [iU]/L (Abnormal) Range: 0-32 [...] Glucose, Serum 92 mg/dL (Normal) Range: 65-99 :51 CBC WITH MANUAL DIFF Comments: PATIENT WAS FASTINGPERFORMED BY: [facility]erMesaint [facility] [place] [id number] Information: [id number] (22247) Immature Grans (Abs) 0.0 {x10E3/uL} (Normal) Range: [...] {x10E3/uL} (Normal) Range: 3.4-10.8 :51 LIPID PANEL (42935) Comments: PATIENT WAS FASTINGPERFORMED BY: [facility] Bzrsjb1887 [facility] [id number] LDL/HDL Ratio 2.3 {ratio_units} (Normal) Range: 0.0-3.2 LDL Cholesterol Calc 138 mg/dL (Abnormal) Range: 0-99 VLDL Cholesterol Christopher 21 mg/dL (Normal) Range: 5-40 HDL Cholesterol 60 mg/dL (Normal) Comments: According to ATP-III Guidelines, HDL-C >59 mg/dL is considered anegative risk factor for CHD. Triglycerides 105 mg/dL (Normal) Range: 0-149 Cholesterol, Total 219 mg/dL (Abnormal) Range: 100-199 78-Etp-00801:17 TSH (09783) Comments: PATIENT WAS FASTINGPERFORMED BY: [facility] Xdqsns2200 [facility] [id number] TSH 1.960 {uIU/mL} (Normal) Range: 0.450-4.500 05-Pbu-80335:17 METABOLIC PANEL, Comments: PATIENT WAS FASTINGPERFORMED BY: [facility] Pawrco6673 [facility] [id number] Information: [id number] COMPREHENSIVE (41852) ALT (SGPT) 33 [iU]/L (Abnormal) Range: 0-32 [...] Glucose, Serum 88 mg/dL (Normal) Range: 65-99 1-Afx-564818:45 Blood Glucose , Office (13529) Blood Glucose , Office 89 (Normal) 4-Jqn-353939:45 HgA1C , Office (85192) HgA1C , Office 5.6 % (Normal) Range: 4.6 - 7.1 60-Kyr-87911:22 FOOT MIN 3 VIEWS Radiology Report See [...] M.D.November 10, 2012 at 8:55 :21 AM [id number] Signed RU/RU If you are the referring physician and would like to consult with theradiologist who provided this interpretation, please contact Nilo Mcleod a t [phone]. If this radiologist is unavailable, youwillbe directed to another radiologist to assist. If you are a patient with a question regarding this report, pleasecontactyour referring physician directly. Professional Interpretation Provided By: [employer], Phone , These documents contain legally protected [...] ITS IMPORTSign by Alexandre Womack on 11/10/12 09 Sign by: Alexandre Womack :45 T4, FREE (THYROXINE) (36950) Comments: PATIENT WAS FASTINGPERFORMED BY: [employer] Acjhlr4099 [facility] [id number] T4,Free(Direct) 1.06 ng/dL (Normal) Range: 0.82-1.77 :45 T3, FREE (TRIDOTHYRONINE) (35756) Comments: PATIENT WAS FASTINGPERFORMED BY: [facility] [facility] DiagnosticsGallup Indian Medical CenterVqyykh6122 [facility] [id number] Triiodothyronine,Free,Serum 3.7 pg/mL (Normal) Range: 2.0-4.4 :45 TSH (91841) Comments: PATIENT WAS FASTINGPERFORMED BY: [facility] Vision DiagnosticsMountainside HospitalXwruyj2310 [facility] [id number] TSH 1.670 {uIU/mL} (Normal) Range: 0.450-4.500 :45 METABOLIC PANEL, COMPREHENSIVE Comments: PATIENT WAS FASTINGPERFORMED BY: LabCoMountainside HospitalHckjsr7707 [facility] [id number] (13713) ALT (SGPT) 31 [iU]/L (Normal) Range: 0-32 [...] Glucose, Serum 96 mg/dL (Normal) Range: 65-99 23-Jan-20138:45 LIPID PANEL (69864) Comments: PATIENT WAS FASTINGPERFORMED BY: LabCoMountainside HospitalLxdoqr5938 [facility] [id number] LDL/HDL Ratio 2.7 {ratio_units} (Normal) Range: 0.0-3.2 [...] MANUAL DIFF Comments: PATIENT WAS FASTINGPERFORMED BY: LabCoMountainside HospitalKmbrss6481 [facility] [id number] Information: [id number] (72917) Immature Grans (Abs) 0.0 {x10E3/uL} Range: 0.0-0.1 [...] 1.770 {uIU/mL} Comments: PATIENT WAS FASTINGPERFORMED BY: [facility]6370 [facility] [id number] Information: [id number] :02 (Normal) Range: 0.450-4.500 Written Authorization WAR (Normal) Comments: PATIENT WAS FASTINGPERFORMED BY: [facility]6370 [facility] [id number] :02 Comments: Written Authorization Received.Authorization received from DR DIAL [phone] by Ignacia Lozano :02 LIPID PANEL (84483) Comments: PATIENT WAS FASTINGPERFORMED BY: [facility]6370 [facility] [id number] LDL/HDL Ratio 2.3 {ratio_units} (Normal) Range: 0.0-3.2 LDL Cholesterol Calc 133 mg/dL (Abnormal) Range: 0-99 VLDL Cholesterol Christopher 23 mg/dL (Normal) Range: 5-40 HDL Cholesterol 59 mg/dL (Normal) Comments: According to ATP-III Guidelines, HDL-C >59 mg/dL is considered anegative risk factor for CHD. Triglycerides 116 mg/dL (Normal) Range: 0-149 Cholesterol, Total 215 mg/dL (Abnormal) Range: 100-199 :02 CBC (Auto) (50629) Comments: PATIENT WAS FASTINGPERFORMED BY: [facility]6370 [facility] [id number] Platelets 269 {x10E3/uL} (Normal) Range: 140-415 RDW 14.4 % (Normal) Range: 12.3-15.4 MCHC 33.6 g/dL (Normal) Range: 31.5-35.7 MCH 29.8 pg (Normal) Range: 26.6-33.0 MCV 89 fL (Normal) Range: 79-97 Hematocrit 40.5 % (Normal) Range: 34.0-46.6 Hemoglobin 13.6 g/dL (Normal) Range: 11.1-15.9 RBC 4.57 {x10E6/uL} (Normal) Range: 3.77-5.28 WBC 6.2 {x10E3/uL} (Normal) Range: 4.0-10.5 :02 Metabolic Panel, Comments: PATIENT WAS FASTINGPERFORMED BY: Cashflowtuna.comGallup Indian Medical CenterYomxwh8685 [facility] [id number] Information: [id number] Comprehensive (99189) ALT (SGPT) 32 [iU]/L (Normal) Range: 0-32 [...] (Abnormal) Range: 65-99 :02 T3, FREE (TRIDOTHYRONINE) (14724) Comments: PATIENT WAS FASTINGPERFORMED BY: Cashflowtuna.comMountainside HospitalYgoqow2475 [facility] [id number] Triiodothyronine,Free,Serum 3.9 pg/mL (Normal) Range: 2.0-4.4 :02 T4, FREE (THYROXINE) (64559) Comments: PATIENT WAS FASTINGPERFORMED BY: [facility]6370 [facility] [id number] T4,Free(Direct) 0.94 ng/dL (Normal) Range: 0.82-1.77 :02 T4, TOTAL (98469) Comments: PATIENT WAS FASTINGPERFORMED BY: [place] 5008070 [facility] [id number] Thyroxine (T4) 7.3 ug/dL (Normal) Range: 4.5-12.0 :07 TSH (83641) Comments: PATIENT NOT FASTINGPERFORMED BY: [place] 5008070 [facility] [id number] Information: [id number] TSH 1.970 {uIU/mL} (Normal) Range: 0.450-4.500 :35 URINE ANNETTE CULTURE (TEMO Comments: and sensitivity; PATIENT NOT FASTINGPERFORMED BY: [place] 5008070 [facility] [id number] Information: SRC: [id number] COL COUNT) (58151) Result 1 BETAGB (Normal) Comments: Beta hemolytic [...] been reportedfor Streptococcus pyogenes (group A). (CLSI 2011) Urine Final report (Normal) Culture,Comprehensive 10-Kjh-207806:49 Urinalysis, Office (27283) UA - LEUKOCYTE ESTERASE Negative (Normal) UA - NITRITE Negative (Normal) URINE UROBILINGN TEMO TIMED Normal mg/dL (Normal) UA - PROTEIN Negative mg/dL (Normal) UA - PH 7.0 (Normal) UA - BLOOD Negative (Normal) UA - SPECIFIC GRAVITY 1.025 (Normal) UA - KETONES Negative mg/dL (Normal) UA - GLUCOSE Negative (Normal) :15 CBC WITH MANUAL DIFF Comments: PATIENT WAS FASTINGPERFORMED BY: ARIADNE LabCore[facility]6370 Victorino RoachCape Fear [facility] [id number] Information: [id number] (95921) Immature Grans (Abs) 0.0 {x10E3/uL} (Normal) Range: [...] {x10E3/uL} (Normal) Range: 4.0-10.5 :15 LIPID PANEL (53667) Comments: PATIENT WAS FASTINGPERFORMED BY: ARIADNE [employer] Zwvtoy7735 [facility] [id number] LDL/HDL Ratio 2.5 {ratio_units} (Normal) Range: 0.0-3.2 [...] FUNCTION PANEL Comments: PATIENT WAS FASTINGPERFORMED BY: [employer] [facility] [id number] (03806) ALT (SGPT) 32 [iU]/L (Normal) Range: 0-40 AST (SGOT) 29 [iU]/L (Normal) Range: 0-40 Alkaline Phosphatase, S 69 [iU]/L (Normal) Range: 25-150 Bilirubin, Direct 0.10 mg/dL (Normal) Range: 0.00-0.40 Bilirubin, Total 0.4 mg/dL (Normal) Range: 0.0-1.2 Albumin, Serum 4.3 g/dL (Normal) Range: 3.5-5.5 Protein, Total, Serum 7.4 g/dL (Normal) Range: 6.0-8.5 :15 Metabolic Panel, Basic (02228) Comments: PATIENT WAS FASTINGPERFORMED BY: [employer]6370 [facility] [id number] Calcium, Serum 9.6 mg/dL (Normal) Range: 8.7-10.2 [...] 96 mg/dL (Normal) Range: 65-99 :15 TSH (43852) Comments: PATIENT WAS FASTINGPERFORMED BY: [facility] BiosciencesCorewell Health [facility] Hospital6370 [facility] [id number] TSH 1.500 {uIU/mL} (Normal) Range: 0.450-4.500 :15 T4, FREE (THYROXINE) (49525) Comments: PATIENT WAS FASTINGPERFORMED BY: Cashflowtuna.comMountainside HospitalWosisp1533 [facility] [id number] T4,Free(Direct) 0.96 ng/dL (Normal) Range: 0.82-1.77 :15 T3, FREE (TRIDOTHYRONINE) (79459) Comments: PATIENT WAS FASTINGPERFORMED BY: [facility] BiosciencesCorewell Health [facility] Hospital6370 [facility] [id number] Triiodothyronine,Free,Serum 3.3 pg/mL (Normal) Range: 2.0-4.4 :02 [...] Range: 6.4-8.2 :37 Rapid Strep Test, Office (27926) Rapid Strep Test, Office Negative (Normal) :37 HgA1C , Office (71832) HgA1C , Office 6.0 % (Normal) Range: 4.6 - 7.1 :37 Blood Glucose , Office (40021) Blood Glucose , Office 122 (Normal) :26 [...] T PROT 6.4 g/dL (Normal) Range: 6.4-8.2 : BMP GAP 8 (Normal) Range: 5-15 CO2 [...] 7-18 GLU 102 mg/dL (Normal) Range: 70-110 :26 CBCD,SMEAR DIFF RED CELL MORPH SeeNote {NORMAL} [...] FREE T3 6.7 pg/mL (Abnormal) Range: 2.18-3.98 :09 T4 FREE DIRECT 0.38 ng/dL (Abnormal) Range: [...] ronda isolated. No beta-hemolyticstreptococcus isolated. :07 EBVIgG/M 691016 EB-NAg SaN22996 > 8.0 {AI} (Abnormal) Range: 0.0-0.8 Comments: [...] Antibody Pr esent - Antibody AbsentPerformed at: - [facility] [address] [id number] Director: Melanie Hartman MD, Phone: [phone] EB-EA IgG 36967 1.3 {AI} (Abnormal) Range: 0.0-0.8 Comments: Negative <0.9 Equivocal 0.9 - 1.0 Positive >1.0 EB-VCA GdI44491 > 8.0 {AI} (Abnormal) Range: 0.0-0.8 Comments: Negative <0.9 Equivocal 0.9 - 1.0 Positive >1.0 EB-VCA TaM62697 < 0.2 {AI} (Normal) Range: 0.0-0.8 Comments: Negative <0.9 Equivocal 0.9 - 1.0 Positive >1.0 :07 FREE T3 7.0 pg/mL (Abnormal) Range: 2.18-3.98 :07 T4 FREE DIRECT 0.46 ng/dL (Abnormal) Range: 0.76-1.46 :07 TSH 1.82 {uIU/mL} (Normal) Range: 0.358-3.74 :50 Rapid Strep Test, Office (76608) Rapid Strep Test, Negative (Normal) Office :36 EB-NAg MuM11242 > 8.0 {AI} (Abnormal) Range: 0.0-0.8 Comments: Negative <0.9 Equivocal 0.9 - 1.0 Positive >1.0 :36 EB-VCA MlM08853 > 8.0 {AI} (Abnormal) Range: 0.0-0.8 Comments: Negative <0.9 Equivocal 0.9 - 1.0 Positive >1.0 :36 EB-EA IgG 37542 1.5 {AI} (Abnormal) Range: 0.0-0.8 Comments: Negative <0.9 Equivocal 0.9 - 1.0 Positive >1.0Performed at: [facility] LabCorewell [facility] Hospital6370 [place], [place] [id number] Director: Melanie Hartman MD, Phone: [phone] :[phone] CKMB Comments: Please Note: TROPONIN REFERENCE [...] NEGATIVE 0.06 - 0.59 AT RISK OF IA > OR = 0.60 SUGGEST IA :01 CKMB Comments: Please Note: TROPONIN REFERENCE [...] NEGATIVE 0.06 - 0.59 AT RISK OF IA > OR = 0.60 SUGGEST IA 21-Euz-042196:40 TROPONIN-I < 0.02 ng/mL (Normal) Comments: Please Note: TROPONIN REFERENCE RANGE CHANGEEffective MAY 21, 2009. Comments: TROPONIN-I EXPECTED VALUES <0.05 NEGATIVE 0.06 - 0.59 AT RISK OF IA > OR = 0.60 SUGGEST IA : CORTISOL 11.41 ug/dL (Normal) Range: 3.09-22.40 Comments: Adult (AM) 4.30 - 22.40 ug/dLAdult (PM) 3.09 - 16.66 ug/dL :00 FREE T3 2.8 pg/mL (Normal) Range: 2.18-3.98 : T4 FREE DIRECT 0.51 ng/dL (Abnormal) Range: 0.76-1.46 :00 TSH 1.54 {uIU/mL} (Normal) Range: 0.358-3.74 :26 HgA1C , Office (38321) HgA1C , Office 5.4 % (Normal) Range: 4.6 - 7.1 :26 Blood Glucose , Office (61055) Blood Glucose , Office 89 (Normal) :54 CORTISOL 7.59 ug/dL (Normal) Range: 3.09-22.40 Comments: Adult (AM) 4.30 - 22.40 ug/dLAdult (PM) 3.09 - 16.66 ug/dL :54 DHEA SULF 4697 33.4 ug/dL (Normal) Range: 18.9-205.0 :54 ESTRADIOL 4515 28.9 pg/mL (Normal) Comments: Adult Female:Follicular phase 12.5 - 166.0Ovulation phase 85.8 - 498.0Luteal phase 43.8 - 211.0Postmenopausal <6.0 - 54.9Ufxcudhhm7zh trimester 215.0 - >4300.0Girls (1- 10 years) 6.0 - 27.0Roche ECLIA methodology :54 FREE T3 2.1 pg/mL (Abnormal) Range: 2.18-3.98 :54 GLU 90 mg/dL (Normal) Range: 70-110 :54 INSULIN 4333 16.9 {uIU/mL} Range: 0.0-24.9 (Normal) Comments: Performed at: [address] [id number] Director: Melanie Hartman MD, Phone: [phone] :[phone] PROGESTER. 4317 2.7 ng/mL (Normal) Comments: [...] Education - Female Indication: Bronchitis Planned Observations OCCULT BLOOD FECES SCREEN (95474)Indication: Dehydration On: : Request OVA & PARASITE DIR SMEAR (24857)Indication: Dehydration On: :30 Request LEUKOCYTE COUNT, FECAL (11528)Indication: Dehydration On: :30 Request C-DIFFICILE, STOOL (31621)Indication: Dehydration On: : Request ANNETTE CULTURE-STOOL (47227)Indication: Dehydration On: : Request Metabolic Panel, Basic (44200)Indication: Hypertension, benign On: 57-Exe-775725:06 Request Comments: due in 1 week. Metabolic Panel, Basic (95325)Indication: Hypertension, benign On: 52-Hen-513833:40 Request ANNETTE CULTURE-OTHER (57421)Indication: Pharyngitis, acute On: :37 Request TSH (77404)Indication: Abnormal TSH On: :30 Request T4, FREE (THYROXINE) (79247)Indication: Abnormal TSH On: :30 Request T3, FREE (TRIDOTHYRONINE) (80658)Indication: Abnormal TSH On: :30 Request TSH ([id number])Indication: Abnormal TSH On: :57 Request T4, FREE (THYROXINE) ([id number])Indication: Abnormal TSH On: :57 Request T3, FREE (TRIDOTHYRONINE) (38781)Indication: Abnormal TSH On: :57 Request ANNETTE CULTURE-OTHER ([id number])Indication: Pharyngitis, acute On: :50 Request EB ANTIBODY EARLY ANTIGN ([id number])Indication: Fatigue On: 28-Mar-20108:00 Request Comments: today EB ANTIBODY VIRAL CAPSID ([id number]) [id number]: Fatigue On: :57 Request EB ANTIBODY NUCLR ANTIGN ([id number])Indication: Fatigue On: :57 Request Planned Encounters Medical; [facility] (Doctor) - On: 28-Apr-2018 7:00 [facility] Nerissa CASTELLANO, Krysten Dial MD, Krysten Levi Planned Procedures Flu Vaccine (Quadrivalent) On: 08-Apr-2018 Intent 57805Gi: RITA Mendez Comments: Lot #:[id number] date: 9[birth year]31[birth year]69Dlwfjj given:0.5mlRoute: IMSite given:L DltdGiven by: DBVIS and ABN signed [employer] COMPLETE ELECTROMYOGRAPHY (EMG) On: 19-Jun-2016 Intent WITH NERVE CONDUCTION STUDIES OF EACH EXTREMITY (06070)By: Nerissa CASTELLANO, Krysten Hogan MD Flu Vaccine (Quadrivalent) On: 08-May-2016 Intent 87337Tm: Krysten Dial MD Comments: Lot:[id number]:12/18/16Dose:0.5mLRoute:IMSite:L DltdGiven By:MLVIS signed Krysten Dial MD Nuclear Stress Test/Stress On: 10-Feb-2016 Intent SPECT/TreadmillBy: Krysten Dial MD, MD, Dana M DEXA SCAN AXIAL SKELETON On: 10-Feb-2016 Intent ([id number])By: Krysten Dial MD, MD, Dana M TDAP VACCINE >7 IM (25447)By: On: 10-Feb-2016 Intent Krysten Dial MD, MD, Comments: tdaplot:[id number]:07/12/18site:lt deltroute:IMD.MARY ELLEN Canales IV Needle placement (95864)By: On: 28-Jun-2015 Intent Francoise Meng CNP Ultrasound - GallbladderBy: Yusra On: 28-Jun-2015 Intent Francoise CRABTREE INFUSION, NORMAL SALINE SOLUTION , On: 28-Jun-2015 Intent 1000 CC (Special Coverage Comments: lot [id number] ccright antecubas BAIT PAINTER Instructions Apply. See MCM: 2049) (J7030)By: Francoise Meng CNP Radiology - Foot - LeftBy: Yusra On: 14-May-2015 Intent Francoise CRABTREE ADMINISTRATION OF INFLUENZA VIRUS On: 05-Apr-2015 Intent VACCINE (G0008)By: Krysten Dial MD, MD, Dana M Flu Vaccine (Quadrivalent) On: 05-Apr-2015 Intent [id number]: Krysten Dial MD Comments: Lot #:[id number] date:Amount given:0.5mlRoute: IMSite given:L DltdGiven by: ElaineVIS and ABN signed Quad Flu Krysten Dial MD Flu Vaccine (Quadrivalent) On: 19-Apr-2014 Intent [id number]: Krysten Dial MD, MD, Dana M ADMINISTRATION OF INFLUENZA VIRUS On: 19-Apr-2014 Intent VACCINE (G0008)By: Aruna Amaral Venous Doppler - RightBy: Nerissa On: 18-Jan-2014 Intent Krysten CASTELLANO MD, Dana M EKG ([id number])By: Krysten Dial MD On: 01-Sep-2013 Intent Krysten [...] Eprescribed prescriptions On: 01-Sep-2013 Intent (G8553)By: Krysten Dial MD, MD, Dana M Holter Monitor 24 hrsBy: Nerissa On: 02-Jun-2013 Intent Krysten CASTELLANO MD, Dana M Echo CompleteBy: Krysten Dial MD On: 02-Jun-2013 Krsyten Coppola MD Eprescribed prescriptions On: 02-Jun-2013 Intent (G8553)By: Kady Deleon LPN FLU VAC, SPLIT, >3 YEARS, On: 14-Apr-2013 Intent INTRAMUSC (07053)By: Dalton, Comments: lot [id number] 2014site/route L latonya, IMamt 0.5mlVIS and ABN signed when applicableChelsea, [facility] Meagan IMMUNIZ ADMNIN, 1 VAC, SNGL/COMBO On: 14-Apr-2013 Intent ([id number])By: Meagan Hoffman Radiology - Foot - RightBy: On: 10-Nov-2012 Intent Krysten Dial MD, MD, Comments: please call wet read Krysten Levi Eprescribed prescriptions On: 19-Sep-2012 Intent (G8553)By: Kady Deleon LPN EKG ([id number])By: RITA Mendez On: 20-Jun-2012 Intent Aerosol Treatment (43126)By: Yusra On: 30-Nov-2011 Intent 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 Spirometry (18972)By: Nerissa CASTELLANO, On: 18-Sep-2010 Intent Krysten Dial MD, Krysten Levi Pulse Oximetry (40139)By: Jessie GUSMAN, On: 18-Sep-2010 Intent Leidy Pulse Oximetry (74478)By: Andrea On: 17-Apr-2010 Intent RITA ELECTROCARDIOGRAM, COMPLETE (ECG) On: 01-Apr-2010 Intent (85917)By: Vikki Wetzel Planned Medications INFUSION, NORMAL SALINE [...] Nutrition: balanced diet and supplemental vitamins. The [place] dical issues the patient is following up [...] 3 day(s) ago. Onset followed foreign travel ([facility] for new years). The symptoms occur [...] (493.11), Allergic Rhinitis(477.9), Obesity (278.00), Heartburn (787.1), 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
--- OUTSIDE RECORDS SUMMARY | 2018-07-19 10:32 | XMS RPT_ITS | Continuity of Care Document ---
:1955 Author Organization [facility] Address [address] [facility] [address] [place] [address] Phone Care Team Providers Name Role Phone Nerissa CASTELLANO, Krysten Levi Unavailable Dr. Reginaldo Corbin Unavailable Erwin Rose Unavailable Maciej Cadena Unavailable Timothy CASTELLANO, Speedy S Unavailable Andrew CASTELLANO, Regan Unavailable RITA Mendez Unavailable Unavailable Slajacqueline AUTOMOTIVE BRAKE SPECIALIST, Moraima Unavailable Unavailable Unavailable Unavailable Problems Name Dates Details Abnormal fasting glucose (R73.01, 790.29) Status: Active Allergic rhinitis (J30.9, 477.9) Comments: off allergy shots. back this spring and seeing botany professor. add kaleb. will get abck to ENT. 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 comign down some. Status: Active Encounter for routine adult medical exam with abnormal findings (Z00.01, V70.0) Comments: 03-22-17 [facility]. [facility] [address] Thorpe. colonoscopy [...] she finally changed stressed job. she working [email or web address] as as [employer] which likes better. easier to communate. less [...] (R79.89, 790.6) Comments: endocrine Dr. Herrera at [facility], changed cytomel. adjusted 2-12. reduced cytomel to [...] again but not really totally postmenapausal. seeing obgyn hospitalist physician. Status: Inactive as of 06-Jul-2013 Need for [...] (CAD), BILAT Result: Comments: See Note; NOTES: [facility] Imaging Services [address] [place] [address] Verdana 4d SCREENING MAMM (CAD), BILAT MR#: [id number] Acct: [id number] Name: GRZEGORZ BANGURA Rep #: [id number] : 1955 F 61 From: Sarbjit Hansen MD PCP: Krysten Dial MD Status: REG CLI Study: SCREENING MAMM (CAD), BILAT Date of Exam: 11/30/16 Exam# [id number] Ordering Dr: Marie Thorpe MD MAMMOGRAPHY - [...] delay biopsy of a clinically suspicious abnormality. [id number] Electronically Signed: Sarbjit Hansen MD at 14:44 EDT Tel , Service support [phone], CC: Ruthie Thorpe MD; Krysten Dial MD Control Engineer: Signed 25-Feb-2016 Dexa Bone Density Study (HP) Result: Comments: See Note; NOTES: [facility] Imaging Services [address] [place] [address] Verdana 4d Dexa Bone Density Study (HP) MR#: [id number] Acct: [id number] Name: FENTON SURY Corbin Rep #: [id number] : 1955 F 60 From: Albaro Pena MD PCP: Krysten Dial MD Status: REG CLI Study: Dexa Bone Density Study (HP) Date of Exam: 02/25/16 Exam# [id number] Ordering Dr: Krysten Portillo MD STUDY: DUAL [...] Albaro Pena MD at 9:34 EDT Tel [phone], Service support [phone], CC: Krysten Dial MD Control Engineer: Signed 07-Nov-2015 Bilat Scrn Digital AND CAD Result: Comments: See Note; NOTES: [facility] Imaging Services [address] [facility] [place] [address] Verdana 4d Bilat Scrn Digital AND CAD MR#: [id number] Acct: [id number] Name: ARCHANA BANGURA Rep #: [id number] : 1955 F 60 From: Albaro Pena MD PCP: Krysten Dial MD Status: REG CLI Study: Bilat Scrn Digital AND CAD Date of Exam: 11/07/15 Exam# [id number] Order ing Dr: Ruthie Thorpe MD MAMMOGRAPHY [...] lay biopsy of a clinically suspicious abnormality. [id number] Electronically Signed: Albaro Pena MD at 11:07 EDT Tel [phone], Service support [phone], CC: Ruthie Thorpe MD; Krysten Dial MD Control Engineer: Signed 28-Jun-2015 Gallbladder Result: Comments: See Note; NOTES: [facility] Imaging Services [address] [place] [address], [place] [address] Verdana 4d Gallbladder MR#: [id number] Acct: [id number] Name: ARCHANA BANGURA Rep #: [id number] : 1955 F 60 From: Albaro Pena MD PCP: Krysten Dial MD Status: REG CLI Study: Gallbladder Date of Exam: 06/28/15 Exam# [id number] Ordering Dr: Francoise Meng STUDY: ABDOMINAL ULTRASOUND [...] Albaro Pena MD at 11:40 EST Tel [phone], Service support [phone], CC: Francoise Meng; Krysten Dial MD Control Engineer: Signed 14-May-2015 Foot min 3 Views Result: Comments: See Note; NOTES: [facility] Imaging Services [address] [place] [address] Verdana 4d Foot min 3 Views MR#: [id number] Acct: [id number] Name: PRICE Rep #: [id number] : 1955 F 60 From: Vazquez Briggs MD PCP: Krysten Dial MD Status: REG CLI Study: Foot min 3 Views Date of Exam: 05/14/15 Exam# [id number] Ordering Dr: Francoise Meng STUDY: X-RAY - [...] FACR at 19:17 EST , Service support [phone], RAD/Foot min 3 Views IMPRESSION: 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 Prominent plantar calcaneal spur. Flattening of the heads of the second and third metatarsals which could be related to stress subchondral fracture or cyrus ne infarcts. Electronically Signed: Vazquez Briggs MD, FACR at 19:17 EST , Service support [phone], CC: Francoise Meng; Krysten Dial MD Control Engineer: Signed 04-Jan-2015 PT Discharge Summary Result: Comments: See Note; NOTES: [facility] Physical Therapy [address] [place] [address] Fax REHABILITATION SERVICES DISCHARGE SUMMARY MR#: [id number] Acct: [id number] Name: ARCHANA BANGURA Rep #: [id number] : 1955 59 From: Roberto Leon Referring Dr.: Krysten Dial MD Status: PRE RCR Ev Date: Date: DATE OF SERVICE: REFERRING PHYSICIAN: Dr. Krysten Dial. Archana Bangura was evaluated at [facility] on the date of October [...] achieved. Roberto Leon, PT T: NTS JOB: [id number] <Electronically signed by Roberto Leon > 01/04/15 0937 CC: Signed 22-Oct-2014 Inital Evaluation - PT Result: Comments: See Note; NOTES: [facility] Physical Therapy [place] [address] [facility]. [address] [place] [address] Fax REHABILITATION SERVICES INITIAL EVALUATION MR#: [id number] Acct: [id number] Name: ARCHANA BANGURA Rep #: [id number] : 1955 59 From: Roberto Leon Referring Dr.: Krysten Dial MD Status: DIS RCR Insurance[facility] Date: DATE OF SERVICE: 10/18/2014 REFERRING PHYSICIAN: Krysten Dial M.D. 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 Roberto Leon, PT T: CHRIS JOB: [id number] <Electronically signed by Roberto lopez > 10/22/14 1124 CC: Signed For Medicare only, by signing this I certify the plan of care. Physicians Signature Date 11-Sep-2014 Bilat Scrn Digital AND CAD Result: Comments: See Note; NOTES: [facility] Imaging Services [address] [place] [address] Breast Imaging Report MR#: [id number] Acct: [id number] Name: ARCHANA BANGURA Rep #: [id number] : 1955 F 59 From: Albaro Pena MD PCP: Krysten Dial MD Status: PRE CLI Study: Bilat Scrn Digital AND CAD Date of Exam: 09/11/14 Exam# [id number] Ordering Dr: Ruthie Thorpe MAMMOGRAPHY - BILATERAL [...] Kavin Pena MD at 8:27 EDT Tel [phone], Service support [phone], CC: Ruthie Thorpe MD; Krysten Dial MD Control Engineer: Signed 19-Apr-2014 Spirometry (13696) Result: 08-Sep-2013 Liver Result: Comments: See Note; NOTES: [facility] Imaging Services [address] [place] [address] Ultrasound Report MR#: [id number] Acct: [id number] Name: ARCHANA BANGURA Rep #: [id number] : 1955 F 58 From: Albaro Pena MD PCP: Krysten Dial MD Status: REG CLI Study: Liver Date of Exam: 09/08/13 Exam# [id number] Ordering Dr: Krysten Dial MD STUDY: ABDOMINAL [...] M.D. at 10:46 EDT , Service support [phone], CC: Krysten Dial MD Control Engineer: Signed Family History Unknown Family Member Name Dates Details Brother 1 Comments: HTN, [place] at 56 yo. younger. 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: Active Exercise History Comments: [...] Comments: Patient Position: Sitting; Cuff Size: Large 12-Axr-43445:09 Temperature 97.6 f Comments: Method: Temporal Pulse [...] kg/m2 Body Surface Area Calculated 2.1 m2 56-Kjn-872784:13 Temperature 97.6 f Comments: Method: Oral Pulse [...] Comments: PATIENT WAS FASTINGPERFORMED BY: ARIADNE LabCo Axggzo8126 [facility] [id number] Bacteria Few (Normal) Mucus Threads Present (Normal) Cast Type Hyaline casts (Normal) Casts Present {/lpf} (Abnormal) Epithelial Cells (non renal) 0-10 {/hpf} (Normal) Range: 0 - 10 RBC 0-2 {/hpf} (Normal) Range: 0 - 2 WBC 11-30 {/hpf} (Abnormal) Range: 0 - 5 77-Pul-50236:50 Metabolic Panel, Comprehensive Comments: PATIENT WAS FASTINGPERFORMED BY: Veezeon70 [facility] [id number] (34957) ALT (SGPT) 33 [iU]/L (Abnormal) Range: 0-32 [...] 8-27 Glucose 102 mg/dL (Abnormal) Range: 65-99 58-Ego-74414:50 CBC WITH MANUAL DIFF (30481) Comments: PATIENT WAS FASTINGPERFORMED BY: [employer] [facility] [id number] Immature Grans (Abs) 0.0 {x10E3/uL} (Normal) Range: [...] 3.77-5.28 WBC 6.7 {x10E3/uL} (Normal) Range: 3.4-10.8 98-Wkj-61230:50 MICROALBUMIN: CREATININE RATIO Comments: PATIENT WAS FASTINGPERFORMED BY: ARIADNE LabAsp[facility]6370 [facility] [id number] (39199) AND (35560) Alb/Creat Ratio 7.8 {mg/g_creat} (Normal) Range: 0.0-30.0 Comments: Normal: 0.0 - 30.0 Albuminuria: 31.0 - 300.0 Clinical albuminuria: >300.0 Albumin, Urine 17.2 ug/mL (Normal) Creatinine, Urine 219.2 mg/dL (Normal) :50 URINALYSIS (06563) Comments: PATIENT WAS FASTINGPERFORMED BY: [employer] Rolxgn6849 [facility] [id number] Microscopic Examination See below: (Normal) Comments: Microscopic was indicated and was performed. Nitrite, Urine Negative (Normal) Urobilinogen,Semi-Qn 0.2 mg/dL (Normal) Range: 0.2-1.0 Bilirubin Negative (Normal) Occult Blood Negative (Normal) Ketones Negative (Normal) Glucose Negative (Normal) Protein Negative (Normal) WBC Esterase 2+ (Abnormal) Appearance Clear (Normal) Urine-Color Yellow (Normal) pH 5.5 (Normal) Range: 5.0-7.5 Specific [place] 1.026 (Normal) Range: 1.005-1.030 :31 METABOLIC PANEL, COMPREHENSIVE Comments: PATIENT WAS FASTINGPERFORMED BY: SVXR6370 [facility] [id number] (38549) ALT (SGPT) 52 [iU]/L (Abnormal) Range: 0-32 [...] mg/dL (Normal) Range: 65-99 :31 LIPID PANEL (19582) Comments: PATIENT WAS FASTINGPERFORMED BY: RocketripMariah [place] [address]60[address] [facility] [id number] LDL/HDL Ratio 2.5 {ratio_units} (Normal) Range: 0.0-3.2 [...] C ANTIBODY Comments: PATIENT WAS FASTINGPERFORMED BY: RocketripInspira Medical Center ElmerHnwwgs8264 [facility] [id number] Information: NURSE DRAW (27094) Hep C Virus Ab <0.1 {s/co_ratio} (Normal) Range: 0.0-0.9 Comments: Negative: < 0.8 Indeterminate: 0.8 - 0.9 Positive: > 0.9 . The CDC recommends that a positive HCV antibody result be followed up with a HCV Nucleic Acid Amplification test (468458). :44 HgA1C , Office (47080) HgA1C , Office 5.7 % (Normal) Range: 4.6 - 7.1 :32 Vitamin B-12 (cyanocobalamin) Comments: PATIENT WAS FASTINGPERFORMED BY: DiV[facility] NetworksKindred Hospital1447 [facility] [id number] BY: LabAsp[facility] [facility] [place] [id number] (98222) Vitamin B12 867 pg/mL (Normal) Range: 211-946 :32 CALCIFIDIOL (75023) VIT D Comments: PATIENT WAS FASTINGPERFORMED BY: Rocketrip[address] [id number] BY: RocketripInspira Medical Center ElmerQkujgi[address] [facility] Hospital[facility] [place] [id number] Vitamin D, 25-Hydroxy 49.1 ng/mL (Normal) Range: 30.0-100.0 Comments: Vitamin D deficiency has been defined by the [place] ofMedicine and an Endocrine Society practice guideline as alevel of serum 25-OH vitamin D less than 20 ng/mL (1,2).The Endocrine Society went on to further define vitamin Dinsufficiency as a level between 21 and 29 ng/mL (2).1. IOM ([place] of Medicine). 2010. Dietary reference intakes for calcium and D. [place]: The National Academies Press.2. Joe MF, Bailee JAY, Woody PALM, et al. Evaluation, treatment, and prevention of vitamin D deficiency: an Endocrine Society clinical practice guideline. JCEM. 2010; 96(7):1911-30. :32 MICROALBUMIN: CREATININE Comments: PATIENT WAS FASTINGPERFORMED BY: [employer] [address] [id number] BY: RocketripInspira Medical Center ElmerNbmrvy0543 [facility] Hospitalin [place] [id number] RATIO (58538) AND (60312) Microalb/Creat Ratio 11.2 {mg/g_creat} (Normal) Range: 0.0-30.0 Microalbumin, Urine 18.2 ug/mL (Normal) Creatinine, Urine 162.1 mg/dL (Normal) :32 CBC, Platelets & Auto Comments: PATIENT WAS FASTINGPERFORMED BY: Rocketrip[address] [id number] BY: RocketripInspira Medical Center ElmerPvncfi[address] [facility] Hospitalbl[facility] [place] [id number] Diff (54209) Immature Grans (Abs) 0.0 {x10E3/uL} (Normal) Range: [...] 3.77-5.28 WBC 5.9 {x10E3/uL} (Normal) Range: 3.4-10.8 02-Lxv-81924:32 Metabolic Panel, Comments: PATIENT WAS FASTINGPERFORMED BY: [facility] [address] [id number] BY: [facility] Ngwudr3966 [facility] [id number] Comprehensive (47703) ALT (SGPT) 46 [iU]/L (Abnormal) Range: 0-32 [...] Glucose, Serum 109 mg/dL (Abnormal) Range: 65-99 77-Kfe-64886:32 LIPOPROTEIN, BLD, BY NMR Comments: PATIENT WAS FASTINGPERFORMED BY: BN [facility] [address] [id number] BY: CB [facility] [address] [id number] Information: NURSE DRAW (56250) LP-IR Score 42 (Normal) Comments: INSULIN RESISTANCE MARKER <--Insulin Sensitive Insulin Resistant--> Percentile in Reference PopulationInsulin Resistance ScoreLP-IR Score Low 25th 50th 75th High <27 27 45 63 >63LP-IR Score is inaccurate if patient is non-fasting. .The LP-IR score is a laboratory developed i banner that has beenassociated with insulin resistance and [...] 1600 - 2000 Very High > 2000 02-Bwv-91496:32 T3, FREE (TRIDOTHYRONINE) Comments: PATIENT WAS FASTINGPERFORMED BY: [address] [id number] BY: [facility]6370 [facility] [id number] (38715) Triiodothyronine,Free,Serum 4.2 pg/mL (Normal) Range: 2.0-4.4 :32 T4, FREE (THYROXINE) Comments: PATIENT WAS FASTINGPERFORMED BY: [address] [id number] BY: [place] [address] [facility] [id number] (26733) T4,Free(Direct) 1.02 ng/dL (Normal) Range: 0.82-1.77 :32 TSH (15414) Comments: PATIENT WAS FASTINGPERFORMED BY: [employer] [id number] BY: [place] [address] [facility] [id number] TSH 2.070 {uIU/mL} (Normal) Range: 0.450-4.500 :49 URINE ANNETTE CULTURE-IDENTIFICATN Comments: PATIENT NOT FASTINGPERFORMED BY: [place] [address] [facility] [id number] Information: [id number] SRC:UC (56475) Result 1 MUG (Normal) Comments: Mixed urogenital flora10,000-25,000 colony forming units per mL Urine Final report (Normal) Culture,Comprehensive :47 Urinalysis, Office (74344) UA - LEUKOCYTE ESTERASE Small (Normal) UA - NITRITE Negative (Normal) URINE UROBILINGN TEMO TIMED 2 mg/dL (Normal) UA - PROTEIN Negative mg/dL (Normal) UA - PH 6.0 (Normal) UA - BLOOD Negative (Normal) UA - SPECIFIC GRAVITY 1.025 (Normal) UA - KETONES Negative mg/dL (Normal) UA - BILIRUBIN Negative (Normal) UA - GLUCOSE Negative (Normal) :47 HgA1C , Office (28109) HgA1C , Office 5.7 % (Normal) Range: 4.6 - 7.1 :11 HgA1C , Office (23380) HgA1C , Office 5.7 % (Normal) Range: 4.6 - 7.1 :43 TSH (98215) Comments: PATIENT WAS FASTINGPERFORMED BY: DOOMORO [facility] [address] [id number] BY: CB [facility] Fljgbi4111 [facility] [id number] TSH 2.950 {uIU/mL} (Normal) Range: 0.450-4.500 :43 LIPOPROTEIN, BLD, BY NMR Comments: PATIENT WAS FASTINGPERFORMED BY: DOOMORO [facility] Wngurqykqq6948 [facility] [id number] BY: [employer] [facility] Lboqtx4368 [facility] [id number] (91183) LP-IR Score 39 (Normal) Comments: INSULIN RESISTANCE MARKER <--Insulin Sensitive Insulin Resistant--> Percentile in Reference PopulationInsulin Resistance ScoreLP-IR Score Low 25th 50th 75th High <27 27 45 63 >63LP-IR Score is inaccurate if patient is non-fasting. .The LP-IR score is a laboratory developed i banner that has beenassociated with insulin resistance and [...] were developed and their performance characteristicsdetermined by [employer]. These assays have not been cleared by [...] 1600 - 2000 Very High > 2000 12-Yyc-98885:43 CBC, Platelets & Auto Comments: PATIENT WAS FASTINGPERFORMED BY: [facility] Jymljfdzdo7833 [facility] [id number] BY: [facility] Fqziko0312 [facility] [id number] Diff (81879) Immature Grans (Abs) 0.0 {x10E3/uL} (Normal) Range: [...] 3.77-5.28 WBC 5.9 {x10E3/uL} (Normal) Range: 3.4-10.8 17-Amk-89755:43 Metabolic Panel, Comments: PATIENT WAS FASTINGPERFORMED BY: [facility] [address] [id number] BY: [facility] Fokgdc6559 [facility] [id number]; fu 3-31 Comprehensive (67199) ALT (SGPT) 49 [iU]/L (Abnormal) Range: 0-32 [...] (Abnormal) Range: 65-99 :13 HgA1C , Office (85110) HgA1C , Office 5.8 % (Normal) Range: 4.6 - 7.1 :07 POTASSIUM SERUM (89256) Comments: one month; PATIENT WAS FASTINGPERFORMED BY: [employer] [address] [id number] BY: [employer] Snnqrw8967 [facility] [id number] Potassium, Serum 4.5 mmol/L (Normal) Range: 3.5-5.2 :07 HEPATIC FUNCTION PANEL Comments: in one month and three months (approximately); PATIENT WAS FASTINGPERFORMED BY: [employer] [address] [id number] BY: RocketripInspira Medical Center ElmerZqtnjj[address] [place] [address] [id number] (25937) ALT (SGPT) 77 [iU]/L (Abnormal) Range: 0-32 AST (SGOT) 62 [iU]/L (Abnormal) Range: 0-40 Alkaline Phosphatase, S 69 [iU]/L (Normal) Range: 39-117 Bilirubin, Direct 0.11 mg/dL (Normal) Range: 0.00-0.40 Bilirubin, Total 0.4 mg/dL (Normal) Range: 0.0-1.2 Albumin, Serum 4.1 g/dL (Normal) Range: 3.6-4.8 Protein, Total, Serum 7.2 g/dL (Normal) Range: 6.0-8.5 33-Sfi-99026:07 LIPOPROTEIN, BLD, BY NMR Comments: in three months (approximately); PATIENT WAS FASTINGPERFORMED BY: BN [facility] Imwmgcbssy9367 [facility] [id number] BY: CB [facility] Dyoliy2201 [facility] [id number] (26074) LP-IR Score 77 (Abnormal) Comments: INSULIN RESISTANCE MARKER <--Insulin Sensitive Insulin Resistant--> Percentile in Reference PopulationInsulin Resistance ScoreLP-IR Score Low 25th 50th 75th High <27 27 45 63 >63LP-IR Score is inaccurate if patient is non-fasting. .The LP-IR score is a laboratory developed i banner that has beenassociated with insulin resistance and [...] were developed and their performance characteristicsdetermined by [employer]. These assays have not been cleared by [...] High > 2000 :10 HgA1C , Office (82161) HgA1C , Office 5.8 % (Normal) Range: 4.6 - 7.1 :47 CBC WITH MANUAL DIFF Comments: PATIENT NOT FASTINGPERFORMED BY: LabCoInspira [facility] Center ElmerLoqddd0095 [facility] [id number] Information: [id number] (53337) Immature Grans (Abs) 0.0 {x10E3/uL} (Normal) Range: [...] 5.8 {x10E3/uL} (Normal) Range: 3.4-10.8 :47 TSH (51438) Comments: PATIENT NOT FASTINGPERFORMED BY: [employer] [facility] [id number]; apt. [address] TSH 2.390 {uIU/mL} (Normal) Range: 0.450-4.500 :48 GEGSG-ZIQWLOZQXIO-MKHWW (00232) Comments: PATIENT WAS FASTINGPERFORMED BY: [employer] [facility] [id number] AFP, Serum, Tumor Marker 1.7 ng/mL (Normal) Range: 0.0-8.3 Comments: Altagracia ECLIA methodology :48 HEPATITIS PANEL (11688) Comments: PATIENT WAS FASTINGPERFORMED BY: [employer] Urqjfn6720 [facility] [id number] Hep C Virus Ab <0.1 {s/co_ratio} (Normal) Range: 0.0-0.9 Comments: Negative: < 0.8 Indeterminate: 0.8 - 0.9 Positive: > 0.9 . The CDC recommends that a positive HCV antibody result be followed up with a HCV Nucleic Acid Amplification test (414418). Hep B Core Ab, IgM Negative (Normal) HBsAg Screen Negative (Normal) Hep A Ab, IgM Negative (Normal) :48 LIPID PANEL (62024) Comments: PATIENT WAS FASTINGPERFORMED BY: [facility]opaaInspira Medical Center ElmerHzjfmd5829 [facility] [id number]; apt. 2-19 LDL/HDL Ratio 2.0 {ratio_units} (Normal) [...] METABOLIC PANEL, Comments: PATIENT WAS FASTINGPERFORMED BY: [employer] Itcjst9993 [facility] [id number] Information: [id number],2ND ORDER COMPREHENSIVE (50958) ALT (SGPT) 36 [iU]/L (Abnormal) Range: 0-32 [...] Diff Comments: PATIENT NOT FASTINGPERFORMED BY: [facility] Zyczmx4186 [facility] [id number] Information: [id number] (09972) Immature Grans (Abs) 0.0 {x10E3/uL} (Normal) Range: [...] (Normal) Range: 3.4-10.8 :29 Renal function Panel (61870) Comments: PATIENT NOT FASTINGPERFORMED BY: DiVitas NetworksAspirus [facility]ween[facility] Hospital6370 [facility] [id number] Albumin, Serum 3.8 g/dL (Normal) Range: 3.6-4.8 [...] mg/dL (Normal) Range: 65-99 :58 Rapid Flu (55895 x 2) Influenza A Ag Negative a/b (Normal) 75-Hbt-130154:09 URINE ANNETTE CULTURE-TEMO COL Comments: PATIENT NOT FASTINGPERFORMED BY: [facility] NetworksAspirus [facility] Hospital6370 [facility] [id number] Information: SRC:URC [id number] COUNT (57684) Result 1 NG36 (Normal) Comments: No growth in 36 - 48 hours. Urine Culture,Comprehensive Final report (Normal) :05 Urinalysis, Office (93197) UA - LEUKOCYTE ESTERASE Trace (Normal) UA - NITRITE Negative (Normal) URINE UROBILINGN TEMO TIMED Normal mg/dL (Normal) UA - PROTEIN Negative mg/dL (Normal) UA - PH 5 (Abnormal) UA - BLOOD Negative (Normal) UA - SPECIFIC GRAVITY 1.030 (Abnormal) UA - KETONES Negative mg/dL (Normal) UA - BILIRUBIN Negative (Normal) UA - GLUCOSE Negative (Normal) 51-Qlv-22692:28 URINE ANNETTE CULTURE-IDENTIFICATN Comments: PATIENT NOT FASTINGPERFORMED BY: [facility]6370 [facility] [id number] Information: [id number] (75126) Result 1 NG36 (Normal) Comments: No growth in 36 - 48 hours. Urine Culture,Comprehensive Final report (Normal) :50 Urinalysis, Office (82269) UA - LEUKOCYTE ESTERASE Negative (Normal) UA - NITRITE Negative (Normal) URINE UROBILINGN TEMO TIMED 2 mg/dL (Normal) UA - PROTEIN Negative mg/dL (Normal) UA - PH 5.0 (Normal) UA - BLOOD Negative (Normal) UA - SPECIFIC GRAVITY 1.030 (Abnormal) UA - KETONES Negative mg/dL (Normal) UA - BILIRUBIN Negative (Normal) UA - GLUCOSE Negative (Normal) 77-Fjl-84796:01 URINE ANNETTE CULTURE-IDENTIFICATN Comments: PATIENT NOT FASTINGPERFORMED BY: [facility] NetworksAspirus [facility] Hospital6370 [facility] [id number] Information: [id number] (20174) Result 2 MUG (Normal) Comments: Mixed urogenital [...] Culture,Comprehensi (Abnormal) ve :16 HgA1C , Office (45601) HgA1C , Office 5.6 % (Normal) Range: 4.6 - 7.1 :16 Blood Glucose , Office (15660) Blood Glucose , Office 110 (Normal) 82-Hqd-49075:59 Urinalysis, Office (40297) UA - LEUKOCYTE ESTERASE Trace (Normal) UA - NITRITE Negative (Normal) URINE UROBILINGN TEMO TIMED Normal mg/dL (Normal) UA - PROTEIN Negative mg/dL (Normal) UA - PH 5 (Abnormal) UA - BLOOD Negative (Normal) UA - SPECIFIC GRAVITY 1.015 (Normal) UA - KETONES Negative mg/dL (Normal) UA - BILIRUBIN Negative (Normal) UA - GLUCOSE Negative (Normal) 0-Mnm-131096:41 Metabolic Panel, Comprehensive Comments: PATIENT WAS FASTINGPERFORMED BY: [facility]CoInsp[facility] Medical [facility] ElmerVtdpwz6000 [facility] [id number] (04865) ALT (SGPT) 30 [iU]/L (Normal) Range: 0-32 [...] Glucose, Serum 109 mg/dL (Abnormal) Range: 65-99 6-Vkv-127025:41 Lipid Panel (34435) Comments: PATIENT WAS FASTINGPERFORMED BY: [facility] Kkphkq8579 [facility] [id number]; [address] LDL/HDL Ratio 2.3 {ratio_units} (Normal) [...] MANUAL DIFF Comments: PATIENT WAS FASTINGPERFORMED BY: LabCoROBAUTOTrysvd8304 [facility] [id number] Information: [id number] (02452) Immature Grans (Abs) 0.0 {x10E3/uL} (Normal) Range: [...] 6.5 {x10E3/uL} (Normal) Range: 3.4-10.8 :41 TSH (17876) Comments: PATIENT WAS FASTINGPERFORMED BY: [facility]6370 [facility] [id number] TSH 2.690 {uIU/mL} (Normal) Range: 0.450-4.500 :40 HgA1C , Office (64563) HgA1C , Office 5.6 % (Normal) Range: 4.6 - 7.1 :40 Blood Glucose , Office (71683) Blood Glucose , Office 98 (Normal) :11 TSH (40797) Comments: PATIENT WAS FASTINGPERFORMED BY: [facility]6370 [facility] [id number] TSH 2.680 {uIU/mL} (Normal) Range: 0.450-4.500 :11 METABOLIC PANEL, COMPREHENSIVE Comments: PATIENT WAS FASTINGPERFORMED BY: [place] 8633670 [facility] [id number] (05564) ALT (SGPT) 35 [iU]/L (Abnormal) Range: 0-32 [...] mg/dL (Normal) Range: 65-99 :11 LIPID PANEL (77950) Comments: PATIENT WAS FASTINGPERFORMED BY: EdeniQ Ecbnkr4559 [facility] [id number] LDL/HDL Ratio 2.3 {ratio_units} (Normal) Range: 0.0-3.2 [...] DIFF WBC Comments: PATIENT WAS FASTINGPERFORMED BY: SVXR6370 [facility] [id number] Information: [id number] (98347) Immature Grans (Abs) 0.0 {x10E3/uL} (Normal) Range: [...] (Normal) Range: 3.4-10.8 :37 HgA1C , Office (75231) HgA1C , Office 5.9 % (Normal) Range: 4.6 - 7.1 :36 Blood Glucose , Office (77431) Blood Glucose , Office 107 (Normal) :44 Metabolic Panel, Comments: PATIENT WAS FASTINGPERFORMED BY: [facility] ElmerFjouvw3537 [facility] [id number] Information: [id number] ORDER Comprehensive (46457) ALT (SGPT) 35 [iU]/L (Abnormal) Range: 0-32 [...] Glucose, Serum 96 mg/dL (Normal) Range: 65-99 34-Yfk-06932:44 HEPATITIS PANEL (33588) Comments: PATIENT WAS FASTINGPERFORMED BY: [facility] ElmerYbbggq6992 [facility] [id number] Hep C Virus Ab <0.1 {s/co_ratio} (Normal) Range: 0.0-0.9 Comments: Negative: < 0.8 Indeterminate: 0.8 - 0.9 Positive: > 0.9 . In order to reduce the incidence of a false positive result, the CDC recommends that all s/co ratios between 1.0 and 10.9 be confirmed by a more specific supplemental or PCR testing. [facility] offers HCV Ab w/Reflex to Verification test #069356. Hep B Core Ab, IgM Negative (Normal) HBsAg Screen Negative (Normal) Hep A Ab, IgM Negative (Normal) :44 FERRITIN (09490) Comments: PATIENT WAS FASTINGPERFORMED BY: [facility]6370 [facility] [id number] Ferritin, Serum 72 ng/mL (Normal) Range: 15-150 :44 CBC WITH MANUAL DIFF Comments: PATIENT WAS FASTINGPERFORMED BY: [facility]6370 [facility] [id number] Information: [id number] (16105) Immature Grans (Abs) 0.0 {x10E3/uL} (Normal) Range: [...] FUNCTION PANEL Comments: PATIENT WAS FASTINGPERFORMED BY: DiVitas NetworksEdward Ville 8853170 [facility] [id number] (59457) ALT (SGPT) 36 [iU]/L (Abnormal) Range: 0-32 AST (SGOT) 29 [iU]/L (Normal) Range: 0-40 Alkaline Phosphatase, S 80 [iU]/L (Normal) Range: 39-117 Bilirubin, Direct 0.10 mg/dL (Normal) Range: 0.00-0.40 Bilirubin, Total 0.3 mg/dL (Normal) Range: 0.0-1.2 Albumin, Serum 4.2 g/dL (Normal) Range: 3.5-5.5 Protein, Total, Serum 7.0 g/dL (Normal) Range: 6.0-8.5 :13 HgA1C , Office (29512) HgA1C , Office 5.9 % (Normal) Range: 4.6 - 7.1 :13 Blood Glucose , Office (80592) Blood Glucose , Office 110 (Normal) :14 HEPATIC FUNCTION PANEL Comments: PATIENT WAS FASTINGPERFORMED BY: [place] 8633670 [facility] [id number]; elevated but not critical -- has appt already sched (74494) ALT (SGPT) 43 [iU]/L (Abnormal) Range: 0-32 AST (SGOT) 39 [iU]/L (Normal) Range: 0-40 Alkaline Phosphatase, S 76 [iU]/L (Normal) Range: 39-117 Bilirubin, Direct 0.12 mg/dL (Normal) Range: 0.00-0.40 Bilirubin, Total 0.4 mg/dL (Normal) Range: 0.0-1.2 Albumin, Serum 4.2 g/dL (Normal) Range: 3.5-5.5 Protein, Total, Serum 7.0 g/dL (Normal) Range: 6.0-8.5 :14 LIPID PANEL (63481) Comments: PATIENT WAS FASTINGPERFORMED BY: [place] 8633670 [facility] [id number] Information: [id number] LDL/HDL Ratio 2.0 {ratio_units} (Normal) Range: 0.0-3.2 [...] (THYROID STIMULATING Comments: PATIENT NOT FASTINGPERFORMED BY: [address] [id number] Information: [id number],2ND ORDER HORMONE) (14875) TSH 2.290 {uIU/mL} (Normal) Range: 0.450-4.500 70-Yjb-49615:22 TSH (85047) Comments: PATIENT NOT FASTINGPERFORMED BY: [address] [id number] TSH 1.850 {uIU/mL} (Normal) Range: 0.450-4.500 58-Whx-55404:22 HEPATIC FUNCTION PANEL Comments: PATIENT NOT FASTINGPERFORMED BY: [address] [id number] Information: [id number] (63213) ALT (SGPT) 40 [iU]/L (Abnormal) Range: 0-32 Alkaline Phosphatase, S 70 [iU]/L (Normal) Range: 39-117 AST (SGOT) 34 [iU]/L (Normal) Range: 0-40 Bilirubin, Direct 0.09 mg/dL (Normal) Range: 0.00-0.40 Bilirubin, Total 0.3 mg/dL (Normal) Range: 0.0-1.2 Albumin, Serum 4.3 g/dL (Normal) Range: 3.5-5.5 Protein, Total, Serum 7.1 g/dL (Normal) Range: 6.0-8.5 :22 HgA1C , Office (26922) HgA1C , Office 6.0 % (Normal) Range: 4.6 - 7.1 :22 Blood Glucose , Office (90603) Blood Glucose , Office 113 (Normal) :51 METABOLIC PANEL, COMPREHENSIVE Comments: PATIENT WAS FASTINGPERFORMED BY: Veezeon70 [place] [facility] [id number] (76628) ALT (SGPT) 40 [iU]/L (Abnormal) Range: 0-32 [...] MANUAL DIFF Comments: PATIENT WAS FASTINGPERFORMED BY: [facility] [place] [id number] Information: [id number] (48385) Immature Grans (Abs) 0.0 {x10E3/uL} (Normal) Range: [...] {x10E3/uL} (Normal) Range: 3.4-10.8 :51 LIPID PANEL (68695) Comments: PATIENT WAS FASTINGPERFORMED BY: [facility] Qlweoo5582 [facility] [id number] LDL/HDL Ratio 2.3 {ratio_units} (Normal) Range: 0.0-3.2 LDL Cholesterol Calc 138 mg/dL (Abnormal) Range: 0-99 VLDL Cholesterol Christopher 21 mg/dL (Normal) Range: 5-40 HDL Cholesterol 60 mg/dL (Normal) Comments: According to ATP-III Guidelines, HDL-C >59 mg/dL is considered anegative risk factor for CHD. Triglycerides 105 mg/dL (Normal) Range: 0-149 Cholesterol, Total 219 mg/dL (Abnormal) Range: 100-199 87-Ltx-80574:17 TSH (76849) Comments: PATIENT WAS FASTINGPERFORMED BY: LabFootballScout Owtsah8580 [facility] [id number] TSH 1.960 {uIU/mL} (Normal) Range: 0.450-4.500 90-Mkf-95472:17 METABOLIC PANEL, Comments: PATIENT WAS FASTINGPERFORMED BY: LabFootballScout Kuiwxv7219 [facility] [id number] Information: [id number] COMPREHENSIVE (10981) ALT (SGPT) 33 [iU]/L (Abnormal) Range: 0-32 [...] Glucose, Serum 88 mg/dL (Normal) Range: 65-99 3-Uno-649218:45 Blood Glucose , Office (82254) Blood Glucose , Office 89 (Normal) 4-Zjr-980942:45 HgA1C , Office (50116) HgA1C , Office 5.6 % (Normal) Range: 4.6 - 7.1 84-Ylp-79065:22 FOOT MIN 3 VIEWS Radiology Report See [...] M.D.November 10, 2012 at 8:55 :21 AM [id number] Signed RU/RU If you are the referring physician and would like to consult with theradiologist who provided this interpretation, please contact Nilo Mcleod a t [phone]. If this radiologist is unavailable, youwillbe directed to another radiologist to assist. If you are a patient with a question regarding this report, pleasecontactyour referring physician directly. Professional Interpretation Provided By: [employer], Phone , These documents contain legally protected [...] by: Alexandre Womack :45 T4, FREE (THYROXINE) (12292) Comments: PATIENT WAS FASTINGPERFORMED BY: [employer] Ezxall8346 [facility] [id number] T4,Free(Direct) 1.06 ng/dL (Normal) Range: 0.82-1.77 :45 T3, FREE (TRIDOTHYRONINE) (87919) Comments: PATIENT WAS FASTINGPERFORMED BY: ValopaaPlains Regional Medical CenterBojnpl5358 [facility] [id number] Triiodothyronine,Free,Serum 3.7 pg/mL (Normal) Range: 2.0-4.4 :45 TSH (83242) Comments: PATIENT WAS FASTINGPERFORMED BY: [facility]opaaInspira Medical Center ElmerQzzqsd3224 [facility] [id number] TSH 1.670 {uIU/mL} (Normal) Range: 0.450-4.500 :45 METABOLIC PANEL, COMPREHENSIVE Comments: PATIENT WAS FASTINGPERFORMED BY: [facility]CoInsp[facility] ElmerDhnork6558 [facility] [id number] (90424) ALT (SGPT) 31 [iU]/L (Normal) Range: 0-32 [...] mg/dL (Normal) Range: 65-99 23-Jan-20138:45 LIPID PANEL (47235) Comments: PATIENT WAS FASTINGPERFORMED BY: [facility]CoIn[facility] ElmerIeylzj0527 [facility] [id number] LDL/HDL Ratio 2.7 {ratio_units} (Normal) Range: 0.0-3.2 [...] MANUAL DIFF Comments: PATIENT WAS FASTINGPERFORMED BY: [facility]Co[facility] ElmerBqadmz9337 [facility] [id number] Information: [id number] (35650) Immature Grans (Abs) 0.0 {x10E3/uL} Range: 0.0-0.1 [...] 1.770 {uIU/mL} Comments: PATIENT WAS FASTINGPERFORMED BY: [facility]6370 [facility] [id number] Information: [id number] :02 (Normal) Range: 0.450-4.500 Written Authorization WAR (Normal) Comments: PATIENT WAS FASTINGPERFORMED BY: [facility]6370 [facility] [id number] :02 Comments: Written Authorization Received.Authorization received from DR DIAL [id number] by Ignacia Lozano :02 LIPID PANEL (64578) Comments: PATIENT WAS FASTINGPERFORMED BY: [facility]6370 [facility] [id number] LDL/HDL Ratio 2.3 {ratio_units} (Normal) Range: 0.0-3.2 LDL Cholesterol Calc 133 mg/dL (Abnormal) Range: 0-99 VLDL Cholesterol Christopher 23 mg/dL (Normal) Range: 5-40 HDL Cholesterol 59 mg/dL (Normal) Comments: According to ATP-III Guidelines, HDL-C >59 mg/dL is considered anegative risk factor for CHD. Triglycerides 116 mg/dL (Normal) Range: 0-149 Cholesterol, Total 215 mg/dL (Abnormal) Range: 100-199 :02 CBC (Auto) (82965) Comments: PATIENT WAS FASTINGPERFORMED BY: [facility]6370 [facility] [id number] Platelets 269 {x10E3/uL} (Normal) Range: 140-415 RDW 14.4 % (Normal) Range: 12.3-15.4 MCHC 33.6 g/dL (Normal) Range: 31.5-35.7 MCH 29.8 pg (Normal) Range: 26.6-33.0 MCV 89 fL (Normal) Range: 79-97 Hematocrit 40.5 % (Normal) Range: 34.0-46.6 Hemoglobin 13.6 g/dL (Normal) Range: 11.1-15.9 RBC 4.57 {x10E6/uL} (Normal) Range: 3.77-5.28 WBC 6.2 {x10E3/uL} (Normal) Range: 4.0-10.5 :02 Metabolic Panel, Comments: PATIENT WAS FASTINGPERFORMED BY: RocketripPlains Regional Medical CenterMterca6319 [facility] [id number] Information: [id number] Comprehensive (23880) ALT (SGPT) 32 [iU]/L (Normal) Range: 0-32 [...] (Abnormal) Range: 65-99 :02 T3, FREE (TRIDOTHYRONINE) (13186) Comments: PATIENT WAS FASTINGPERFORMED BY: RocketripInspira Medical Center ElmerVgknzh7495 [facility] [id number] Triiodothyronine,Free,Serum 3.9 pg/mL (Normal) Range: 2.0-4.4 :02 T4, FREE (THYROXINE) (46481) Comments: PATIENT WAS FASTINGPERFORMED BY: [facility]6370 [facility] [id number] T4,Free(Direct) 0.94 ng/dL (Normal) Range: 0.82-1.77 :02 T4, TOTAL (94133) Comments: PATIENT WAS FASTINGPERFORMED BY: [place] 8633670 [facility] [id number] Thyroxine (T4) 7.3 ug/dL (Normal) Range: 4.5-12.0 :07 TSH (25381) Comments: PATIENT NOT FASTINGPERFORMED BY: [place] 8633670 [facility] [id number] Information: [id number] TSH 1.970 {uIU/mL} (Normal) Range: 0.450-4.500 :35 URINE ANNETTE CULTURE (TEMO Comments: and sensitivity; PATIENT NOT FASTINGPERFORMED BY: [place] 8633670 [facility] [id number] Information: SRC: [id number] COL COUNT) (30607) Result 1 BETAGB (Normal) Comments: Beta hemolytic [...] (CLSI 2011) Urine Final report (Normal) Culture,Comprehensive 49-Abt-266644:49 Urinalysis, Office (37635) UA - LEUKOCYTE ESTERASE Negative (Normal) UA - NITRITE Negative (Normal) URINE UROBILINGN TEMO TIMED Normal mg/dL (Normal) UA - PROTEIN Negative mg/dL (Normal) UA - PH 7.0 (Normal) UA - BLOOD Negative (Normal) UA - SPECIFIC GRAVITY 1.025 (Normal) UA - KETONES Negative mg/dL (Normal) UA - GLUCOSE Negative (Normal) :15 CBC WITH MANUAL DIFF Comments: PATIENT WAS FASTINGPERFORMED BY: ARIADNE LabAsp[facility]6370 Victorino RoachAtrium Health Hun[facility] [id number] Information: [id number] (63151) Immature Grans (Abs) 0.0 {x10E3/uL} (Normal) Range: [...] {x10E3/uL} (Normal) Range: 4.0-10.5 :15 LIPID PANEL (06167) Comments: PATIENT WAS FASTINGPERFORMED BY: ARIADNE Rocketrip Qwzdkp3437 [facility] [id number] LDL/HDL Ratio 2.5 {ratio_units} (Normal) Range: 0.0-3.2 [...] FUNCTION PANEL Comments: PATIENT WAS FASTINGPERFORMED BY: Viewabill [facility] [id number] (04844) ALT (SGPT) 32 [iU]/L (Normal) Range: 0-40 AST (SGOT) 29 [iU]/L (Normal) Range: 0-40 Alkaline Phosphatase, S 69 [iU]/L (Normal) Range: 25-150 Bilirubin, Direct 0.10 mg/dL (Normal) Range: 0.00-0.40 Bilirubin, Total 0.4 mg/dL (Normal) Range: 0.0-1.2 Albumin, Serum 4.3 g/dL (Normal) Range: 3.5-5.5 Protein, Total, Serum 7.4 g/dL (Normal) Range: 6.0-8.5 :15 Metabolic Panel, Basic (46974) Comments: PATIENT WAS FASTINGPERFORMED BY: [employer]6370 [facility] [id number] Calcium, Serum 9.6 mg/dL (Normal) Range: 8.7-10.2 [...] 96 mg/dL (Normal) Range: 65-99 :15 TSH (35058) Comments: PATIENT WAS FASTINGPERFORMED BY: [facility]Vitas NetworksAspirus Keween[facility] Hospital6370 [facility] [id number] TSH 1.500 {uIU/mL} (Normal) Range: 0.450-4.500 :15 T4, FREE (THYROXINE) (90541) Comments: PATIENT WAS FASTINGPERFORMED BY: RocketripInspira Medical Center ElmerIrgvtc8147 [facility] [id number] T4,Free(Direct) 0.96 ng/dL (Normal) Range: 0.82-1.77 :15 T3, FREE (TRIDOTHYRONINE) (11472) Comments: PATIENT WAS FASTINGPERFORMED BY: [facility] NetworksAspirus Keween[facility] Hospital6370 [facility] [id number] Triiodothyronine,Free,Serum 3.3 pg/mL (Normal) Range: 2.0-4.4 :02 [...] Range: 6.4-8.2 :37 Rapid Strep Test, Office (52380) Rapid Strep Test, Office Negative (Normal) :37 HgA1C , Office (93228) HgA1C , Office 6.0 % (Normal) Range: 4.6 - 7.1 :37 Blood Glucose , Office (83355) Blood Glucose , Office 122 (Normal) :26 [...] ronda isolated. No beta-hemolyticstreptococcus isolated. :07 EBVIgG/M 444925 EB-NAg BlP88045 > 8.0 {AI} (Abnormal) Range: 0.0-0.8 Comments: [...] esent - Antibody AbsentPerformed at: - [facility] [address] [id number] Director: Melanie Hartman MD, Phone: [phone] EB-EA IgG 63875 1.3 {AI} (Abnormal) Range: 0.0-0.8 Comments: Negative <0.9 Equivocal 0.9 - 1.0 Positive >1.0 EB-VCA UlO94660 > 8.0 {AI} (Abnormal) Range: 0.0-0.8 Comments: Negative <0.9 Equivocal 0.9 - 1.0 Positive >1.0 EB-VCA ClM50970 < 0.2 {AI} (Normal) Range: 0.0-0.8 Comments: Negative <0.9 Equivocal 0.9 - 1.0 Positive >1.0 :07 FREE T3 7.0 pg/mL (Abnormal) Range: 2.18-3.98 :07 T4 FREE DIRECT 0.46 ng/dL (Abnormal) Range: 0.76-1.46 :07 TSH 1.82 {uIU/mL} (Normal) Range: 0.358-3.74 :50 Rapid Strep Test, Office (10557) Rapid Strep Test, Negative (Normal) Office :36 EB-NAg MdL38366 > 8.0 {AI} (Abnormal) Range: 0.0-0.8 Comments: Negative <0.9 Equivocal 0.9 - 1.0 Positive >1.0 :36 EB-VCA JkD98964 > 8.0 {AI} (Abnormal) Range: 0.0-0.8 Comments: Negative <0.9 Equivocal 0.9 - 1.0 Positive >1.0 :36 EB-EA IgG 93523 1.5 {AI} (Abnormal) Range: 0.0-0.8 Comments: Negative <0.9 Equivocal 0.9 - 1.0 Positive >1.0Performed at: [facility] LabAsp[facility] Hospital6370 [place], [place] [id number] Director: Melanie Hartman MD, Phone: [phone] :[phone] CKMB Comments: Please Note: TROPONIN REFERENCE [...] NEGATIVE 0.06 - 0.59 AT RISK OF CO > OR = 0.60 SUGGEST CO :01 CKMB Comments: Please Note: TROPONIN REFERENCE [...] NEGATIVE 0.06 - 0.59 AT RISK OF CO > OR = 0.60 SUGGEST CO 52-Bth-842570:40 TROPONIN-I < 0.02 ng/mL (Normal) Comments: Please Note: TROPONIN REFERENCE RANGE CHANGEEffective MAY 21, 2009. Comments: TROPONIN-I EXPECTED VALUES <0.05 NEGATIVE 0.06 - 0.59 AT RISK OF CO > OR = 0.60 SUGGEST CO : CORTISOL 11.41 ug/dL (Normal) Range: 3.09-22.40 Comments: Adult (AM) 4.30 - 22.40 ug/dLAdult (PM) 3.09 - 16.66 ug/dL :00 FREE T3 2.8 pg/mL (Normal) Range: 2.18-3.98 : T4 FREE DIRECT 0.51 ng/dL (Abnormal) Range: 0.76-1.46 :00 TSH 1.54 {uIU/mL} (Normal) Range: 0.358-3.74 :26 HgA1C , Office (23524) HgA1C , Office 5.4 % (Normal) Range: 4.6 - 7.1 :26 Blood Glucose , Office (22424) Blood Glucose , Office 89 (Normal) :54 CORTISOL 7.59 ug/dL (Normal) Range: 3.09-22.40 Comments: Adult (AM) 4.30 - 22.40 ug/dLAdult (PM) 3.09 - 16.66 ug/dL :54 DHEA SULF 4697 33.4 ug/dL (Normal) Range: 18.9-205.0 :54 ESTRADIOL 4515 28.9 pg/mL (Normal) Comments: Adult Female:Follicular phase 12.5 - 166.0Ovulation phase 85.8 - 498.0Luteal phase 43.8 - 211.0Postmenopausal <6.0 - 54.1Icbqmnksu3cx trimester 215.0 - >4300.0Girls (1- 10 years) 6.0 - 27.0Roche ECLIA methodology :54 FREE T3 2.1 pg/mL (Abnormal) Range: 2.18-3.98 :54 GLU 90 mg/dL (Normal) Range: 70-110 :54 INSULIN 4333 16.9 {uIU/mL} Range: 0.0-24.9 (Normal) Comments: Performed at: [address] [id number] Director: Melanie Hartman MD, Phone: [phone] :[phone] PROGESTER. 4317 2.7 ng/mL (Normal) Comments: [...] Bronchitis Planned Observations OCCULT BLOOD FECES SCREEN (46325)Indication: Dehydration On: : Request OVA & PARASITE DIR SMEAR (60402)Indication: Dehydration On: :30 Request LEUKOCYTE COUNT, FECAL (70716)Indication: Dehydration On: :30 Request C-DIFFICILE, STOOL (27401)Indication: Dehydration On: : Request ANNETTE CULTURE-STOOL (61749)Indication: Dehydration On: : Request Metabolic Panel, Basic (66114)Indication: Hypertension, benign On: 38-Zeh-688764:06 Request Comments: due in 1 week. Metabolic Panel, Basic (97263)Indication: Hypertension, benign On: 69-Nec-971026:40 Request ANNETTE CULTURE-OTHER (99977)Indication: Pharyngitis, acute On: :37 Request TSH (44027)Indication: Abnormal TSH On: :30 Request T4, FREE (THYROXINE) (82672)Indication: Abnormal TSH On: :30 Request T3, FREE (TRIDOTHYRONINE) (35969)Indication: Abnormal TSH On: :30 Request TSH (47390)Indication: Abnormal TSH On: :57 Request T4, FREE (THYROXINE) (12183)Indication: Abnormal TSH On: :57 Request T3, FREE (TRIDOTHYRONINE) (47711)Indication: Abnormal TSH On: :57 Request ANNETTE CULTURE-OTHER (22095)Indication: Pharyngitis, acute On: :50 Request EB ANTIBODY EARLY ANTIGN (15917)Indication: Fatigue On: 28-Mar-20108:00 Request Comments: today EB ANTIBODY VIRAL CAPSID (27521) J1Gndkvwyhhl: Fatigue On: :57 Request EB ANTIBODY NUCLR ANTIGN (58227)Indication: Fatigue On: :57 Request Planned Encounters Medical; [facility]am (Doctor) - On: 28-Apr-2018 7:00 [facility] Nerissa CASTELLANO, Krysten Dial MD, Krysten Levi Planned Procedures Flu Vaccine (Quadrivalent) On: 08-Apr-2018 Intent 51244Qn: RITA Mendez Comments: Lot #:[id number] date: 1-49-97Ijsasa given:0.5mlRoute: IMSite given:L DltdGiven by: DBVIS and ABN signed Fluarix COMPLETE ELECTROMYOGRAPHY (EMG) On: 19-Jun-2016 Intent WITH NERVE CONDUCTION STUDIES OF EACH EXTREMITY (58962)By: Nerissa CASTELLANO, Krysten Hogan MD Flu Vaccine (Quadrivalent) On: 08-May-2016 Intent 60009Ie: Krysten Dial MD Comments: Lot:[id number]:12/18/16Dose:0.5mLRoute:IMSite:L DltdGiven By:MLVIS signed Krysten Dial MD Nuclear Stress Test/Stress On: 10-Feb-2016 Intent SPECT/TreadmillBy: Krysten Dial MD, MD, Dana M DEXA SCAN AXIAL SKELETON On: 10-Feb-2016 Intent (05972)By: Krysten Dial MD, MD, Dana M TDAP VACCINE >7 IM (17709)By: On: 10-Feb-2016 Intent Krysten Dial MD, MD, Comments: tdaplot:[id number]:07/12/18site:lt deltroute:IMD.MARY ELLEN Canales IV Needle placement (46088)By: On: 28-Jun-2015 Intent Francoise Meng CNP Ultrasound - GallbladderBy: Yusra On: 28-Jun-2015 Intent Francoise CRABTREE INFUSION, NORMAL SALINE SOLUTION , On: 28-Jun-2015 Intent 1000 CC (Special Coverage Comments: lot [id number] ccright antecubas 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 See MCM: 2049) (J7030)By: Francoise Meng CNP Radiology - Foot - LeftBy: Yusra On: 14-May-2015 Intent Francoise CRABTREE ADMINISTRATION OF INFLUENZA VIRUS On: 05-Apr-2015 Intent VACCINE (G0008)By: Krysten Dial MD, MD, Dana M Flu Vaccine (Quadrivalent) On: 05-Apr-2015 Intent 34075Eg: Krysten Dial MD Comments: Lot #:[id number] date:Amount given:0.5mlRoute: IMSite given:L DltdGiven by: ElaineVIS and ABN signed Quad Flu Krysten Dial MD Flu Vaccine (Quadrivalent) On: 19-Apr-2014 Intent 21691Dm: Krysten Dial MD, MD, Dana M ADMINISTRATION OF INFLUENZA VIRUS On: 19-Apr-2014 Intent VACCINE (G0008)By: Aruna Amaral Venous Doppler - RightBy: Nerissa On: 18-Jan-2014 Intent Krysten CASTELLANO MD, Dana M EKG (92601)By: Krysten Dial MD On: 01-Sep-2013 Intent Krysten [...] Echo CompleteBy: Krysten Dial MD On: 02-Jun-2013 Krysten Coppola MD Eprescribed prescriptions On: 02-Jun-2013 Intent (G8553)By: Kday Deleon LPN FLU VAC, SPLIT, >3 YEARS, On: 14-Apr-2013 Intent INTRAMUSC (82084)By: Dalton, Comments: lot [id number] 2014site/route L latonya, IMamt 0.5mlVIS and ABN signed when applicableChelsea, [facility] Meagan IMMUNIZ ADMNIN, 1 VAC, SNGL/COMBO On: 14-Apr-2013 Intent (73835)By: Meagan Hoffman Radiology - Foot - RightBy: On: 10-Nov-2012 Intent Krysten Dial MD, MD, Comments: please call wet read Krysten Levi Eprescribed prescriptions On: 19-Sep-2012 Intent (G8553)By: Kady Deleon LPN EKG (10778)By: RITA Mendez On: 20-Jun-2012 Intent Aerosol Treatment (56712)By: Yusra On: 30-Nov-2011 Intent HOT BOX SPOTTER, Zakia Spirometry (56677)By: Nerissa CASTELLANO, On: 26-Sep-2010 Intent Krysten Hogan MD Comments: re do of one that was not abl eot be performed at last visit. Spirometry (58393)By: Nerissa CASTELLANO, On: 18-Sep-2010 Intent Krysten Dial MD, Krysten Levi Pulse Oximetry ([id number])By: Jessie GUSMAN, On: 18-Sep-2010 Intent Leidy Pulse Oximetry (56851)By: Andrea On: 17-Apr-2010 Intent RITA ELECTROCARDIOGRAM, COMPLETE (ECG) On: 01-Apr-2010 Intent (39964)By: Vikki Wetzel Planned Medications INFUSION, NORMAL SALINE [...] Nutrition: balanced diet and supplemental vitamins. The fl dical issues the patient is following up [...] 3 day(s) ago. Onset followed foreign travel ([facility] for new years). The symptoms occur intermittently. [...] (493.11), Allergic Rhinitis(477.9), Obesity (278.00), Heartburn (787.1), [facility] V73.21 [facility] [...] inhaler and I had to see my botany professor and my ENT dosent want me o [...] with a person with sore throat (works [employer]) and swelling of neck glands, whil [...] (780.79), Menorrhagia(626.2) [facility] Payers [facility] voss guarantor
--- OUTSIDE RECORDS SUMMARY | 2018-07-19 10:33 | XMS RPT_ITS | Continuity of Care Document ---
:1955 Author Organization [facility] Address [address] [facility] [address] [place] [address] Phone Care Team Providers Name Role Phone Nerissa CASTELLANO, Krysten Levi Unavailable Dr. Reginaldo Corbin Unavailable Erwin Rose Unavailable Maciej Cadena Unavailable Timothy CASTELLANO, Speedy S Unavailable Andrew CASTELLANO, Regan Unavailable RITA Mendez Unavailable Unavailable Slajacqueline LEARNING ADMINISTRATOR, Moraima Unavailable Unavailable Unavailable Unavailable Problems Name Dates Details Abnormal fasting glucose (R73.01, 790.29) Status: Active Allergic rhinitis (J30.9, 477.9) Comments: off allergy shots. back this spring and seeing hr payroll coordinator. add kaleb. will get abck to ENT. 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 comign down some. Status: Active Encounter for routine adult medical exam with abnormal findings (Z00.01, V70.0) Comments: 03-22-17 [facility] [address] Thorpe. colonoscopy polyp [...] she finally changed stressed job. she working [employer] as as [employer] which likes better. easier to communate. less [...] (R79.89, 790.6) Comments: endocrine Dr. Herrera at [facility], changed cytomel. adjusted 2-12. reduced cytomel [...] again but not really totally postmenapausal. seeing silk screen cutter. Status: Inactive as of 06-Jul-2013 Need for [...] (CAD), BILAT Result: Comments: See Note; NOTES: [facility] Imaging Services [address] [place] [address] Verdana 4d SCREENING MAMM (CAD), BILAT MR#: [id number] Acct: [id number] Name: GRZEGORZ BANGURA Rep #: [id number] : 1955 F 61 From: Sarbjit Hansen MD PCP: Krysten Dial MD Status: REG CLI Study: SCREENING MAMM (CAD), BILAT Date of Exam: 11/30/16 Exam# [id number] Ordering Dr: Marie Thorpe MD MAMMOGRAPHY - [...] delay biopsy of a clinically suspicious abnormality. [id number] Electronically Signed: Sarbjit Hansen MD at 14:44 EDT Tel , Service support [phone], CC: Ruthie Thorpe MD; Krysten Dial MD Real Property Appraiser: Signed 25-Feb-2016 Dexa Bone Density Study (HP) Result: Comments: See Note; NOTES: [facility] Imaging Services [address] [place] [address] Verdana 4d Dexa Bone Density Study (HP) MR#: [id number] Acct: [id number] Name: FENTON SURY Corbin Rep #: [id number] : 1955 F 60 From: Albaro Pena MD PCP: Krysten Dial MD Status: REG CLI Study: Dexa Bone Density Study (HP) Date of Exam: 02/25/16 Exam# [id number] Ordering Dr: Krysten Portillo MD STUDY: DUAL [...] Albaro Pena MD at 9:34 EDT Tel [phone], Service support [phone], CC: Krysten Dial MD Real Property Appraiser: Signed 07-Nov-2015 Bilat Scrn Digital AND CAD Result: Comments: See Note; NOTES: [facility] Imaging Services [address] [place] [address] Verdana 4d Bilat Scrn Digital AND CAD MR#: [id number] Acct: [id number] Name: ARCHANA BANGURA Rep #: [id number] : 1955 F 60 From: Albaro Pena MD PCP: Krysten Dial MD Status: REG CLI Study: Bilat Scrn Digital AND CAD Date of Exam: 11/07/15 Exam# [id number] Order ing Dr: Ruthie Thorpe MD MAMMOGRAPHY [...] lay biopsy of a clinically suspicious abnormality. [id number] Electronically Signed: Albaro Pena MD at 11:07 EDT Tel [phone], Service support [phone], CC: Ruthie Thorpe MD; Krysten Dial MD Real Property Appraiser: Signed 28-Jun-2015 Gallbladder Result: Comments: See Note; NOTES: [facility] Imaging Services [address] [place] [address], [place] [address] Verdana 4d Gallbladder MR#: [id number] Acct: [id number] Name: ARCHANA BANGURA Rep #: [id number] : 1955 F 60 From: Albaro Pena MD PCP: Krysten Dial MD Status: REG CLI Study: Gallbladder Date of Exam: 06/28/15 Exam# [id number] Ordering Dr: Francoise Meng STUDY: ABDOMINAL ULTRASOUND [...] Albaro Pena MD at 11:40 EST Tel [phone], Service support [phone], CC: Francoise Meng; Krysten Dial MD Real Property Appraiser: Signed 14-May-2015 Foot min 3 Views Result: Comments: See Note; NOTES: [facility] Imaging Services [address] [place] [address] Verdana 4d Foot min 3 Views MR#: [id number] Acct: [id number] Name: PRICE Rep #: [id number] : 1955 F 60 From: Vazquez Briggs MD PCP: Krysten Dial MD Status: REG CLI Study: Foot min 3 Views Date of Exam: 05/14/15 Exam# [id number] Ordering Dr: Francoise Meng STUDY: X-RAY - [...] FACR at 19:17 EST , Service support [phone], RAD/Foot min 3 Views IMPRESSION: 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 Prominent plantar calcaneal spur. Flattening of the heads of the second and third metatarsals which could be related to stress subchondral fracture or cyrus ne infarcts. Electronically Signed: Vazquez Briggs MD, FACR at 19:17 EST , Service support [phone], CC: Francoise Meng; Krysten Dial MD Real Property Appraiser: Signed 04-Jan-2015 PT Discharge Summary Result: Comments: See Note; NOTES: [facility] [address] [place] [address] Fax REHABILITATION SERVICES DISCHARGE SUMMARY MR#: [id number] Acct: [id number] Name: ARCHANA BANGURA Rep #: [id number] : 1955 59 From: Roberto Leon Referring Dr.: Krysten Dial MD Status: PRE RCR Ev Date: Date: DATE OF SERVICE: REFERRING PHYSICIAN: Dr. Krysten Dial. Archana Bangura was evaluated at [facility] on the date of October [...] achieved. Roberto Leon, PT T: NTS JOB: [id number] <Electronically signed by Roberto Leon > 01/04/15 0937 CC: Signed 22-Oct-2014 Inital Evaluation - PT Result: Comments: See Note; NOTES: [facility] [place] [address] [facility] [place] [address] Fax REHABILITATION SERVICES INITIAL EVALUATION MR#: [id number] Acct: [id number] Name: ARCHANA BANGURA Rep #: [id number] : 1955 59 From: Roberto Leon Referring Dr.: Krysten Dial MD Status: DIS RCR [facility] Date: DATE OF SERVICE: 10/18/2014 REFERRING PHYSICIAN: Krysten Dial M.D. 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 This patient denies any cervical spine pain [...] this patient is very tender along the roading engineer ior superior aspect of her right shoulder [...] visits. Roberto Leon, PT T: CHRIS JOB: [id number] <Electronically signed by Roberto lopez > 10/22/14 1124 CC: Signed For Medicare only, by signing this I certify the plan of care. Physicians Signature Date 11-Sep-2014 Bilat Scrn Digital AND CAD Result: Comments: See Note; NOTES: [facility] Imaging Services [address] [place] [address] Breast Imaging Report MR#: [id number] Acct: [id number] Name: ARCHANA BANGURA Rep #: [id number] : 1955 F 59 From: Albaro Pena MD PCP: Krysten Dial MD Status: PRE CLI Study: Bilat Scrn Digital AND CAD Date of Exam: 09/11/14 Exam# [id number] Ordering Dr: Ruthie Thorpe MAMMOGRAPHY - BILATERAL [...] Kavin Pena MD at 8:27 EDT Tel [phone], Service support [phone], CC: Ruthie Thorpe MD; Krysten Dial MD Real Property Appraiser: Signed 19-Apr-2014 Spirometry (83598) Result: 08-Sep-2013 Liver Result: Comments: See Note; NOTES: [facility] Imaging Services [address] [place] [address] Ultrasound Report MR#: [id number] Acct: [id number] Name: ARCHANA BANGURA Rep #: [id number] : 1955 F 58 From: Albaro Pena MD PCP: Krysten Dial MD Status: REG CLI Study: Liver Date of Exam: 09/08/13 Exam# [id number] Ordering Dr: Krysten Dial MD STUDY: ABDOMINAL [...] M.D. at 10:46 EDT , Service support [phone], CC: Krysten Dial MD Real Property Appraiser: Signed Family History Unknown Family Member Name Dates Details Brother 1 Comments: HTN, [place] at 56 yo. younger. 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 [id number] Bacteria Few (Normal) Mucus Threads Present (Normal) Cast Type Hyaline casts (Normal) Casts Present {/lpf} (Abnormal) Epithelial Cells (non renal) 0-10 {/hpf} (Normal) Range: 0 - 10 RBC 0-2 {/hpf} (Normal) Range: 0 - 2 WBC 11-30 {/hpf} (Abnormal) Range: 0 - 5 40-Xlh-47776:50 Metabolic Panel, Comprehensive Comments: PATIENT WAS FASTINGPERFORMED BY: [employer] [facility] [id number] (88367) ALT (SGPT) 33 [iU]/L (Abnormal) Range: 0-32 [...] 8-27 Glucose 102 mg/dL (Abnormal) Range: 65-99 26-Kpy-90805:50 CBC WITH MANUAL DIFF (26029) Comments: PATIENT WAS FASTINGPERFORMED BY: [facility]inedigm [facility] [id number] Immature Grans (Abs) 0.0 {x10E3/uL} (Normal) Range: [...] 3.77-5.28 WBC 6.7 {x10E3/uL} (Normal) Range: 3.4-10.8 99-Zfq-95809:50 MICROALBUMIN: CREATININE RATIO Comments: PATIENT WAS FASTINGPERFORMED BY: ARIADNE LabAsc[facility] [facility] [id number] (95091) AND (38219) Alb/Creat Ratio 7.8 {mg/g_creat} (Normal) Range: 0.0-30.0 Comments: Normal: 0.0 - 30.0 Albuminuria: 31.0 - 300.0 Clinical albuminuria: >300.0 Albumin, Urine 17.2 ug/mL (Normal) Creatinine, Urine 219.2 mg/dL (Normal) :50 URINALYSIS (43110) Comments: PATIENT WAS FASTINGPERFORMED BY: [employer] Qcitae0735 [facility] [id number] Microscopic Examination See below: (Normal) Comments: Microscopic was indicated and was performed. Nitrite, Urine Negative (Normal) Urobilinogen,Semi-Qn 0.2 mg/dL (Normal) Range: 0.2-1.0 Bilirubin Negative (Normal) Occult Blood Negative (Normal) Ketones Negative (Normal) Glucose Negative (Normal) Protein Negative (Normal) WBC Esterase 2+ (Abnormal) Appearance Clear (Normal) Urine-Color Yellow (Normal) pH 5.5 (Normal) Range: 5.0-7.5 Specific [place] 1.026 (Normal) Range: 1.005-1.030 :31 METABOLIC PANEL, COMPREHENSIVE Comments: PATIENT WAS FASTINGPERFORMED BY: [employer] [facility] [facility] [id number] (89698) ALT (SGPT) 52 [iU]/L (Abnormal) Range: 0-32 [...] mg/dL (Normal) Range: 65-99 :31 LIPID PANEL (06035) Comments: PATIENT WAS FASTINGPERFORMED BY: [place]Pat[place] [address] [facility] [id number] LDL/HDL Ratio 2.5 {ratio_units} (Normal) Range: 0.0-3.2 [...] C ANTIBODY Comments: PATIENT WAS FASTINGPERFORMED BY: WithingsRunnells Specialized HospitalUbslmz6122 [facility] [id number] Information: NURSE DRAW (76723) Hep C Virus Ab <0.1 {s/co_ratio} (Normal) Range: 0.0-0.9 Comments: Negative: < 0.8 Indeterminate: 0.8 - 0.9 Positive: > 0.9 . The CDC recommends that a positive HCV antibody result be followed up with a HCV Nucleic Acid Amplification test (520561). :44 HgA1C , Office (96787) HgA1C , Office 5.7 % (Normal) Range: 4.6 - 7.1 :32 Vitamin B-12 (cyanocobalamin) Comments: PATIENT WAS FASTINGPERFORMED BY: [facility] [facility] [id number] BY: LabAsc[facility] [facility] [place] [id number] (10723) Vitamin B12 867 pg/mL (Normal) Range: 211-946 :32 CALCIFIDIOL (85315) VIT D Comments: PATIENT WAS FASTINGPERFORMED BY: Withings[address] [id number] BY: WithingsRunnells Specialized HospitalUgiqiu3181 [facility] [place] [id number] 25 Vitamin D, 25-Hydroxy 49.1 ng/mL (Normal) Range: 30.0-100.0 Comments: Vitamin D deficiency has been defined by the [place] ofMedicine and an Endocrine Society practice guideline as alevel of serum 25-OH vitamin D less than 20 ng/mL (1,2).The Endocrine Society went on to further define vitamin Dinsufficiency as a level between 21 and 29 ng/mL (2).1. IOM ([place] of Medicine). 2010. Dietary reference intakes for calcium and D. [place]: The National Academies Press.2. Joe MF, Bailee JAY, Woody PALM, et al. Evaluation, treatment, and prevention of vitamin D deficiency: an Endocrine Society clinical practice guideline. JCEM. 2010; 96(7):1911-30. :32 MICROALBUMIN: CREATININE Comments: PATIENT WAS FASTINGPERFORMED BY: [employer] [address] [id number] BY: WithingsRunnells Specialized HospitalGyovvq9870 [facility] [place] [id number] RATIO (88862) AND (61157) Microalb/Creat Ratio 11.2 {mg/g_creat} (Normal) Range: 0.0-30.0 Microalbumin, Urine 18.2 ug/mL (Normal) Creatinine, Urine 162.1 mg/dL (Normal) :32 CBC, Platelets & Auto Comments: PATIENT WAS FASTINGPERFORMED BY: [employer] [id number] BY: WithingsRunnells Specialized HospitalKgskui8313 [facility] [place] [id number] Diff (78353) Immature Grans (Abs) 0.0 {x10E3/uL} (Normal) Range: [...] 3.77-5.28 WBC 5.9 {x10E3/uL} (Normal) Range: 3.4-10.8 49-Ayw-63652:32 Metabolic Panel, Comments: PATIENT WAS FASTINGPERFORMED BY: [facility] [address] [id number] BY: [facility] Enoivd0509 [facility] [id number] Comprehensive (17165) ALT (SGPT) 46 [iU]/L (Abnormal) Range: 0-32 [...] Glucose, Serum 109 mg/dL (Abnormal) Range: 65-99 98-Nsx-87546:32 LIPOPROTEIN, BLD, BY NMR Comments: PATIENT WAS FASTINGPERFORMED BY: BN [facility] [address] [id number] BY: CB [facility] [address] [id number] Information: NURSE DRAW (49410) LP-IR Score 42 (Normal) Comments: INSULIN RESISTANCE MARKER <--Insulin Sensitive Insulin Resistant--> Percentile in Reference PopulationInsulin Resistance ScoreLP-IR Score Low 25th 50th 75th High <27 27 45 63 >63LP-IR Score is inaccurate if patient is non-fasting. .The LP-IR score is a laboratory developed [facility] that has beenassociated with insulin resistance [...] 1600 - 2000 Very High > 2000 27-Oqn-35431:32 T3, FREE (TRIDOTHYRONINE) Comments: PATIENT WAS FASTINGPERFORMED BY: [address] [id number] BY: [facility] [facility] [id number] (00950) Triiodothyronine,Free,Serum 4.2 pg/mL (Normal) Range: 2.0-4.4 :32 T4, FREE (THYROXINE) Comments: PATIENT WAS FASTINGPERFORMED BY: [address] [id number] BY: [place] [address] [facility] [id number] (15975) T4,Free(Direct) 1.02 ng/dL (Normal) Range: 0.82-1.77 :32 TSH (35096) Comments: PATIENT WAS FASTINGPERFORMED BY: Mama[address] [id number] BY: [place] [address] [facility] [id number] TSH 2.070 {uIU/mL} (Normal) Range: 0.450-4.500 :49 URINE ANNETTE CULTURE-IDENTIFICATN Comments: PATIENT NOT FASTINGPERFORMED BY: [place] [address] [facility] [id number] Information: [id number] SRC:UC (91184) Result 1 MUG (Normal) Comments: Mixed urogenital flora10,000-25,000 colony forming units per mL Urine Final report (Normal) Culture,Comprehensive :47 Urinalysis, Office (77921) UA - LEUKOCYTE ESTERASE Small (Normal) UA - NITRITE Negative (Normal) URINE UROBILINGN TEMO TIMED 2 mg/dL (Normal) UA - PROTEIN Negative mg/dL (Normal) UA - PH 6.0 (Normal) UA - BLOOD Negative (Normal) UA - SPECIFIC GRAVITY 1.025 (Normal) UA - KETONES Negative mg/dL (Normal) UA - BILIRUBIN Negative (Normal) UA - GLUCOSE Negative (Normal) :47 HgA1C , Office (78481) HgA1C , Office 5.7 % (Normal) Range: 4.6 - 7.1 :11 HgA1C , Office (47777) HgA1C , Office 5.7 % (Normal) Range: 4.6 - 7.1 :43 TSH (36280) Comments: PATIENT WAS FASTINGPERFORMED BY: [employer] [facility] [address] [id number] BY: CB [facility] Weogfs3439 [facility] [id number] TSH 2.950 {uIU/mL} (Normal) Range: 0.450-4.500 :43 LIPOPROTEIN, BLD, BY NMR Comments: PATIENT WAS FASTINGPERFORMED BY: [employer] [facility] Ahtrclbbyq7014 [facility] [id number] BY: Vibes [facility] Pfbzfa8341 [facility] [id number] (95965) LP-IR Score 39 (Normal) Comments: INSULIN RESISTANCE MARKER <--Insulin Sensitive Insulin Resistant--> Percentile in Reference PopulationInsulin Resistance ScoreLP-IR Score Low 25th 50th 75th High <27 27 45 63 >63LP-IR Score is inaccurate if patient is non-fasting. .The LP-IR score is a laboratory developed [facility] that has beenassociated with insulin resistance [...] were developed and their performance characteristicsdetermined by [employer]. These assays have not been cleared by [...] 1600 - 2000 Very High > 2000 88-Vxp-98799:43 CBC, Platelets & Auto Comments: PATIENT WAS FASTINGPERFORMED BY: [facility] Cuakgmvwrp5015 [facility] [id number] BY: [facility] Pwsqnh5559 [facility] [id number] Diff (68391) Immature Grans (Abs) 0.0 {x10E3/uL} (Normal) Range: [...] 3.77-5.28 WBC 5.9 {x10E3/uL} (Normal) Range: 3.4-10.8 96-Txz-03153:43 Metabolic Panel, Comments: PATIENT WAS FASTINGPERFORMED BY: [facility] [address] [id number] BY: [facility] Vowppr1743 [facility] [id number]; fu 3-31 Comprehensive (66156) ALT (SGPT) 49 [iU]/L (Abnormal) Range: 0-32 [...] (Abnormal) Range: 65-99 :13 HgA1C , Office (07205) HgA1C , Office 5.8 % (Normal) Range: 4.6 - 7.1 :07 POTASSIUM SERUM (56046) Comments: one month; PATIENT WAS FASTINGPERFORMED BY: [employer] [address] [id number] BY: [employer] Jgzgjd5919 [facility] [id number] Potassium, Serum 4.5 mmol/L (Normal) Range: 3.5-5.2 :07 HEPATIC FUNCTION PANEL Comments: in one month and three months (approximately); PATIENT WAS FASTINGPERFORMED BY: [employer] [address] [id number] BY: WithingsRunnells Specialized HospitalShnmhl[address] [place] [address] [id number] (65239) ALT (SGPT) 77 [iU]/L (Abnormal) Range: 0-32 AST (SGOT) 62 [iU]/L (Abnormal) Range: 0-40 Alkaline Phosphatase, S 69 [iU]/L (Normal) Range: 39-117 Bilirubin, Direct 0.11 mg/dL (Normal) Range: 0.00-0.40 Bilirubin, Total 0.4 mg/dL (Normal) Range: 0.0-1.2 Albumin, Serum 4.1 g/dL (Normal) Range: 3.6-4.8 Protein, Total, Serum 7.2 g/dL (Normal) Range: 6.0-8.5 56-Mqj-16743:07 LIPOPROTEIN, BLD, BY NMR Comments: in three months (approximately); PATIENT WAS FASTINGPERFORMED BY: BN [facility] Imwpbmcwkp8923 [facility] [id number] BY: CB [facility] Utjxet2994 [facility] [id number] (42128) LP-IR Score 77 (Abnormal) Comments: INSULIN RESISTANCE MARKER <--Insulin Sensitive Insulin Resistant--> Percentile in Reference PopulationInsulin Resistance ScoreLP-IR Score Low 25th 50th 75th High <27 27 45 63 >63LP-IR Score is inaccurate if patient is non-fasting. .The LP-IR score is a laboratory developed [facility] that has beenassociated with insulin resistance [...] were developed and their performance characteristicsdetermined by [employer]. These assays have not been cleared by [...] High > 2000 :10 HgA1C , Office (19047) HgA1C , Office 5.8 % (Normal) Range: 4.6 - 7.1 :47 CBC WITH MANUAL DIFF Comments: PATIENT NOT FASTINGPERFORMED BY: LabCoRunnells Specialized HospitalSvlaqr0537 [facility] [id number] Information: [id number],L85537 (47415) Immature Grans (Abs) 0.0 {x10E3/uL} (Normal) Range: [...] 5.8 {x10E3/uL} (Normal) Range: 3.4-10.8 :47 TSH (31847) Comments: PATIENT NOT FASTINGPERFORMED BY: [facility] [id number]; [address] TSH 2.390 {uIU/mL} (Normal) Range: 0.450-4.500 :48 TJCFU-JCJXEXTZFZT-FAXXA (73356) Comments: PATIENT WAS FASTINGPERFORMED BY: [facility] [id number] AFP, Serum, Tumor Marker 1.7 ng/mL (Normal) Range: 0.0-8.3 Comments: [employer] ECLIA methodology :48 HEPATITIS PANEL (51615) Comments: PATIENT WAS FASTINGPERFORMED BY: [employer] Rjdpfs0951 [facility] [id number] Hep C Virus Ab <0.1 {s/co_ratio} (Normal) Range: 0.0-0.9 Comments: Negative: < 0.8 Indeterminate: 0.8 - 0.9 Positive: > 0.9 . The CDC recommends that a positive HCV antibody result be followed up with a HCV Nucleic Acid Amplification test (916334). Hep B Core Ab, IgM Negative (Normal) HBsAg Screen Negative (Normal) Hep A Ab, IgM Negative (Normal) :48 LIPID PANEL (87739) Comments: PATIENT WAS FASTINGPERFORMED BY: [employer] CenterRunnells Specialized HospitalPrclno7717 [facility] [id number]; [address] LDL/HDL Ratio 2.0 {ratio_units} (Normal) [...] METABOLIC PANEL, Comments: PATIENT WAS FASTINGPERFORMED BY: [employer] Frfbih8881 [facility] [id number] Information: S55539,2ND ORDER COMPREHENSIVE (28562) ALT (SGPT) 36 [iU]/L (Abnormal) Range: 0-32 [...] Diff Comments: PATIENT NOT FASTINGPERFORMED BY: [facility] Rhbdxo3384 [facility] [id number] Information: 519254,Q51358 (89324) Immature Grans (Abs) 0.0 {x10E3/uL} (Normal) Range: [...] (Normal) Range: 3.4-10.8 :29 Renal function Panel (40775) Comments: PATIENT NOT FASTINGPERFORMED BY: [facility]Asc[facility]6[address] [facility] [id number] Albumin, Serum 3.8 g/dL (Normal) Range: 3.6-4.8 [...] mg/dL (Normal) Range: 65-99 :58 Rapid Flu (30654 x 2) Influenza A Ag Negative a/b (Normal) 61-Jlx-664181:09 URINE ANNETTE CULTURE-TEMO COL Comments: PATIENT NOT FASTINGPERFORMED BY: [facility]Asc[facility]6[address] [facility] [id number] Information: SRC:URC [id number] COUNT (60405) Result 1 NG36 (Normal) Comments: No growth in 36 - 48 hours. Urine Culture,Comprehensive Final report (Normal) :05 Urinalysis, Office (57340) UA - LEUKOCYTE ESTERASE Trace (Normal) UA - NITRITE Negative (Normal) URINE UROBILINGN TEMO TIMED Normal mg/dL (Normal) UA - PROTEIN Negative mg/dL (Normal) UA - PH 5 (Abnormal) UA - BLOOD Negative (Normal) UA - SPECIFIC GRAVITY 1.030 (Abnormal) UA - KETONES Negative mg/dL (Normal) UA - BILIRUBIN Negative (Normal) UA - GLUCOSE Negative (Normal) 04-Ubf-13240:28 URINE ANNETTE CULTURE-IDENTIFICATN Comments: PATIENT NOT FASTINGPERFORMED BY: [facility] [facility] [id number] Information: [id number] (50283) Result 1 NG36 (Normal) Comments: No growth in 36 - 48 hours. Urine Culture,Comprehensive Final report (Normal) :50 Urinalysis, Office (46781) UA - LEUKOCYTE ESTERASE Negative (Normal) UA - NITRITE Negative (Normal) URINE UROBILINGN TEMO TIMED 2 mg/dL (Normal) UA - PROTEIN Negative mg/dL (Normal) UA - PH 5.0 (Normal) UA - BLOOD Negative (Normal) UA - SPECIFIC GRAVITY 1.030 (Abnormal) UA - KETONES Negative mg/dL (Normal) UA - BILIRUBIN Negative (Normal) UA - GLUCOSE Negative (Normal) 39-Spb-66849:01 URINE ANNETTE CULTURE-IDENTIFICATN Comments: PATIENT NOT FASTINGPERFORMED BY: [facility]6[address] [facility] [id number] Information: [id number] (40267) Result 2 MUG (Normal) Comments: Mixed urogenital [...] Culture,Comprehensi (Abnormal) ve :16 HgA1C , Office (76295) HgA1C , Office 5.6 % (Normal) Range: 4.6 - 7.1 :16 Blood Glucose , Office (71708) Blood Glucose , Office 110 (Normal) 06-Dbt-64738:59 Urinalysis, Office (74214) UA - LEUKOCYTE ESTERASE Trace (Normal) UA - NITRITE Negative (Normal) URINE UROBILINGN TEMO TIMED Normal mg/dL (Normal) UA - PROTEIN Negative mg/dL (Normal) UA - PH 5 (Abnormal) UA - BLOOD Negative (Normal) UA - SPECIFIC GRAVITY 1.015 (Normal) UA - KETONES Negative mg/dL (Normal) UA - BILIRUBIN Negative (Normal) UA - GLUCOSE Negative (Normal) 1-Nfu-738065:41 Metabolic Panel, Comprehensive Comments: PATIENT WAS FASTINGPERFORMED BY: [facility]CoR[facility] HospitalTdimnh7387 [facility] [id number] (01548) ALT (SGPT) 30 [iU]/L (Normal) Range: 0-32 [...] Glucose, Serum 109 mg/dL (Abnormal) Range: 65-99 3-Umj-325516:41 Lipid Panel (12510) Comments: PATIENT WAS FASTINGPERFORMED BY: [facility] Wyjgxw3128 [facility] [id number]; [address] LDL/HDL Ratio 2.3 {ratio_units} (Normal) [...] MANUAL DIFF Comments: PATIENT WAS FASTINGPERFORMED BY: LabCoTapruMelbko7124 [facility] [id number] Information: [id number] (21205) Immature Grans (Abs) 0.0 {x10E3/uL} (Normal) Range: [...] 6.5 {x10E3/uL} (Normal) Range: 3.4-10.8 :41 TSH (40312) Comments: PATIENT WAS FASTINGPERFORMED BY: [facility]6[address] [facility] [id number] TSH 2.690 {uIU/mL} (Normal) Range: 0.450-4.500 :40 HgA1C , Office (45087) HgA1C , Office 5.6 % (Normal) Range: 4.6 - 7.1 :40 Blood Glucose , Office (80794) Blood Glucose , Office 98 (Normal) :11 TSH (69784) Comments: PATIENT WAS FASTINGPERFORMED BY: [facility]6[address] [facility] [id number] TSH 2.680 {uIU/mL} (Normal) Range: 0.450-4.500 :11 METABOLIC PANEL, COMPREHENSIVE Comments: PATIENT WAS FASTINGPERFORMED BY: [place] [address] [facility] [id number] (96830) ALT (SGPT) 35 [iU]/L (Abnormal) Range: 0-32 [...] mg/dL (Normal) Range: 65-99 :11 LIPID PANEL (95378) Comments: PATIENT WAS FASTINGPERFORMED BY: [employer] Fkalda9093 [facility] [id number] LDL/HDL Ratio 2.3 {ratio_units} (Normal) Range: 0.0-3.2 [...] DIFF WBC Comments: PATIENT WAS FASTINGPERFORMED BY: [facility]6[address] [facility] [id number] Information: [id number] (59298) Immature Grans (Abs) 0.0 {x10E3/uL} (Normal) Range: [...] (Normal) Range: 3.4-10.8 :37 HgA1C , Office (49425) HgA1C , Office 5.9 % (Normal) Range: 4.6 - 7.1 :36 Blood Glucose , Office (72917) Blood Glucose , Office 107 (Normal) :44 Metabolic Panel, Comments: PATIENT WAS FASTINGPERFORMED BY: [facility]CoR[facility] HospitalYvsgeg3745 [facility] [id number] Information: [id number],2ND ORDER Comprehensive (40218) ALT (SGPT) 35 [iU]/L (Abnormal) Range: 0-32 [...] Glucose, Serum 96 mg/dL (Normal) Range: 65-99 76-Oxe-28612:44 HEPATITIS PANEL (06518) Comments: PATIENT WAS FASTINGPERFORMED BY: [facility]CoR[facility] Specialized HospitalBrllhp1061 Victorino [facility] [id number] Hep C Virus Ab <0.1 {s/co_ratio} (Normal) Range: 0.0-0.9 Comments: Negative: < 0.8 Indeterminate: 0.8 - 0.9 Positive: > 0.9 . In order to reduce the incidence of a false positive result, the CDC recommends that all s/co ratios between 1.0 and 10.9 be confirmed by a more specific supplemental or PCR testing. [facility] offers [facility] Ab w/Reflex to Verification test #823532. Hep B Core Ab, IgM Negative (Normal) HBsAg Screen Negative (Normal) Hep A Ab, IgM Negative (Normal) :44 FERRITIN (87877) Comments: PATIENT WAS FASTINGPERFORMED BY: [facility] [facility] [id number] Ferritin, Serum 72 ng/mL (Normal) Range: 15-150 :44 CBC WITH MANUAL DIFF Comments: PATIENT WAS FASTINGPERFORMED BY: [facility]6[address] [facility] [id number] Information: [id number] (65641) Immature Grans (Abs) 0.0 {x10E3/uL} (Normal) Range: [...] FUNCTION PANEL Comments: PATIENT WAS FASTINGPERFORMED BY: MamaMatthew Ville 9021170 [facility] [id number] (46723) ALT (SGPT) 36 [iU]/L (Abnormal) Range: 0-32 AST (SGOT) 29 [iU]/L (Normal) Range: 0-40 Alkaline Phosphatase, S 80 [iU]/L (Normal) Range: 39-117 Bilirubin, Direct 0.10 mg/dL (Normal) Range: 0.00-0.40 Bilirubin, Total 0.3 mg/dL (Normal) Range: 0.0-1.2 Albumin, Serum 4.2 g/dL (Normal) Range: 3.5-5.5 Protein, Total, Serum 7.0 g/dL (Normal) Range: 6.0-8.5 :13 HgA1C , Office (65618) HgA1C , Office 5.9 % (Normal) Range: 4.6 - 7.1 :13 Blood Glucose , Office (26698) Blood Glucose , Office 110 (Normal) :14 HEPATIC FUNCTION PANEL Comments: PATIENT WAS FASTINGPERFORMED BY: [place] [id number] [facility] [id number]; elevated but not critical -- has appt already sched (37323) ALT (SGPT) 43 [iU]/L (Abnormal) Range: 0-32 AST (SGOT) 39 [iU]/L (Normal) Range: 0-40 Alkaline Phosphatase, S 76 [iU]/L (Normal) Range: 39-117 Bilirubin, Direct 0.12 mg/dL (Normal) Range: 0.00-0.40 Bilirubin, Total 0.4 mg/dL (Normal) Range: 0.0-1.2 Albumin, Serum 4.2 g/dL (Normal) Range: 3.5-5.5 Protein, Total, Serum 7.0 g/dL (Normal) Range: 6.0-8.5 :14 LIPID PANEL (22581) Comments: PATIENT WAS FASTINGPERFORMED BY: [place] [address] [facility] [id number] Information: [id number] LDL/HDL Ratio 2.0 {ratio_units} (Normal) Range: 0.0-3.2 [...] (THYROID STIMULATING Comments: PATIENT NOT FASTINGPERFORMED BY: [address] [id number] Information: [id number],2ND ORDER HORMONE) (39897) TSH 2.290 {uIU/mL} (Normal) Range: 0.450-4.500 12-Lli-37164:22 TSH (87202) Comments: PATIENT NOT FASTINGPERFORMED BY: [address] [id number] TSH 1.850 {uIU/mL} (Normal) Range: 0.450-4.500 61-Kgw-72935:22 HEPATIC FUNCTION PANEL Comments: PATIENT NOT FASTINGPERFORMED BY: [address] [id number] Information: [id number] (25447) ALT (SGPT) 40 [iU]/L (Abnormal) Range: 0-32 Alkaline Phosphatase, S 70 [iU]/L (Normal) Range: 39-117 AST (SGOT) 34 [iU]/L (Normal) Range: 0-40 Bilirubin, Direct 0.09 mg/dL (Normal) Range: 0.00-0.40 Bilirubin, Total 0.3 mg/dL (Normal) Range: 0.0-1.2 Albumin, Serum 4.3 g/dL (Normal) Range: 3.5-5.5 Protein, Total, Serum 7.1 g/dL (Normal) Range: 6.0-8.5 :22 HgA1C , Office (12586) HgA1C , Office 6.0 % (Normal) Range: 4.6 - 7.1 :22 Blood Glucose , Office (73938) Blood Glucose , Office 113 (Normal) :51 METABOLIC PANEL, COMPREHENSIVE Comments: PATIENT WAS FASTINGPERFORMED BY: [employer]70 [facility] [id number] (64380) ALT (SGPT) 40 [iU]/L (Abnormal) Range: 0-32 [...] MANUAL DIFF Comments: PATIENT WAS FASTINGPERFORMED BY: [facility] [place] [id number] Information: [id number] (22503) Immature Grans (Abs) 0.0 {x10E3/uL} (Normal) Range: [...] {x10E3/uL} (Normal) Range: 3.4-10.8 :51 LIPID PANEL (75297) Comments: PATIENT WAS FASTINGPERFORMED BY: [facility] Plamvu5154 [facility] [id number] LDL/HDL Ratio 2.3 {ratio_units} (Normal) Range: 0.0-3.2 LDL Cholesterol Calc 138 mg/dL (Abnormal) Range: 0-99 VLDL Cholesterol Christopher 21 mg/dL (Normal) Range: 5-40 HDL Cholesterol 60 mg/dL (Normal) Comments: According to ATP-III Guidelines, HDL-C >59 mg/dL is considered anegative risk factor for CHD. Triglycerides 105 mg/dL (Normal) Range: 0-149 Cholesterol, Total 219 mg/dL (Abnormal) Range: 100-199 83-Tid-32642:17 TSH (94801) Comments: PATIENT WAS FASTINGPERFORMED BY: [facility] Brtdbc3640 [facility] [id number] TSH 1.960 {uIU/mL} (Normal) Range: 0.450-4.500 35-Psf-90836:17 METABOLIC PANEL, Comments: PATIENT WAS FASTINGPERFORMED BY: LabHunton Oil Kyliue0562 [facility] [id number] Information: [id number] COMPREHENSIVE (07851) ALT (SGPT) 33 [iU]/L (Abnormal) Range: 0-32 [...] Glucose, Serum 88 mg/dL (Normal) Range: 65-99 3-Pzl-185445:45 Blood Glucose , Office (71944) Blood Glucose , Office 89 (Normal) 1-Ssh-055533:45 HgA1C , Office (99829) HgA1C , Office 5.6 % (Normal) Range: 4.6 - 7.1 21-Nok-33953:22 FOOT MIN 3 VIEWS Radiology Report See [...] M.D.November 10, 2012 at 8:55 :21 AM [id number] Signed RU/RU If you are the referring physician and would like to consult with theradiologist who provided this interpretation, please contact Nilo Mcleod a t [phone]. If this radiologist is unavailable, youwillbe directed to another radiologist to assist. If you are a patient with a question regarding this report, pleasecontactyour referring physician directly. Professional Interpretation Provided By: [employer], Phone , These documents contain legally protected [...] by: Alexandre Womack :45 T4, FREE (THYROXINE) (85434) Comments: PATIENT WAS FASTINGPERFORMED BY: [employer] Rthuvd0097 [facility] [id number] T4,Free(Direct) 1.06 ng/dL (Normal) Range: 0.82-1.77 :45 T3, FREE (TRIDOTHYRONINE) (34009) Comments: PATIENT WAS FASTINGPERFORMED BY: [facility] CenterHoly Cross HospitalMunycq6798 [facility] [id number] Triiodothyronine,Free,Serum 3.7 pg/mL (Normal) Range: 2.0-4.4 :45 TSH (70580) Comments: PATIENT WAS FASTINGPERFORMED BY: [employer] [facility] CenterRunnells Specialized HospitalXlbxev8099 [facility] [id number] TSH 1.670 {uIU/mL} (Normal) Range: 0.450-4.500 :45 METABOLIC PANEL, COMPREHENSIVE Comments: PATIENT WAS FASTINGPERFORMED BY: [facility]CoRunnells Specialized HospitalCfyvmo3022 [facility] [id number] (72340) ALT (SGPT) 31 [iU]/L (Normal) Range: 0-32 [...] mg/dL (Normal) Range: 65-99 23-Jan-20138:45 LIPID PANEL (28836) Comments: PATIENT WAS FASTINGPERFORMED BY: [facility]CoR[facility] Specialized HospitalAdppdl8261 [facility] [id number] LDL/HDL Ratio 2.7 {ratio_units} (Normal) Range: 0.0-3.2 [...] MANUAL DIFF Comments: PATIENT WAS FASTINGPERFORMED BY: [facility]CoR[facility]ized HospitalUqbyeb1087 [facility] [id number] Information: [id number] (12006) Immature Grans (Abs) 0.0 {x10E3/uL} Range: 0.0-0.1 [...] 1.770 {uIU/mL} Comments: PATIENT WAS FASTINGPERFORMED BY: [facility] [facility] [id number] Information: [id number] :02 (Normal) Range: 0.450-4.500 Written Authorization WAR (Normal) Comments: PATIENT WAS FASTINGPERFORMED BY: [facility]6[address] [facility] [id number] :02 Comments: Written Authorization Received.Authorization received from DR DIAL [id number] by Ignacia Lozano :02 LIPID PANEL (40762) Comments: PATIENT WAS FASTINGPERFORMED BY: [facility] [facility] [id number] LDL/HDL Ratio 2.3 {ratio_units} (Normal) Range: 0.0-3.2 LDL Cholesterol Calc 133 mg/dL (Abnormal) Range: 0-99 VLDL Cholesterol Christopher 23 mg/dL (Normal) Range: 5-40 HDL Cholesterol 59 mg/dL (Normal) Comments: According to ATP-III Guidelines, HDL-C >59 mg/dL is considered anegative risk factor for CHD. Triglycerides 116 mg/dL (Normal) Range: 0-149 Cholesterol, Total 215 mg/dL (Abnormal) Range: 100-199 :02 CBC (Auto) (04382) Comments: PATIENT WAS FASTINGPERFORMED BY: [facility] [facility] [id number] Platelets 269 {x10E3/uL} (Normal) Range: 140-415 RDW 14.4 % (Normal) Range: 12.3-15.4 MCHC 33.6 g/dL (Normal) Range: 31.5-35.7 MCH 29.8 pg (Normal) Range: 26.6-33.0 MCV 89 fL (Normal) Range: 79-97 Hematocrit 40.5 % (Normal) Range: 34.0-46.6 Hemoglobin 13.6 g/dL (Normal) Range: 11.1-15.9 RBC 4.57 {x10E6/uL} (Normal) Range: 3.77-5.28 WBC 6.2 {x10E3/uL} (Normal) Range: 4.0-10.5 :02 Metabolic Panel, Comments: PATIENT WAS FASTINGPERFORMED BY: [facility]ingsHoly Cross HospitalIpjjkm9356 [facility] [id number] Information: [id number] Comprehensive (40304) ALT (SGPT) 32 [iU]/L (Normal) Range: 0-32 [...] (Abnormal) Range: 65-99 :02 T3, FREE (TRIDOTHYRONINE) (68105) Comments: PATIENT WAS FASTINGPERFORMED BY: [facility]ingsRunnells Specialized HospitalAkmrvc3272 [facility] [id number] Triiodothyronine,Free,Serum 3.9 pg/mL (Normal) Range: 2.0-4.4 :02 T4, FREE (THYROXINE) (53599) Comments: PATIENT WAS FASTINGPERFORMED BY: [facility] [facility] [id number] T4,Free(Direct) 0.94 ng/dL (Normal) Range: 0.82-1.77 :02 T4, TOTAL (91638) Comments: PATIENT WAS FASTINGPERFORMED BY: [place] [address] [facility] [id number] Thyroxine (T4) 7.3 ug/dL (Normal) Range: 4.5-12.0 :07 TSH (37380) Comments: PATIENT NOT FASTINGPERFORMED BY: [place] [address] [facility] [id number] Information: [id number] TSH 1.970 {uIU/mL} (Normal) Range: 0.450-4.500 :35 URINE ANNETTE CULTURE (TEMO Comments: and sensitivity; PATIENT NOT FASTINGPERFORMED BY: [place] [address] [facility] [id number] Information: SRC: [id number] COL COUNT) (46434) Result 1 BETAGB (Normal) Comments: Beta hemolytic [...] (CLSI 2011) Urine Final report (Normal) Culture,Comprehensive 58-Nxj-490676:49 Urinalysis, Office (50144) UA - LEUKOCYTE ESTERASE Negative (Normal) UA - NITRITE Negative (Normal) URINE UROBILINGN TEMO TIMED Normal mg/dL (Normal) UA - PROTEIN Negative mg/dL (Normal) UA - PH 7.0 (Normal) UA - BLOOD Negative (Normal) UA - SPECIFIC GRAVITY 1.025 (Normal) UA - KETONES Negative mg/dL (Normal) UA - GLUCOSE Negative (Normal) :15 CBC WITH MANUAL DIFF Comments: PATIENT WAS FASTINGPERFORMED BY: ARIADNE [facility]Asc[facility]6370 Victorino RoachAtrium Health [facility] [id number] Information: [id number] (79818) Immature Grans (Abs) 0.0 {x10E3/uL} (Normal) Range: [...] {x10E3/uL} (Normal) Range: 4.0-10.5 :15 LIPID PANEL (81797) Comments: PATIENT WAS FASTINGPERFORMED BY: ARIADNE [facility] Vkjgnn6213 [facility] [id number] LDL/HDL Ratio 2.5 {ratio_units} (Normal) Range: 0.0-3.2 [...] FUNCTION PANEL Comments: PATIENT WAS FASTINGPERFORMED BY: [employer] [facility] [id number] (60946) ALT (SGPT) 32 [iU]/L (Normal) Range: 0-40 AST (SGOT) 29 [iU]/L (Normal) Range: 0-40 Alkaline Phosphatase, S 69 [iU]/L (Normal) Range: 25-150 Bilirubin, Direct 0.10 mg/dL (Normal) Range: 0.00-0.40 Bilirubin, Total 0.4 mg/dL (Normal) Range: 0.0-1.2 Albumin, Serum 4.3 g/dL (Normal) Range: 3.5-5.5 Protein, Total, Serum 7.4 g/dL (Normal) Range: 6.0-8.5 :15 Metabolic Panel, Basic (87271) Comments: PATIENT WAS FASTINGPERFORMED BY: [facility]6[address] [facility] [id number] Calcium, Serum 9.6 mg/dL (Normal) Range: 8.7-10.2 [...] 96 mg/dL (Normal) Range: 65-99 :15 TSH (48673) Comments: PATIENT WAS FASTINGPERFORMED BY: [facility]Asc[facility]6[address] [facility] [id number] TSH 1.500 {uIU/mL} (Normal) Range: 0.450-4.500 :15 T4, FREE (THYROXINE) (60129) Comments: PATIENT WAS FASTINGPERFORMED BY: [facility]ingsRunnells Specialized HospitalJnzogw5210 [facility] [id number] T4,Free(Direct) 0.96 ng/dL (Normal) Range: 0.82-1.77 :15 T3, FREE (TRIDOTHYRONINE) (73194) Comments: PATIENT WAS FASTINGPERFORMED BY: [facility]Asc[facility]6[address] [facility] [id number] Triiodothyronine,Free,Serum 3.3 pg/mL (Normal) Range: 2.0-4.4 :02 [...] Range: 6.4-8.2 :37 Rapid Strep Test, Office (39923) Rapid Strep Test, Office Negative (Normal) :37 HgA1C , Office (91936) HgA1C , Office 6.0 % (Normal) Range: 4.6 - 7.1 :37 Blood Glucose , Office (71131) Blood Glucose , Office 122 (Normal) :26 [...] ronda isolated. No beta-hemolyticstreptococcus isolated. :07 EBVIgG/M 957232 EB-NAg FsT34363 > 8.0 {AI} (Abnormal) Range: 0.0-0.8 Comments: [...] esent - Antibody AbsentPerformed at: - [facility] [address] [id number] Director: Melanie Hartman MD, Phone: [phone] EB-EA IgG 31452 1.3 {AI} (Abnormal) Range: 0.0-0.8 Comments: Negative <0.9 Equivocal 0.9 - 1.0 Positive >1.0 EB-VCA UdR92375 > 8.0 {AI} (Abnormal) Range: 0.0-0.8 Comments: Negative <0.9 Equivocal 0.9 - 1.0 Positive >1.0 EB-VCA AyY56111 < 0.2 {AI} (Normal) Range: 0.0-0.8 Comments: Negative <0.9 Equivocal 0.9 - 1.0 Positive >1.0 :07 FREE T3 7.0 pg/mL (Abnormal) Range: 2.18-3.98 :07 T4 FREE DIRECT 0.46 ng/dL (Abnormal) Range: 0.76-1.46 :07 TSH 1.82 {uIU/mL} (Normal) Range: 0.358-3.74 :50 Rapid Strep Test, Office (03412) Rapid Strep Test, Negative (Normal) Office :36 EB-NAg VdI07906 > 8.0 {AI} (Abnormal) Range: 0.0-0.8 Comments: Negative <0.9 Equivocal 0.9 - 1.0 Positive >1.0 :36 EB-VCA YrC92924 > 8.0 {AI} (Abnormal) Range: 0.0-0.8 Comments: Negative <0.9 Equivocal 0.9 - 1.0 Positive >1.0 :36 EB-EA IgG 18814 1.5 {AI} (Abnormal) Range: 0.0-0.8 Comments: Negative <0.9 Equivocal 0.9 - 1.0 Positive >1.0Performed at: [facility] LabAsc[facility]6[address] [place], [place] [id number] Director: Melanie Hartman MD, Phone: [phone] :[phone] CKMB Comments: Please Note: TROPONIN REFERENCE [...] NEGATIVE 0.06 - 0.59 AT RISK OF NM > OR = 0.60 SUGGEST NM :01 CKMB Comments: Please Note: TROPONIN REFERENCE [...] NEGATIVE 0.06 - 0.59 AT RISK OF NM > OR = 0.60 SUGGEST NM 32-Pgt-325337:40 TROPONIN-I < 0.02 ng/mL (Normal) Comments: Please Note: TROPONIN REFERENCE RANGE CHANGEEffective MAY 21, 2009. Comments: TROPONIN-I EXPECTED VALUES <0.05 NEGATIVE 0.06 - 0.59 AT RISK OF NM > OR = 0.60 SUGGEST NM : CORTISOL 11.41 ug/dL (Normal) Range: 3.09-22.40 Comments: Adult (AM) 4.30 - 22.40 ug/dLAdult (PM) 3.09 - 16.66 ug/dL :00 FREE T3 2.8 pg/mL (Normal) Range: 2.18-3.98 : T4 FREE DIRECT 0.51 ng/dL (Abnormal) Range: 0.76-1.46 :00 TSH 1.54 {uIU/mL} (Normal) Range: 0.358-3.74 :26 HgA1C , Office (25086) HgA1C , Office 5.4 % (Normal) Range: 4.6 - 7.1 :26 Blood Glucose , Office (85357) Blood Glucose , Office 89 (Normal) :54 CORTISOL 7.59 ug/dL (Normal) Range: 3.09-22.40 Comments: Adult (AM) 4.30 - 22.40 ug/dLAdult (PM) 3.09 - 16.66 ug/dL :54 DHEA SULF 4697 33.4 ug/dL (Normal) Range: 18.9-205.0 :54 ESTRADIOL 4515 28.9 pg/mL (Normal) Comments: Adult Female:Follicular phase 12.5 - 166.0Ovulation phase 85.8 - 498.0Luteal phase 43.8 - 211.0Postmenopausal <6.0 - 54.7Ixidtromu7td trimester 215.0 - >4300.0Girls (1- 10 years) 6.0 - 27.0Roche ECLIA methodology :54 FREE T3 2.1 pg/mL (Abnormal) Range: 2.18-3.98 :54 GLU 90 mg/dL (Normal) Range: 70-110 :54 INSULIN 4333 16.9 {uIU/mL} Range: 0.0-24.9 (Normal) Comments: Performed at: [address] [id number] Director: Melanie Hartman MD, Phone: [phone] :[phone] PROGESTER. 4317 2.7 ng/mL (Normal) Comments: [...] Bronchitis Planned Observations OCCULT BLOOD FECES SCREEN (45548)Indication: Dehydration On: : Request OVA & PARASITE DIR SMEAR (18431)Indication: Dehydration On: :30 Request LEUKOCYTE COUNT, FECAL (76396)Indication: Dehydration On: :30 Request C-DIFFICILE, STOOL (00512)Indication: Dehydration On: : Request ANNETTE CULTURE-STOOL (38366)Indication: Dehydration On: : Request Metabolic Panel, Basic (32107)Indication: Hypertension, benign On: 82-Bbh-255203:06 Request Comments: due in 1 week. Metabolic Panel, Basic (81547)Indication: Hypertension, benign On: 30-Hlk-993567:40 Request ANNETTE CULTURE-OTHER (11688)Indication: Pharyngitis, acute On: :37 Request TSH (37593)Indication: Abnormal TSH On: :30 Request T4, FREE (THYROXINE) (75481)Indication: Abnormal TSH On: :30 Request T3, FREE (TRIDOTHYRONINE) (13886)Indication: Abnormal TSH On: :30 Request TSH (92961)Indication: Abnormal TSH On: :57 Request T4, FREE (THYROXINE) (50477)Indication: Abnormal TSH On: :57 Request T3, FREE (TRIDOTHYRONINE) (82507)Indication: Abnormal TSH On: :57 Request ANNETTE CULTURE-OTHER (79675)Indication: Pharyngitis, acute On: :50 Request EB ANTIBODY EARLY ANTIGN (19698)Indication: Fatigue On: 28-Mar-20108:00 Request Comments: today EB ANTIBODY VIRAL CAPSID (40078) S7Bwtnqkhzyc: Fatigue On: :57 Request EB ANTIBODY NUCLR ANTIGN (54809)Indication: Fatigue On: :57 Request Planned Encounters Medical; [facility] (Doctor) - On: 28-Apr-2018 7:00 [facility] Nerissa CASTELLANO, Krysten Dial MD, Krysten Levi Planned Procedures Flu Vaccine (Quadrivalent) On: 08-Apr-2018 Intent 94329Sv: RITA Mendez Comments: Lot #:[id number] date: 8-76-13Slsqwm given:0.5mlRoute: IMSite given:L DltdGiven by: DBVIS and ABN signed [employer]ix COMPLETE ELECTROMYOGRAPHY (EMG) On: 19-Jun-2016 Intent WITH NERVE CONDUCTION STUDIES OF EACH EXTREMITY (90413)By: Nerissa CASTELLANO, Krysten Hogan MD Flu Vaccine (Quadrivalent) On: 08-May-2016 Intent 92466Nz: Krysten Dial MD Comments: Lot:[id number]:12/18/16Dose:0.5mLRoute:IMSite:L DltdGiven By:MLVIS signed Krysten Dial MD Nuclear Stress Test/Stress On: 10-Feb-2016 Intent SPECT/TreadmillBy: Krysten Dial MD, MD, Dana M DEXA SCAN AXIAL SKELETON On: 10-Feb-2016 Intent (07473)By: Krysten Dial MD, MD, Dana M TDAP VACCINE >7 IM (28377)By: On: 10-Feb-2016 Intent Krysten Dial MD, MD, Comments: tdaplot:SZ2R9jzh:07/12/18site:lt deltroute:IMD.MARY ELLEN Canales IV Needle placement (62023)By: On: 28-Jun-2015 Intent Francoise Meng CNP Ultrasound - GallbladderBy: Yusra On: 28-Jun-2015 Intent Francoise CRABTREE INFUSION, NORMAL SALINE SOLUTION , On: 28-Jun-2015 Intent 1000 CC (Special Coverage Comments: lot [id number] ccright antecubas LEARNING ADMINISTRATOR Instructions Apply. See MCM: 2049) (J7030)By: Francoise Meng CNP Radiology - Foot - LeftBy: Yusra On: 14-May-2015 Intent Francoise CRABTREE ADMINISTRATION OF INFLUENZA VIRUS On: 05-Apr-2015 Intent VACCINE (G0008)By: Krysten Dial MD, MD, Dana M Flu Vaccine (Quadrivalent) On: 05-Apr-2015 Intent 55796Jy: Krysten Dial MD Comments: Lot #:[id number] date:Amount given:0.5mlRoute: IMSite given:L DltdGiven by: ElaineVIS and ABN signed Quad Flu Krysten Dial MD Flu Vaccine (Quadrivalent) On: 19-Apr-2014 Intent 32798Ev: Krysten Dial MD, MD, Dana M ADMINISTRATION OF INFLUENZA VIRUS On: 19-Apr-2014 Intent VACCINE (G0008)By: Aruna Amaral Venous Doppler - RightBy: Nerissa On: 18-Jan-2014 Intent Krysten CASTELLANO MD, Dana M EKG (37913)By: Krysten Dial MD On: 01-Sep-2013 Intent Krysten [...] SPLIT, >3 YEARS, On: 14-Apr-2013 Intent INTRAMUSC (66467)By: Dalton, Comments: lot [id number] 2014site/route L latonya, IMamt 0.5mlVIS and ABN signed when applicableChelsea, [facility] Meagan IMMUNIZ ADMNIN, 1 VAC, SNGL/COMBO On: 14-Apr-2013 Intent ([id number])By: Meagan Hoffman Radiology - Foot - RightBy: On: 10-Nov-2012 Intent Krysten Dial MD, MD, Comments: please call wet read Krysten Levi Eprescribed prescriptions On: 19-Sep-2012 Intent (G8553)By: Kady Deleon LPN EKG ([id number])By: RITA Mendez On: 20-Jun-2012 Intent Aerosol Treatment ([id number])By: Yusra On: 30-Nov-2011 Intent LEADERSHIP DEVELOPMENT MANAGER, Zakia Spirometry ([id number])By: Nerissa CASTELLANO, On: 26-Sep-2010 Intent Krysten Hogan MD Comments: re do of one that was not abl eot be performed at last visit. Spirometry ([id number])By: Nerissa CASTELLANO, On: 18-Sep-2010 Intent Krysten Dial MD, Krysten Levi Pulse Oximetry ([id number])By: Jessie GUSMAN, On: 18-Sep-2010 Intent Leidy Pulse Oximetry ([id number])By: Andrea On: 17-Apr-2010 Intent RITA ELECTROCARDIOGRAM, COMPLETE (ECG) On: 01-Apr-2010 Intent ([id number])By: Vikki Wetzel Planned Medications INFUSION, NORMAL SALINE [...] Nutrition: balanced diet and supplemental vitamins. The va dical issues the patient is following up [...] day(s) ago. Onset followed foreign travel (Formerly [facility] for new years). The symptoms occur [...] (493.11), Allergic Rhinitis(477.9), Obesity (278.00), Heartburn (787.1), [facility] V73.21 [facility] [...] inhaler and I had to see my hr payroll coordinator and my ENT dosent want me o [...] with a person with sore throat (works [employer]) and swelling of neck glands, whil [...] (780.79), Menorrhagia(626.2) [facility]oss guarantor
--- OUTSIDE RECORDS SUMMARY | 2018-07-19 10:34 | XMS RPT_ITS | Continuity of Care Document ---
:1955 Author Organization [facility] Address [address] [facility] [address] [place] [address] Phone Care Team Providers Name Role Phone Nerissa CASTELLANO, Krysten Levi Unavailable Dr. Reginaldo Corbin Unavailable Erwin Rose Unavailable Maciej Cadena Unavailable Timothy CASTELLANO, Speedy Murphy Unavailable Andrew CASTELLANO, Regan Unavailable Monica Spann Unavailable Unavailable Slarb BAND SAWMILL OPERATOR, Moraima Unavailable Unavailable RITA Mendez Unavailable Unavailable Unavailable Unavailable Problems Name Dates Details Abnormal fasting glucose (R73.01, 790.29) Status: Active Allergic rhinitis (J30.9, 477.9) Comments: off allergy shots. back this spring and seeing bung dropper. add kaleb. will get abck to ENT. [...] show fatty liver and working now with bung dropper. comign down some. Status: Active Encounter for hepatitis C virus screening test for high risk patient (Z11.59, V73.89) Status: Active Encounter for routine adult medical exam with abnormal findings (Z00.01, V70.0) Comments: 03-22-17 MDP Wellness Exam. TAHBSO [address] Thorpe. colonoscopy polyp due in 5 years mammo , BD but good so do in 2019 Hep C neg. recommend shingles and flu today. talk a bout prevnar then pneumovax with asthma Status: Active Family history of heart disease (Z82.49, V17.49) Comments: brother at 56 yo Status: Active Fatigue (R53.83, 780.79) Comments: has been better. now recommend add exercises Status: Active Fatty liver (K76.0, 571.8) Comments: talk about liver cirrhosis risk must get weight off. Status: Active Hypercholesteremia (Renamed from Hypercholesterolemia) (E78.00, 272.0) Comments: reveiwed with patient LDL stillup increase synthriod. 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 has been 128/80's at home. 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 working on how to treat. at this point kaylin get left large hard lens. at this poitn not recommend richard transplant. Status: Active Metabolic syndrome (E88.81, 277.7) Comments: she is doing arbonne cleanse did 04-07 and then again 07-09. changing diet. Status: Active NEED FOR PROPHYLACTIC VACCINATION AND [...] does notice improvement with sleep and daytime energy. needs new machine mask. Status: Active Paresthesia of hand (R20.2, 782.0) Comments: occassional CTS and better than was has splints. more in am. will wear splints at night check NCS Status: Active Postmenopausal (Renamed from Post-menopausal) (Z78.0, V49.81) Status: Active Pregnancies () Comments: 2 Status: Active Stress reaction (F43.0, 308.9) Comments: hangerhoffer counseling. her not have the intimacy she wants. son change jobs from [employer] to [employer], mother in law in [facility] falling Status: Active UTI symptoms (R39.9, 788.99) Status: Active Medications Name Dates Details Adrenal Rebuilder Active uad 2 q am, 1 at 3pm ASPIRIN, 81MG (Oral Tablet) Active 1 qd (81 MG) Calciferol 69906 U Oral Tablet Active 1 daily (66623 U) Coconut Oil 1000 MG Oral Capsule Active 1 daily (1000 MG) Cytomel 5 MCG Oral Tablet 1 (one) Tablet qd for 0 days Quantity: 90 {Tablet} Refills: 3 Ordered:28-May-2017 Nerissa CASTELLANO, Krysten Dunbar MD, Krysten Levi Start : 28-May-2017 Active Dulera 100-5 MCG/ACT Inhalation Aerosol 1 (one) Puff bid for 0 days Quantity: 3 {Inhaler} Refills: 3 Ordered:10-Jun-2017 Krysten Dial MD, MD, Dana M Start : 10-Jun-2017 Active Escitalopram Oxalate 5 MG Oral Tablet 1 (one) Tablet daily for 0 days Quantity: 90 {Tablet} Refills: 3 Ordered:22-Mar-2017 Krysten Dial MD, MD, Dana M Start : 22-Mar-2017 Active Jessica-C 500-550 MG Oral Tablet 1 daily (500-550 MG) Active FISH OIL CONCENTRATE, 1000MG (Oral Capsule) 1 Capsule qd for 0 days Quantity: 90 {Capsule} Refills: 0 Ordered:20-Jun-2012 Krysten Dial MD, MD, Dana M Start : 20-Jun-2012 Active Losartan Potassium 100 MG Oral Tablet 1 Tablet daily for 0 days Quantity: 90 {Tablet} Refills: 3 Ordered:29-Jul-2017 Krysten Dial MD, MD, Dana M Start : 29-Jul-2017 Active Losartan Potassium 100 MG Oral Tablet 1 Tablet daily for 0 days Quantity: 90 {Tablet} Refills: 3 Ordered:29-Jul-2017 Krysten Dial MD, MD, Dana M Start : 29-Jul-2017 Active Multivitamin Adult Oral Tablet 1 daily Active Singulair 10 MG Oral Tablet 1 Tablet qd for 0 days Quantity: 90 {Tablet} Refills: 3 Ordered:10-Jun-2017 Krysten Dial MD, MD, Dana M Start : 10-Jun-2017 Active Super Adrenal Stress Formula 2 in am 1 in afternoon Active Synthroid 50 MCG Oral Tablet 1 Tablet daily and 2 on wednesday for 0 days Quantity: 102 {Tablet} Refills: 3 Ordered:28-Apr-2018 Krysten Dial MD, MD, Dana M Start : 28-Apr-2018 Active ADRENAL (Oral Capsule) uad 5 qd [...] Quantity: 1 {Aero_Pow_Br_Act} Refills: 0 Ordered:14-Dec-2011 Yusra CRABTREE Zakia Start : 16-Apr-2011 End : 14-Dec-2011 Inactive [...] Quantity: 14 {Tablet} Refills: 0 Ordered:14-May-2015 Yusra CRABTREE Francoise Trotter Start : 14-May-2015 End : 21-May-2015 Inactive [...] days Quantity: 7 {Tablet} Refills: 0 Ordered:14-Dec-2011 Deisidenton BROFrancoise Start : 14-Dec-2011 End : 21-Dec-2011 Inactive Levsin/SL 0.125 MG Sublingual Tablet Sublingual 1 (one) Tab Sublingual Tab Sublingual every 6 hours prn SL for 0 days Quantity: 20 {Tablet} Refills: 1 Ordered:28-Apr-2018 Monica Spann Start : 01-Mar-2015 End : 28-Apr-2018 Inactive MOBIC, 15MG (Oral Tablet) 1 Tablet [...] Quantity: 30 {Capsule} Refills: 0 Ordered:20-Jun-2012 RITA Menedz Start : 14-Dec-2011 End : 20-Jun-2012 Inactive [...] Start : 28-Jun-2015 End : 11-Jul-2015 Inactive Atorvastatin Calcium 10 MG Oral Tablet 1 (one) Tablet at night for 0 days Quantity: 90 {Tablet} Refills: 3 Ordered:28-Apr-2018 Monica Spann Start : 22-Mar-2017 End : 28-Apr-2018 Discontinued Cipro 500 MG Oral Tablet 1 (one) Tablet bid for 0 days Quantity: 14 {Tablet} Refills: 0 Ordered:28-Apr-2018 Monica Spann Start : 18-Apr-2018 End : 28-Apr-2018 Discontinued CONTRAVE, 8/ 90MG (Oral Tablet) (Free Text) [...] qd for 0 days Refills: 0 Ordered:14-Dec-2011 Deisidenton BROFrancoise End : 14-Dec-2011 Discontinued Comments:This order discontinued [...] Refills: 3 Ordered:08-Jun-2014 Krysten Dial MD, MD, Krysten M Start : 08-Jun-2014 End : 01-Mar-2015 Discontinued WELLBUTRIN XL, 150MG (Oral Tablet Extended Release 24 Hour) 1 (one) Tablet ER 24HR qd for 0 days Quantity: 30 {Tablet} Refills: 3 Ordered:08-Jun-2014 Nerissa CASTELLANO, Krysten Grande MD Start : 08-Jun-2014 End : 01-Mar-2015 Discontinued [...] (R79.89, 790.6) Comments: endocrine Dr. Herrera at [facility], changed cytomel. adjusted 2-12. reduced cytomel [...] (R30.0, 788.1) Status: Resolved as of 22-Mar-2017 Flatulence (R14.3, [...] again but not really totally postmenapausal. seeing permit agent. Status: Inactive as of 06-Jul-2013 Need for [...] (N39.0, 599.0) Status: Inactive as of 11-Jul-2015 Vomiting and diarrhea (R11.10, 787.03) Status: Inactive as of 11-Jul-2015 WWV V73.21 Comments: Dr. thorpe. colonscopy 2008 Status: Inactive as of 06-Jul-2013 Procedures Procedure Dates Details Female ablation 2004 Dr. Powell Completed TAHBSO 2012 Completed Tonsillectomy Completed Comments: 19 years old Tubal Ligation Completed Date Value Details 30-Nov-2016 SCREENING MAMM (CAD), BILAT Result: Comments: See Note; NOTES: [facility] Imaging Services [address] [place] [address] Verdana 4d SCREENING MAMM (CAD), BILAT MR#: [id number] Acct: [id number] Name: GRZEGORZ BANGURA Rep #: [id number] : 1955 F 61 From: Sarbjit Hansen MD PCP: Krysten Dial MD Status: REG CLI Study: SCREENING MAMM (CAD), BILAT Date of Exam: 11/30/16 Exam# [id number] Ordering Dr: Marie Thorpe MD MAMMOGRAPHY - [...] delay biopsy of a clinically suspicious abnormality. [id number] Electronically Signed: Sarbjit Hansen MD at 14:44 EDT Tel , Service support [phone], CC: Ruthie Thorpe MD; Krysten Dial MD Process Validation Engineer: Signed 25-Feb-2016 Dexa Bone Density Study (HP) Result: Comments: See Note; NOTES: [facility] Imaging Services [address] [place] [address] Verdana 4d Dexa Bone Density Study (HP) MR#: [id number] Acct: [id number] Name: PRICE Rep #: [id number] : 1955 F 60 From: Albaro Pena MD PCP: Krysten Dial MD Status: REG CLI Study: Dexa Bone Density Study (HP) Date of Exam: 02/25/16 Exam# [id number] Ordering Dr: Krysten Portillo MD STUDY: DUAL [...] Albaro Pena MD at 9:34 EDT Tel [phone], Service support [phone], CC: Krysten Dial MD Process Validation Engineer: Signed 07-Nov-2015 Bilat Scrn Digital AND CAD Result: Comments: See Note; NOTES: [facility] Imaging Services [address] [place] [address] Verdana 4d Bilat Scrn Digital AND CAD MR#: [id number] Acct: [id number] Name: ARCHANA BANGURA Rep #: [id number] : 1955 F 60 From: Albaro ePna MD PCP: Krysten Dial MD Status: REG CLI Study: Bilat Scrn Digital AND CAD Date of Exam: 11/07/15 Exam# [id number] Order ing Dr: Ruthie Thorpe MD MAMMOGRAPHY [...] lay biopsy of a clinically suspicious abnormality. [id number] Electronically Signed: Albaro Pena MD at 11:07 EDT Tel [phone], Service support [phone], CC: Ruthie Thorpe MD; Krysten Dial MD Process Validation Engineer: Signed 28-Jun-2015 Gallbladder Result: Comments: See Note; NOTES: [facility] Imaging Services [address] [place] [address] Verdana 4d Gallbladder MR#: [id number] Acct: [id number] Name: ARCHANA BANGURA Rep #: [id number] : 1955 F 60 From: Albaro Pena MD PCP: Krysten Dial MD Status: REG CLI Study: Gallbladder Date of Exam: 06/28/15 Exam# [id number] Ordering Dr: Francoise Meng STUDY: ABDOMINAL ULTRASOUND [...] Albaro Pena MD at 11:40 EST Tel [phone], Service support [phone], CC: Francoise Meng; Krysten Dial MD Process Validation Engineer: Signed 14-May-2015 Foot min 3 Views Result: Comments: See Note; NOTES: [facility] Imaging Services [address] [place] [address] Verdana 4d Foot min 3 Views MR#: [id number] Acct: [id number] Name: PRICE Rep #: [id number] : 1955 F 60 From: Vazquez Briggs MD PCP: Krysten Dial MD Status: REG CLI Study: Foot min 3 Views Date of Exam: 05/14/15 Exam# [id number] Ordering Dr: Francoise Meng STUDY: X-RAY - [...] FACR at 19:17 EST , Service support [phone], RAD/Foot min 3 Views IMPRESSION: 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 Prominent plantar calcaneal spur. Flattening of the heads of the second and third metatarsals which could be related to stress subchondral fracture or cyrus ne infarcts. Electronically Signed: Vazquez Briggs MD, FACR at 19:17 EST , Service support [phone], CC: Francoise Meng; Krysten Dial MD Process Validation Engineer: Signed 04-Jan-2015 PT Discharge Summary Result: Comments: See Note; NOTES: [facility] Physical Therapy [facility] [address] [place] [address] Fax REHABILITATION SERVICES DISCHARGE SUMMARY MR#: [id number] Acct: [id number] Name: ARCHANA BANGURA Rep #: [id number] : 1955 59 From: Roberto Leon Referring Dr.: Krysten Dial MD Status: PRE RCR Eval Date: Date: DATE OF SERVICE: REFERRING PHYSICIAN: Dr. Krysten Dial. Archana Bangura was evaluated at [facility] on the date of [...] program being achieved. Roberto Leon, PT T: CHRIS JOB: [id number] <Electronically signed by Roberto Leon > 01/04/15 0937 CC: Signed 22-Oct-2014 Inital Evaluation - PT Result: Comments: See Note; NOTES: [facility] Physical Therapy [facility] [address] [place] [address] Fax REHABILITATION SERVICES INITIAL EVALUATION MR#: [id number] Acct: [id number] Name: ARCHANA BANGURA Rep #: [id number] : 1955 59 From: Roberto Leon Referring Dr.: Krysten Dial MD Status: DIS RCR [facility] Date: DATE OF SERVICE: 10/18/2014 REFERRING PHYSICIAN: Krysten Dial M.D. 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 This patient denies any cervical spine pain [...] this patient is very tender along the walking dragline oiler ior superior aspect of her right shoulder [...] visits. Roberto Leon, PT T: CHRIS JOB: [id number] <Electronically signed by Roberto Franz r > 10/22/14 1124 CC: Signed For Medicare only, by signing this I certify the plan of care. Physicians Signature Date 11-Sep-2014 Bilat Scrn Digital AND CAD Result: Comments: See Note; NOTES: [facility] Imaging Services [address] [place] [address] Breast Imaging Report MR#: [id number] Acct: [id number] Name: ARCHANA BANGURA Rep #: [id number] : 1955 F 59 From: Albaro Pena MD PCP: Krysten Dial MD Status: PRE CLI Study: Bilat Scrn Digital AND CAD Date of Exam: 09/11/14 Exam# [id number] Ordering Dr: Ruthie Thorpe MAMMOGRAPHY - BILATERAL [...] Kavin Pena MD at 8:27 EDT Tel [phone], Service support [phone], CC: Ruthie Thorpe MD; Krysten Dial MD Process Validation Engineer: Signed 19-Apr-2014 Spirometry (06858) Result: 08-Sep-2013 Liver Result: Comments: See Note; NOTES: [facility] Imaging Services [address] [place] [address] Ultrasound Report MR#: [id number] Acct: [id number] Name: ARCHANA BANGURA Rep #: [id number] : 1955 F 58 From: Albaro Pena MD PCP: Krysten Dial MD Status: REG CLI Study: Liver Date of Exam: 09/08/13 Exam# [id number] Ordering Dr: Krysten Dial MD STUDY: ABDOMINAL [...] M.D. 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 Comments: updated 09-18-11 Status: Inactive Vital Signs Date Test Result Details :13 Temperature 97.3 f Comments: Method: Temporal Pulse 67 /min Comments: Pattern: Regular Respiration Rate 16 /min Comments: Pattern: Unlabored O2 SAT 98 % Comments: Room air BP Systolic 150 mm[Hg] Comments: Patient Position: Sitting; Cuff Location: Left Arm; Cuff Size: Standard BP Diastolic 90 mm[Hg] Comments: Patient Position: Sitting; Cuff Location: Left Arm; Cuff Size: Standard Weight 254 lb Height 62.5 in Body Mass Index Calculated 45.72 kg/m2 Body Surface Area Calculated 2.13 m2 :52 Temperature 97.6 f Comments: Method: Temporal [...] 2.03 m2 Results Date Description Value Details :37 Urinalysis, Office (68428) UA - LEUKOCYTE ESTERASE Trace (Normal) UA - NITRITE Negative (Normal) URINE UROBILINGN TEMO TIMED 2 mg/dL (Normal) Comments: 0.2e.u/dl UA - PROTEIN Negative mg/dL (Normal) UA - PH 5 (Abnormal) Comments: 5.5 UA - BLOOD Negative (Normal) UA - SPECIFIC GRAVITY 1.025 (Normal) UA - KETONES Negative mg/dL (Normal) UA - BILIRUBIN Negative (Normal) UA - GLUCOSE Negative (Normal) 50-Nwj-52507:50 Microscopic Examination Comments: PATIENT WAS FASTINGPERFORMED BY: [employer]70 [facility] [id number] Bacteria Few (Normal) Mucus Threads Present (Normal) Cast Type Hyaline casts (Normal) Casts Present {/lpf} (Abnormal) Epithelial Cells (non renal) 0-10 {/hpf} (Normal) Range: 0 - 10 RBC 0-2 {/hpf} (Normal) Range: 0 - 2 WBC 11-30 {/hpf} (Abnormal) Range: 0 - 5 22-Hui-76724:50 Metabolic Panel, Comprehensive Comments: PATIENT WAS FASTINGPERFORMED BY: [employer] [facility] [id number] (02247) ALT (SGPT) 33 [iU]/L (Abnormal) Range: 0-32 [...] 8-27 Glucose 102 mg/dL (Abnormal) Range: 65-99 64-Wxe-99302:50 CBC WITH MANUAL DIFF (40452) Comments: PATIENT WAS FASTINGPERFORMED BY: [facility] Ahtrnc2601 [facility] [id number] Immature Grans (Abs) 0.0 {x10E3/uL} (Normal) Range: [...] 3.77-5.28 WBC 6.7 {x10E3/uL} (Normal) Range: 3.4-10.8 :50 MICROALBUMIN: CREATININE RATIO Comments: PATIENT WAS FASTINGPERFORMED BY: [facility] PreventionC[facility] [id number] (33890) AND (65039) Alb/Creat Ratio 7.8 {mg/g_creat} (Normal) Range: 0.0-30.0 Comments: Normal: 0.0 - 30.0 Albuminuria: 31.0 - 300.0 Clinical albuminuria: >300.0 Albumin, Urine 17.2 ug/mL (Normal) Creatinine, Urine 219.2 mg/dL (Normal) :50 URINALYSIS (06028) Comments: PATIENT WAS FASTINGPERFORMED BY: [employer]6370 [employer] [facility] HospitalBiiCodeC[facility] [id number] Microscopic Examination See below: (Normal) Comments: Microscopic was indicated and was performed. Nitrite, Urine Negative (Normal) Urobilinogen,Semi-Qn 0.2 mg/dL (Normal) Range: 0.2-1.0 Bilirubin Negative (Normal) Occult Blood Negative (Normal) Ketones Negative (Normal) Glucose Negative (Normal) Protein Negative (Normal) WBC Esterase 2+ (Abnormal) Appearance Clear (Normal) Urine-Color Yellow (Normal) pH 5.5 (Normal) Range: 5.0-7.5 Specific [place] 1.026 (Normal) Range: 1.005-1.030 :31 METABOLIC PANEL, COMPREHENSIVE Comments: PATIENT WAS FASTINGPERFORMED BY: [facility] PreventionC[facility] [id number] (10483) ALT (SGPT) 52 [iU]/L (Abnormal) Range: 0-32 [...] mg/dL (Normal) Range: 65-99 :31 LIPID PANEL (83853) Comments: PATIENT WAS FASTINGPERFORMED BY: [employer]in6370 [facility] [id number] LDL/HDL Ratio 2.5 {ratio_units} (Normal) Range: 0.0-3.2 [...] C ANTIBODY Comments: PATIENT WAS FASTINGPERFORMED BY: [employer]6370 [facility] [id number] Information: NURSE DRAW (90808) Hep C Virus Ab <0.1 {s/co_ratio} (Normal) Range: 0.0-0.9 Comments: Negative: < 0.8 Indeterminate: 0.8 - 0.9 Positive: > 0.9 . The CDC recommends that a positive HCV antibody result be followed up with a HCV Nucleic Acid Amplification test (942429). :44 HgA1C , Office (93811) HgA1C , Office 5.7 % (Normal) Range: 4.6 - 7.1 :32 Vitamin B-12 (cyanocobalamin) Comments: PATIENT WAS FASTINGPERFORMED BY: [employer] [id number] BY: [employer] Lxextw7548 [facility] [id number] (61629) Vitamin B12 867 pg/mL (Normal) Range: 211-946 :32 CALCIFIDIOL (13501) VIT D Comments: PATIENT WAS FASTINGPERFORMED BY: [employer] [id number] BY: K[address] EnterpriseJeff[place] 9529870 [facility] [id number] 25 Vitamin D, 25-Hydroxy 49.1 ng/mL (Normal) Range: 30.0-100.0 Comments: Vitamin D deficiency has been defined by the [place] ofMedicine and an Endocrine Society practice guideline as alevel of serum 25-OH vitamin D less than 20 ng/mL (1,2).The Endocrine Society went on to further define vitamin Dinsufficiency as a level between 21 and 29 ng/mL (2).1. IOM ([place] of Medicine). 2010. Dietary reference intakes for calcium and D. [place]: The National Academies Press.2. Joe MF, Bailee JAY, Woody PALM, et al. Evaluation, treatment, and prevention of vitamin D deficiency: an Endocrine Society clinical practice guideline. JCEM. 2010; 96(7):1911-30. :32 MICROALBUMIN: CREATININE Comments: PATIENT WAS FASTINGPERFORMED BY: [employer] [id number] BY: [facility]6370 [facility] [id number] RATIO (25144) AND (52323) Microalb/Creat Ratio 11.2 {mg/g_creat} (Normal) Range: 0.0-30.0 Microalbumin, Urine 18.2 ug/mL (Normal) Creatinine, Urine 162.1 mg/dL (Normal) :32 CBC, Platelets & Auto Comments: PATIENT WAS FASTINGPERFORMED BY: K12 EnterpriseJill [place] [address]327 [facility] [id number] BY: [facility] HospitalViVuHealthSouth - [facility] of UnionDsjksf7302 [facility] [id number] Diff (38931) Immature Grans (Abs) 0.0 {x10E3/uL} (Normal) Range: [...] Comments: PATIENT WAS FASTINGPERFORMED BY: BN [facility] Ivsmildlot9455 [facility] [id number] BY: CB [facility] Ukwvfo8242 [facility] [id number] Comprehensive (20622) ALT (SGPT) 46 [iU]/L (Abnormal) Range: 0-32 [...] Glucose, Serum 109 mg/dL (Abnormal) Range: 65-99 :32 LIPOPROTEIN, BLD, BY NMR Comments: PATIENT WAS FASTINGPERFORMED BY: BN [facility] Srhqgwmirn9929 [facility] [id number] BY: CB [facility] Vlfhdh2496 [facility] [id number] Information: NURSE DRAW (56742) LP-IR Score 42 (Normal) Comments: INSULIN RESISTANCE MARKER <--Insulin Sensitive Insulin Resistant--> Percentile in Reference PopulationInsulin Resistance ScoreLP-IR Score Low 25th 50th 75th High <27 27 45 63 >63LP-IR Score is inaccurate if patient is non-fasting. .The LP-IR score is a laboratory developed i [facility] that has beenassociated with insulin [...] were developed and their performance characteristicsdetermined by [employer]24. These assays have not been cleared by [...] FREE (TRIDOTHYRONINE) Comments: PATIENT WAS FASTINGPERFORMED BY: [employer] [address] [id number] BY: [employer] YieldMo [facility] [id number] (24955) Triiodothyronine,Free,Serum 4.2 pg/mL (Normal) Range: 2.0-4.4 :32 T4, FREE (THYROXINE) Comments: PATIENT WAS FASTINGPERFORMED BY: [employer] [address] [id number] BY: [employer] [address] [facility] Surgical HospitalBiiCodeC[facility] [id number] (81977) T4,Free(Direct) 1.02 ng/dL (Normal) Range: 0.82-1.77 :32 TSH (06957) Comments: PATIENT WAS FASTINGPERFORMED BY: [employer] [employer] [id number] BY: [employer] Y[employer]Mo [facility] [id number] TSH 2.070 {uIU/mL} (Normal) Range: 0.450-4.500 :49 URINE ANNETTE CULTURE-IDENTIFICATN Comments: PATIENT NOT FASTINGPERFORMED BY: [employer] [facility] [id number] Information: [id number] SRC: (92786) Result 1 MUG (Normal) Comments: Mixed urogenital flora10,000-25,000 colony forming units per mL Urine Final report (Normal) Culture,Comprehensive :47 Urinalysis, Office (93391) UA - LEUKOCYTE ESTERASE Small (Normal) UA - NITRITE Negative (Normal) URINE UROBILINGN TEMO TIMED 2 mg/dL (Normal) UA - PROTEIN Negative mg/dL (Normal) UA - PH 6.0 (Normal) UA - BLOOD Negative (Normal) UA - SPECIFIC GRAVITY 1.025 (Normal) UA - KETONES Negative mg/dL (Normal) UA - BILIRUBIN Negative (Normal) UA - GLUCOSE Negative (Normal) :47 HgA1C , Office (05496) HgA1C , Office 5.7 % (Normal) Range: 4.6 - 7.1 :11 HgA1C , Office (31396) HgA1C , Office 5.7 % (Normal) Range: 4.6 - 7.1 :43 TSH (20593) Comments: PATIENT WAS FASTINGPERFORMED BY: [employer] [id number] BY: MTailor6370 [facility] [id number] TSH 2.950 {uIU/mL} (Normal) Range: 0.450-4.500 :43 LIPOPROTEIN, BLD, BY NMR Comments: PATIENT WAS FASTINGPERFORMED BY: [employer] LabMobilizMzqkuknths0114 [facility] [id number] BY: [employer] Hsydgq2842 [facility] [id number] (43294) LP-IR Score 39 (Normal) Comments: INSULIN RESISTANCE MARKER <--Insulin Sensitive Insulin Resistant--> Percentile in Reference PopulationInsulin Resistance ScoreLP-IR Score Low 25th 50th 75th High <27 27 45 63 >63LP-IR Score is inaccurate if patient is non-fasting. .The LP-IR score is a laboratory developed i [facility] that has beenassociated with insulin [...] 1600 - 2000 Very High > 2000 51-Wlr-24408:43 CBC, Platelets & Auto Comments: PATIENT WAS FASTINGPERFORMED BY: [employer] [address] [id number] BY: ARIADNE [employer] Zjbcgq2117 [facility] [id number] Diff (40508) Immature Grans (Abs) 0.0 {x10E3/uL} (Normal) Range: [...] 3.77-5.28 WBC 5.9 {x10E3/uL} (Normal) Range: 3.4-10.8 34-Pgw-12206:43 Metabolic Panel, Comments: PATIENT WAS FASTINGPERFORMED BY: [employer] [id number] BY: [place] [place] 9529870 [facility] [id number]; fu 3-31 [facility] (38298) ALT (SGPT) 49 [iU]/L (Abnormal) Range: 0-32 [...] (Abnormal) Range: 65-99 :13 HgA1C , Office (90077) HgA1C , Office 5.8 % (Normal) Range: 4.6 - 7.1 :07 POTASSIUM SERUM (40682) Comments: one month; PATIENT WAS FASTINGPERFORMED BY: [facility] [id number] BY: [facility]Core[facility]6370 [facility] [id number] Potassium, Serum 4.5 mmol/L (Normal) Range: 3.5-5.2 :07 HEPATIC FUNCTION PANEL Comments: in one month and three months (approximately); PATIENT WAS FASTINGPERFORMED BY: [employer] [id number] BY: [facility]StreamCorewell [facility]6370 [facility] [id number] (44688) ALT (SGPT) 77 [iU]/L (Abnormal) Range: 0-32 [...] three months (approximately); PATIENT WAS FASTINGPERFORMED BY: [employer] [address] [id number] BY: [address] 9529870 [facility] [id number] (76615) LP-IR Score 77 (Abnormal) Comments: INSULIN RESISTANCE MARKER <--Insulin Sensitive Insulin Resistant--> Percentile in Reference PopulationInsulin Resistance ScoreLP-IR Score Low 25th 50th 75th High <27 27 45 63 >63LP-IR Score is inaccurate if patient is non-fasting. .The LP-IR score is a laboratory developed i [facility] that has beenassociated with insulin [...] were developed and their performance characteristicsdetermined by [employer]. These assays have not been cleared by [...] High > 2000 :10 HgA1C , Office (97068) HgA1C , Office 5.8 % (Normal) Range: 4.6 - 7.1 :47 CBC WITH MANUAL DIFF Comments: PATIENT NOT FASTINGPERFORMED BY: LabLafayette Regional Health CenterPqcpcr6629 [facility] [id number] Information: [id number] (30755) Immature Grans (Abs) 0.0 {x10E3/uL} (Normal) Range: [...] 5.8 {x10E3/uL} (Normal) Range: 3.4-10.8 :47 TSH (89803) Comments: PATIENT NOT FASTINGPERFORMED BY: [facility] [id number]; [address] TSH 2.390 {uIU/mL} (Normal) Range: 0.450-4.500 :48 [id number]-[id number]-[id number] (22020) Comments: PATIENT WAS FASTINGPERFORMED BY: [facility] [id number] AFP, Serum, Tumor Marker 1.7 ng/mL (Normal) Range: 0.0-8.3 Comments: Altagracia ECLIA methodology :48 HEPATITIS PANEL (27292) Comments: PATIENT WAS FASTINGPERFORMED BY: K12 EnterpriseHealthSouth [facility] Hospital of UnionIsgkpb4583 [facility] [id number] Hep C Virus Ab <0.1 {s/co_ratio} (Normal) Range: 0.0-0.9 Comments: Negative: < 0.8 Indeterminate: 0.8 - 0.9 Positive: > 0.9 . The CDC recommends that a positive HCV antibody result be followed up with a HCV Nucleic Acid Amplification test (595774). Hep B Core Ab, IgM Negative (Normal) HBsAg Screen Negative (Normal) Hep A Ab, IgM Negative (Normal) :48 LIPID PANEL (51965) Comments: PATIENT WAS FASTINGPERFORMED BY: K12 EnterpriseHealthSouth - [facility] Hospital of UnionYwsjkp3933 [facility] [id number]; [address] LDL/HDL Ratio 2.0 {ratio_units} (Normal) [...] METABOLIC PANEL, Comments: PATIENT WAS FASTINGPERFORMED BY: [facility]6370 [facility] [id number] Information: [id number],2ND ORDER COMPREHENSIVE (34235) ALT (SGPT) 36 [iU]/L (Abnormal) Range: 0-32 [...] Auto Diff Comments: PATIENT NOT FASTINGPERFORMED BY: LabCoHealthSouth - Specialty Hospital of UnionDpqjah4033 [facility] [id number] Information: [id number] (72974) Immature Grans (Abs) 0.0 {x10E3/uL} (Normal) Range: [...] (Normal) Range: 3.4-10.8 28-Jun-20159:29 Renal function Panel (20183) Comments: PATIENT NOT FASTINGPERFORMED BY: [facility] Raabgx6971 [facility] [id number] Albumin, Serum 3.8 g/dL (Normal) Range: 3.6-4.8 [...] mg/dL (Normal) Range: 65-99 :58 Rapid Flu (01045 x 2) Influenza A Ag Negative a/b (Normal) 59-Syh-553398:09 URINE ANNETTE CULTURE-TEMO COL Comments: PATIENT NOT FASTINGPERFORMED BY: [facility] Jafhzl7151 [facility] [id number] Information: SRC:UR [id number] COUNT (84105) Result 1 NG36 (Normal) Comments: No growth in 36 - 48 hours. Urine Culture,Comprehensive Final report (Normal) :05 Urinalysis, Office (23810) UA - LEUKOCYTE ESTERASE Trace (Normal) UA - NITRITE Negative (Normal) URINE UROBILINGN TEMO TIMED Normal mg/dL (Normal) UA - PROTEIN Negative mg/dL (Normal) UA - PH 5 (Abnormal) UA - BLOOD Negative (Normal) UA - SPECIFIC GRAVITY 1.030 (Abnormal) UA - KETONES Negative mg/dL (Normal) UA - BILIRUBIN Negative (Normal) UA - GLUCOSE Negative (Normal) 53-Seg-33493:28 URINE ANNETTE CULTURE-IDENTIFICATN Comments: PATIENT NOT FASTINGPERFORMED BY: LabCoSecondbrain [address] [id number] Information: [id number] (14705) Result 1 NG36 (Normal) Comments: No growth in 36 - 48 hours. Urine Culture,Comprehensive Final report (Normal) 88-Wxr-85293:50 Urinalysis, Office (55900) UA - LEUKOCYTE ESTERASE Negative (Normal) UA [...] ANNETTE CULTURE-IDENTIFICATN Comments: PATIENT NOT FASTINGPERFORMED BY: [facility] Whtxks5054 [facility] [id number] Information: [id number] (26108) Result 2 MUG (Normal) Comments: Mixed urogenital [...] Culture,Comprehensi (Abnormal) ve :16 HgA1C , Office (67256) HgA1C , Office 5.6 % (Normal) Range: 4.6 - 7.1 :16 Blood Glucose , Office (24603) Blood Glucose , Office 110 (Normal) :59 Urinalysis, Office (57050) UA - LEUKOCYTE ESTERASE Trace (Normal) UA - NITRITE Negative (Normal) URINE UROBILINGN TEMO TIMED Normal mg/dL (Normal) UA - PROTEIN Negative mg/dL (Normal) UA - PH 5 (Abnormal) UA - BLOOD Negative (Normal) UA - SPECIFIC GRAVITY 1.015 (Normal) UA - KETONES Negative mg/dL (Normal) UA - BILIRUBIN Negative (Normal) UA - GLUCOSE Negative (Normal) 8-Kdi-758791:41 Metabolic Panel, Comprehensive Comments: PATIENT WAS FASTINGPERFORMED BY: [facility] Ltxltv0501 [facility] [id number] (93040) ALT (SGPT) 30 [iU]/L (Normal) Range: 0-32 [...] Glucose, Serum 109 mg/dL (Abnormal) Range: 65-99 4-Xbo-528577:41 Lipid Panel (38897) Comments: PATIENT WAS FASTINGPERFORMED BY: [employer]6370 [facility] [id number]; [address] LDL/HDL Ratio 2.3 {ratio_units} (Normal) [...] Cholesterol, Total 201 mg/dL (Abnormal) Range: 100-199 5-Cff-202807:41 CBC WITH MANUAL DIFF Comments: PATIENT WAS FASTINGPERFORMED BY: [employer]6370 [facility] [id number] Information: [id number] (73870) Immature Grans (Abs) 0.0 {x10E3/uL} (Normal) Range: [...] 6.5 {x10E3/uL} (Normal) Range: 3.4-10.8 :41 TSH (70274) Comments: PATIENT WAS FASTINGPERFORMED BY: LabCoHealthSouth - [facility] of UnionRseupz6768 [facility] [id number] TSH 2.690 {uIU/mL} (Normal) Range: 0.450-4.500 :40 HgA1C , Office (52887) HgA1C , Office 5.6 % (Normal) Range: 4.6 - 7.1 :40 Blood Glucose , Office (50778) Blood Glucose , Office 98 (Normal) :11 TSH (08184) Comments: PATIENT WAS FASTINGPERFORMED BY: [employer] Qvhobs7110 [facility] [id number] TSH 2.680 {uIU/mL} (Normal) Range: 0.450-4.500 :11 METABOLIC PANEL, COMPREHENSIVE Comments: PATIENT WAS FASTINGPERFORMED BY: [employer] Gajfkr9280 [facility] [id number] (46703) ALT (SGPT) 35 [iU]/L (Abnormal) Range: 0-32 [...] mg/dL (Normal) Range: 65-99 :11 LIPID PANEL (97478) Comments: PATIENT WAS FASTINGPERFORMED BY: [employer] Zuygpt5945 [facility] [id number] LDL/HDL Ratio 2.3 {ratio_units} (Normal) Range: 0.0-3.2 [...] Cholesterol, Total 222 mg/dL (Abnormal) Range: 100-199 32-Jqn-89177:11 CBC W/AUTO DIFF WBC Comments: PATIENT WAS FASTINGPERFORMED BY: [facility] Ecmwqb4011 [facility] [id number] Information: [id number] (15617) Immature Grans (Abs) 0.0 {x10E3/uL} (Normal) Range: [...] (Normal) Range: 3.4-10.8 :37 HgA1C , Office (05657) HgA1C , Office 5.9 % (Normal) Range: 4.6 - 7.1 :36 Blood Glucose , Office (95453) Blood Glucose , Office 107 (Normal) :44 Metabolic Panel, Comments: PATIENT WAS FASTINGPERFORMED BY: LabCoHealthSouth - [facility] Hospital of UnionSciovx2925 [facility] [id number] Information: [id number],2ND ORDER Comprehensive (07403) ALT (SGPT) 35 [iU]/L (Abnormal) Range: 0-32 [...] Glucose, Serum 96 mg/dL (Normal) Range: 65-99 35-Krp-97958:44 HEPATITIS PANEL (14964) Comments: PATIENT WAS FASTINGPERFORMED BY: [facility]6370 [facility] [id number] Hep C Virus Ab <0.1 {s/co_ratio} (Normal) Range: 0.0-0.9 Comments: Negative: < 0.8 Indeterminate: 0.8 - 0.9 Positive: > 0.9 . In order to reduce the incidence of a false positive result, the CDC recommends that all s/co ratios between 1.0 and 10.9 be confirmed by a more specific supplemental or PCR testing. [facility] offers HCV Ab w/Reflex to Verification test #032864. Hep B Core Ab, IgM Negative (Normal) HBsAg Screen Negative (Normal) Hep A Ab, IgM Negative (Normal) 77-Gli-80176:44 FERRITIN (89229) Comments: PATIENT WAS FASTINGPERFORMED BY: [facility]6370 [facility] [id number] Ferritin, Serum 72 ng/mL (Normal) Range: 15-150 :44 CBC WITH MANUAL DIFF Comments: PATIENT WAS FASTINGPERFORMED BY: [facility]6370 [facility] [id number] Information: [id number] (50719) Immature Grans (Abs) 0.0 {x10E3/uL} (Normal) Range: [...] FUNCTION PANEL Comments: PATIENT WAS FASTINGPERFORMED BY: LabCoHealthSouth - [facility] of UnionBdrlpb9010 [facility] [id number] (65913) ALT (SGPT) 36 [iU]/L (Abnormal) Range: 0-32 AST (SGOT) 29 [iU]/L (Normal) Range: 0-40 Alkaline Phosphatase, S 80 [iU]/L (Normal) Range: 39-117 Bilirubin, Direct 0.10 mg/dL (Normal) Range: 0.00-0.40 Bilirubin, Total 0.3 mg/dL (Normal) Range: 0.0-1.2 Albumin, Serum 4.2 g/dL (Normal) Range: 3.5-5.5 Protein, Total, Serum 7.0 g/dL (Normal) Range: 6.0-8.5 :13 HgA1C , Office (34552) HgA1C , Office 5.9 % (Normal) Range: 4.6 - 7.1 :13 Blood Glucose , Office (22676) Blood Glucose , Office 110 (Normal) :14 HEPATIC FUNCTION PANEL Comments: PATIENT WAS FASTINGPERFORMED BY: K12 EnterpriseHealthSouth - [facility] Hospital of UnionHsdmsx6374 [facility] [id number]; elevated but not critical -- has appt already sched (41014) ALT (SGPT) 43 [iU]/L (Abnormal) Range: 0-32 AST (SGOT) 39 [iU]/L (Normal) Range: 0-40 Alkaline Phosphatase, S 76 [iU]/L (Normal) Range: 39-117 Bilirubin, Direct 0.12 mg/dL (Normal) Range: 0.00-0.40 Bilirubin, Total 0.4 mg/dL (Normal) Range: 0.0-1.2 Albumin, Serum 4.2 g/dL (Normal) Range: 3.5-5.5 Protein, Total, Serum 7.0 g/dL (Normal) Range: 6.0-8.5 :14 LIPID PANEL (99614) Comments: PATIENT WAS FASTINGPERFORMED BY: [place]odaStreamAmanda [place] 9294170 [facility] [id number] Information: [id number] LDL/HDL Ratio 2.0 {ratio_units} (Normal) Range: 0.0-3.2 [...] (THYROID STIMULATING Comments: PATIENT NOT FASTINGPERFORMED BY: [facility]StreamCorewell [facility]6370 [facility] [id number] Information: [id number],2ND ORDER HORMONE) (27889) TSH 2.290 {uIU/mL} (Normal) Range: 0.450-4.500 :22 TSH (86616) Comments: PATIENT NOT FASTINGPERFORMED BY: [facility]6370 [facility] [id number] TSH 1.850 {uIU/mL} (Normal) Range: 0.450-4.500 :22 HEPATIC FUNCTION PANEL Comments: PATIENT NOT FASTINGPERFORMED BY: [facility]6370 [facility] [id number] Information: [id number] (90667) ALT (SGPT) 40 [iU]/L (Abnormal) Range: 0-32 Alkaline Phosphatase, S 70 [iU]/L (Normal) Range: 39-117 AST (SGOT) 34 [iU]/L (Normal) Range: 0-40 Bilirubin, Direct 0.09 mg/dL (Normal) Range: 0.00-0.40 Bilirubin, Total 0.3 mg/dL (Normal) Range: 0.0-1.2 Albumin, Serum 4.3 g/dL (Normal) Range: 3.5-5.5 Protein, Total, Serum 7.1 g/dL (Normal) Range: 6.0-8.5 :22 HgA1C , Office (99040) HgA1C , Office 6.0 % (Normal) Range: 4.6 - 7.1 :22 Blood Glucose , Office (01340) Blood Glucose , Office 113 (Normal) :51 METABOLIC PANEL, COMPREHENSIVE Comments: PATIENT WAS FASTINGPERFORMED BY: [facility]6370 [facility] [id number] (13712) ALT (SGPT) 40 [iU]/L (Abnormal) Range: 0-32 [...] Glucose, Serum 92 mg/dL (Normal) Range: 65-99 58-Vpi-29501:51 CBC WITH MANUAL DIFF Comments: PATIENT WAS FASTINGPERFORMED BY: LabCoHealthSouth [facility] of UnionMqjosr0955 [facility] [id number] Information: [id number] (38180) Immature Grans (Abs) 0.0 {x10E3/uL} (Normal) Range: [...] {x10E3/uL} (Normal) Range: 3.4-10.8 :51 LIPID PANEL (22437) Comments: PATIENT WAS FASTINGPERFORMED BY: K12 EnterpriseHealthSouth - [facility] Hospital of UnionBxlxed3457 [facility] [id number] LDL/HDL Ratio 2.3 {ratio_units} (Normal) Range: 0.0-3.2 LDL Cholesterol Calc 138 mg/dL (Abnormal) Range: 0-99 VLDL Cholesterol Christopher 21 mg/dL (Normal) Range: 5-40 HDL Cholesterol 60 mg/dL (Normal) Comments: According to ATP-III Guidelines, HDL-C >59 mg/dL is considered anegative risk factor for CHD. Triglycerides 105 mg/dL (Normal) Range: 0-149 Cholesterol, Total 219 mg/dL (Abnormal) Range: 100-199 :17 TSH (13797) Comments: PATIENT WAS FASTINGPERFORMED BY: K12 EnterpriseHealthSouth - [facility] Hospital of UnionYfvuss1335 [facility] [id number] TSH 1.960 {uIU/mL} (Normal) Range: 0.450-4.500 :17 METABOLIC PANEL, Comments: PATIENT WAS FASTINGPERFORMED BY: [facility]StreamCorewell [facility]6370 [facility] [id number] Information: [id number] COMPREHENSIVE (70719) ALT (SGPT) 33 [iU]/L (Abnormal) Range: 0-32 [...] Glucose, Serum 88 mg/dL (Normal) Range: 65-99 9-Vbx-346882:45 Blood Glucose , Office (70759) Blood Glucose , Office 89 (Normal) 8-Nfv-881952:45 HgA1C , Office (87377) HgA1C , Office 5.6 % (Normal) Range: 4.6 - 7.1 23-Nxq-24041:22 FOOT MIN 3 VIEWS Radiology Report See [...] M.D.November 10, 2012 at 8:55 :21 AM [id number] Signed RU/RU If you are the referring physician and would like to consult with theradiologist who provided this interpretation, please contact Andree Mcleod. a t [phone]. If this radiologist is unavailable, youwillbe directed to another radiologist to assist. If you are a patient with a question regarding this report, pleasecontactyour referring physician directly. Professional Interpretation Provided By: [employer], Phone , These documents contain legally protected [...] the return or destructionofthese documents. Dictated on 11/10/12 0855 by Alexandre WomackTranscribe d on 11/10/12 0859 by ITS IMPORTSign by Alexandre Womack on 11/10/12 0900 Sign by: Alexandre Womack 23-Jan-20138:45 T4, FREE (THYROXINE) (31030) Comments: PATIENT WAS FASTINGPERFORMED BY: [facility]6370 [facility] [id number] T4,Free(Direct) 1.06 ng/dL (Normal) Range: 0.82-1.77 :45 T3, FREE (TRIDOTHYRONINE) (60691) Comments: PATIENT WAS FASTINGPERFORMED BY: [facility]6370 [facility] [id number] Triiodothyronine,Free,Serum 3.7 pg/mL (Normal) Range: 2.0-4.4 :45 TSH (90504) Comments: PATIENT WAS FASTINGPERFORMED BY: LabCorewell [facility]6370 [facility] [id number] TSH 1.670 {uIU/mL} (Normal) Range: 0.450-4.500 :45 METABOLIC PANEL, COMPREHENSIVE Comments: PATIENT WAS FASTINGPERFORMED BY: [facility]6370 [facility] [id number] (63801) ALT (SGPT) 31 [iU]/L (Normal) Range: 0-32 [...] mg/dL (Normal) Range: 65-99 :45 LIPID PANEL (06879) Comments: PATIENT WAS FASTINGPERFORMED BY: [employer]70 [facility] [id number] LDL/HDL Ratio 2.7 {ratio_units} (Normal) Range: 0.0-3.2 [...] MANUAL DIFF Comments: PATIENT WAS FASTINGPERFORMED BY: [employer]6370 [facility] [id number] Information: [id number] (39254) Immature Grans (Abs) 0.0 {x10E3/uL} Range: 0.0-0.1 [...] 1.770 {uIU/mL} Comments: PATIENT WAS FASTINGPERFORMED BY: [employer] Yowsnc4665 [facility] [id number] Information: [id number] :02 (Normal) Range: 0.450-4.500 Written Authorization WAR (Normal) Comments: PATIENT WAS FASTINGPERFORMED BY: K12 EnterpriseHealthSouth - [facility] Hospital of UnionBsmvoj8522 [facility] [id number] :02 Comments: Written Authorization Received.Authorization received from DR DIAL [id number] by Ignacia Lozano :02 LIPID PANEL (64063) Comments: PATIENT WAS FASTINGPERFORMED BY: K12 EnterpriseHealthSouth - Special[facility] Hospital of UnionVchwxq2065 [facility] [id number] LDL/HDL Ratio 2.3 {ratio_units} (Normal) Range: 0.0-3.2 LDL Cholesterol Calc 133 mg/dL (Abnormal) Range: 0-99 VLDL Cholesterol Christopher 23 mg/dL (Normal) Range: 5-40 HDL Cholesterol 59 mg/dL (Normal) Comments: According to ATP-III Guidelines, HDL-C >59 mg/dL is considered anegative risk factor for CHD. Triglycerides 116 mg/dL (Normal) Range: 0-149 Cholesterol, Total 215 mg/dL (Abnormal) Range: 100-199 :02 CBC (Auto) (00575) Comments: PATIENT WAS FASTINGPERFORMED BY: K12 EnterpriseHealthSouth - [facility] Hospital of UnionZerjyi2168 [facility] [id number] Platelets 269 {x10E3/uL} (Normal) Range: 140-415 RDW 14.4 % (Normal) Range: 12.3-15.4 MCHC 33.6 g/dL (Normal) Range: 31.5-35.7 MCH 29.8 pg (Normal) Range: 26.6-33.0 MCV 89 fL (Normal) Range: 79-97 Hematocrit 40.5 % (Normal) Range: 34.0-46.6 Hemoglobin 13.6 g/dL (Normal) Range: 11.1-15.9 RBC 4.57 {x10E6/uL} (Normal) Range: 3.77-5.28 WBC 6.2 {x10E3/uL} (Normal) Range: 4.0-10.5 :02 Metabolic Panel, Comments: PATIENT WAS FASTINGPERFORMED BY: [facility]StreamCorewell [facility]6370 [facility] [id number] Information: [id number] Comprehensive (17838) ALT (SGPT) 32 [iU]/L (Normal) Range: 0-32 [...] (Abnormal) Range: 65-99 :02 T3, FREE (TRIDOTHYRONINE) (37300) Comments: PATIENT WAS FASTINGPERFORMED BY: [facility]odaStreamAmanda [place] 9294170 [facility] [id number] Triiodothyronine,Free,Serum 3.9 pg/mL (Normal) Range: 2.0-4.4 :02 T4, FREE (THYROXINE) (59172) Comments: PATIENT WAS FASTINGPERFORMED BY: [facility]StreamCorewell [facility]6370 [facility] [id number] T4,Free(Direct) 0.94 ng/dL (Normal) Range: 0.82-1.77 :02 T4, TOTAL (50044) Comments: PATIENT WAS FASTINGPERFORMED BY: [facility]StreamCorewell [facility]6370 [facility] [id number] Thyroxine (T4) 7.3 ug/dL (Normal) Range: 4.5-12.0 :07 TSH (36596) Comments: PATIENT NOT FASTINGPERFORMED BY: [facility]StreamAmanda [place] 9294170 [facility] [id number] Information: [id number] TSH 1.970 {uIU/mL} (Normal) Range: 0.450-4.500 :35 URINE ANNETTE CULTURE (TEMO Comments: and sensitivity; PATIENT NOT FASTINGPERFORMED BY: [place] 1263470 [facility] [id number] Information: SRC:JOSTIN [id number] COL COUNT) (61503) Result 1 BETAGB (Normal) Comments: Beta hemolytic [...] (CLSI 2010) Urine Final report (Normal) Culture,Comprehensive 95-Etd-518614:49 Urinalysis, Office (16377) UA - LEUKOCYTE ESTERASE Negative (Normal) UA - NITRITE Negative (Normal) URINE UROBILINGN TEMO TIMED Normal mg/dL (Normal) UA - PROTEIN Negative mg/dL (Normal) UA - PH 7.0 (Normal) UA - BLOOD Negative (Normal) UA - SPECIFIC GRAVITY 1.025 (Normal) UA - KETONES Negative mg/dL (Normal) UA - GLUCOSE Negative (Normal) 71-Xny-70704:15 CBC WITH MANUAL DIFF Comments: PATIENT WAS FASTINGPERFORMED BY: LabCoHealthSouth - [facility] of UnionWmbaik7061 [facility] [id number] Information: [id number] (85935) Immature Grans (Abs) 0.0 {x10E3/uL} (Normal) Range: [...] {x10E3/uL} (Normal) Range: 4.0-10.5 :15 LIPID PANEL (33717) Comments: PATIENT WAS FASTINGPERFORMED BY: [employer] [facility] [id number] LDL/HDL Ratio 2.5 {ratio_units} (Normal) Range: 0.0-3.2 [...] FUNCTION PANEL Comments: PATIENT WAS FASTINGPERFORMED BY: [employer]6370 [facility] [id number] (78768) ALT (SGPT) 32 [iU]/L (Normal) Range: 0-40 AST (SGOT) 29 [iU]/L (Normal) Range: 0-40 Alkaline Phosphatase, S 69 [iU]/L (Normal) Range: 25-150 Bilirubin, Direct 0.10 mg/dL (Normal) Range: 0.00-0.40 Bilirubin, Total 0.4 mg/dL (Normal) Range: 0.0-1.2 Albumin, Serum 4.3 g/dL (Normal) Range: 3.5-5.5 Protein, Total, Serum 7.4 g/dL (Normal) Range: 6.0-8.5 :15 Metabolic Panel, Basic (21149) Comments: PATIENT WAS FASTINGPERFORMED BY: K12 EnterpriseAl[facility] HospitalKdilcq6015 [facility] [id number] Calcium, Serum 9.6 mg/dL (Normal) Range: 8.7-10.2 [...] 96 mg/dL (Normal) Range: 65-99 :15 TSH (41685) Comments: PATIENT WAS FASTINGPERFORMED BY: K12 EnterpriseHealthSouth - [facility] of UnionZvuxgi1038 [facility] [id number] TSH 1.500 {uIU/mL} (Normal) Range: 0.450-4.500 :15 T4, FREE (THYROXINE) (64531) Comments: PATIENT WAS FASTINGPERFORMED BY: K12 EnterpriseHealth[facility] of UnionMdbiya6801 [facility] [id number] T4,Free(Direct) 0.96 ng/dL (Normal) Range: 0.82-1.77 :15 T3, FREE (TRIDOTHYRONINE) (43227) Comments: PATIENT WAS FASTINGPERFORMED BY: K12 EnterpriseHealthSouth - [facility] Hospital of UnionLnvoto7924 [facility] [id number] Triiodothyronine,Free,Serum 3.3 pg/mL (Normal) Range: 2.0-4.4 :02 [...] Range: 6.4-8.2 :37 Rapid Strep Test, Office (35100) Rapid Strep Test, Office Negative (Normal) :37 HgA1C , Office (60687) HgA1C , Office 6.0 % (Normal) Range: 4.6 - 7.1 :37 Blood Glucose , Office (13383) Blood Glucose , Office 122 (Normal) :26 [...] ronda isolated. No beta-hemolyticstreptococcus isolated. :07 EBVIgG/M [id number] EB-NAg [id number] > 8.0 {AI} (Abnormal) Range: 0.0-0.8 Comments: [...] esent - Antibody AbsentPerformed at: - [facility] [address] [id number] Director: Melanie Hartman MD, Phone: [phone] EB-EA IgG 00661 1.3 {AI} (Abnormal) Range: 0.0-0.8 Comments: Negative <0.9 Equivocal 0.9 - 1.0 Positive >1.0 EB-VCA [id number] > 8.0 {AI} (Abnormal) Range: 0.0-0.8 Comments: Negative <0.9 Equivocal 0.9 - 1.0 Positive >1.0 EB-VCA [id number] < 0.2 {AI} (Normal) Range: 0.0-0.8 Comments: Negative <0.9 Equivocal 0.9 - 1.0 Positive >1.0 :07 FREE T3 7.0 pg/mL (Abnormal) Range: 2.18-3.98 :07 T4 FREE DIRECT 0.46 ng/dL (Abnormal) Range: 0.76-1.46 :07 TSH 1.82 {uIU/mL} (Normal) Range: 0.358-3.74 :50 Rapid Strep Test, Office ([id number]) Rapid Strep Test, Negative (Normal) Office :36 EB-NAg [id number] > 8.0 {AI} (Abnormal) Range: 0.0-0.8 Comments: Negative <0.9 Equivocal 0.9 - 1.0 Positive >1.0 :36 EB-VCA [id number] > 8.0 {AI} (Abnormal) Range: 0.0-0.8 Comments: Negative <0.9 Equivocal 0.9 - 1.0 Positive >1.0 :36 EB-EA IgG 20759 1.5 {AI} (Abnormal) Range: 0.0-0.8 Comments: Negative <0.9 Equivocal 0.9 - 1.0 Positive >1.0Performed at: [facility] [id number] [place], [place] [id number] Director: Melanie Hartman MD, Phone: [phone] :25 CKMB Comments: Please Note: TROPONIN REFERENCE RANGE CHANGEEffective MAY 21, 2009. CPKMB 0.5 ng/mL (Normal) Range: 0.0-5.0 Comments: CK-MB and RI Interpretation MB Relative Index Non-AMI <or= 5 NA Indeterminate > 5 <or= 4 AMI > 5 > 4 CPK TOTAL 60 U/L (Normal) Range: 21-215 20-Nez-09495:25 TROPONIN-I < 0.02 ng/mL (Normal) Comments: Please [...] SD > OR = 0.60 SUGGEST SD :40 TROPONIN-I < 0.02 ng/mL (Normal) Comments: Please [...] FREE DIRECT 0.51 ng/dL (Abnormal) Range: 0.76-1.46 : TSH 1.54 {uIU/mL} (Normal) Range: 0.358-3.74 :26 HgA1C , Office (90852) HgA1C , Office 5.4 % (Normal) Range: 4.6 - 7.1 :26 Blood Glucose , Office (82416) Blood Glucose , Office 89 (Normal) :54 CORTISOL 7.59 ug/dL (Normal) Range: 3.09-22.40 Comments: Adult (AM) 4.30 - 22.40 ug/dLAdult (PM) 3.09 - 16.66 ug/dL :54 DHEA SULF 4697 33.4 ug/dL (Normal) Range: 18.9-205.0 :54 ESTRADIOL 4515 28.9 pg/mL (Normal) Comments: Adult Female:Follicular phase 12.5 - 166.0Ovulation phase 85.8 - 498.0Luteal phase 43.8 - 211.0Postmenopausal <6.0 - 54.3Evotfkmsg3eo trimester 215.0 - >4300.0Girls (1- 10 years) 6.0 - 27.0Roche ECLIA methodology :54 FREE T3 2.1 pg/mL (Abnormal) Range: 2.18-3.98 :54 GLU 90 mg/dL (Normal) Range: 70-110 :54 INSULIN 4333 16.9 {uIU/mL} Range: 0.0-24.9 (Normal) Comments: Performed at: [address] [id number] Director: Melanie Hartman MD, Phone: [phone] :54 PROGESTER. 4317 2.7 ng/mL (Normal) Comments: [...] Plan of Care Name Dates Details Instructions Nonsmoker : Eprescribed prescriptions (G8553) Indication: Nonsmoker Hypercholesteremia (Renamed from Hypercholesterolemia) : Cholesterol mgmt [...] Education - Female Indication: Bronchitis Planned Observations LDL CHOLESTEROL-DIRECT (98599)Indication: Hypercholesteremia (Renamed from Hypercholesterolemia) On: :47 Request HEPATIC FUNCTION PANEL (74623)Indication: Hypercholesteremia (Renamed from Hypercholesterolemia) On: :26 Request T3, FREE (TRIDOTHYRONINE) (04177)Indication: Hypothyroidism On: :19 Request T4, FREE (THYROXINE) (98036)Indication: Hypothyroidism On: : Request TSH (61878)Indication: Hypothyroidism On: : Request URINE ANNETTE CULTURE-IDENTIFICATN (18445)Indication: UTI symptoms On: :45 Request OCCULT BLOOD FECES SCREEN (56236)Indication: Dehydration On: :30 Request OVA & PARASITE DIR SMEAR (26711)Indication: Dehydration On: :30 Request LEUKOCYTE COUNT, FECAL (61692)Indication: Dehydration On: :30 Request C-DIFFICILE, STOOL (37626)Indication: Dehydration On: :30 Request ANNETTE CULTURE-STOOL (63577)Indication: Dehydration On: :30 Request Metabolic Panel, Basic (55074)Indication: Hypertension, benign On: 39-Vdl-043063:06 Request Comments: due in 1 week. Metabolic Panel, Basic (48828)Indication: Hypertension, benign On: 07-Uyz-656163:40 Request ANNETTE CULTURE-OTHER (43890)Indication: Pharyngitis, acute On: :37 Request TSH (78482)Indication: Abnormal TSH On: :30 Request T4, FREE (THYROXINE) (07524)Indication: Abnormal TSH On: :30 Request T3, FREE (TRIDOTHYRONINE) (92756)Indication: Abnormal TSH On: :30 Request TSH (32287)Indication: Abnormal TSH On: 40-Key-49717:57 Request T4, FREE (THYROXINE) (71971)Indication: Abnormal TSH On: :57 Request T3, FREE (TRIDOTHYRONINE) (04162)Indication: Abnormal TSH On: :57 Request ANNETTE CULTURE-OTHER (06425)Indication: Pharyngitis, acute On: :50 Request EB ANTIBODY EARLY ANTIGN (39280)Indication: Fatigue On: 28-Mar-20108:00 Request Comments: today EB ANTIBODY VIRAL CAPSID (48590) V4Mnxbsdfgil: Fatigue On: :57 Request EB ANTIBODY NUCLR ANTIGN (59653)Indication: Fatigue On: :57 Request Planned Encounters Medical; [facility] 3 Month FU - On: 04-Aug-2018 7:00 [facility] Krysten Dial MD, MD, Dana M Planned Procedures Nerve ConductionBy: Krysten Dial MD On: 28-Apr-2018 Intent Krysten Dial MD Comments: both hands. will get back to splints Flu Vaccine (Quadrivalent) 58232Qb: On: 08-Apr-2018 Intent RITA Mendez Comments: Lot #:[id number] date: 8-05-98Rjfyfe given:0.5mlRoute: IMSite given:L DltdGiven by: DBVIS and ABN signed Fluarix COMPLETE ELECTROMYOGRAPHY (EMG) WITH On: 19-Jun-2016 Intent NERVE CONDUCTION STUDIES OF EACH EXTREMITY (05361)By: Krysten Dial MD, MD, Dana M Flu Vaccine (Quadrivalent) 30334Uz: On: 08-May-2016 Intent Krysten Dial MD, MD, Dana M Comments: Lot:[id number]:12/18/16Dose:0.5mLRoute:IMSite:L DltdGiven By:MLVIS signed Nuclear Stress Test/Stress On: 10-Feb-2016 Intent SPECT/TreadmillBy: Krysten Dial MD, MD, Dana M DEXA SCAN AXIAL SKELETON (31957)By: On: 10-Feb-2016 Intent Krysten Dial MD, MD, Dana M TDAP VACCINE >7 IM (05462)By: Nerissa On: 10-Feb-2016 Intent Krysten CASTELLANO MD, Dana M Comments: tdaplot:[id number]:07/12/18site:lt deltroute:IMD.MARY ELLEN Canales IV Needle placement (90898)By: Yusra On: 28-Jun-2015 Intent BRO Francoise Trotter Ultrasound - GallbladderBy: Yusra CRABTREE, On: 28-Jun-2015 Intent Francoise Trotter INFUSION, NORMAL SALINE SOLUTION , On: 28-Jun-2015 Intent 1000 CC (Special Coverage Instructions Comments: lot [id number] ccright antecubas 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 See MCM: 2049) ([id number])By: Francoise Meng CNP Radiology - Foot - LeftBy: Yusra CRABTREE, On: 14-May-2015 Intent Francoise Trotter ADMINISTRATION OF INFLUENZA VIRUS On: 05-Apr-2015 Intent VACCINE (G0008)By: Krysten Dial MD, MD, Dana M Flu Vaccine (Quadrivalent) 78877Od: On: 05-Apr-2015 Intent Krysten Dial MD, MD, Dana M Comments: Lot #:[id number] date:2015Amount given:0.5mlRoute: IMSite given:L DltdGiven by: Nnamdi and ABN signed Quad Flu Flu Vaccine (Quadrivalent) 82514Nr: On: 19-Apr-2014 Intent Krysten Dial MD, MD, Dana M ADMINISTRATION OF INFLUENZA VIRUS On: 19-Apr-2014 Intent VACCINE (G0008)By: Aruna Amaral Venous Doppler - RightBy: Nerissa CASTELLANO, On: 18-Jan-2014 Intent Krysten Hogan MD EKG (04043)By: Krysten Dial MD On: 01-Sep-2013 Intent Krysten Dial MD Comments: see scanned document of test done to see results reviewed today with patient Ultrasound - GallbladderBy: Nerissa On: 01-Sep-2013 Krysten Carter MD, MD, Dana M Ultrasound - LiverBy: Krysten Dial MD On: 01-Sep-2013 Intent Krysten Colunga MD Holter Monitor 24 hrsBy: Nerissa CASTELLANO, On: 01-Sep-2013 Intent Krysten Hogan MD Eprescribed prescriptions (G8553)By: On: 01-Sep-2013 Intent Krysten Dial MD, MD, Dana M Holter Monitor 24 hrsBy: Nerissa CASTELLANO, On: 02-Jun-2013 Intent Krysten Hogan MD Echo CompleteBy: Krysten Dial MD On: 02-Jun-2013 Intent Krysten Dial MD Eprescribed prescriptions (G8553)By: On: 02-Jun-2013 Intent 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, 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 L FLU VAC, SPLIT, >3 YEARS, INTRAMUSC On: 14-Apr-2013 Intent (54059)By: Meagan Hoffman Comments: lot [id number] 2014site/route L latonya, IMamt 0.5mlVIS and ABN signed when applicableChelsea, ESOL TEACHER IMMUNIZ ADMNIN, 1 VAC, SNGL/COMBO On: 14-Apr-2013 Intent (35793)By: Meagan Hoffman Radiology - Foot - RightBy: Nerissa On: 10-Nov-2012 Intent Krysten CASTELLANO MD, Dana M Comments: please call wet read Eprescribed prescriptions (G8553)By: On: 19-Sep-2012 Intent 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 Spirometry (80941)By: Nerissa CASTELLANO, On: 18-Sep-2010 Intent Krysten Hogan MD Pulse Oximetry (62022)By: Jessie GUSMAN, On: 18-Sep-2010 Intent Leidy Pulse Oximetry (57309)By: Andrea, On: 17-Apr-2010 Intent RITA ELECTROCARDIOGRAM, COMPLETE (ECG) On: 01-Apr-2010 Intent (93388)By: Vikki Wetzel Planned Medications INFUSION, NORMAL SALINE SOLUTION , 1000 CC Ordered: 28-Jun-2015 Pending Francoise Meng CNP Instructions Name Dates Details Nonsmoker : How to access health information online Indication: Nonsmoker Nonsmoker : How to access health information online - Detail Indication: Nonsmoker Nonsmoker : Patient Instructions Indication: Nonsmoker BMI 45.0-49.9, adult : How to access [...] Instructions Indication: Fatigue Encounters Office Visit On: 28-Apr-2018 7:04 Encounter Reason: Well Women Exam - The patient feels well with minor complaints, has good energy level and is sleeping poorly (new cpap). Pap smear: date of last pap: (a year ago scheduled in May with permit agent and will End: 28-Apr-2018 8:49 schedule mammogram). Contraceptive history: The patient is not using any method of contraception at this time. Patient does not exercise. The patient's libido is decreased. The patient reports that she performs monthly self breast exam. Calcium intake includes 1500 mg daily supplement. Previous evaluations: hysterectomy.Encounter Diagnosis: BMI 45.0-49.9, adult, Nonsmoker, Encounter for routine adult medical exam with abnormal findings, Fatigue, OREN on CPAP, Hypothyroidism, Allergic rhinitis, Fatty liver, Atrial tachycardia, Postmenopausal (Renamed from Post-menopausal), Keratoconus, bilateral, Paresthesia of hand, Elevated LFTs, Stress reaction, Hypertension with heart disease, Metabolic syndrome, Family history of heart disease, Asthma, Abnormal fasting glucose, Hypercholesteremia (Renamed from Hypercholesterolemia), Obesity (Renamed from Obese), Encounter for hepatitis C virus screening test for high risk patient, UTI symptoms [facility] Office Visit On: 08-Apr-2018 11:30 Encounter Diagnosis: [...] Nutrition: balanced diet and supplemental vitamins. The wa dical issues the patient is following up [...] disease, Obesity (Renamed from Obese), Atrial tachycardia, ROEN on CPAP [facility] Office Visit [...] 3 day(s) ago. Onset followed foreign travel ([facility] for new years). The symptoms occur intermittently. [...] Nutrition: balanced diet and supplemental vitamins. The wa dical issues the patient is following up [...] inhaler and I had to see my bung dropper and my ENT dosent want me o [...] contact with a person with sore throat ([employer]) and swelling of neck glands, whil e [...] (780.79), Menorrhagia(626.2) [facility] Payers [facility] HospitalDeisiRubina BANGURA; sarabjit guarantor
--- OUTSIDE RECORDS SUMMARY | 2018-07-19 10:36 | XMS RPT_ITS | Continuity of Care Document ---
:1955 Author Organization [facility] Address [address] [place] [address] Phone Care Team Providers Name Role Phone Nerissa CASTELLANO, Krysten Levi Unavailable Dr. Reginaldo Corbin Unavailable Erwin Rose Unavailable Maciej Cadena Unavailable Timothy CASTELLANO, Speedy Murphy Unavailable Andrew CASTELLANO, Regan Unavailable Monica Spann Unavailable Unavailable Slarb BRAIDER TENDER, Moraima Unavailable Unavailable RITA Mendez Unavailable Unavailable Unavailable Unavailable Problems Name Dates Details Abnormal fasting glucose (R73.01, 790.29) Status: Active Allergic rhinitis (J30.9, 477.9) Comments: off allergy shots. 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 add kaleb. will get abck to ENT. 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 comign down some. Status: Active Encounter [...] intimacy she wants. son change jobs from y prime to KRAFTWERK, mother in law in [facility] falling Status: Active UTI symptoms (R39.9, 788.99) Status: Active Medications Name Dates Details Adrenal Rebuilder Active uad 2 q am, 1 at 3pm ASPIRIN, 81MG (Oral Tablet) Active 1 qd (81 MG) Calciferol 04465 U Oral Tablet Active 1 daily (58729 U) Coconut Oil 1000 MG Oral Capsule [...] (R79.89, 790.6) Comments: endocrine Dr. Herrera at [facility], changed cytomel. adjusted 2-12. reduced [...] again but not really totally postmenapausal. seeing tube puller. Status: Inactive as of 06-Jul-2013 Need for [...] (CAD), BILAT Result: Comments: See Note; NOTES: [facility] Imaging Services [address] [place] [address] Verdana 4d SCREENING MAMM (CAD), BILAT MR#: [id number] Acct: [id number] Name: GRZEGORZ BANGURA Rep #: [id number] : 1955 F 61 From: Sarbjit Hansen MD PCP: Krysten Dial MD Status: REG CLI Study: SCREENING MAMM (CAD), BILAT Date of Exam: 11/30/16 Exam# [id number] Ordering Dr: Marie Thorpe MD MAMMOGRAPHY - [...] delay biopsy of a clinically suspicious abnormality. HU1900 Electronically Signed: Sarbjit Hansen MD at 14:44 EDT Tel , Service support [phone], CC: Ruthie Thorpe MD; Krysten Dial MD Reinsurance Accountant: Signed 25-Feb-2016 Dexa Bone Density Study (HP) Result: Comments: See Note; NOTES: [facility] Imaging Services [address] [place] [address] Verdana 4d Dexa Bone Density Study (HP) MR#: [id number] Acct: [id number] Name: PRICE Rep #: [id number] : 1955 F 60 From: lAbaro Pena MD PCP: Krysten Dial MD Status: REG CLI Study: Dexa Bone Density Study (HP) Date of Exam: 02/25/16 Exam# [id number] Ordering Dr: Krysten Portillo MD STUDY: DUAL [...] Albaro Pena MD at 9:34 EDT Tel [phone], Service support [phone], CC: Krysten Dial MD Reinsurance Accountant: Signed 07-Nov-2015 Bilat Scrn Digital AND CAD Result: Comments: See Note; NOTES: [facility] Imaging Services [address] [place] [address] Verdana 4d Bilat Scrn Digital AND CAD MR#: [id number] Acct: [id number] Name: ARCHANA BANGURA Rep #: [id number] : 1955 F 60 From: Albaro Pena MD PCP: Krysten Dial MD Status: REG CLI Study: Bilat Scrn Digital AND CAD Date of Exam: 11/07/15 Exam# [id number] Order ing Dr: Ruthie Thorpe MD MAMMOGRAPHY [...] lay biopsy of a clinically suspicious abnormality. [id number] Electronically Signed: Albaro Pena MD at 11:07 EDT Tel [phone], Service support [phone], CC: Ruthie Thorpe MD; Krysten Dial MD Reinsurance Accountant: Signed 28-Jun-2015 Gallbladder Result: Comments: See Note; NOTES: [facility] Imaging Services [address] [place] [address] Verdana 4d Gallbladder MR#: [id number] Acct: [id number] Name: ARCHANA BANGURA Rep #: [id number] : 1955 F 60 From: Albaro Pena MD PCP: Krysten Dial MD Status: REG CLI Study: Gallbladder Date of Exam: 06/28/15 Exam# [id number] Ordering Dr: Francoise Meng STUDY: ABDOMINAL ULTRASOUND [...] Albaro Pena MD at 11:40 EST Tel [phone], Service support [phone], CC: Francoise Meng; Krysten Dial MD Reinsurance Accountant: Signed 14-May-2015 Foot min 3 Views Result: Comments: See Note; NOTES: [facility] Imaging Services [address] [place] [address] Verdana 4d Foot min 3 Views MR#: [id number] Acct: [id number] Name: PRICE Rep #: [id number] : 1955 F 60 From: Vazquez Briggs MD PCP: Krysten Dial MD Status: REG CLI Study: Foot min 3 Views Date of Exam: 05/14/15 Exam# [id number] Ordering Dr: Francoise Meng STUDY: X-RAY - [...] FACR at 19:17 EST , Service support [phone], RAD/Foot min 3 Views IMPRESSION: 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 Prominent plantar calcaneal spur. Flattening of the heads of the second and third metatarsals which could be related to stress subchondral fracture or cyrus ne infarcts. Electronically Signed: Vazquez Briggs MD, FACR at 19:17 EST , Service support [phone], CC: Francoise Meng; Krysten Dial MD Reinsurance Accountant: Signed 04-Jan-2015 PT Discharge Summary Result: Comments: See Note; NOTES: [facility] Physical Therapy [facility] [address] [place] [address] Fax REHABILITATION SERVICES DISCHARGE SUMMARY MR#: [id number] Acct: [id number] Name: ARCHANA BANGURA Rep #: [id number] : 1955 59 From: Roberto Leon Referring Dr.: Krysten Dial MD Status: PRE RCR Eval Date: Date: DATE OF SERVICE: REFERRING PHYSICIAN: Dr. Krysten Dial. Archana Bangura was evaluated at [facility] Physical Therapy on the date of [...] achieved. Roberto Leon, PT T: CHRIS JOB: [id number] <Electronically signed by Roberto Leon > 01/04/15 0937 CC: Signed 22-Oct-2014 Inital Evaluation - PT Result: Comments: See Note; NOTES: [facility] Physical Therapy [facility] [address] [place] [address] Fax REHABILITATION SERVICES INITIAL EVALUATION MR#: [id number] Acct: [id number] Name: ARCHANA BANGURA Rep #: [id number] : 1955 59 From: Roberto Leon Referring Dr.: Krysten Dial MD Status: DIS RCR [facility] Date: DATE OF SERVICE: 10/18/2014 REFERRING PHYSICIAN: Krysten Dial M.D. 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 This patient denies any cervical spine pain [...] this patient is very tender along the data manager ior superior aspect of her right [...] visits. Roberto Leon, PT T: CHRIS JOB: [id number] <Electronically signed by Roberto Franz r > 10/22/14 1124 CC: Signed For Medicare only, by signing this I certify the plan of care. Physicians Signature Date 11-Sep-2014 Bilat Scrn Digital AND CAD Result: Comments: See Note; NOTES: [facility] Imaging Services [address] [place] [address] Breast Imaging Report MR#: [id number] Acct: [id number] Name: ARCHANA BANGURA Rep #: [id number] : 1955 F 59 From: Albaro Pena MD PCP: Krysten Dial MD Status: PRE CLI Study: Bilat Scrn Digital AND CAD Date of Exam: 09/11/14 Exam# [id number] Ordering Dr: Ruthie Thorpe MAMMOGRAPHY - BILATERAL [...] Kavin Pena MD at 8:27 EDT Tel [phone], Service support [phone], CC: Ruthie Thorpe MD; Krysten Dial MD Reinsurance Accountant: Signed 19-Apr-2014 Spirometry (70887) Result: 08-Sep-2013 Liver Result: Comments: See Note; NOTES: [facility] Imaging Services [address] [place] [address] Ultrasound Report MR#: [id number] Acct: [id number] Name: ARCHANA BANGURA Rep #: [id number] : 1955 F 58 From: Albaro Pena MD PCP: Krysten Dial MD Status: REG CLI Study: Liver Date of Exam: 09/08/13 Exam# [id number] Ordering Dr: Krysten Dial MD STUDY: ABDOMINAL [...] M.D. at 10:46 EDT , Service support [phone], CC: Krysten Dial MD Reinsurance Accountant: Signed Immunization Name Dates Details Zoster (shingles) on: Apr-2017 Comments: see office note from03/22/17 Family History Unknown Family Member Name Dates Details Brother 1 Comments: HTN, DC at 56 yo. younger. 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: Active Exercise History Comments: [...] Date Description Value Details :37 Urinalysis, Office (63565) UA - LEUKOCYTE ESTERASE Trace (Normal) UA - NITRITE Negative (Normal) URINE UROBILINGN TEMO TIMED 2 mg/dL (Normal) Comments: 0.2e.u/dl UA - PROTEIN Negative mg/dL (Normal) UA - PH 5 (Abnormal) Comments: 5.5 UA - BLOOD Negative (Normal) UA - SPECIFIC GRAVITY 1.025 (Normal) UA - KETONES Negative mg/dL (Normal) UA - BILIRUBIN Negative (Normal) UA - GLUCOSE Negative (Normal) 13-Kpi-05024:50 Microscopic Examination Comments: PATIENT WAS FASTINGPERFORMED BY: Email Data Source70 [facility]PrepChampsNov[facility] [id number] Bacteria Few (Normal) Mucus Threads Present (Normal) Cast Type Hyaline casts (Normal) Casts Present {/lpf} (Abnormal) Epithelial Cells (non renal) 0-10 {/hpf} (Normal) Range: 0 - 10 RBC 0-2 {/hpf} (Normal) Range: 0 - 2 WBC 11-30 {/hpf} (Abnormal) Range: 0 - 5 53-Blk-11259:50 Metabolic Panel, Comprehensive Comments: PATIENT WAS FASTINGPERFORMED BY: Email Data Source70 [facility] [id number] (82110) ALT (SGPT) 33 [iU]/L (Abnormal) Range: 0-32 [...] 8-27 Glucose 102 mg/dL (Abnormal) Range: 65-99 06-Qyt-60104:50 CBC WITH MANUAL DIFF (02961) Comments: PATIENT WAS FASTINGPERFORMED BY: LabCoMeadowview Psychiatric HospitalWqgrlt9202 [facility] [id number] Immature Grans (Abs) 0.0 {x10E3/uL} (Normal) Range: [...] CREATININE RATIO Comments: PATIENT WAS FASTINGPERFORMED BY: BUILDNovant Health Clemmons Medical Center [id number] (06169) AND (73280) Alb/Creat Ratio 7.8 {mg/g_creat} (Normal) Range: 0.0-30.0 Comments: Normal: 0.0 - 30.0 Albuminuria: 31.0 - 300.0 Clinical albuminuria: >300.0 Albumin, Urine 17.2 ug/mL (Normal) Creatinine, Urine 219.2 mg/dL (Normal) :50 URINALYSIS (27469) Comments: PATIENT WAS FASTINGPERFORMED BY: [email or web address] [facility] HospitalPrepChampsNov[facility] [id number] Microscopic Examination See below: (Normal) Comments: Microscopic was indicated and was performed. Nitrite, Urine Negative (Normal) Urobilinogen,Semi-Qn 0.2 mg/dL (Normal) Range: 0.2-1.0 Bilirubin Negative (Normal) Occult Blood Negative (Normal) Ketones Negative (Normal) Glucose Negative (Normal) Protein Negative (Normal) WBC Esterase 2+ (Abnormal) Appearance Clear (Normal) Urine-Color Yellow (Normal) pH 5.5 (Normal) Range: 5.0-7.5 Specific [place] 1.026 (Normal) Range: 1.005-1.030 :31 METABOLIC PANEL, COMPREHENSIVE Comments: PATIENT WAS FASTINGPERFORMED BY: Email Data Source70 [facility] WirelessNov[facility] [id number] (14742) ALT (SGPT) 52 [iU]/L (Abnormal) Range: 0-32 [...] mg/dL (Normal) Range: 65-99 29-Jul-20177:31 LIPID PANEL (82710) Comments: PATIENT WAS FASTINGPERFORMED BY: LabMer[facility] Kbdxfd0753 [facility] [id number] LDL/HDL Ratio 2.5 {ratio_units} (Normal) Range: 0.0-3.2 [...] C ANTIBODY Comments: PATIENT WAS FASTINGPERFORMED BY: Story To CollegeMeadowview Psychiatric HospitalPmouij1477 [facility] [id number] Information: NURSE DRAW (44697) Hep C Virus Ab <0.1 {s/co_ratio} (Normal) Range: 0.0-0.9 Comments: Negative: < 0.8 Indeterminate: 0.8 - 0.9 Positive: > 0.9 . The CDC recommends that a positive HCV antibody result be followed up with a HCV Nucleic Acid Amplification test (664301). :44 HgA1C , Office (18250) HgA1C , Office 5.7 % (Normal) Range: 4.6 - 7.1 :32 Vitamin B-12 (cyanocobalamin) Comments: PATIENT WAS FASTINGPERFORMED BY: [employer] [id number] BY: [employer] Szelom6086 [facility] [id number] (84777) Vitamin B12 867 pg/mL (Normal) Range: 211-946 :32 CALCIFIDIOL (12927) VIT D Comments: PATIENT WAS FASTINGPERFORMED BY: [facility] [address] [id number] BY: Story To CollegeMeadowview Psychiatric HospitalJbjuqg9376 [facility] [id number] 25 Vitamin D, 25-Hydroxy 49.1 ng/mL (Normal) Range: 30.0-100.0 Comments: Vitamin D deficiency has been defined by the [place] of[place]icine and an Endocrine Society practice guideline as alevel of serum 25-OH vitamin D less than 20 ng/mL (1,2).The Endocrine Society went on to further define vitamin Dinsufficiency as a level between 21 and 29 ng/mL (2).1. IOM ([place] of Medicine). 2010. Dietary reference intakes for calcium and D. [place]: The National Academies Press.2. Joe MF, Bailee NC, Woody PALM, et al. Evaluation, treatment, and prevention of vitamin D deficiency: an Endocrine Society clinical practice guideline. JCEM. 2010; 96(7):1911-30. :32 MICROALBUMIN: CREATININE Comments: PATIENT WAS FASTINGPERFORMED BY: [employer] [id number] BY: Story To CollegeMeadowview Psychiatric HospitalRgnhxo8119 [facility] [id number] RATIO (29364) AND (59364) Microalb/Creat Ratio 11.2 {mg/g_creat} (Normal) Range: 0.0-30.0 Microalbumin, Urine 18.2 ug/mL (Normal) Creatinine, Urine 162.1 mg/dL (Normal) :32 CBC, Platelets & Auto Comments: PATIENT WAS FASTINGPERFORMED BY: Story To CollegeSean [place] 492077 [facility] [id number] BY: [employer] Zysdel3569 [facility] [id number] Diff (71194) Immature Grans (Abs) 0.0 {x10E3/uL} (Normal) Range: [...] Comments: PATIENT WAS FASTINGPERFORMED BY: BN [facility] Lrwvokjzdf2757 [facility] [id number] BY: CB [facility] Cnussk8527 [facility] [id number] Comprehensive (43333) ALT (SGPT) 46 [iU]/L (Abnormal) Range: 0-32 [...] Glucose, Serum 109 mg/dL (Abnormal) Range: 65-99 49-Wgo-86523:32 LIPOPROTEIN, BLD, BY NMR Comments: PATIENT WAS FASTINGPERFORMED BY: BN [facility] Scjgfoxasa2627 [facility] [id number] BY: CB [facility] Jzjxgk7991 [address] [place] [id number] Information: NURSE DRAW (99746) LP-IR Score 42 (Normal) Comments: INSULIN RESISTANCE MARKER <--Insulin Sensitive Insulin Resistant--> Percentile in Reference PopulationInsulin Resistance ScoreLP-IR Score Low 25th 50th 75th High <27 27 45 63 >63LP-IR Score is inaccurate if patient is non-fasting. .The LP-IR score is a laboratory developed i [facility] that has beenassociated with insulin resistance and [...] were developed and their performance characteristicsdetermined by [employer]. These assays have not been cleared by [...] FREE (TRIDOTHYRONINE) Comments: PATIENT WAS FASTINGPERFORMED BY: Brain Tunnelgenix Technologies[address] [id number] BY: [employer] Gxbssr6816 [facility] [id number] (45485) Triiodothyronine,Free,Serum 4.2 pg/mL (Normal) Range: 2.0-4.4 :32 T4, FREE (THYROXINE) Comments: PATIENT WAS FASTINGPERFORMED BY: [employer] [id number] BY: [employer] Rjiean7402 [facility] [id number] (26358) T4,Free(Direct) 1.02 ng/dL (Normal) Range: 0.82-1.77 :32 TSH (95440) Comments: PATIENT WAS FASTINGPERFORMED BY: [employer] [id number] BY: IntivixMeadowview Psychiatric HospitalGqfgpo0915 [facility] [id number] TSH 2.070 {uIU/mL} (Normal) Range: 0.450-4.500 :49 URINE ANNETTE CULTURE-IDENTIFICATN Comments: PATIENT NOT FASTINGPERFORMED BY: [employer]6370 [facility] [id number] Information: [id number] SRC:JERED (79610) Result 1 MUG (Normal) Comments: Mixed urogenital flora10,000-25,000 colony forming units per mL Urine Final report (Normal) Culture,Comprehensive :47 Urinalysis, Office (32102) UA - LEUKOCYTE ESTERASE Small (Normal) UA - NITRITE Negative (Normal) URINE UROBILINGN TEMO TIMED 2 mg/dL (Normal) UA - PROTEIN Negative mg/dL (Normal) UA - PH 6.0 (Normal) UA - BLOOD Negative (Normal) UA - SPECIFIC GRAVITY 1.025 (Normal) UA - KETONES Negative mg/dL (Normal) UA - BILIRUBIN Negative (Normal) UA - GLUCOSE Negative (Normal) :47 HgA1C , Office (86990) HgA1C , Office 5.7 % (Normal) Range: 4.6 - 7.1 :11 HgA1C , Office (11572) HgA1C , Office 5.7 % (Normal) Range: 4.6 - 7.1 :43 TSH (07883) Comments: PATIENT WAS FASTINGPERFORMED BY: Humouno[address] [id number] BY: [employer]6370 [facility] [id number] TSH 2.950 {uIU/mL} (Normal) Range: 0.450-4.500 :43 LIPOPROTEIN, BLD, BY NMR Comments: PATIENT WAS FASTINGPERFORMED BY: Humounoton1447 [facility] [id number] BY: Phone Warriorlin6370 [facility] [id number] (12397) LP-IR Score 39 (Normal) Comments: INSULIN RESISTANCE MARKER <--Insulin Sensitive Insulin Resistant--> Percentile in Reference PopulationInsulin Resistance ScoreLP-IR Score Low 25th 50th 75th High <27 27 45 63 >63LP-IR Score is inaccurate if patient is non-fasting. .The LP-IR score is a laboratory developed i [facility] that has beenassociated with insulin resistance and [...] 1600 - 2000 Very High > 2000 :43 CBC, Platelets & Auto Comments: PATIENT WAS FASTINGPERFORMED BY: [employer] [id number] BY: LabCoMeadowview Psychiatric HospitalPamvrm3774 [facility] [id number] Diff (42072) Immature Grans (Abs) 0.0 {x10E3/uL} (Normal) Range: [...] 3.77-5.28 WBC 5.9 {x10E3/uL} (Normal) Range: 3.4-10.8 33-Wmo-41414:43 Metabolic Panel, Comments: PATIENT WAS FASTINGPERFORMED BY: LabCo[address] [id number] BY: ARIADNE LabEsoko Networks Odlovs2209 Victorino [facility] [id number]; fu 3- [facility] (43356) ALT (SGPT) 49 [iU]/L (Abnormal) Range: 0-32 [...] (Abnormal) Range: 65-99 :13 HgA1C , Office (06183) HgA1C , Office 5.8 % (Normal) Range: 4.6 - 7.1 :07 POTASSIUM SERUM (09535) Comments: one month; PATIENT WAS FASTINGPERFORMED BY: [employer] [id number] BY: [facility]6370 [facility] [id number] Potassium, Serum 4.5 mmol/L (Normal) Range: 3.5-5.2 :07 HEPATIC FUNCTION PANEL Comments: in one month and three months (approximately); PATIENT WAS FASTINGPERFORMED BY: Skyt[employer] [id number] BY: [place] 7194770 [facility] [id number] (81851) ALT (SGPT) 77 [iU]/L (Abnormal) Range: 0-32 [...] three months (approximately); PATIENT WAS FASTINGPERFORMED BY: [employer] [id number] BY: [place] 7194770 [facility] [id number] (93129) LP-IR Score 77 (Abnormal) Comments: INSULIN RESISTANCE MARKER <--Insulin Sensitive Insulin Resistant--> Percentile in Reference PopulationInsulin Resistance ScoreLP-IR Score Low 25th 50th 75th High <27 27 45 63 >63LP-IR Score is inaccurate if patient is non-fasting. .The LP-IR score is a laboratory developed i [facility] that has beenassociated with insulin resistance and [...] were developed and their performance characteristicsdetermined by [employer]. These assays have not been cleared by [...] High > 2000 :10 HgA1C , Office (08991) HgA1C , Office 5.8 % (Normal) Range: 4.6 - 7.1 :47 CBC WITH MANUAL DIFF Comments: PATIENT NOT FASTINGPERFORMED BY: LabCoMeadowview Psychiatric HospitalRjrzjn9953 [facility] [id number] Information: [id number],F98046 (63021) Immature Grans (Abs) 0.0 {x10E3/uL} (Normal) Range: [...] 5.8 {x10E3/uL} (Normal) Range: 3.4-10.8 :47 TSH (25999) Comments: PATIENT NOT FASTINGPERFORMED BY: [facility] Xwybbh5237 [facility] [id number]; [address] TSH 2.390 {uIU/mL} (Normal) Range: 0.450-4.500 :48 ZQWNI-JHXGTNUJAJA-LKYIE (18193) Comments: PATIENT WAS FASTINGPERFORMED BY: [employer] Elqxji9124 [facility] [id number] AFP, Serum, Tumor Marker 1.7 ng/mL (Normal) Range: 0.0-8.3 Comments: Altagracia ECLIA methodology :48 HEPATITIS PANEL (15025) Comments: PATIENT WAS FASTINGPERFORMED BY: SkytreeFormerly [facility]6370 [facility] [id number] Hep C Virus Ab <0.1 {s/co_ratio} (Normal) Range: 0.0-0.9 Comments: Negative: < 0.8 Indeterminate: 0.8 - 0.9 Positive: > 0.9 . The CDC recommends that a positive HCV antibody result be followed up with a HCV Nucleic Acid Amplification test (156953). Hep B Core Ab, IgM Negative (Normal) HBsAg Screen Negative (Normal) Hep A Ab, IgM Negative (Normal) :48 LIPID PANEL (69290) Comments: PATIENT WAS FASTINGPERFORMED BY: [employer] Xgfuew4746 [facility] [id number]; [address] 2[address] LDL/HDL Ratio 2.0 {ratio_units} (Normal) [...] METABOLIC PANEL, Comments: PATIENT WAS FASTINGPERFORMED BY: Story To CollegeMeadowview Psychiatric HospitalAimovw7712 [facility] [id number] Information: I99101,2ND ORDER COMPREHENSIVE (23459) ALT (SGPT) 36 [iU]/L (Abnormal) Range: 0-32 [...] Diff Comments: PATIENT NOT FASTINGPERFORMED BY: [facility] Muhuiw6190 [facility] [id number] Information: 673008,T60070 (38483) Immature Grans (Abs) 0.0 {x10E3/uL} (Normal) Range: [...] (Normal) Range: 3.4-10.8 28-Jun-20159:29 Renal function Panel (52905) Comments: PATIENT NOT FASTINGPERFORMED BY: LabCoMeadowview Psychiatric HospitalYbstnr6184 [facility] [id number] Albumin, Serum 3.8 g/dL (Normal) Range: 3.6-4.8 [...] mg/dL (Normal) Range: 65-99 :58 Rapid Flu (73277 x 2) Influenza A Ag Negative a/b (Normal) 85-Mjx-219105:09 URINE ANNETTE CULTURE-TEMO COL Comments: PATIENT NOT FASTINGPERFORMED BY: [employer] Lio SocialLake Norman Regional [facility] Center [id number] Information: SRC:UR [id number] COUNT (84311) Result 1 NG36 (Normal) Comments: No growth in 36 - 48 hours. Urine Culture,Comprehensive Final report (Normal) :05 Urinalysis, Office (05662) UA - LEUKOCYTE ESTERASE Trace (Normal) UA - NITRITE Negative (Normal) URINE UROBILINGN TEMO TIMED Normal mg/dL (Normal) UA - PROTEIN Negative mg/dL (Normal) UA - PH 5 (Abnormal) UA - BLOOD Negative (Normal) UA - SPECIFIC GRAVITY 1.030 (Abnormal) UA - KETONES Negative mg/dL (Normal) UA - BILIRUBIN Negative (Normal) UA - GLUCOSE Negative (Normal) 38-Yna-00792:28 URINE ANNETTE CULTURE-IDENTIFICATN Comments: PATIENT NOT FASTINGPERFORMED BY: [employer] [facility] [id number] Information: [id number] (77817) Result 1 NG36 (Normal) Comments: No growth in 36 - 48 hours. Urine Culture,Comprehensive Final report (Normal) :50 Urinalysis, Office (06688) UA - LEUKOCYTE ESTERASE Negative (Normal) UA - NITRITE Negative (Normal) URINE UROBILINGN TEMO TIMED 2 mg/dL (Normal) UA - PROTEIN Negative mg/dL (Normal) UA - PH 5.0 (Normal) UA - BLOOD Negative (Normal) UA - SPECIFIC GRAVITY 1.030 (Abnormal) UA - KETONES Negative mg/dL (Normal) UA - BILIRUBIN Negative (Normal) UA - GLUCOSE Negative (Normal) 32-Oaj-86576:01 URINE ANNETTE CULTURE-IDENTIFICATN Comments: PATIENT NOT FASTINGPERFORMED BY: [employer] [facility] [id number] Information: [id number] (71685) Result 2 MUG (Normal) Comments: Mixed urogenital [...] Culture,Comprehensi (Abnormal) ve :16 HgA1C , Office (69087) HgA1C , Office 5.6 % (Normal) Range: 4.6 - 7.1 :16 Blood Glucose , Office (60163) Blood Glucose , Office 110 (Normal) :59 Urinalysis, Office (56696) UA - LEUKOCYTE ESTERASE Trace (Normal) UA - NITRITE Negative (Normal) URINE UROBILINGN TEMO TIMED Normal mg/dL (Normal) UA - PROTEIN Negative mg/dL (Normal) UA - PH 5 (Abnormal) UA - BLOOD Negative (Normal) UA - SPECIFIC GRAVITY 1.015 (Normal) UA - KETONES Negative mg/dL (Normal) UA - BILIRUBIN Negative (Normal) UA - GLUCOSE Negative (Normal) :41 Metabolic Panel, Comprehensive Comments: PATIENT WAS FASTINGPERFORMED BY: [facility] Lqnvbg5483 [facility] [id number] (90712) ALT (SGPT) 30 [iU]/L (Normal) Range: 0-32 [...] Glucose, Serum 109 mg/dL (Abnormal) Range: 65-99 0-Vvp-942570:41 Lipid Panel (10398) Comments: PATIENT WAS FASTINGPERFORMED BY: [facility] [facility] [place] [id number]; apt 9-11 LDL/HDL Ratio 2.3 {ratio_units} (Normal) [...] MANUAL DIFF Comments: PATIENT WAS FASTINGPERFORMED BY: [facility] [id number] Information: [id number] (61935) Immature Grans (Abs) 0.0 {x10E3/uL} (Normal) Range: [...] 6.5 {x10E3/uL} (Normal) Range: 3.4-10.8 :41 TSH (14078) Comments: PATIENT WAS FASTINGPERFORMED BY: LabCoWhitney [place] 9682670 [facility] [id number] TSH 2.690 {uIU/mL} (Normal) Range: 0.450-4.500 :40 HgA1C , Office (90708) HgA1C , Office 5.6 % (Normal) Range: 4.6 - 7.1 :40 Blood Glucose , Office (49981) Blood Glucose , Office 98 (Normal) :11 TSH (06561) Comments: PATIENT WAS FASTINGPERFORMED BY: [facility] [id number] TSH 2.680 {uIU/mL} (Normal) Range: 0.450-4.500 :11 METABOLIC PANEL, COMPREHENSIVE Comments: PATIENT WAS FASTINGPERFORMED BY: [facility]Formerly [facility]6370 [facility] [id number] (44691) ALT (SGPT) 35 [iU]/L (Abnormal) Range: 0-32 [...] mg/dL (Normal) Range: 65-99 :11 LIPID PANEL (78273) Comments: PATIENT WAS FASTINGPERFORMED BY: [facility] [id number] LDL/HDL Ratio 2.3 {ratio_units} (Normal) Range: 0.0-3.2 [...] Cholesterol, Total 222 mg/dL (Abnormal) Range: 100-199 60-Gus-73613:11 CBC W/AUTO DIFF WBC Comments: PATIENT WAS FASTINGPERFORMED BY: Story To CollegeMeadowview Psychiatric HospitalEmpdco6489 [facility] [id number] Information: [id number] (48323) Immature Grans (Abs) 0.0 {x10E3/uL} (Normal) Range: [...] (Normal) Range: 3.4-10.8 :37 HgA1C , Office (74615) HgA1C , Office 5.9 % (Normal) Range: 4.6 - 7.1 :36 Blood Glucose , Office (12848) Blood Glucose , Office 107 (Normal) :44 Metabolic Panel, Comments: PATIENT WAS FASTINGPERFORMED BY: [facility] [id number] Information: [id number] ORDER Comprehensive (74221) ALT (SGPT) 35 [iU]/L (Abnormal) Range: 0-32 [...] Glucose, Serum 96 mg/dL (Normal) Range: 65-99 86-Gip-05586:44 HEPATITIS PANEL (04224) Comments: PATIENT WAS FASTINGPERFORMED BY: [facility]6370 [facility] [id number] Hep C Virus Ab <0.1 {s/co_ratio} (Normal) Range: 0.0-0.9 Comments: Negative: < 0.8 Indeterminate: 0.8 - 0.9 Positive: > 0.9 . In order to reduce the incidence of a false positive result, the CDC recommends that all s/co ratios between 1.0 and 10.9 be confirmed by a more specific supplemental or PCR testing. [facility] Ab w/Reflex to Verification test #[id number]. Hep B Core Ab, IgM Negative (Normal) HBsAg Screen Negative (Normal) Hep A Ab, IgM Negative (Normal) 51-Bma-87127:44 FERRITIN (56204) Comments: PATIENT WAS FASTINGPERFORMED BY: [facility] [id number] Ferritin, Serum 72 ng/mL (Normal) Range: 15-150 43-Taw-54267:44 CBC WITH MANUAL DIFF Comments: PATIENT WAS FASTINGPERFORMED BY: [facility] [id number] Information: [id number] (79908) Immature Grans (Abs) 0.0 {x10E3/uL} (Normal) Range: [...] FUNCTION PANEL Comments: PATIENT WAS FASTINGPERFORMED BY: LabCoMeadowview Psychiatric HospitalLwszyc4254 [facility] [id number] (97784) ALT (SGPT) 36 [iU]/L (Abnormal) Range: 0-32 AST (SGOT) 29 [iU]/L (Normal) Range: 0-40 Alkaline Phosphatase, S 80 [iU]/L (Normal) Range: 39-117 Bilirubin, Direct 0.10 mg/dL (Normal) Range: 0.00-0.40 Bilirubin, Total 0.3 mg/dL (Normal) Range: 0.0-1.2 Albumin, Serum 4.2 g/dL (Normal) Range: 3.5-5.5 Protein, Total, Serum 7.0 g/dL (Normal) Range: 6.0-8.5 :13 HgA1C , Office (77669) HgA1C , Office 5.9 % (Normal) Range: 4.6 - 7.1 :13 Blood Glucose , Office (16344) Blood Glucose , Office 110 (Normal) :14 HEPATIC FUNCTION PANEL Comments: PATIENT WAS FASTINGPERFORMED BY: Story To CollegeMeadowview Psychiatric HospitalHjmgqt1915 [facility] [id number]; elevated but not critical -- has appt already sched (22198) ALT (SGPT) 43 [iU]/L (Abnormal) Range: 0-32 AST (SGOT) 39 [iU]/L (Normal) Range: 0-40 Alkaline Phosphatase, S 76 [iU]/L (Normal) Range: 39-117 Bilirubin, Direct 0.12 mg/dL (Normal) Range: 0.00-0.40 Bilirubin, Total 0.4 mg/dL (Normal) Range: 0.0-1.2 Albumin, Serum 4.2 g/dL (Normal) Range: 3.5-5.5 Protein, Total, Serum 7.0 g/dL (Normal) Range: 6.0-8.5 :14 LIPID PANEL (65270) Comments: PATIENT WAS FASTINGPERFORMED BY: Story To CollegeWhitney [place] 9682670 [facility] [id number] Information: [id number] LDL/HDL Ratio 2.0 {ratio_units} (Normal) Range: 0.0-3.2 [...] (THYROID STIMULATING Comments: PATIENT NOT FASTINGPERFORMED BY: Skytree[address] [id number] Information: [id number] ORDER HORMONE) (30192) TSH 2.290 {uIU/mL} (Normal) Range: 0.450-4.500 12-Fvh-52123:22 TSH (67628) Comments: PATIENT NOT FASTINGPERFORMED BY: CB Lab[address] RoadDublin [place] [id number] TSH 1.850 {uIU/mL} (Normal) Range: 0.450-4.500 :22 HEPATIC FUNCTION PANEL Comments: PATIENT NOT FASTINGPERFORMED BY: [facility] [id number] Information: [id number] (65122) ALT (SGPT) 40 [iU]/L (Abnormal) Range: 0-32 Alkaline Phosphatase, S 70 [iU]/L (Normal) Range: 39-117 AST (SGOT) 34 [iU]/L (Normal) Range: 0-40 Bilirubin, Direct 0.09 mg/dL (Normal) Range: 0.00-0.40 Bilirubin, Total 0.3 mg/dL (Normal) Range: 0.0-1.2 Albumin, Serum 4.3 g/dL (Normal) Range: 3.5-5.5 Protein, Total, Serum 7.1 g/dL (Normal) Range: 6.0-8.5 :22 HgA1C , Office (31687) HgA1C , Office 6.0 % (Normal) Range: 4.6 - 7.1 :22 Blood Glucose , Office (43747) Blood Glucose , Office 113 (Normal) :51 METABOLIC PANEL, COMPREHENSIVE Comments: PATIENT WAS FASTINGPERFORMED BY: [facility] [id number] (05574) ALT (SGPT) 40 [iU]/L (Abnormal) Range: 0-32 [...] Glucose, Serum 92 mg/dL (Normal) Range: 65-99 82-Kyq-94649:51 CBC WITH MANUAL DIFF Comments: PATIENT WAS FASTINGPERFORMED BY: LabCoMeadowview Psychiatric HospitalAozrxd0788 [facility] [id number] Information: [id number] (91142) Immature Grans (Abs) 0.0 {x10E3/uL} (Normal) Range: [...] {x10E3/uL} (Normal) Range: 3.4-10.8 :51 LIPID PANEL (61986) Comments: PATIENT WAS FASTINGPERFORMED BY: Story To CollegeMeadowview Psychiatric HospitalYnlbhw7082 [facility] [id number] LDL/HDL Ratio 2.3 {ratio_units} (Normal) Range: 0.0-3.2 LDL Cholesterol Calc 138 mg/dL (Abnormal) Range: 0-99 VLDL Cholesterol Christopher 21 mg/dL (Normal) Range: 5-40 HDL Cholesterol 60 mg/dL (Normal) Comments: According to ATP-III Guidelines, HDL-C >59 mg/dL is considered anegative risk factor for CHD. Triglycerides 105 mg/dL (Normal) Range: 0-149 Cholesterol, Total 219 mg/dL (Abnormal) Range: 100-199 :17 TSH (25057) Comments: PATIENT WAS FASTINGPERFORMED BY: Story To CollegeMeadowview Psychiatric HospitalUnavfw7758 [facility] [id number] TSH 1.960 {uIU/mL} (Normal) Range: 0.450-4.500 :17 METABOLIC PANEL, Comments: PATIENT WAS FASTINGPERFORMED BY: [facility]reeFormerly [facility]6370 [facility] [id number] Information: [id number] COMPREHENSIVE (16645) ALT (SGPT) 33 [iU]/L (Abnormal) Range: 0-32 [...] Glucose, Serum 88 mg/dL (Normal) Range: 65-99 5-Byw-598067:45 Blood Glucose , Office (32124) Blood Glucose , Office 89 (Normal) 0-Ynz-926620:45 HgA1C , Office (18163) HgA1C , Office 5.6 % (Normal) Range: 4.6 - 7.1 52-Pnl-71184:22 FOOT MIN 3 VIEWS Radiology Report See [...] M.D.November 10, 2012 at 8:55 :21 AM [id number] Signed RU/RU If you are the referring physician and would like to consult with theradiologist who provided this interpretation, please contact Nilo Mcleod a t [phone]. If this radiologist is unavailable, youwillbe directed to another radiologist to assist. If you are a patient with a question regarding this report, pleasecontactyour referring physician directly. Professional Interpretation Provided By: [employer], Phone , These documents contain legally protected [...] on 11/10/12854 by Alexandre WomackTranscribe d on 11/10/12 0859 by ITS IMPORTSign by Alexandre Womack on 11/10/12 0900 Sign by: Alexandre Womack 23-Jan-20138:45 T4, FREE (THYROXINE) (97200) Comments: PATIENT WAS FASTINGPERFORMED BY: [facility] [id number] T4,Free(Direct) 1.06 ng/dL (Normal) Range: 0.82-1.77 :45 T3, FREE (TRIDOTHYRONINE) (70174) Comments: PATIENT WAS FASTINGPERFORMED BY: [facility]6370 [facility] [id number] Triiodothyronine,Free,Serum 3.7 pg/mL (Normal) Range: 2.0-4.4 :45 TSH (09465) Comments: PATIENT WAS FASTINGPERFORMED BY: [facility]6370 [facility] [id number] TSH 1.670 {uIU/mL} (Normal) Range: 0.450-4.500 :45 METABOLIC PANEL, COMPREHENSIVE Comments: PATIENT WAS FASTINGPERFORMED BY: [facility] [id number] (09411) ALT (SGPT) 31 [iU]/L (Normal) Range: 0-32 [...] mg/dL (Normal) Range: 65-99 :45 LIPID PANEL (10272) Comments: PATIENT WAS FASTINGPERFORMED BY: Email [employer] Source70 [facility] [id number] LDL/HDL Ratio 2.7 {ratio_units} (Normal) Range: 0.0-3.2 [...] MANUAL DIFF Comments: PATIENT WAS FASTINGPERFORMED BY: IntivixMeadowview Psychiatric HospitalWjuccq4069 [facility] [id number] Information: [id number] (91380) Immature Grans (Abs) 0.0 {x10E3/uL} Range: 0.0-0.1 [...] 1.770 {uIU/mL} Comments: PATIENT WAS FASTINGPERFORMED BY: Story To CollegeMeadowview Psychiatric HospitalNhgnmo5961 [facility] [id number] Information: [id number] :02 (Normal) Range: 0.450-4.500 Written Authorization WAR (Normal) Comments: PATIENT WAS FASTINGPERFORMED BY: Story To CollegeMeadowview Psychiatric HospitalEdpuvy0541 [facility] [id number] :02 Comments: Written Authorization Received.Authorization received from DR DIAL [id number] by Ignacia Lozano :02 LIPID PANEL (53942) Comments: PATIENT WAS FASTINGPERFORMED BY: [facility]reeFormerly [facility]6370 [facility] [id number] LDL/HDL Ratio 2.3 {ratio_units} (Normal) Range: 0.0-3.2 LDL Cholesterol Calc 133 mg/dL (Abnormal) Range: 0-99 VLDL Cholesterol Christopher 23 mg/dL (Normal) Range: 5-40 HDL Cholesterol 59 mg/dL (Normal) Comments: According to ATP-III Guidelines, HDL-C >59 mg/dL is considered anegative risk factor for CHD. Triglycerides 116 mg/dL (Normal) Range: 0-149 Cholesterol, Total 215 mg/dL (Abnormal) Range: 100-199 :02 CBC (Auto) (06133) Comments: PATIENT WAS FASTINGPERFORMED BY: Story To CollegeMeadowview Psychiatric HospitalHngtgh1272 [facility] [id number] Platelets 269 {x10E3/uL} (Normal) Range: 140-415 RDW 14.4 % (Normal) Range: 12.3-15.4 MCHC 33.6 g/dL (Normal) Range: 31.5-35.7 MCH 29.8 pg (Normal) Range: 26.6-33.0 MCV 89 fL (Normal) Range: 79-97 Hematocrit 40.5 % (Normal) Range: 34.0-46.6 Hemoglobin 13.6 g/dL (Normal) Range: 11.1-15.9 RBC 4.57 {x10E6/uL} (Normal) Range: 3.77-5.28 WBC 6.2 {x10E3/uL} (Normal) Range: 4.0-10.5 :02 Metabolic Panel, Comments: PATIENT WAS FASTINGPERFORMED BY: LabCoMeadowview Psychiatric HospitalInathe4505 [facility] [id number] Information: [id number] Comprehensive (87632) ALT (SGPT) 32 [iU]/L (Normal) Range: 0-32 [...] (Abnormal) Range: 65-99 :02 T3, FREE (TRIDOTHYRONINE) (95060) Comments: PATIENT WAS FASTINGPERFORMED BY: Story To CollegeAlbuquerque Indian Health CenterBebkfb2063 [facility] [id number] Triiodothyronine,Free,Serum 3.9 pg/mL (Normal) Range: 2.0-4.4 :02 T4, FREE (THYROXINE) (21587) Comments: PATIENT WAS FASTINGPERFORMED BY: Story To CollegeMeadowview Psychiatric HospitalAywufi2251 [facility] [id number] T4,Free(Direct) 0.94 ng/dL (Normal) Range: 0.82-1.77 :02 T4, TOTAL (31464) Comments: PATIENT WAS FASTINGPERFORMED BY: Story To CollegeMeadowview Psychiatric HospitalPsixjs4305 [facility] [id number] Thyroxine (T4) 7.3 ug/dL (Normal) Range: 4.5-12.0 :07 TSH (57456) Comments: PATIENT NOT FASTINGPERFORMED BY: [facility]reeFormerly [facility]6370 [facility] [id number] Information: [id number] TSH 1.970 {uIU/mL} (Normal) Range: 0.450-4.500 :35 URINE ANNETTE CULTURE (TEMO Comments: and sensitivity; PATIENT NOT FASTINGPERFORMED BY: SkytreeSullivan County Memorial HospitalWpqbrf2654 [facility] [id number] Information: SRC:UR [id number] COL COUNT) (25748) Result 1 BETAGB (Normal) Comments: Beta hemolytic [...] (CLSI 2010) Urine Final report (Normal) Culture,Comprehensive 74-Ujb-143837:49 Urinalysis, Office (60593) UA - LEUKOCYTE ESTERASE Negative (Normal) UA - NITRITE Negative (Normal) URINE UROBILINGN TEMO TIMED Normal mg/dL (Normal) UA - PROTEIN Negative mg/dL (Normal) UA - PH 7.0 (Normal) UA - BLOOD Negative (Normal) UA - SPECIFIC GRAVITY 1.025 (Normal) UA - KETONES Negative mg/dL (Normal) UA - GLUCOSE Negative (Normal) 94-Aie-34210:15 CBC WITH MANUAL DIFF Comments: PATIENT WAS FASTINGPERFORMED BY: [facility] Dypuux3865 [facility] [id number] Information: [id number] (79212) Immature Grans (Abs) 0.0 {x10E3/uL} (Normal) Range: [...] {x10E3/uL} (Normal) Range: 4.0-10.5 :15 LIPID PANEL (23416) Comments: PATIENT WAS FASTINGPERFORMED BY: Email Data Source70 [facility] [id number] LDL/HDL Ratio 2.5 {ratio_units} (Normal) Range: 0.0-3.2 [...] FUNCTION PANEL Comments: PATIENT WAS FASTINGPERFORMED BY: Phone Warriorlin6370 [facility] [id number] (83278) ALT (SGPT) 32 [iU]/L (Normal) Range: 0-40 AST (SGOT) 29 [iU]/L (Normal) Range: 0-40 Alkaline Phosphatase, S 69 [iU]/L (Normal) Range: 25-150 Bilirubin, Direct 0.10 mg/dL (Normal) Range: 0.00-0.40 Bilirubin, Total 0.4 mg/dL (Normal) Range: 0.0-1.2 Albumin, Serum 4.3 g/dL (Normal) Range: 3.5-5.5 Protein, Total, Serum 7.4 g/dL (Normal) Range: 6.0-8.5 :15 Metabolic Panel, Basic (13651) Comments: PATIENT WAS FASTINGPERFORMED BY: [employer] Yqyryh2173 [facility] [id number] Calcium, Serum 9.6 mg/dL (Normal) Range: 8.7-10.2 [...] 96 mg/dL (Normal) Range: 65-99 :15 TSH (11870) Comments: PATIENT WAS FASTINGPERFORMED BY: [employer] Bmcnka0163 [facility] [id number] TSH 1.500 {uIU/mL} (Normal) Range: 0.450-4.500 :15 T4, FREE (THYROXINE) (21242) Comments: PATIENT WAS FASTINGPERFORMED BY: [facility] Ygokch1112 [facility] [id number] T4,Free(Direct) 0.96 ng/dL (Normal) Range: 0.82-1.77 :15 T3, FREE (TRIDOTHYRONINE) (62888) Comments: PATIENT WAS FASTINGPERFORMED BY: [employer]Es[employer] Kzpmlb2666 [facility] [id number] Triiodothyronine,Free,Serum 3.3 pg/mL (Normal) Range: 2.0-4.4 :02 [...] Range: 6.4-8.2 :37 Rapid Strep Test, Office (13869) Rapid Strep Test, Office Negative (Normal) :37 HgA1C , Office (56900) HgA1C , Office 6.0 % (Normal) Range: 4.6 - 7.1 :37 Blood Glucose , Office (12528) Blood Glucose , Office 122 (Normal) :26 [...] 7-18 GLU 102 mg/dL (Normal) Range: 70-110 25-Dkb-691581:26 CBCD,SMEAR DIFF RED CELL MORPH SeeNote {NORMAL} [...] ronda isolated. No beta-hemolyticstreptococcus isolated. :07 EBVIgG/M 064836 EB-NAg EwV62475 > 8.0 {AI} (Abnormal) Range: 0.0-0.8 Comments: [...] Antibody Pr esent - Antibody AbsentPerformed at: CB - [facility] [address] [id number] Director: Melanie Hartman MD, Phone: [phone] EB-EA IgG 10560 1.3 {AI} (Abnormal) Range: 0.0-0.8 Comments: Negative <0.9 Equivocal 0.9 - 1.0 Positive >1.0 EB-VCA WaV45951 > 8.0 {AI} (Abnormal) Range: 0.0-0.8 Comments: Negative <0.9 Equivocal 0.9 - 1.0 Positive >1.0 EB-VCA YkG36730 < 0.2 {AI} (Normal) Range: 0.0-0.8 Comments: Negative <0.9 Equivocal 0.9 - 1.0 Positive >1.0 :07 FREE T3 7.0 pg/mL (Abnormal) Range: 2.18-3.98 :07 T4 FREE DIRECT 0.46 ng/dL (Abnormal) Range: 0.76-1.46 :07 TSH 1.82 {uIU/mL} (Normal) Range: 0.358-3.74 :50 Rapid Strep Test, Office (64519) Rapid Strep Test, Negative (Normal) Office :36 EB-NAg DbJ94059 > 8.0 {AI} (Abnormal) Range: 0.0-0.8 Comments: Negative <0.9 Equivocal 0.9 - 1.0 Positive >1.0 :36 EB-VCA AmR03336 > 8.0 {AI} (Abnormal) Range: 0.0-0.8 Comments: Negative <0.9 Equivocal 0.9 - 1.0 Positive >1.0 :36 EB-EA IgG 92775 1.5 {AI} (Abnormal) Range: 0.0-0.8 Comments: Negative <0.9 Equivocal 0.9 - 1.0 Positive >1.0Performed at: [facility]6[address] [place], [place] [id number] Director: Melanie Hartman MD, Phone: [phone] :[phone] CKMB Comments: Please Note: TROPONIN REFERENCE RANGE CHANGEEffective MAY 21, 2009. CPKMB 0.5 ng/mL (Normal) Range: 0.0-5.0 Comments: CK-MB and RI Interpretation MB Relative Index Non-AMI <or= 5 NA Indeterminate > 5 <or= 4 AMI > 5 > 4 CPK TOTAL 60 U/L (Normal) Range: 21-215 68-Col-68499:25 TROPONIN-I < 0.02 ng/mL (Normal) Comments: Please Note: TROPONIN REFERENCE RANGE CHANGEEffective MAY 21, 2009. Comments: TROPONIN-I EXPECTED VALUES <0.05 NEGATIVE 0.06 - 0.59 AT RISK OF DC > OR = 0.60 SUGGEST DC :01 CKMB Comments: Please Note: TROPONIN REFERENCE RANGE CHANGEEffective MAY 21, 2009. CPKMB < 0.5 ng/mL (Normal) Range: 0.0-5.0 Comments: CK-MB and RI Interpretation MB Relative Index Non-AMI <or= 5 NA Indeterminate > 5 <or= 4 AMI > 5 > 4 CPK TOTAL 50 U/L (Normal) Range: 21: TROPONIN-I < 0.02 ng/mL (Normal) Comments: Please Note: TROPONIN REFERENCE RANGE CHANGEEffective MAY 21, 2009. Comments: TROPONIN-I EXPECTED VALUES <0.05 NEGATIVE 0.06 - 0.59 AT RISK OF DC > OR = 0.60 SUGGEST DC :40 TROPONIN-I < 0.02 ng/mL (Normal) Comments: Please Note: TROPONIN REFERENCE RANGE CHANGEEffective MAY 21, 2009. Comments: TROPONIN-I EXPECTED VALUES <0.05 NEGATIVE 0.06 - 0.59 AT RISK OF DC > OR = 0.60 SUGGEST DC :00 CORTISOL 11.41 ug/dL (Normal) Range: 3.09-22.40 Comments: Adult (AM) 4.30 - 22.40 ug/dLAdult (PM) 3.09 - 16.66 ug/dL :00 FREE T3 2.8 pg/mL (Normal) Range: 2.18-3.98 : T4 FREE DIRECT 0.51 ng/dL (Abnormal) Range: 0.76-1.46 :00 TSH 1.54 {uIU/mL} (Normal) Range: 0.358-3.74 47-Gzt-775936:26 HgA1C , Office (05611) HgA1C , Office 5.4 % (Normal) Range: 4.6 - 7.1 :26 Blood Glucose , Office (40043) Blood Glucose , Office 89 (Normal) :54 CORTISOL 7.59 ug/dL (Normal) Range: 3.09-22.40 Comments: Adult (AM) 4.30 - 22.40 ug/dLAdult (PM) 3.09 - 16.66 ug/dL :54 DHEA SULF 4697 33.4 ug/dL (Normal) Range: 18.9-205.0 :54 ESTRADIOL 4515 28.9 pg/mL (Normal) Comments: Adult Female:Follicular phase 12.5 - 166.0Ovulation phase 85.8 - 498.0Luteal phase 43.8 - 211.0Postmenopausal <6.0 - 54.3Vbygcsbpx3pv trimester 215.0 - >4300.0Girls (1- 10 years) 6.0 - 27.0Roche ECLIA methodology :54 FREE T3 2.1 pg/mL (Abnormal) Range: 2.18-3.98 :54 GLU 90 mg/dL (Normal) Range: 70-110 :54 INSULIN 4333 16.9 {uIU/mL} Range: 0.0-24.9 (Normal) Comments: Performed at: [address] [id number] Director: Melanie Hartman MD, Phone: [phone] :[phone] PROGESTER. 4317 2.7 ng/mL (Normal) Comments: Follicular phase 0.2 - 1.5Luteal phase 1.7 - 27.0Ovulation phase 0.8 - 3.0First trimester 8.8 - 48.6Second trimester 12.4 - 75.8Third trimester 58.5 - 222.3Postmenopausal 0.1 - 0.8 :54 T4 FREE DIRECT 0.83 ng/dL (Normal) Range: 0.76-1.46 :54 TESTOSTER 4226 10 ng/dL (Normal) Range: 6-82 99-Qor-12566:54 TSH 2.67 {uIU/mL} Range: 0.358-3.74 (Normal) Plan [...] Female Indication: Bronchitis Planned Observations LDL CHOLESTEROL-DIRECT (04861)Indication: Hypercholesteremia (Renamed from Hypercholesterolemia) On: :47 Request HEPATIC FUNCTION PANEL (09707)Indication: Hypercholesteremia (Renamed from Hypercholesterolemia) On: :26 Request T3, FREE (TRIDOTHYRONINE) (83161)Indication: Hypothyroidism On: : Request T4, FREE (THYROXINE) (61111)Indication: Hypothyroidism On: :19 Request TSH (81632)Indication: Hypothyroidism On: : Request URINE ANNETTE CULTURE-IDENTIFICATN (38806)Indication: UTI symptoms On: :45 Request OCCULT BLOOD FECES SCREEN (45151)Indication: Dehydration On: :30 Request OVA & PARASITE DIR SMEAR (16725)Indication: Dehydration On: :30 Request LEUKOCYTE COUNT, FECAL (40824)Indication: Dehydration On: :30 Request C-DIFFICILE, STOOL (89811)Indication: Dehydration On: :30 Request ANNETTE CULTURE-STOOL (51102)Indication: Dehydration On: :30 Request Metabolic Panel, Basic (25782)Indication: Hypertension, benign On: 73-Knu-165204:06 Request Comments: due in 1 week. Metabolic Panel, Basic (15407)Indication: Hypertension, benign On: 13-Uac-967237:40 Request ANNETTE CULTURE-OTHER (54497)Indication: Pharyngitis, acute On: :37 Request TSH (90501)Indication: Abnormal TSH On: :30 Request T4, FREE (THYROXINE) (28007)Indication: Abnormal TSH On: :30 Request T3, FREE (TRIDOTHYRONINE) (39421)Indication: Abnormal TSH On: :30 Request TSH (23778)Indication: Abnormal TSH On: :57 Request T4, FREE (THYROXINE) (61500)Indication: Abnormal TSH On: :57 Request T3, FREE (TRIDOTHYRONINE) (67918)Indication: Abnormal TSH On: :57 Request ANNETTE CULTURE-OTHER (97643)Indication: Pharyngitis, acute On: :50 Request EB ANTIBODY EARLY ANTIGN (36315)Indication: Fatigue On: 28-Mar-20108:00 Request Comments: today EB ANTIBODY VIRAL CAPSID (11600) R4Kntzytcpav: Fatigue On: :57 Request EB ANTIBODY NUCLR ANTIGN (54323)Indication: Fatigue On: :57 Request Planned Encounters Medical; [facility] 3 Month FU - On: 04-Aug-2018 7:00 [facility] Krysten Dial MD, MD, Dana M Planned Procedures Nerve ConductionBy: Krysten Dial MD On: 28-Apr-2018 Intent Krysten Dial MD Comments: both hands. will get back to splints Flu Vaccine (Quadrivalent) 52396Jm: On: 08-Apr-2018 Intent RITA Mendez Comments: Lot #:[id number] date: 5-49-80Utdjlp given:0.5mlRoute: IMSite given:L DltdGiven by: DBVIS and ABN signed Fluarix COMPLETE ELECTROMYOGRAPHY (EMG) WITH On: 19-Jun-2016 Intent NERVE CONDUCTION STUDIES OF EACH EXTREMITY (30657)By: Krysten Dial MD, MD, Dana M Flu Vaccine (Quadrivalent) [id number]: On: 08-May-2016 Intent Krysten Dial MD, MD, Dana M Comments: Lot:[id number]:12/18/16Dose:0.5mLRoute:IMSite:L DltdGiven By:MLVIS signed Nuclear Stress Test/Stress On: 10-Feb-2016 Intent SPECT/TreadmillBy: Krysten Dial MD, MD, Dana M DEXA SCAN AXIAL SKELETON ([id number])By: On: 10-Feb-2016 Intent Krysten Dial MD, MD, Dana M TDAP VACCINE >7 IM ([id number])By: Nerissa On: 10-Feb-2016 Intent Krysten CASTELLANO MD, Dana M Comments: tdaplot:[id number]:07/12/18site:lt deltroute:IMD.MARY ELLEN Canales IV Needle placement (28665)By: Yusra On: 28-Jun-2015 Intent BRO Zakia Ultrasound - GallbladderBy: Yusra CRABTREE, On: 28-Jun-2015 Intent Zakia INFUSION, NORMAL SALINE SOLUTION , On: 28-Jun-2015 Intent 1000 CC (Special Coverage Instructions Comments: lot [id number] ccright antecubas BRAIDER TENDER Apply. See MCM: 2048) ([id number])By: Francoise Meng CNP Radiology - Foot - LeftBy: Yusra CRABTREE, On: 14-May-2015 Intent Francoise Trotter ADMINISTRATION OF INFLUENZA VIRUS On: 05-Apr-2015 Intent VACCINE ([id number])By: Krysten Dial MD, MD, Dana M Flu Vaccine (Quadrivalent) 65861Cf: On: 05-Apr-2015 Intent Krysten Dial MD, MD, Dana M Comments: Lot #:[id number] date:2015Amount given:0.5mlRoute: IMSite given:L DltdGiven by: ElaineVIS and ABN signed Quad Flu Flu Vaccine (Quadrivalent) 15750Ww: On: 19-Apr-2014 Intent Krysten Dial MD, MD, Dana M ADMINISTRATION OF INFLUENZA VIRUS On: 19-Apr-2014 Intent VACCINE (G0008)By: Aruna Amaral Venous Doppler - RightBy: Nerissa CASTELLANO, On: 18-Jan-2014 Intent Krysten Hogan MD EKG ([id number])By: Krysten Dial MD On: 01-Sep-2013 Intent Krysten [...] Eprescribed prescriptions (G8553)By: On: 02-Jun-2013 Intent Long BRAIDER TENDER, Kady L FLU VAC, SPLIT, >3 YEARS, INTRAMUSC On: 14-Apr-2013 Intent ([id number])By: Meagan Hoffman Comments: lot [id number] 2014site/route L latonya, IMamt 0.5mlVIS and ABN signed when applicableChelsea, DEPUTY BRAND INSPECTOR IMMUNIZ ADMNIN, 1 VAC, SNGL/COMBO On: 14-Apr-2013 Intent ([id number])By: Meagan Hoffman Radiology - Foot - RightBy: Nerissa On: 10-Nov-2012 Intent Krysten CASTELLANO MD, Dana M Comments: please call wet read Eprescribed prescriptions ([id number])By: On: 19-Sep-2012 Intent Long BRAIDER TENDER, Kady L EKG ([id number])By: RITA Mendez On: 20-Jun-2012 Intent Aerosol Treatment ([id number])By: Yusra On: 30-Nov-2011 Intent MALTHOUSE LABORER, Zakia Spirometry ([id number])By: Nerissa CASTELLANO, On: 26-Sep-2010 Intent Krysten Hogan MD Comments: re do of one that was not abl eot be performed at last visit. Spirometry ([id number])By: Nerissa CASTELLANO, On: 18-Sep-2010 Intent Krysten Hogan MD Pulse Oximetry ([id number])By: Jessie RN, On: 18-Sep-2010 Intent Leidy Pulse Oximetry ([id number])By: Andrea On: 17-Apr-2010 Intent RITA ELECTROCARDIOGRAM, COMPLETE (ECG) On: 01-Apr-2010 Intent ([id number])By: Vikki Wetzel Planned Medications INFUSION, NORMAL SALINE [...] benign Fatigue : Patient Instructions Indication: Fatigue Advance Directives Name Dates Details Immunization Registry [place] - Effective on 04/28/2018. Effective: 28-Apr-2018 Expiration date unspecified Encounters Office Visit On: 28-Apr-2018 7:04 Encounter Reason: Well Women Exam - The patient feels well with minor complaints, has good energy level and is sleeping poorly (new cpap). Pap smear: date of last pap: (a year ago scheduled in May with tube puller and will End: 28-Apr-2018 8:49 schedule mammogram). [...] from Post-menopausal) [facility] Nurse Visit ([facility]) On: 17-Jan-2016 10:36 [facility] End: [...] 3 day(s) ago. Onset followed foreign travel ([facility] for new years). The symptoms occur intermittently. [...] Diagnostic tests include other (labs ). Date: (4-18-14). Current symptoms include other (allergy sx. 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
--- OUTSIDE RECORDS SUMMARY | 2018-07-19 10:37 | XMS RPT_ITS | Continuity of Care Document ---
:1955 Author Organization [facility] Address [address] [place] [address] Phone Care Team Providers Name Role Phone Nerissa CASTELLANO, Krysten Levi Unavailable Dr. Reginaldo Corbin Unavailable Erwin Rose Unavailable Maciej Cadena Unavailable Timothy CASTELLANO, Speedy Murphy Unavailable Andrew CASTELLANO, Regan Unavailable Monica Spann Unavailable Unavailable Slarb PANEL EDGE PAINTER, Moraima Unavailable Unavailable RITA Mendez Unavailable Unavailable Unavailable Unavailable Problems Name Dates Details Abnormal fasting glucose (R73.01, 790.29) Status: Active Allergic rhinitis (J30.9, 477.9) Comments: off allergy shots. back this spring and seeing circuit rider. add kaleb. will get abck to ENT. 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 comign down some. Status: Active Encounter for [...] Status: Active Stress reaction (F43.0, 308.9) Comments: noelerhoffer counseling. her not have the intimacy she wants. son change jobs from [employer] to [employer], mother in law in [facility] falling Status: Active UTI (urinary tract infection) (N39.0, 599.0) Status: Active UTI symptoms (R39.9, 788.99) Status: Active Medications Name Dates Details Adrenal Rebuilder Active uad 2 q am, 1 at 3pm ASPIRIN, 81MG (Oral Tablet) Active 1 qd (81 MG) Calciferol 83388 U Oral Tablet Active 1 daily (23247 U) Coconut Oil 1000 MG Oral Capsule [...] MD, Dana M Start : 29-Jul-2017 Active Macrodantin 100 MG Oral Capsule 1 (one) Capsule bid for 0 days Quantity: 20 {Capsule} Refills: 0 Ordered:02-May-2018 RITA Mendez Start : 02-May-2018 Active Multivitamin Adult Oral Tablet 1 daily [...] days Quantity: 7 {Tablet} Refills: 0 Ordered:14-Dec-2011 Francoise Meng CNP Start : 14-Dec-2011 End : 21-Dec-2011 Inactive [...] (R79.89, 790.6) Comments: endocrine Dr. Herrera at [facility], changed cytomel. adjusted 2-12. reduced [...] again but not really totally postmenapausal. seeing edge burnisher. Status: Inactive as of 06-Jul-2013 Need for [...] (R35.0, 788.41) Status: Inactive as of 26-Jan-2013 Vomiting and diarrhea (R11.10, 787.03) Status: Inactive as of 11-Jul-2015 WWV V73.21 Comments: Dr. thorpe. colonscopy 2008 Status: Inactive as of 06-Jul-2013 Procedures Procedure Dates Details Female ablation 2004 Dr. Powell Completed TAHBSO 2013 Completed Tonsillectomy Completed Comments: 19 years old Tubal Ligation Completed Date Value Details 30-Nov-2016 SCREENING MAMM (CAD), BILAT Result: Comments: See Note; NOTES: [facility] Imaging Services [address] [place] [address] Verdana 4d SCREENING MAMM (CAD), BILAT MR#: [id number] Acct: [id number] Name: GRZEGORZ BANGURA Rep #: [id number] : 1955 F 61 From: Sarbjit Hansen MD PCP: Krysten Dial MD Status: REG CLI Study: SCREENING MAMM (CAD), BILAT Date of Exam: 11/30/16 Exam# [id number] Ordering Dr: Marie Thorpe MD MAMMOGRAPHY - [...] delay biopsy of a clinically suspicious abnormality. [id number] Electronically Signed: Sarbjit Hansen MD at 14:44 EDT Tel , Service support [phone], CC: Ruthie Thorpe MD; Krysten Dial MD Cloth Wire Weaver: Signed 25-Feb-2016 Dexa Bone Density Study (HP) Result: Comments: See Note; NOTES: [facility] Imaging Services [address] [place] [address] Verdana 4d Dexa Bone Density Study (HP) MR#: [id number] Acct: [id number] Name: FENTON SURY Corbin Rep #: [id number] : 1955 F 60 From: Albaro Pena MD PCP: Krysten Dial MD Status: REG CLI Study: Dexa Bone Density Study (HP) Date of Exam: 02/25/16 Exam# [id number] Ordering Dr: Krysten Portillo MD STUDY: DUAL [...] Albaro Pena MD at 9:34 EDT Tel [phone], Service support [phone], CC: Krysten Dial MD Cloth Wire Weaver: Signed 07-Nov-2015 Bilat Scrn Digital AND CAD Result: Comments: See Note; NOTES: [facility] Imaging Services [address] [facility] [place] [address] Verdana 4d Bilat Scrn Digital AND CAD MR#: [id number] Acct: [id number] Name: ARCHANA BANGURA Rep #: [id number] : 1955 F 60 From: Albaro Pena MD PCP: Krysten Dial MD Status: REG CLI Study: Bilat Scrn Digital AND CAD Date of Exam: 11/07/15 Exam# [id number] Order ing Dr: Ruthie Thorpe MD MAMMOGRAPHY [...] lay biopsy of a clinically suspicious abnormality. [id number] Electronically Signed: Albaro Pena MD at 11:07 EDT Tel [phone], Service support [phone], CC: Ruthie Thorpe MD; Krysten Dial MD Cloth Wire Weaver: Signed 28-Jun-2015 Gallbladder Result: Comments: See Note; NOTES: [facility] Imaging Services [address] [place] [address], [place] [address] Verdana 4d Gallbladder MR#: [id number] Acct: [id number] Name: ARCHANA BANGURA Rep #: [id number] : 1955 F 60 From: Albaro Pena MD PCP: Krysten Dial MD Status: REG CLI Study: Gallbladder Date of Exam: 06/28/15 Exam# [id number] Ordering Dr: Francoise Mneg STUDY: ABDOMINAL ULTRASOUND - RIGHT UPPER QUADRANT [...] Albaro Pena MD at 11:40 EST Tel [phone], Service support [phone], CC: Francoise Meng; Krysten Dial MD Cloth Wire Weaver: Signed 14-May-2015 Foot min 3 Views Result: Comments: See Note; NOTES: [facility] Imaging Services [address] [place] [address] Verdana 4d Foot min 3 Views MR#: [id number] Acct: [id number] Name: PRICE Rep #: [id number] : 1955 F 60 From: Vazquez Briggs MD PCP: Krysten Dial MD Status: REG CLI Study: Foot min 3 Views Date of Exam: 05/14/15 Exam# [id number] Ordering Dr: Francoise Meng STUDY: X-RAY - [...] FACR at 19:17 EST , Service support [phone], RAD/Foot min 3 Views IMPRESSION: 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 Prominent plantar calcaneal spur. Flattening of the heads of the second and third metatarsals which could be related to stress subchondral fracture or cyrus ne infarcts. Electronically Signed: Vazquez Briggs MD, FACR at 19:17 EST , Service support [phone], CC: Francoise Meng; Krysten Dial MD Cloth Wire Weaver: Signed 04-Jan-2015 PT Discharge Summary Result: Comments: See Note; NOTES: [facility] Physical Therapy [address] [place] [address] Fax REHABILITATION SERVICES DISCHARGE SUMMARY MR#: [id number] Acct: [id number] Name: ARCHANA BANGURA Rep #: [id number] : 1955 59 From: Roberto Leon Referring Dr.: Krysten Dial MD Status: PRE RCR Ev Date: Date: DATE OF SERVICE: REFERRING PHYSICIAN: Dr. Krysten Dial. Archana Bangura was evaluated at [facility] on the date [...] achieved. Roberto Leon, PT T: NTS JOB: [id number] <Electronically signed by Roberto Leon > 01/04/15 0937 CC: Signed 22-Oct-2014 Inital Evaluation - PT Result: Comments: See Note; NOTES: [facility] Physical Therapy [place] [id number] [place] [address] Fax REHABILITATION SERVICES INITIAL EVALUATION MR#: [id number] Acct: [id number] Name: ARCHANA BANGURA Rep #: [id number] : 1955 59 From: Roberto Leon Referring Dr.: Krysten Dial MD Status: DIS RCR [facility] Date: DATE OF SERVICE: 10/18/2014 REFERRING PHYSICIAN: Krysten Dial M.D. SUBJECTIVE INFORMATION: A 59-year-old female referred to [facility] on the date [...] this patient is very tender along the care consultant ior superior aspect of her right shoulder [...] visits. Roberto Leon, PT T: CHRIS JOB: [id number] <Electronically signed by Roberto lopez > 10/22/14 1124 CC: Signed For Medicare only, by signing this I certify the plan of care. Physicians Signature Date 11-Sep-2014 Bilat Scrn Digital AND CAD Result: Comments: See Note; NOTES: [facility] Imaging Services [address] [place] [address] Breast Imaging Report MR#: [id number] Acct: [id number] Name: ARCHANA BANGURA Rep #: [id number] : 1955 F 59 From: Albaro Pena MD PCP: Krysten Dial MD Status: PRE CLI Study: Bilat Scrn Digital AND CAD Date of Exam: 09/11/14 Exam# [id number] Ordering Dr: Ruthie Thorpe MAMMOGRAPHY - BILATERAL [...] Kavin Pena MD at 8:27 EDT Tel [phone], Service support [phone], CC: Ruthie Thorpe MD; Krysten Dial MD Cloth Wire Weaver: Signed 19-Apr-2014 Spirometry (24628) Result: 08-Sep-2013 Liver Result: Comments: See Note; NOTES: [facility] Imaging Services [address] [place] [address] Ultrasound Report MR#: [id number] Acct: [id number] Name: ARCHANA BANGURA Rep #: [id number] : 1955 F 58 From: Albaro Pena MD PCP: Krysten Dial MD Status: REG CLI Study: Liver Date of Exam: 09/08/13 Exam# [id number] Ordering Dr: Krysten Dial MD STUDY: ABDOMINAL [...] M.D. at 10:46 EDT , Service support [phone], CC: Krysten Dial MD Cloth Wire Weaver: Signed Immunization Name Dates Details Zoster (shingles) on: Apr-2017 Comments: see office note from03/22/17 Family History Unknown Family Member Name Dates Details Brother 1 Comments: [place]N, [place] at 56 yo. younger. 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 Exercise History Comments: [...] kg/m2 Body Surface Area Calculated 2.03 m2 46-Hgu-492019:31 Temperature 98.2 f Comments: Method: Oral Pulse [...] 2.03 m2 Results Date Description Value Details :20 URINE ANNETTE CULTURE-IDENTIFICATN Comments: PATIENT NOT FASTINGPERFORMED BY: ARIADNE LabCo Mqudzh3177 [facility] [id number] Information: SRC:JERED (24773) Result 2 MUG (Normal) Comments: Mixed urogenital flora3,000 Colonies/mL S = Susceptible; I = Intermediate; R = Resistant P = Positive; N = Negative MICS are expressed in micrograms per mL Anti biotic RSLT#1 RSLT#2 RSLT#3 RSLT#4Amoxicillin/Clavulanic Acid IAmpicillin RCefazolin RCefepime ICeftriaxone RCefuroxime RCiprofloxacin RErtapenem SGentamicin SImipenem SLevofloxacin RMeropenem SNitrofurantoin SPiperacillin/Tazobactam STetracycline RTobramycin ITrimethoprim/Sulfa R Result 1 Escherichia coli Comments: 25,000-50,000 colony forming units per mLSusceptibility profile is consistent with a probable ESBL. (Abnormal) Urine Final report (Abnormal) Culture,Comprehensi ashley :37 Urinalysis, Office (30655) UA - LEUKOCYTE ESTERASE Trace (Normal) UA - NITRITE Negative (Normal) URINE UROBILINGN TEMO TIMED 2 mg/dL (Normal) Comments: 0.2e.u/dl UA - PROTEIN Negative mg/dL (Normal) UA - PH 5 (Abnormal) Comments: 5.5 UA - BLOOD Negative (Normal) UA - SPECIFIC GRAVITY 1.025 (Normal) UA - KETONES Negative mg/dL (Normal) UA - BILIRUBIN Negative (Normal) UA - GLUCOSE Negative (Normal) :50 Microscopic Examination Comments: PATIENT WAS FASTINGPERFORMED BY: LabCoAncora Psychiatric HospitalSabnps1876 [facility] [id number] Bacteria Few (Normal) Mucus Threads Present (Normal) Cast Type Hyaline casts (Normal) Casts Present {/lpf} (Abnormal) Epithelial Cells (non renal) 0-10 {/hpf} (Normal) Range: 0 - 10 RBC 0-2 {/hpf} (Normal) Range: 0 - 2 WBC 11-30 {/hpf} (Abnormal) Range: 0 - 5 57-Hdz-23877:50 Metabolic Panel, Comprehensive Comments: PATIENT WAS FASTINGPERFORMED BY: LabCoAncora Psychiatric HospitalXixgpg0934 [facility] [id number] (22675) ALT (SGPT) 33 [iU]/L (Abnormal) Range: 0-32 [...] 8-27 Glucose 102 mg/dL (Abnormal) Range: 65-99 82-Pgp-96562:50 CBC WITH MANUAL DIFF (23464) Comments: PATIENT WAS FASTINGPERFORMED BY: LabCoAncora Psychiatric HospitalQnsuec3438 [facility] [id number] Immature Grans (Abs) 0.0 {x10E3/uL} (Normal) Range: [...] 3.77-5.28 WBC 6.7 {x10E3/uL} (Normal) Range: 3.4-10.8 42-Sfx-31433:50 MICROALBUMIN: CREATININE RATIO Comments: PATIENT WAS FASTINGPERFORMED BY: [facility]6370 [facility] [id number] (87133) AND (73098) Alb/Creat Ratio 7.8 {mg/g_creat} (Normal) Range: 0.0-30.0 Comments: Normal: 0.0 - 30.0 Albuminuria: 31.0 - 300.0 Clinical albuminuria: >300.0 Albumin, Urine 17.2 ug/mL (Normal) Creatinine, Urine 219.2 mg/dL (Normal) :50 URINALYSIS (74850) Comments: PATIENT WAS FASTINGPERFORMED BY: GolgiAncora Psychiatric HospitalHgxrdv1403 [facility] [id number] Microscopic Examination See below: (Normal) Comments: Microscopic was indicated and was performed. Nitrite, Urine Negative (Normal) Urobilinogen,Semi-Qn 0.2 mg/dL (Normal) Range: 0.2-1.0 Bilirubin Negative (Normal) Occult Blood Negative (Normal) Ketones Negative (Normal) Glucose Negative (Normal) Protein Negative (Normal) WBC Esterase 2+ (Abnormal) Appearance Clear (Normal) Urine-Color Yellow (Normal) pH 5.5 (Normal) Range: 5.0-7.5 Specific [place]burn 1.026 (Normal) Range: 1.005-1.030 :31 METABOLIC PANEL, COMPREHENSIVE Comments: PATIENT WAS FASTINGPERFORMED BY: NuhookAncora Psychiatric HospitalXblsyx5124 [facility] [id number] (46945) ALT (SGPT) 52 [iU]/L (Abnormal) Range: 0-32 [...] mg/dL (Normal) Range: 65-99 :31 LIPID PANEL (06372) Comments: PATIENT WAS FASTINGPERFORMED BY: Golgi[address] [id number] LDL/HDL Ratio 2.5 {ratio_units} (Normal) Range: 0.0-3.2 [...] C ANTIBODY Comments: PATIENT WAS FASTINGPERFORMED BY: GolgiAncora Psychiatric HospitalIjmcta4063 [facility] [id number] Information: NURSE DRAW (84595) Hep C Virus Ab <0.1 {s/co_ratio} (Normal) Range: 0.0-0.9 Comments: Negative: < 0.8 Indeterminate: 0.8 - 0.9 Positive: > 0.9 . The CDC recommends that a positive HCV antibody result be followed up with a HCV Nucleic Acid Amplification test (997885). :44 HgA1C , Office (54251) HgA1C , Office 5.7 % (Normal) Range: 4.6 - 7.1 :32 Vitamin B-12 (cyanocobalamin) Comments: PATIENT WAS FASTINGPERFORMED BY: [address] [id number] BY: GolgiAncora Psychiatric HospitalGwxekw6412 [facility] [id number] (86251) Vitamin B12 867 pg/mL (Normal) Range: 211-946 :32 CALCIFIDIOL (96168) VIT D Comments: PATIENT WAS FASTINGPERFORMED BY: Golgi Chigunpivf[address] [id number] BY: GolgiAncora Psychiatric HospitalAmuhid1304 [facility] [id number] 25 Vitamin D, 25-Hydroxy 49.1 ng/mL (Normal) Range: 30.0-100.0 Comments: Vitamin D deficiency has been defined by the [place] of[facility]cine and an Endocrine Society practice guideline as alevel of serum 25-OH vitamin D less than 20 ng/mL (1,2).The Endocrine Society went on to further define vitamin Dinsufficiency as a level between 21 and 29 ng/mL (2).1. IOM ([place] of Medicine). 2010. Dietary reference intakes for calcium and D. [place]: The National Academies Press.2. Joe MF, Bailee NC, Slade-Todd PALM, et al. Evaluation, treatment, and prevention of vitamin D deficiency: an Endocrine Society clinical practice guideline. JCEM. 2010; 96(7):1911-30. :32 MICROALBUMIN: CREATININE Comments: PATIENT WAS FASTINGPERFORMED BY: SwimTopiaton1447 [facility][1] [id number] BY: GolgiAncora Psychiatric HospitalWgzoai5075 [facility] [id number] RATIO (95188) AND (23199) Microalb/Creat Ratio 11.2 {mg/g_creat} (Normal) Range: 0.0-30.0 Microalbumin, Urine 18.2 ug/mL (Normal) Creatinine, Urine 162.1 mg/dL (Normal) :32 CBC, Platelets & Auto Comments: PATIENT WAS FASTINGPERFORMED BY: Golgi[address] [id number] BY: LabM[facility] Hospital6370 [facility] [id number] Diff (52096) Immature Grans (Abs) 0.0 {x10E3/uL} (Normal) Range: [...] 3.77-5.28 WBC 5.9 {x10E3/uL} (Normal) Range: 3.4-10.8 88-Azs-52876:32 Metabolic Panel, Comments: PATIENT WAS FASTINGPERFORMED BY: LabCo[address] [id number] BY: LabM[facility] Hospital6370 [facility] [id number] Comprehensive (72532) ALT (SGPT) 46 [iU]/L (Abnormal) Range: 0-32 [...] Glucose, Serum 109 mg/dL (Abnormal) Range: 65-99 33-Fiz-85128:32 LIPOPROTEIN, BLD, BY NMR Comments: PATIENT WAS FASTINGPERFORMED BY: BN [facility] [address] [id number] BY: CB [facility] Vwraay1214 [facility] [id number] Information: NURSE DRAW (72551) LP-IR Score 42 (Normal) Comments: INSULIN RESISTANCE MARKER <--Insulin Sensitive Insulin Resistant--> Percentile in Reference PopulationInsulin Resistance ScoreLP-IR Score Low 25th 50th 75th High <27 27 45 63 >63LP-IR Score is inaccurate if patient is non-fasting. .The LP-IR score is a laboratory developed i [facility] that has beenassociated with insulin resistance and [...] were developed and their performance characteristicsdetermined by LipZ[employer]. These assays have not been cleared by [...] High 1600 - 2000 Very High > 02-Mar-20179:32 T3, FREE (TRIDOTHYRONINE) Comments: PATIENT WAS FASTINGPERFORMED BY: [place] [address] [facility][1] [id number] BY: LabM[facility] Hospital6370 [facility] [id number] (90936) Triiodothyronine,Free,Serum 4.2 pg/mL (Normal) Range: 2.0-4.4 :32 T4, FREE (THYROXINE) Comments: PATIENT WAS FASTINGPERFORMED BY: Lab[address] [id number] BY: [place] [address] [facility] [id number] (10886) T4,Free(Direct) 1.02 ng/dL (Normal) Range: 0.82-1.77 :32 TSH (29705) Comments: PATIENT WAS FASTINGPERFORMED BY: Golgi[address] [id number] BY: LabJ[place] 6136070 [facility] [id number] TSH 2.070 {uIU/mL} (Normal) Range: 0.450-4.500 :49 URINE ANNETTE CULTURE-IDENTIFICATN Comments: PATIENT NOT FASTINGPERFORMED BY: [place] [address] [facility] [id number] Information: [id number] SRC:UC (00444) Result 1 MUG (Normal) Comments: Mixed urogenital flora10,000-25,000 colony forming units per mL Urine Final report (Normal) Culture,Comprehensive :47 Urinalysis, Office (00041) UA - LEUKOCYTE ESTERASE Small (Normal) UA - NITRITE Negative (Normal) URINE UROBILINGN TEMO TIMED 2 mg/dL (Normal) UA - PROTEIN Negative mg/dL (Normal) UA - PH 6.0 (Normal) UA - BLOOD Negative (Normal) UA - SPECIFIC GRAVITY 1.025 (Normal) UA - KETONES Negative mg/dL (Normal) UA - BILIRUBIN Negative (Normal) UA - GLUCOSE Negative (Normal) :47 HgA1C , Office (24993) HgA1C , Office 5.7 % (Normal) Range: 4.6 - 7.1 :11 HgA1C , Office (66626) HgA1C , Office 5.7 % (Normal) Range: 4.6 - 7.1 :43 TSH (46529) Comments: PATIENT WAS FASTINGPERFORMED BY: [employer] LabEntelo [address] [id number] BY: LabCoRedgage Xcphxq7366 [facility] [id number] TSH 2.950 {uIU/mL} (Normal) Range: 0.450-4.500 :43 LIPOPROTEIN, BLD, BY NMR Comments: PATIENT WAS FASTINGPERFORMED BY: [employer] [facility] Nxysmdjzwq8090 [facility][1] [id number] BY: [employer] LabChegg70 [facility] [id number] (71000) LP-IR Score 39 (Normal) Comments: INSULIN RESISTANCE MARKER <--Insulin Sensitive Insulin Resistant--> Percentile in Reference PopulationInsulin Resistance ScoreLP-IR Score Low 25th 50th 75th High <27 27 45 63 >63LP-IR Score is inaccurate if patient is non-fasting. .The LP-IR score is a laboratory developed i [facility] that has beenassociated with insulin resistance and [...] were developed and their performance characteristicsdetermined by LipZopa. These assays have not been cleared by [...] 1600 - 2000 Very High > 2000 90-Jzr-88474:43 CBC, Platelets & Auto Comments: PATIENT WAS FASTINGPERFORMED BY: [facility] [address] [id number] BY: [facility] Nzseax0570 [facility] [id number] Diff (04449) Immature Grans (Abs) 0.0 {x10E3/uL} (Normal) Range: [...] 3.77-5.28 WBC 5.9 {x10E3/uL} (Normal) Range: 3.4-10.8 69-Gxl-37179:43 Metabolic Panel, Comments: PATIENT WAS FASTINGPERFORMED BY: [facility] [address] [id number] BY: [facility] Afyvvp5119 [facility] [id number]; fu 3-31 Comprehensive (06013) ALT (SGPT) 49 [iU]/L (Abnormal) Range: 0-32 [...] (Abnormal) Range: 65-99 :13 HgA1C , Office (91435) HgA1C , Office 5.8 % (Normal) Range: 4.6 - 7.1 :07 POTASSIUM SERUM (12070) Comments: one month; PATIENT WAS FASTINGPERFORMED BY: Thuuz [address] [id number] BY: UsherBuddy70 [facility] [id number] Potassium, Serum 4.5 mmol/L (Normal) Range: 3.5-5.2 :07 HEPATIC FUNCTION PANEL Comments: in one month and three months (approximately); PATIENT WAS FASTINGPERFORMED BY: Thuuz [address] [id number] BY: Nuhook Najwul0969 [facility] [id number] (40550) ALT (SGPT) 77 [iU]/L (Abnormal) Range: 0-32 AST (SGOT) 62 [iU]/L (Abnormal) Range: 0-40 Alkaline Phosphatase, S 69 [iU]/L (Normal) Range: 39-117 Bilirubin, Direct 0.11 mg/dL (Normal) Range: 0.00-0.40 Bilirubin, Total 0.4 mg/dL (Normal) Range: 0.0-1.2 Albumin, Serum 4.1 g/dL (Normal) Range: 3.6-4.8 Protein, Total, Serum 7.2 g/dL (Normal) Range: 6.0-8.5 71-Cmg-28651:07 LIPOPROTEIN, BLD, BY NMR Comments: in three months (approximately); PATIENT WAS FASTINGPERFORMED BY: BN [facility] Vvosfgnfyl8169 [facility][1] [id number] BY: CB [facility] Drlyzm6776 [facility] [id number] (93597) LP-IR Score 77 (Abnormal) Comments: INSULIN RESISTANCE MARKER <--Insulin Sensitive Insulin Resistant--> Percentile in Reference PopulationInsulin Resistance ScoreLP-IR Score Low 25th 50th 75th High <27 27 45 63 >63LP-IR Score is inaccurate if patient is non-fasting. .The LP-IR score is a laboratory developed i [facility] that has beenassociated with insulin resistance and [...] were developed and their performance characteristicsdetermined by [employer]. These assays have not been cleared by [...] High > 2000 :10 HgA1C , Office (78509) HgA1C , Office 5.8 % (Normal) Range: 4.6 - 7.1 :47 CBC WITH MANUAL DIFF Comments: PATIENT NOT FASTINGPERFORMED BY: LabCoAncora Psychiatric HospitalUyrwkm8158 [facility] [id number] Information: [id number] (39829) Immature Grans (Abs) 0.0 {x10E3/uL} (Normal) Range: [...] 5.8 {x10E3/uL} (Normal) Range: 3.4-10.8 :47 TSH (05862) Comments: PATIENT NOT FASTINGPERFORMED BY: [employer] [facility] [id number]; [address] TSH 2.390 {uIU/mL} (Normal) Range: 0.450-4.500 :48 ZXMUQ-NDFBEUTMVCJ-NCTQA (12787) Comments: PATIENT WAS FASTINGPERFORMED BY: [employer]6370 [facility] [id number] AFP, Serum, Tumor Marker 1.7 ng/mL (Normal) Range: 0.0-8.3 Comments: Altagracia ECLIA methodology :48 HEPATITIS PANEL (37264) Comments: PATIENT WAS FASTINGPERFORMED BY: [employer] Qjchkl5233 [facility] [id number] Hep C Virus Ab <0.1 {s/co_ratio} (Normal) Range: 0.0-0.9 Comments: Negative: < 0.8 Indeterminate: 0.8 - 0.9 Positive: > 0.9 . The CDC recommends that a positive HCV antibody result be followed up with a HCV Nucleic Acid Amplification test (599832). Hep B Core Ab, IgM Negative (Normal) HBsAg Screen Negative (Normal) Hep A Ab, IgM Negative (Normal) :48 LIPID PANEL (05957) Comments: PATIENT WAS FASTINGPERFORMED BY: GolgiAncora Psychiatric HospitalXeuctz7653 [facility] [id number]; apt. 2-19 LDL/HDL Ratio 2.0 {ratio_units} (Normal) [...] METABOLIC PANEL, Comments: PATIENT WAS FASTINGPERFORMED BY: [employer] Cuagfm5949 [facility] [id number] Information: [id number],2ND ORDER COMPREHENSIVE (42717) ALT (SGPT) 36 [iU]/L (Abnormal) Range: 0-32 [...] Auto Diff Comments: PATIENT NOT FASTINGPERFORMED BY: LabCo Zndntb1255 [facility] [id number] Information: [id number] (39152) Immature Grans (Abs) 0.0 {x10E3/uL} (Normal) Range: [...] (Normal) Range: 3.4-10.8 :29 Renal function Panel (13780) Comments: PATIENT NOT FASTINGPERFORMED BY: GolgiAncora Psychiatric HospitalJzwlqp1722 [facility] [id number] Albumin, Serum 3.8 g/dL (Normal) Range: 3.6-4.8 [...] Glucose, Serum 88 mg/dL (Normal) Range: 65-99 28-Jun-20157:58 Rapid Flu (87596 x 2) Influenza A Ag Negative a/b (Normal) 43-Pgc-768381:09 URINE ANNETTE CULTURE-TEMO COL Comments: PATIENT NOT FASTINGPERFORMED BY: LabCoAncora Psychiatric HospitalEkqgln8809 [facility] [id number] Information: SRC:URC [id number] COUNT (87835) Result 1 NG36 (Normal) Comments: No growth in 36 - 48 hours. Urine Culture,Comprehensive Final report (Normal) 30-Prf-40762:05 Urinalysis, Office (42630) UA - LEUKOCYTE ESTERASE Trace (Normal) UA [...] ANNETTE CULTURE-IDENTIFICATN Comments: PATIENT NOT FASTINGPERFORMED BY: Golgi Spozzh9491 [facility] [id number] Information: [id number] (43806) Result 1 NG36 (Normal) Comments: No growth in 36 - 48 hours. Urine Culture,Comprehensive Final report (Normal) :50 Urinalysis, Office (25132) UA - LEUKOCYTE ESTERASE Negative (Normal) UA - NITRITE Negative (Normal) URINE UROBILINGN TEMO TIMED 2 mg/dL (Normal) UA - PROTEIN Negative mg/dL (Normal) UA - PH 5.0 (Normal) UA - BLOOD Negative (Normal) UA - SPECIFIC GRAVITY 1.030 (Abnormal) UA - KETONES Negative mg/dL (Normal) UA - BILIRUBIN Negative (Normal) UA - GLUCOSE Negative (Normal) 74-Ibq-94245:01 URINE ANNETTE CULTURE-IDENTIFICATN Comments: PATIENT NOT FASTINGPERFORMED BY: LabCo Pokhjy8223 [facility] [id number] Information: [id number] (97832) Result 2 MUG (Normal) Comments: Mixed urogenital [...] Culture,Comprehensi (Abnormal) ve :16 HgA1C , Office (17899) HgA1C , Office 5.6 % (Normal) Range: 4.6 - 7.1 :16 Blood Glucose , Office (75094) Blood Glucose , Office 110 (Normal) :59 Urinalysis, Office (40102) UA - LEUKOCYTE ESTERASE Trace (Normal) UA - NITRITE Negative (Normal) URINE UROBILINGN TEMO TIMED Normal mg/dL (Normal) UA - PROTEIN Negative mg/dL (Normal) UA - PH 5 (Abnormal) UA - BLOOD Negative (Normal) UA - SPECIFIC GRAVITY 1.015 (Normal) UA - KETONES Negative mg/dL (Normal) UA - BILIRUBIN Negative (Normal) UA - GLUCOSE Negative (Normal) 2-Ixi-549375:41 Metabolic Panel, Comprehensive Comments: PATIENT WAS FASTINGPERFORMED BY: LabCoAncora Psychiatric HospitalSpmacf6146 [facility] [id number] (89299) ALT (SGPT) 30 [iU]/L (Normal) Range: 0-32 [...] Glucose, Serum 109 mg/dL (Abnormal) Range: 65-99 4-Lfh-884360:41 Lipid Panel (45838) Comments: PATIENT WAS FASTINGPERFORMED BY: LabPremiTechAncora Psychiatric HospitalXfpcat2757 [facility] [id number]; [address] LDL/HDL Ratio 2.3 {ratio_units} (Normal) [...] Cholesterol, Total 201 mg/dL (Abnormal) Range: 100-199 3-Qbq-583376:41 CBC WITH MANUAL DIFF Comments: PATIENT WAS FASTINGPERFORMED BY: LabPremiTechAncora Psychiatric HospitalQwfnpq7149 [facility] [id number] Information: [id number] (92426) Immature Grans (Abs) 0.0 {x10E3/uL} (Normal) Range: [...] 6.5 {x10E3/uL} (Normal) Range: 3.4-10.8 :41 TSH (12228) Comments: PATIENT WAS FASTINGPERFORMED BY: [place] [facility] HospitalPremiTechAncora Psychiatric HospitalNnhtbw5919 [facility] [id number] TSH 2.690 {uIU/mL} (Normal) Range: 0.450-4.500 :40 HgA1C , Office (16139) HgA1C , Office 5.6 % (Normal) Range: 4.6 - 7.1 :40 Blood Glucose , Office (15471) Blood Glucose , Office 98 (Normal) :11 TSH (78008) Comments: PATIENT WAS FASTINGPERFORMED BY: [facility]6370 [facility] [id number] TSH 2.680 {uIU/mL} (Normal) Range: 0.450-4.500 :11 METABOLIC PANEL, COMPREHENSIVE Comments: PATIENT WAS FASTINGPERFORMED BY: [place] [facility] HospitalCoAncora Psychiatric HospitalIcvcea3466 [facility] [id number] (11224) ALT (SGPT) 35 [iU]/L (Abnormal) Range: 0-32 [...] mg/dL (Normal) Range: 65-99 :11 LIPID PANEL (64997) Comments: PATIENT WAS FASTINGPERFORMED BY: LabCoAncora Psychiatric HospitalIpuzxs8895 [facility] [id number] LDL/HDL Ratio 2.3 {ratio_units} (Normal) Range: 0.0-3.2 [...] Cholesterol, Total 222 mg/dL (Abnormal) Range: 100-199 25-Rgk-02721:11 CBC W/AUTO DIFF WBC Comments: PATIENT WAS FASTINGPERFORMED BY: ARIADNE [facility] Aysjyt4021 [facility] [id number] Information: [id number] (44192) Immature Grans (Abs) 0.0 {x10E3/uL} (Normal) Range: [...] (Normal) Range: 3.4-10.8 :37 HgA1C , Office (99770) HgA1C , Office 5.9 % (Normal) Range: 4.6 - 7.1 :36 Blood Glucose , Office (78425) Blood Glucose , Office 107 (Normal) :44 Metabolic Panel, Comments: PATIENT WAS FASTINGPERFORMED BY: [place] Thbbic9906 [facility] [id number] Information: [id number],2ND ORDER Comprehensive (19206) ALT (SGPT) 35 [iU]/L (Abnormal) Range: 0-32 [...] Glucose, Serum 96 mg/dL (Normal) Range: 65-99 78-Vfu-45557:44 HEPATITIS PANEL (79753) Comments: PATIENT WAS FASTINGPERFORMED BY: [facility]6370 [facility] [id number] Hep C Virus Ab <0.1 {s/co_ratio} (Normal) Range: 0.0-0.9 Comments: Negative: < 0.8 Indeterminate: 0.8 - 0.9 Positive: > 0.9 . In order to reduce the incidence of a false positive result, the CDC recommends that all s/co ratios between 1.0 and 10.9 be confirmed by a more specific supplemental or PCR testing. [facility] offers HCV Ab w/Reflex to Verification test #[id number]. Hep B Core Ab, IgM Negative (Normal) HBsAg Screen Negative (Normal) Hep A Ab, IgM Negative (Normal) :44 FERRITIN (97787) Comments: PATIENT WAS FASTINGPERFORMED BY: [facility]6370 [facility] [id number] Ferritin, Serum 72 ng/mL (Normal) Range: 15-150 :44 CBC WITH MANUAL DIFF Comments: PATIENT WAS FASTINGPERFORMED BY: [facility]6370 [facility] [id number] Information: [id number] (18405) Immature Grans (Abs) 0.0 {x10E3/uL} (Normal) Range: [...] FUNCTION PANEL Comments: PATIENT WAS FASTINGPERFORMED BY: [address] [id number] (23335) ALT (SGPT) 36 [iU]/L (Abnormal) Range: 0-32 AST (SGOT) 29 [iU]/L (Normal) Range: 0-40 Alkaline Phosphatase, S 80 [iU]/L (Normal) Range: 39-117 Bilirubin, Direct 0.10 mg/dL (Normal) Range: 0.00-0.40 Bilirubin, Total 0.3 mg/dL (Normal) Range: 0.0-1.2 Albumin, Serum 4.2 g/dL (Normal) Range: 3.5-5.5 Protein, Total, Serum 7.0 g/dL (Normal) Range: 6.0-8.5 :13 HgA1C , Office (39576) HgA1C , Office 5.9 % (Normal) Range: 4.6 - 7.1 :13 Blood Glucose , Office (30119) Blood Glucose , Office 110 (Normal) :14 HEPATIC FUNCTION PANEL Comments: PATIENT WAS FASTINGPERFORMED BY: LabCoAncora Psychiatric HospitalNzqxvi2456 [facility] [id number]; elevated but not critical -- has appt already sched (83928) ALT (SGPT) 43 [iU]/L (Abnormal) Range: 0-32 AST (SGOT) 39 [iU]/L (Normal) Range: 0-40 Alkaline Phosphatase, S 76 [iU]/L (Normal) Range: 39-117 Bilirubin, Direct 0.12 mg/dL (Normal) Range: 0.00-0.40 Bilirubin, Total 0.4 mg/dL (Normal) Range: 0.0-1.2 Albumin, Serum 4.2 g/dL (Normal) Range: 3.5-5.5 Protein, Total, Serum 7.0 g/dL (Normal) Range: 6.0-8.5 :14 LIPID PANEL (56372) Comments: PATIENT WAS FASTINGPERFORMED BY: [place] 7220470 [facility] [id number] Information: [id number] LDL/HDL Ratio 2.0 {ratio_units} (Normal) Range: 0.0-3.2 [...] (THYROID STIMULATING Comments: PATIENT NOT FASTINGPERFORMED BY: [address] [id number] Information: [id number],2ND ORDER HORMONE) (15889) TSH 2.290 {uIU/mL} (Normal) Range: 0.450-4.500 29-Fsx-74723:22 TSH (06160) Comments: PATIENT NOT FASTINGPERFORMED BY: [address] [id number] TSH 1.850 {uIU/mL} (Normal) Range: 0.450-4.500 :22 HEPATIC FUNCTION PANEL Comments: PATIENT NOT FASTINGPERFORMED BY: [address] [id number] Information: [id number] (06202) ALT (SGPT) 40 [iU]/L (Abnormal) Range: 0-32 Alkaline Phosphatase, S 70 [iU]/L (Normal) Range: 39-117 AST (SGOT) 34 [iU]/L (Normal) Range: 0-40 Bilirubin, Direct 0.09 mg/dL (Normal) Range: 0.00-0.40 Bilirubin, Total 0.3 mg/dL (Normal) Range: 0.0-1.2 Albumin, Serum 4.3 g/dL (Normal) Range: 3.5-5.5 Protein, Total, Serum 7.1 g/dL (Normal) Range: 6.0-8.5 :22 HgA1C , Office (12187) HgA1C , Office 6.0 % (Normal) Range: 4.6 - 7.1 :22 Blood Glucose , Office (35045) Blood Glucose , Office 113 (Normal) :51 METABOLIC PANEL, COMPREHENSIVE Comments: PATIENT WAS FASTINGPERFORMED BY: LabCoAncora Psychiatric HospitalDjlmrk3748 [facility] [id number] (87270) ALT (SGPT) 40 [iU]/L (Abnormal) Range: 0-32 [...] MANUAL DIFF Comments: PATIENT WAS FASTINGPERFORMED BY: LabCoAncora Psychiatric HospitalNxkeyf2617 [facility] [id number] Information: [id number] (83421) Immature Grans (Abs) 0.0 {x10E3/uL} (Normal) Range: [...] {x10E3/uL} (Normal) Range: 3.4-10.8 :51 LIPID PANEL (21977) Comments: PATIENT WAS FASTINGPERFORMED BY: [facility]6370 [facility] [id number] LDL/HDL Ratio 2.3 {ratio_units} (Normal) Range: 0.0-3.2 LDL Cholesterol Calc 138 mg/dL (Abnormal) Range: 0-99 VLDL Cholesterol Christopher 21 mg/dL (Normal) Range: 5-40 HDL Cholesterol 60 mg/dL (Normal) Comments: According to ATP-III Guidelines, HDL-C >59 mg/dL is considered anegative risk factor for CHD. Triglycerides 105 mg/dL (Normal) Range: 0-149 Cholesterol, Total 219 mg/dL (Abnormal) Range: 100-199 :17 TSH (71260) Comments: PATIENT WAS FASTINGPERFORMED BY: LabCoAncora Psychiatric HospitalRknpdv5877 [facility] [id number] TSH 1.960 {uIU/mL} (Normal) Range: 0.450-4.500 63-Wai-14723:17 METABOLIC PANEL, Comments: PATIENT WAS FASTINGPERFORMED BY: [employer] LabCoAncora Psychiatric HospitalLycbmk2059 [facility] [id number] Information: [id number] COMPREHENSIVE (14157) ALT (SGPT) 33 [iU]/L (Abnormal) Range: 0-32 [...] Glucose, Serum 88 mg/dL (Normal) Range: 65-99 2-Nkq-227136:45 Blood Glucose , Office (90980) Blood Glucose , Office 89 (Normal) 7-Aqr-032670:45 HgA1C , Office (55853) HgA1C , Office 5.6 % (Normal) Range: 4.6 - 7.1 02-Nxr-03777:22 FOOT MIN 3 VIEWS Radiology Report See [...] M.D.November 10, 2012 at 8:55 :21 AM [id number] Signed RU/RU If you are the referring physician and would like to consult with theradiologist who provided this interpretation, please contact Nilo Mcleod a t [phone]. If this radiologist is unavailable, youmontsellbe directed to another radiologist to assist. If you are a patient with a question regarding this report, pleasecontactyour referring physician directly. Professional Interpretation Provided By: [employer], Phone , These documents contain legally protected [...] by: Alexandre Womack :45 T4, FREE (THYROXINE) (10415) Comments: PATIENT WAS FASTINGPERFORMED BY: [place] Aumgxb6623 [facility] [id number] T4,Free(Direct) 1.06 ng/dL (Normal) Range: 0.82-1.77 :45 T3, FREE (TRIDOTHYRONINE) (02639) Comments: PATIENT WAS FASTINGPERFORMED BY: [employer] Vltxvz2594 [facility] [id number] Triiodothyronine,Free,Serum 3.7 pg/mL (Normal) Range: 2.0-4.4 :45 TSH (86748) Comments: PATIENT WAS FASTINGPERFORMED BY: [place]ook Cshuha4272 [facility] [id number] TSH 1.670 {uIU/mL} (Normal) Range: 0.450-4.500 :45 METABOLIC PANEL, COMPREHENSIVE Comments: PATIENT WAS FASTINGPERFORMED BY: Golgi Mbgkhc7335 [facility] [id number] (22557) ALT (SGPT) 31 [iU]/L (Normal) Range: 0-32 [...] mg/dL (Normal) Range: 65-99 :45 LIPID PANEL (53806) Comments: PATIENT WAS FASTINGPERFORMED BY: [employer]6370 [facility] [id number] LDL/HDL Ratio 2.7 {ratio_units} (Normal) Range: 0.0-3.2 LDL Cholesterol Calc 127 mg/dL (Abnormal) Range: 0-99 VLDL Cholesterol Christopher 27 mg/dL (Normal) Range: 5-40 HDL Cholesterol 47 mg/dL (Normal) Comments: According to ATP-III Guidelines, HDL-C >59 mg/dL is considered anegative risk factor for CHD. Triglycerides 133 mg/dL (Normal) Range: 0-149 Cholesterol, Total 201 mg/dL (Abnormal) Range: 100-199 23-Jan-20138:45 CBC WITH MANUAL DIFF Comments: PATIENT WAS FASTINGPERFORMED BY: LabCoAncora Psychiatric HospitalSubhkn8977 [facility] [id number] Information: [id number] (04942) Immature Grans (Abs) 0.0 {x10E3/uL} Range: 0.0-0.1 [...] 1.770 {uIU/mL} Comments: PATIENT WAS FASTINGPERFORMED BY: [facility]6370 [facility] [id number] Information: [id number] :02 (Normal) Range: 0.450-4.500 Written Authorization WAR (Normal) Comments: PATIENT WAS FASTINGPERFORMED BY: [place] 7220470 [facility] [id number] :02 Comments: Written Authorization Received.Authorization received from DR DIAL [id number] by Ignacia Lozano :02 LIPID PANEL (24792) Comments: PATIENT WAS FASTINGPERFORMED BY: [facility]6370 [facility] [id number] LDL/HDL Ratio 2.3 {ratio_units} (Normal) Range: 0.0-3.2 LDL Cholesterol Calc 133 mg/dL (Abnormal) Range: 0-99 VLDL Cholesterol Christopher 23 mg/dL (Normal) Range: 5-40 HDL Cholesterol 59 mg/dL (Normal) Comments: According to ATP-III Guidelines, HDL-C >59 mg/dL is considered anegative risk factor for CHD. Triglycerides 116 mg/dL (Normal) Range: 0-149 Cholesterol, Total 215 mg/dL (Abnormal) Range: 100-199 :02 CBC (Auto) (24702) Comments: PATIENT WAS FASTINGPERFORMED BY: [facility]6370 [facility] [id number] Platelets 269 {x10E3/uL} (Normal) Range: 140-415 RDW 14.4 % (Normal) Range: 12.3-15.4 MCHC 33.6 g/dL (Normal) Range: 31.5-35.7 MCH 29.8 pg (Normal) Range: 26.6-33.0 MCV 89 fL (Normal) Range: 79-97 Hematocrit 40.5 % (Normal) Range: 34.0-46.6 Hemoglobin 13.6 g/dL (Normal) Range: 11.1-15.9 RBC 4.57 {x10E6/uL} (Normal) Range: 3.77-5.28 WBC 6.2 {x10E3/uL} (Normal) Range: 4.0-10.5 :02 Metabolic Panel, Comments: PATIENT WAS FASTINGPERFORMED BY: ARIADNE [employer]70 [facility] [id number] Information: [id number] Comprehensive (02604) ALT (SGPT) 32 [iU]/L (Normal) Range: 0-32 [...] (Abnormal) Range: 65-99 :02 T3, FREE (TRIDOTHYRONINE) (60770) Comments: PATIENT WAS FASTINGPERFORMED BY: [employer] [facility] [id number] Triiodothyronine,Free,Serum 3.9 pg/mL (Normal) Range: 2.0-4.4 :02 T4, FREE (THYROXINE) (36865) Comments: PATIENT WAS FASTINGPERFORMED BY: [facility]6370 [facility] [id number] T4,Free(Direct) 0.94 ng/dL (Normal) Range: 0.82-1.77 :02 T4, TOTAL (42610) Comments: PATIENT WAS FASTINGPERFORMED BY: [address] [id number] Thyroxine (T4) 7.3 ug/dL (Normal) Range: 4.5-12.0 :07 TSH (32980) Comments: PATIENT NOT FASTINGPERFORMED BY: [address] [id number] Information: [id number] TSH 1.970 {uIU/mL} (Normal) Range: 0.450-4.500 :35 URINE ANNETTE CULTURE (TEMO Comments: and sensitivity; PATIENT NOT FASTINGPERFORMED BY: [address] [id number] Information: SRC:UR [id number] COL COUNT) (10681) Result 1 BETAGB (Normal) Comments: Beta hemolytic [...] (CLSI 2011) Urine Final report (Normal) Culture,Comprehensive 46-Qof-417754:49 Urinalysis, Office (55015) UA - LEUKOCYTE ESTERASE Negative (Normal) UA - NITRITE Negative (Normal) URINE UROBILINGN TEMO TIMED Normal mg/dL (Normal) UA - PROTEIN Negative mg/dL (Normal) UA - PH 7.0 (Normal) UA - BLOOD Negative (Normal) UA - SPECIFIC GRAVITY 1.025 (Normal) UA - KETONES Negative mg/dL (Normal) UA - GLUCOSE Negative (Normal) :15 CBC WITH MANUAL DIFF Comments: PATIENT WAS FASTINGPERFORMED BY: [facility]6370 [facility] [id number] Information: [id number] (57495) Immature Grans (Abs) 0.0 {x10E3/uL} (Normal) Range: [...] {x10E3/uL} (Normal) Range: 4.0-10.5 :15 LIPID PANEL (54131) Comments: PATIENT WAS FASTINGPERFORMED BY: Golgi Lsalno2222 [facility] [id number] LDL/HDL Ratio 2.5 {ratio_units} (Normal) Range: 0.0-3.2 [...] FUNCTION PANEL Comments: PATIENT WAS FASTINGPERFORMED BY: [employer]6370 [facility] [id number] (44540) ALT (SGPT) 32 [iU]/L (Normal) Range: 0-40 AST (SGOT) 29 [iU]/L (Normal) Range: 0-40 Alkaline Phosphatase, S 69 [iU]/L (Normal) Range: 25-150 Bilirubin, Direct 0.10 mg/dL (Normal) Range: 0.00-0.40 Bilirubin, Total 0.4 mg/dL (Normal) Range: 0.0-1.2 Albumin, Serum 4.3 g/dL (Normal) Range: 3.5-5.5 Protein, Total, Serum 7.4 g/dL (Normal) Range: 6.0-8.5 :15 Metabolic Panel, Basic (05253) Comments: PATIENT WAS FASTINGPERFORMED BY: Golgi Xvaspe2892 [facility] [id number] Calcium, Serum 9.6 mg/dL (Normal) Range: 8.7-10.2 [...] 96 mg/dL (Normal) Range: 65-99 :15 TSH (75310) Comments: PATIENT WAS FASTINGPERFORMED BY: GolgiAncora Psychiatric HospitalJqvovv0716 [facility] [id number] TSH 1.500 {uIU/mL} (Normal) Range: 0.450-4.500 :15 T4, FREE (THYROXINE) (25615) Comments: PATIENT WAS FASTINGPERFORMED BY: GolgiAncora Psychiatric HospitalKbkecb5725 [facility] [id number] T4,Free(Direct) 0.96 ng/dL (Normal) Range: 0.82-1.77 :15 T3, FREE (TRIDOTHYRONINE) (30679) Comments: PATIENT WAS FASTINGPERFORMED BY: GolgiAncora Psychiatric HospitalLpyzll1165 [facility] [id number] Triiodothyronine,Free,Serum 3.3 pg/mL (Normal) Range: 2.0-4.4 :02 [...] Range: 6.4-8.2 :37 Rapid Strep Test, Office (60183) Rapid Strep Test, Office Negative (Normal) :37 HgA1C , Office (63974) HgA1C , Office 6.0 % (Normal) Range: 4.6 - 7.1 :37 Blood Glucose , Office (92070) Blood Glucose , Office 122 (Normal) :26 T4 FREE DIRECT 0.40 ng/dL (Abnormal) Range: 0.76-1.46 : TSH 1.31 {uIU/mL} (Normal) Range: 0.358-3.74 : FREE T3 6.7 pg/mL (Abnormal) Range: 2.18-3.98 [...] 7-18 GLU 94 mg/dL (Normal) Range: 70-110 : CULTURE, THROAT See Note (Normal) Comments: Normal throat ronda isolated. No beta-hemolyticstreptococcus isolated. :07 EBVIgG/M [id number] EB-NAg [id number] > 8.0 {AI} (Abnormal) Range: 0.0-0.8 Comments: [...] - Antibody AbsentPerformed at: CB - [facility] [address] [id number] Director: Melanie Hartman MD, Phone: [phone] EB-EA IgG 05385 1.3 {AI} (Abnormal) Range: 0.0-0.8 Comments: Negative <0.9 Equivocal 0.9 - 1.0 Positive >1.0 EB-VCA [id number] > 8.0 {AI} (Abnormal) Range: 0.0-0.8 Comments: Negative <0.9 Equivocal 0.9 - 1.0 Positive >1.0 EB-VCA [id number] < 0.2 {AI} (Normal) Range: 0.0-0.8 Comments: Negative <0.9 Equivocal 0.9 - 1.0 Positive >1.0 : FREE T3 7.0 pg/mL (Abnormal) Range: 2.18-3.98 : T4 FREE DIRECT 0.46 ng/dL (Abnormal) Range: 0.76-1.46 : TSH 1.82 {uIU/mL} (Normal) Range: 0.358-3.74 :50 Rapid Strep Test, Office (96606) Rapid Strep Test, Negative (Normal) Office :36 EB-NAg [id number] > 8.0 {AI} (Abnormal) Range: 0.0-0.8 Comments: Negative <0.9 Equivocal 0.9 - 1.0 Positive >1.0 :36 EB-VCA [id number] > 8.0 {AI} (Abnormal) Range: 0.0-0.8 Comments: Negative <0.9 Equivocal 0.9 - 1.0 Positive >1.0 :36 EB-EA IgG 01397 1.5 {AI} (Abnormal) Range: 0.0-0.8 Comments: Negative <0.9 Equivocal 0.9 - 1.0 Positive >1.0Performed at: [facility] [address] [id number] Director: Melanie Hartman MD, Phone: [phone] 17-Wbh-23860:25 CKMB Comments: Please Note: TROPONIN REFERENCE RANGE CHANGEEffective MAY 21, 2009. CPKMB 0.5 ng/mL (Normal) Range: 0.0-5.0 Comments: CK-MB and RI Interpretation MB Relative Index Non-AMI <or= 5 NA Indeterminate > 5 <or= 4 AMI > 5 > 4 CPK TOTAL 60 U/L (Normal) Range: :25 TROPONIN-I < 0.02 ng/mL (Normal) Comments: Please Note: TROPONIN REFERENCE RANGE CHANGEEffective MAY 21, 2009. Comments: TROPONIN-I EXPECTED VALUES <0.05 NEGATIVE 0.06 - 0.59 AT RISK OF [place] > OR = 0.60 SUGGEST [place] :01 CKMB Comments: Please Note: TROPONIN REFERENCE RANGE CHANGEEffective MAY 21, 2009. CPKMB < 0.5 ng/mL (Normal) Range: 0.0-5.0 Comments: CK-MB and RI Interpretation MB Relative Index Non-AMI <or= 5 NA Indeterminate > 5 <or= 4 AMI > 5 > 4 CPK TOTAL 50 U/L (Normal) Range: 21:01 TROPONIN-I < 0.02 ng/mL (Normal) Comments: Please Note: TROPONIN REFERENCE RANGE CHANGEEffective MAY 21, 2009. Comments: TROPONIN-I EXPECTED VALUES <0.05 NEGATIVE 0.06 - 0.59 AT RISK OF [place] > OR = 0.60 SUGGEST [place] 31-Rrw-434526:40 TROPONIN-I < 0.02 ng/mL (Normal) Comments: Please Note: TROPONIN REFERENCE RANGE CHANGEEffective MAY 21, 2009. Comments: TROPONIN-I EXPECTED VALUES <0.05 NEGATIVE 0.06 - 0.59 AT RISK OF [place] > OR = 0.60 SUGGEST [place] : CORTISOL 11.41 ug/dL (Normal) Range: 3.09-22.40 Comments: Adult (AM) 4.30 - 22.40 ug/dLAdult (PM) 3.09 - 16.66 ug/dL :00 FREE T3 2.8 pg/mL (Normal) Range: 2.18-3.98 : T4 FREE DIRECT 0.51 ng/dL (Abnormal) Range: 0.76-1.46 : TSH 1.54 {uIU/mL} (Normal) Range: 0.358-3.74 :26 HgA1C , Office (00142) HgA1C , Office 5.4 % (Normal) Range: 4.6 - 7.1 :26 Blood Glucose , Office (67253) Blood Glucose , Office 89 (Normal) :54 CORTISOL 7.59 ug/dL (Normal) Range: 3.09-22.40 Comments: Adult (AM) 4.30 - 22.40 ug/dLAdult (PM) 3.09 - 16.66 ug/dL :54 DHEA SULF 4697 33.4 ug/dL (Normal) Range: 18.9-205.0 :54 ESTRADIOL 4515 28.9 pg/mL (Normal) Comments: Adult Female:Follicular phase 12.5 - 166.0Ovulation phase 85.8 - 498.0Luteal phase 43.8 - 211.0Postmenopausal <6.0 - 54.6Cbtuigvkx4ro trimester 215.0 - >4300.0Girls (1- 10 years) 6.0 - 27.0Roche ECLIA methodology :54 FREE T3 2.1 pg/mL (Abnormal) Range: 2.18-3.98 :54 GLU 90 mg/dL (Normal) Range: 70-110 :54 INSULIN 4333 16.9 {uIU/mL} Range: 0.0-24.9 (Normal) Comments: Performed at: [facility] [address] [id number] Director: Melanie Hartman MD, Phone: [phone] :[phone] PROGESTER. 4317 2.7 ng/mL (Normal) Comments: [...] Female Indication: Bronchitis Planned Observations LDL CHOLESTEROL-DIRECT (38388)Indication: Hypercholesteremia (Renamed from Hypercholesterolemia) On: 28-Apr-20188:47 Request HEPATIC FUNCTION PANEL (29800)Indication: Hypercholesteremia (Renamed from Hypercholesterolemia) On: :26 Request T3, FREE (TRIDOTHYRONINE) (14250)Indication: Hypothyroidism On: :19 Request T4, FREE (THYROXINE) ([id number])Indication: Hypothyroidism On: :19 Request TSH ([id number])Indication: Hypothyroidism On: :19 Request OCCULT BLOOD FECES SCREEN ([id number])Indication: Dehydration On: :30 Request OVA & PARASITE DIR SMEAR ([id number])Indication: Dehydration On: :30 Request LEUKOCYTE COUNT, FECAL ([id number])Indication: Dehydration On: :30 Request C-DIFFICILE, STOOL ([id number])Indication: Dehydration On: :30 Request ANNETTE CULTURE-STOOL ([id number])Indication: Dehydration On: :30 Request Metabolic Panel, Basic ([id number])Indication: Hypertension, benign On: 52-Pbi-347451:06 Request Comments: due in 1 week. Metabolic Panel, Basic ([id number])Indication: Hypertension, benign On: 59-Gwt-115043:40 Request ANNETTE CULTURE-OTHER ([id number])Indication: Pharyngitis, acute On: :37 Request TSH ([id number])Indication: Abnormal TSH On: :30 Request T4, FREE (THYROXINE) ([id number])Indication: Abnormal TSH On: :30 Request T3, FREE (TRIDOTHYRONINE) ([id number])Indication: Abnormal TSH On: :30 Request TSH ([id number])Indication: Abnormal TSH On: :57 Request T4, FREE (THYROXINE) ([id number])Indication: Abnormal TSH On: :57 Request T3, FREE (TRIDOTHYRONINE) ([id number])Indication: Abnormal TSH On: :57 Request ANNETTE CULTURE-OTHER ([id number])Indication: Pharyngitis, acute On: :50 Request EB ANTIBODY EARLY ANTIGN ([id number])Indication: Fatigue On: 28-Mar-20108:00 Request Comments: today EB ANTIBODY VIRAL CAPSID ([id number]) [id number]: Fatigue On: :57 Request EB ANTIBODY NUCLR ANTIGN (35764)Indication: Fatigue On: :57 Request Planned Encounters Medical; KARELY 3 Month FU - On: 04-Aug-2018 7:00 [facility] Nerissa CASTELLANO, Krysten Hogan MD Planned Procedures Nerve ConductionBy: Krysten Dial MD On: 28-Apr-2018 Intent Krysten Dial MD Comments: both hands. will get back to splints Flu Vaccine (Quadrivalent) 72916Mp: On: 08-Apr-2018 Intent Andrea RITA Comments: Lot #:[id number] date: 0-80-55Cgmjpi given:0.5mlRoute: IMSite given:L DltdGiven by: DBVIS and ABN signed Fluarix COMPLETE ELECTROMYOGRAPHY (EMG) WITH On: 19-Jun-2016 Intent NERVE CONDUCTION STUDIES OF EACH EXTREMITY (09168)By: Krysten Dial MD, MD, Dana M Flu Vaccine (Quadrivalent) 29438Qv: On: 08-May-2016 Intent Krysten Dial MD, MD, Dana M Comments: Lot:[id number]:12/18/16Dose:0.5mLRoute:IMSite:L DltdGiven By:MLVIS signed Nuclear Stress Test/Stress On: 10-Feb-2016 Intent SPECT/TreadmillBy: Krysten Dial MD, MD, Dana M DEXA SCAN AXIAL SKELETON (46688)By: On: 10-Feb-2016 Intent Krysten Dial MD, MD, Dana M TDAP VACCINE >7 IM (86705)By: Nerissa On: 10-Feb-2016 Intent Krysten CASTELLANO MD, Dana M Comments: tdaplot:[id number]:07/12/18site:lt deltroute:IMD.MARY ELLEN Canales IV Needle placement (24996)By: Yursa On: 28-Jun-2015 Intent Francoise CRABTREE Ultrasound - GallbladderBy: Yusra CRABTREE, On: 28-Jun-2015 Intent Francoise Trotter INFUSION, NORMAL SALINE SOLUTION , On: 28-Jun-2015 Intent 1000 CC (Special Coverage Instructions Comments: lot [id number] ccright antecubas PANEL EDGE PAINTER Apply. See MCM: 2049) (J7030)By: Francoise Meng CNP Radiology - Foot - LeftBy: Yusra CRABTREE, On: 14-May-2015 Intent Francoise Trotter ADMINISTRATION OF INFLUENZA VIRUS On: 05-Apr-2015 Intent VACCINE (G0008)By: Krysten Dial MD, MD, Dana M Flu Vaccine (Quadrivalent) 03005Ta: On: 05-Apr-2015 Intent Krysten Dial MD, MD, Dana M Comments: Lot #:[id number] date:2015Amount given:0.5mlRoute: IMSite given:L DltdGiven by: Nnamdi and ABN signed Quad Flu Flu Vaccine (Quadrivalent) 75300Xf: On: 19-Apr-2014 Intent Krysten Dial MD, MD, Dana M ADMINISTRATION OF INFLUENZA VIRUS On: 19-Apr-2014 Intent VACCINE (G0008)By: Aruna Amaral Venous Doppler - RightBy: Nerissa CASTELLANO, On: 18-Jan-2014 Intent Krysten Hogan MD EKG (27940)By: Krysten Dial MD On: 01-Sep-2013 Intent Krysten [...] Eprescribed prescriptions (G8553)By: On: 02-Jun-2013 Intent Long PANEL EDGE PAINTER, Kady L FLU VAC, SPLIT, >3 YEARS, INTRAMUSC On: 14-Apr-2013 Intent (93098)By: Meagan Hoffman Comments: lot [id number] 2014site/route L latonya, IMamt 0.5mlVIS and ABN signed when applicableChelsea, VEIN PUMPER IMMUNIZ ADMNIN, 1 VAC, SNGL/COMBO On: 14-Apr-2013 Intent (52124)By: Meagan Hoffman Radiology - Foot - RightBy: Nerissa On: 10-Nov-2012 Intent Krysten CASTELLANO MD, Dana M Comments: please call wet read Eprescribed prescriptions (G8553)By: On: 19-Sep-2012 Intent Long Kady ECHOLS L EKG (92025)By: RITA Mendez On: 20-Jun-2012 Intent Aerosol Treatment (23769)By: Deisiessarabjit On: 30-Nov-2011 Intent Francoise CRABTREE Spirometry (29545)By: Nerissa CASTELLANO, On: 26-Sep-2010 Intent Krysten Hogan MD Comments: re do of one that was not abl eot be performed at last visit. Spirometry (35586)By: Nreissa CASTELLANO, On: 18-Sep-2010 Intent Krysten Hogan MD Pulse Oximetry (78429)By: Jessie RN, On: 18-Sep-2010 Intent Leidy Pulse Oximetry (22989)By: Andrea On: 17-Apr-2010 Intent RITA ELECTROCARDIOGRAM, COMPLETE (ECG) On: 01-Apr-2010 Intent (27498)By: Vikki Wetzel Planned Medications INFUSION, NORMAL SALINE [...] Advance Directives Name Dates Details Immunization Registry [place] - Effective on 04/28/2018. Effective: 28-Apr-2018 Expiration date unspecified Encounters Phone Encounter On: 02-May-2018 16:43 Encounter Diagnosis: UTI (urinary tract infection) End: 02-May-2018 16:45 [facility] Phone Encounter On: 02-May-2018 16:21 [facility] End: 02-May-2018 16:22 Office Visit On: 28-Apr-2018 7:04 Encounter Reason: Well Women Exam - The patient feels well with minor complaints, has good energy level and is sleeping poorly (new cpap). Pap smear: date of last pap: (a year ago scheduled in May with edge burnisher and will End: 28-Apr-2018 8:49 schedule mammogram). [...] 3 day(s) ago. Onset followed foreign travel ([facility] for new years). The symptoms occur intermittently. [...] inhaler and I had to see my circuit rider and my ENT dosent want me o [...] contact with a person with sore throat ([employer]) and swelling of neck glands, whil e [...] (780.79), Menorrhagia(626.2) [facility]; sarabjit guarantor
--- OUTSIDE RECORDS SUMMARY | 2018-07-19 10:39 | XMS RPT_ITS ---
:1955 Author Organization OHIP Care Team Providers Name Role Phone Krysten Multani MD Attending Unavailable Krysten Multani MD Referring Unavailable Krysten Multani MD Consulting Unavailable MD DOTTIE REINA Attending Unavailable Krysten Multani Primary Care Unavailable MD DOTTIE REINA Admitting Unavailable Krysten Multani Referring Unavailable Ruthie Fletcher Attending Unavailable Krysten Multani Primary Care Unavailable Ruthie Fletcher Attending Unavailable Krysten Multani Primary Care Unavailable Ruthie Fletcher Referring Unavailable PROBLEMS PROBLEMS No Problem Records FoundPROCEDURES PROCEDURES No Procedure Records FoundRESULTS RESULTS Observed: 06/02/2018 Status: F Source: [place] CULTURE, URINE 10:00 AM [facility] REPOSITORY Urine Culture Below infection level. ORGANISM 1: Mixed Gram Positive Organisms [place] Count <1000 Performed By: #### M100.0650 #### [facility] HospitalVicky Roman [place], [place], [address] PAP I-G W/RFX HRHPV Collected: 06/02/2018 Status: F Source: INGRID 10:00 AM [facility] REPOSITORY Order Comment: CYTOLOGY INFORMATION: - CLINICAL INFORMATION: HYSTERECTOMY - DATE LMP/MENOPAUSE: HYSTER - COLLECTION VIAL: Thin Prep Vial - HYDROLOGIC ENGINEER SOURCE: VAGINAL - COLLECTION TECHNIQUE: SPATULA ONLY Specimen Comment: [id number] Specimen Comment: Source.............Vagina Specimen Comment: LMP / Prev Treat...Hyst Specimen Comment: No. of containers..01 ThinPrep Vial TYPE CODE TESTS RESULT OUT OF RANGE REFERENCE UNITS LAB L7400.0800 . Normal DIAGN Comment Result Comment: NEGATIVE FOR INTRAEPITHELIAL LESION AND MALIGNANCY. CELLULAR CHANGES ASSOCIATED WITH ATROPHY AND INFLAMMATION ARE PRESENT. LAB L7400.0900 . Normal ADEQ Comment Result Comment: Satisfactory for evaluation. No endocervical cells are present. This is consistent with a history of hysterectomy. LAB L7400.1400 . Normal PERFORM Comment Result Comment: Caitlin Brown Child Caregiver LAB L7400.2575 . Normal TEST METHOD Comment Result Comment: This liquid based ThinPrep(R) pap test was screened with the use of an image guided system. LAB L7400.2600 . Normal . COMM LAB L7400.2700 . Normal PAPSMR Comment Result Comment: The Pap smear is a screening test designed to aid in the detection of premalignant and malignant conditions of the uterine cervix. It is not a diagnostic procedure and should not be used as the sole means of detecting cervical cancer. Both false-positive and false-negative reports do occur. LAB L7400.2800 . Normal HPV RFLX Comment Result Comment: The HPV DNA reflex criteria were not met with this specimen result therefore, no HPV testing was performed. Performed at: [facility] Lab[address] [id number] Principal Clerk Typist: Irina Silveira MD, Phone: [phone] Performed By: #### L7400.0350 #### [facility] (refer to report for specific site) refer to report for address and phone number SCREENING MAMM (CAD), Observed: 05/03/2018 Status: F Source: INGRID [place] 7:07 AM [facility] REPOSITORY [facility] Imaging Services [address] [place] [address] SCREENING MAMM (CAD), EDILMA MR#: [id number] Acct: [id number] Name: ARCHANA BANGURA Rep #: [id number] : 1955 F 62 From: Albaro Pena MD PCP: Krysten Multani MD Status: REG CLI Study: SCREENING MAMM (CAD), BILAT Date of Exam: 05/03/18 Exam# [id number] Ordering Dr: Ruthie Fletcher MD MAMMOGRAPHY - BILATERAL SCREENING REASON FOR EXAM: Female, 62 years old. Routine annual screening examination. PERTINENT HISTORY: Mother with breast cancer. TECHNIQUE: Digital bilateral breast gunnar (3D mammographic acquisition) in the CC and MLO projections. 2-D mediolateral oblique (MLO) and craniocaudad (CC) views of both breasts were obtained. CAD: Full Field Digital Mammography with Computer Added Detection was performed. COMPARISON: Comparison is made with prior study dated November 30, 2016 and November 07, 2015. FINDINGS: Breast Composition: There are scattered areas of fibroglandular density. There are no dominant masses or suspicious calcifications. No other significant abnormalities are identified. There has been no significant change since the prior study. BI/SCREENING MAMM (CAD), BILAT IMPRESSION: Stable bilateral screening mammogram. Yearly follow-up mammogram recommended. (A) ASSESSMENT CATEGORY: BIRADS Category 1: Negative. A letter regarding these results will be sent to the patient by the facility within 30 days. Approximately 10% of breast cancers are not detected by mammography. A normal mammogram should not delay biopsy of a clinically suspicious abnormality. [id number] Electronically Signed: Albaro Pena MD at 8:53 EST Tel [phone], Service support , CC: Ruthie Fletcher MD; Krysten Multani MD Cigar Wrapper Tender Automatic: Signed ALLERGIES ALLERGIES DATE TYPE / CODE NAME / CODE REACTION SEVERITY SOURCE Drug/371462 Latex [facility] 003([facility]) System Repository Drug/062223 Compazine [id number] [facility] 003([facility]) System Repository ENCOUNTERS ENCOUNTERS ADMIT/DISCHARGE ACCOUNT ADMITTING ENCOUNTER LOCATION SOURCE NUMBER CLASS 06/02/2018 [id number] General acute hospital ing:WOBLAB Repository 05/03/2018 [id number] General acute hospital ing:OPBI Repository 04/28/2018 [id number] Ambulatory Building:[facility] OHIP Practices Repository 11/02/2017/11/03/19 [id number] MD [facility] ing:[facility] Repository PAYERS PAYERS ENCOUNTER GUARANTOR PAYER SUBSCRIBER SOURCE 06/02/2018 ARCHANA L Primary ARCHANA L Ingrid [id number] Insurance:MEDICAL CARROLLDOB: [facility] [id number] Number: Repository [id number]: 330 [id number] [phone] () Date:9445-58-45BV [address] [place] [phone]: 06/02/2018 Secondary NOT GIVENUNK Ingrid Insurance:SELF PAY [facility] Number: Effective Repository Date:2018-06-02 05/03/2018 ARCHANA L Primary ARCHANA L Ingrid [id number] Insurance:MEDICAL CARROLLDOB: [facility] [id number] Number: Repository [id number]: 330 [id number] [phone] () Date:8312-10-52WH [address] [place] [address]EU: 05/03/2018 Secondary NOT GIVENUNK [place] Insurance:SELF PAY [facility] Number: Effective Repository Date:2018-03-14 04/28/2018 ARCHANA L Primary ARCHANA L OHIP Practices CARROLLDOB: Insurance:Medical CARROLLDOB: Repository [id number] [facility] [id number] Alfonso Number: [address] [place], [place] [id number] Run[place], [place] [address]Azk: ([phone]) Date:8745-07-48Hepw 12085Flu: Name:SYLVIA Suh [phone] (HP) (HP)Tel: [phone], [place] [phone] (WP) [phone]: 04/28/2018 Secondary ARCHANA L OHIP Practices Insurance:Medical CARROLLDOB: Repository [facility] [id number] Number: 0 [place] [id number] [place], [place] Date: [address]Ltp: [id number] ~(3 Name:[facility] [address] (HP) [address], [place] [id number]: 04/28/2018 Tertiary ARCHANA L OHIP Practices Insurance:[employer] BANGURADOB: Repository Number: [id number] 0 Alfonso Date:2011-06-21 - [place], [place] 9011-41-13Koro [address]Tdo: Name:FP. Rakesh Suh ~(3 [phone], [place] 30 (HP) [address]RH: 04/28/2018 Tertiary ARCHANA L OHIP Practices Insurance:Melida SHELLRODRIDOB: Repository Number: [id number] 0 Alfonso Date:3592-14-06Lsjo [place], [place] Name: ORajiv Suh [address]Kyh: [id number], [place] ~(3 [address]WG: [phone] (HP) [phone] 11/02/2017 ARCHANA L Primary ARCHANA L [facility] CARROLLDOB: Insurance:Medical CARROLLDOB: [facility] Number: [id number] System [address] Effective 0 [address] Repository [place] Date:2017-11-02 [place] [address]Stw: 7432-07-10Ufph [address]Dir: Name:[facility] () [address], [place] ()Tel: [phone]: (wp) [phone]
--- OUTSIDE RECORDS SUMMARY | 2018-07-19 10:39 | XMS RPT_ITS | Continuity of Care Document ---
:1955 Author Organization [facility] Address [address] [place] [address] Phone Care Team Providers Name Role Phone Nerissa CASTELLANO, Krysten Levi Unavailable Dr. Reginaldo Corbin Unavailable Erwin Rose Unavailable Maciej Cadena Unavailable Timothy CASTELLANO, Speedy Murphy Unavailable Andrew CASTELLANO, Regan Unavailable Monica Spann Unavailable Unavailable Slarb PUMPER GAGER APPRENTICE, Moraima Unavailable Unavailable RITA Mendez Unavailable Unavailable Unavailable Unavailable Problems Name Dates Details Abnormal fasting glucose (R73.01, 790.29) Status: Active Allergic rhinitis (J30.9, 477.9) Comments: off allergy shots. 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 add kaleb. will get abck to ENT. [...] show fatty liver and working now with mc kay stitcher. comign down some. Status: Active Encounter for [...] intimacy she wants. son change jobs from [employer] to [employer], mother in law in [facility] falling Status: Active UTI (urinary tract infection) (N39.0, 599.0) Status: Active UTI symptoms (R39.9, 788.99) Status: Active Medications Name Dates Details Adrenal Rebuilder Active uad 2 q am, 1 at 3pm ASPIRIN, 81MG (Oral Tablet) Active 1 qd (81 MG) Calciferol 62358 U Oral Tablet Active 1 daily (84854 U) Coconut Oil 1000 MG Oral Capsule [...] 0 days Quantity: 90 {Tablet} Refills: 3 Ordered:11-May-2018 Krysten Dial MD, MD, Dana M Start : 11-May-2018 Active Super Adrenal Stress Formula 2 in [...] (R79.89, 790.6) Comments: endocrine Dr. Herrera at [facility], changed cytomel. adjusted 2-12. reduced cytomel to [...] again but not really totally postmenapausal. 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 Status: Inactive as of 06-Jul-2013 Need for [...] old Tubal Ligation Completed Date Value Details 03-May-2018 SCREENING MAMM (CAD), BILAT Result: Comments: See Note; NOTES: [facility] Imaging Services [address] [place] [address] SCREENING MAMM (CAD), BILAT MR#: [id number] Acct: [id number] Name: ARCHANA BANGURA Rep #: [id number] : 1955 F 62 From: Albaro Pena MD PCP: Krysten Dial MD Status: REG CLI Study: SCREENING MAMM (CAD), BILAT Date of Exam: 05/03/18 Exam# [id number] Ordering Dr: Ruthie Thorpe MD MAMMOGRAPHY - BILATERAL SCREENING REASON FOR EXAM: Female, 62 years old. Routine annual screening examination. PERTINENT HISTORY: Mother with breast cancer. TECHNIQUE: Digital bilateral breast gunnar ( 3D mammographic acquisition) in the CC and MLO projections. 2-D mediolateral oblique (MLO) and craniocaudad (CC) views of both breasts were obtained. CAD: Full Field Digital Mammography with Computer Ad ded Detection was performed. COMPARISON: Comparison is made with prior study dated November 30, 2016 and November 07, 2015. FINDINGS: Breast Composition: There are scattered areas of fibroglandular density. There are no dominant masses or suspicious calcifications. No other significant abnormalities are identified. There has been no significant change since the prior bennie dy. BI/SCREENING MAMM (CAD), BILAT IMPRESSION: Stable bilateral screening mammogram. Yearly follow-up mammogram recommended. (A) ASSESSMENT CATEGORY: BIRADS Category 1: Negative. A letter regarding these results will be sent to the patient by the facility within 30 days. Approximately 10% of breast cancers are not detected by mammography. A normal mammogram should not delay biopsy of a clinically suspicious abnormality. [id number] Electronically Signed: Albaro Pena MD at 8:53 EST Tel [phone], Service support , CC: Ruthie Thorpe MD; Krysten Dial MD Spot Facer: Signed 30-Nov-2016 SCREENING MAMM (CAD), BILAT Result: Comments: See Note; NOTES: [facility] Imaging Services [address] [place] [address] Verdana 4d SCREENING MAMM (CAD), BILAT MR#: [id number] Acct: [id number] Name: GRZEGORZ BANGURA Rep #: [id number] : 1955 F 61 From: Sarbjit Hansen MD PCP: Krysten Dial MD Status: REG CLI Study: SCREENING MAMM (CAD), BILAT Date of Exam: 11/30/16 Exam# [id number] Ordering Dr: Marie Thorpe MD MAMMOGRAPHY - [...] delay biopsy of a clinically suspicious abnormality. [id number] Electronically Signed: Sarbjit Hansen MD at 14:44 EDT Tel , Service support [phone], CC: Ruthie Thorpe MD; Krysten Dial MD Spot Facer: Signed 25-Feb-2016 Dexa Bone Density Study (HP) Result: Comments: See Note; NOTES: [facility] Imaging Services [address] [place] [address] Verdana 4d Dexa Bone Density Study (HP) MR#: [id number] Acct: [id number] Name: BANGURAZIMMERMAN Rep #: [id number] : 1955 F 60 From: Albaro Pena MD PCP: Krysten Dial MD Status: REG CL Study: Dexa Bone Density Study (HP) Date of Exam: 02/25/16 Exam# [id number] Ordering Dr: Krysten Portillo MD STUDY: DUAL [...] Albaro Pena MD at 9:34 EDT Tel [phone], Service support [phone], CC: Krysten Dial MD Spot Facer: Signed 07-Nov-2015 Bilat Scrn Digital AND CAD Result: Comments: See Note; NOTES: [facility] Imaging Services [address] [place] [address] [place] [address] Verdana 4d Bilat Scrn Digital AND CAD MR#: [id number] Acct: [id number] Name: ARCHANA BANGURA Rep #: [id number] : 1955 F 60 From: Albaro Pena MD PCP: Krysten Dial MD Status: REG CLI Study: Bilat Scrn Digital AND CAD Date of Exam: 11/07/15 Exam# [id number] Order ing Dr: Ruthie Thorpe MD MAMMOGRAPHY [...] lay biopsy of a clinically suspicious abnormality. [id number] Electronically Signed: Albaro Pena MD at 11:07 EDT Tel [phone], Service support [phone], CC: Ruthie Thorpe MD; Krysten Dial MD Spot Facer: Signed 28-Jun-2015 Gallbladder Result: Comments: See Note; NOTES: [facility] Imaging Services [address] [place] [address] Verdana 4d Gallbladder MR#: [id number] Acct: [id number] Name: ARCHANA BANGURA Rep #: [id number] : 1955 F 60 From: Albaro Pena MD PCP: Krysten Dial MD Status: REG CLI Study: Gallbladder Date of Exam: 06/28/15 Exam# [id number] Ordering Dr: Francoise Meng STUDY: ABDOMINAL ULTRASOUND [...] Albaro Pena MD at 11:40 EST Tel [phone], Service support [phone], CC: Francoise Meng; Krysten Dial MD Spot Facer: Signed 14-May-2015 Foot min 3 Views Result: Comments: See Note; NOTES: [facility] Imaging Services [address] [place] [address] Verdana 4d Foot min 3 Views MR#: [id number] Acct: [id number] Name: PRICE Rep #: [id number] : 1955 F 60 From: Vazquez Briggs MD PCP: Krysten Dial MD Status: REG CLI Study: Foot min 3 Views Date of Exam: 05/14/15 Exam# [id number] Ordering Dr: Francoise Meng STUDY: X-RAY - [...] FACR at 19:17 EST , Service support [phone], RAD/Foot min 3 Views IMPRESSION: 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 Prominent plantar calcaneal spur. Flattening of the heads of the second and third metatarsals which could be related to stress subchondral fracture or cyrus ne infarcts. Electronically Signed: Vazquez Briggs MD, FACR at 19:17 EST , Service support [phone], CC: Francoise Meng; Krysten Dial MD Spot Facer: Signed 04-Jan-2015 PT Discharge Summary Result: Comments: See Note; NOTES: [facility] Physical Therapy [address] [place] [phone] Fax REHABILITATION SERVICES DISCHARGE SUMMARY MR#: [id number] Acct: [id number] Name: ARCHANA BANGURA Rep #: [id number] : 1955 59 From: Roberto Leon Referring Dr.: Krysten Dial MD Status: PRE RCR Eval Date: Date: DATE OF SERVICE: REFERRING PHYSICIAN: Dr. Krysten Dial. Archana Bangura was evaluated at [facility] Physical Therapy on the date of [...] achieved. Roberto Leon, PT T: NTS JOB: [id number] <Electronically signed by Roberto Leon > 01/04/15 0937 CC: Signed 22-Oct-2014 Inital Evaluation - PT Result: Comments: See Note; NOTES: [facility] Physical Therapy [address] [place] [address] Fax REHABILITATION SERVICES INITIAL EVALUATION MR#: [id number] Acct: [id number] Name: ARCHANA BANGURA Rep #: [id number] : 1955 59 From: Roberto Leon Referring Dr.: Krysten Dial MD Status: DIS RCR Insurance: [facility] Date: DATE OF SERVICE: 10/18/2014 REFERRING PHYSICIAN: Krysten Dial M.D. SUBJECTIVE INFORMATION: A 59-year-old female referred to [facility] Physical Therapy on the date of [...] and then dries her hair with a dehairing machine tender. 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 Roberto Leon, PT T: CHRIS JOB: [id number] <Electronically signed by Roberto Franz r > 10/22/14 1124 CC: Signed For Medicare only, by signing this I certify the plan of care. Physicians Signature Date 11-Sep-2014 Bilat Scrn Digital AND CAD Result: Comments: See Note; NOTES: [facility] Imaging Services [address] [place] [address] Breast Imaging Report MR#: [id number] Acct: [id number] Name: ARCHANA BANGURA Rep #: [id number] : 1955 F 59 From: Albaro Pena MD PCP: Krysten Dial MD Status: PRE CLI Study: Bilat Scrn Digital AND CAD Date of Exam: 09/11/14 Exam# [id number] Ordering Dr: Ruthie Thorpe MAMMOGRAPHY - BILATERAL [...] Kavin Pena MD at 8:27 EDT Tel [phone], Service support [phone], CC: Ruthie Thorpe MD; Krysten Dial MD Spot Facer: Signed 19-Apr-2014 Spirometry (68124) Result: 08-Sep-2013 Liver Result: Comments: See Note; NOTES: [facility] Imaging Services [address] [place] [address] Ultrasound Report MR#: [id number] Acct: [id number] Name: ARCHANA BANGURA Rep #: [id number] : 1955 F 58 From: Albaro Pena MD PCP: Krysten Dial MD Status: REG CLI Study: Liver Date of Exam: 09/08/13 Exam# [id number] Ordering Dr: Krysten Dial MD STUDY: ABDOMINAL [...] M.D. at 10:46 EDT , Service support [phone], CC: Krysten Dial MD Spot Facer: Signed Immunization Name Dates Details Zoster (shingles) on: Apr-2017 Comments: see office note from03/22/17 Family History Unknown Family Member Name Dates Details Brother 1 Comments: HTN, [place] at 56 yo. younger. 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 (Abnormal) Urine Final report (Abnormal) Reyna Ledezma :37 Urinalysis, Office (90643) UA - LEUKOCYTE ESTERASE Trace (Normal) UA [...] Microscopic Examination Comments: PATIENT WAS FASTINGPERFORMED BY: Teamer.net6370 [facility] [id number] Bacteria Few (Normal) Mucus Threads Present (Normal) Cast Type Hyaline casts (Normal) Casts Present {/lpf} (Abnormal) Epithelial Cells (non renal) 0-10 {/hpf} (Normal) Range: 0 - 10 RBC 0-2 {/hpf} (Normal) Range: 0 - 2 WBC 11-30 {/hpf} (Abnormal) Range: 0 - 5 :50 Metabolic Panel, Comprehensive Comments: PATIENT WAS FASTINGPERFORMED BY: [employer].net6370 GleasonKnowromFirstHealth [facility] [id number] (49261) ALT (SGPT) 33 [iU]/L (Abnormal) Range: 0-32 [...] 8-27 Glucose 102 mg/dL (Abnormal) Range: 65-99 :50 CBC WITH MANUAL DIFF (92397) Comments: PATIENT WAS FASTINGPERFORMED BY: [employer] [facility] [id number] Immature Grans (Abs) 0.0 {x10E3/uL} (Normal) Range: [...] CREATININE RATIO Comments: PATIENT WAS FASTINGPERFORMED BY: Awdio70 [facility] [id number] (31434) AND (44519) Alb/Creat Ratio 7.8 {mg/g_creat} (Normal) Range: 0.0-30.0 Comments: Normal: 0.0 - 30.0 Albuminuria: 31.0 - 300.0 Clinical albuminuria: >300.0 Albumin, Urine 17.2 ug/mL (Normal) Creatinine, Urine 219.2 mg/dL (Normal) :50 URINALYSIS (06086) Comments: PATIENT WAS FASTINGPERFORMED BY: [facility] Ess[facility] FashionsMun[facility] Center6370 [facility] [id number] Microscopic Examination See below: (Normal) Comments: Microscopic was indicated and was performed. Nitrite, Urine Negative (Normal) Urobilinogen,Semi-Qn 0.2 mg/dL (Normal) Range: 0.2-1.0 Bilirubin Negative (Normal) Occult Blood Negative (Normal) Ketones Negative (Normal) Glucose Negative (Normal) Protein Negative (Normal) WBC Esterase 2+ (Abnormal) Appearance Clear (Normal) Urine-Color Yellow (Normal) pH 5.5 (Normal) Range: 5.0-7.[address] 1.026 (Normal) Range: 1.005-1.030 :31 METABOLIC PANEL, COMPREHENSIVE Comments: PATIENT WAS FASTINGPERFORMED BY: [facility] Ess[facility] FashionsM[facility] Center6370 [facility] [id number] (27512) ALT (SGPT) 52 [iU]/L (Abnormal) Range: 0-32 [...] mg/dL (Normal) Range: 65-99 :31 LIPID PANEL (50368) Comments: PATIENT WAS FASTINGPERFORMED BY: [employer] Rggakn4435 [facility] [id number] LDL/HDL Ratio 2.5 {ratio_units} (Normal) Range: 0.0-3.2 [...] C ANTIBODY Comments: PATIENT WAS FASTINGPERFORMED BY: [employer] LabCoKessler Institute for RehabilitationKrlpjh9696 [facility] [id number] Information: NURSE DRAW (22856) Hep C Virus Ab <0.1 {s/co_ratio} (Normal) Range: 0.0-0.9 Comments: Negative: < 0.8 Indeterminate: 0.8 - 0.9 Positive: > 0.9 . The CDC recommends that a positive HCV antibody result be followed up with a HCV Nucleic Acid Amplification test (244761). :44 HgA1C , Office (95811) HgA1C , Office 5.7 % (Normal) Range: 4.6 - 7.1 :32 Vitamin B-12 (cyanocobalamin) Comments: PATIENT WAS FASTINGPERFORMED BY: [employer] [id number] BY: LabSaint [facility] Vyofqv4731 Gleason RoadDublin [place] [id number] (93980) Vitamin B12 867 pg/mL (Normal) Range: 211-946 :32 CALCIFIDIOL (59598) VIT D Comments: PATIENT WAS FASTINGPERFORMED BY: [employer] [id number] BY: LabSaint [facility] Dnzwtx5111 Gleason RoadDublin [place] [id number] 25 Vitamin D, 25-Hydroxy 49.1 ng/mL (Normal) Range: 30.0-100.0 Comments: Vitamin D deficiency has been defined by the Stone ofMedicine and an Endocrine Society practice guideline as alevel of serum 25-OH vitamin D less than 20 ng/mL (1,2).The Endocrine Society went on to further define vitamin Dinsufficiency as a level between 21 and 29 ng/mL (2).1. IOM (Stone of Medicine). 2010. Dietary reference intakes for calcium and D. [place]: The National Academies Press.2. Joe MF, Bailee NC, Woody PALM, et al. Evaluation, treatment, and prevention of vitamin D deficiency: an Endocrine Society clinical practice guideline. JCEM. 2010; 96(7):1911-30. :32 MICROALBUMIN: CREATININE Comments: PATIENT WAS FASTINGPERFORMED BY: [employer] [id number] BY: LabRanken Jordan Pediatric Specialty HospitalCgjjgg0127 Gleason RoadDublin [place] [id number] RATIO (69008) AND (63937) Microalb/Creat Ratio 11.2 {mg/g_creat} (Normal) Range: 0.0-30.0 Microalbumin, Urine 18.2 ug/mL (Normal) Creatinine, Urine 162.1 mg/dL (Normal) :32 CBC, Platelets & Auto Comments: PATIENT WAS FASTINGPERFORMED BY: [employer] [id number] BY: [facility] Jusxrn1962 Victorino GivensCentral [facility] Hospital [id number] Diff (57368) Immature Grans (Abs) 0.0 {x10E3/uL} (Normal) Range: [...] Metabolic Panel, Comments: PATIENT WAS FASTINGPERFORMED BY: [employer] [address] [id number] BY: Robosoft TechnologiesKessler Institute for RehabilitationDyrviz3969 [facility] [id number] Comprehensive (38875) ALT (SGPT) 46 [iU]/L (Abnormal) Range: 0-32 [...] Glucose, Serum 109 mg/dL (Abnormal) Range: 65-99 56-Okr-21793:32 LIPOPROTEIN, BLD, BY NMR Comments: PATIENT WAS FASTINGPERFORMED BY: [facility]Co[address] [id number] BY: LabDryadKessler Institute for RehabilitationOxymzd8677 [facility] [id number] Information: NURSE DRAW (79907) LP-IR Score 42 (Normal) Comments: INSULIN RESISTANCE MARKER <--Insulin Sensitive Insulin Resistant--> Percentile in Reference PopulationInsulin Resistance ScoreLP-IR Score Low 25th 50th 75th High <27 27 45 63 >63LP-IR Score is inaccurate if patient is non-fasting. .The LP-IR score is a laboratory developed i [place] that has beenassociated with insulin resistance and [...] were developed and their performance characteristicsdetermined by [employer]. These assays have not been cleared by [...] 1600 - 2000 Very High > 2000 41-Uvc-16187:32 T3, FREE (TRIDOTHYRONINE) Comments: PATIENT WAS FASTINGPERFORMED BY: [employer] [id number] BY: Rob[employer] TechnologiesAudrey V[place] 0888670 [facility] [id number] (88905) Triiodothyronine,Free,Serum 4.2 pg/mL (Normal) Range: 2.0-4.4 :32 T4, FREE (THYROXINE) Comments: PATIENT WAS FASTINGPERFORMED BY: [employer] [id number] BY: [employer] Cmbucm0717 [facility] [id number] (08170) T4,Free(Direct) 1.02 ng/dL (Normal) Range: 0.82-1.77 :32 TSH (75121) Comments: PATIENT WAS FASTINGPERFORMED BY: [employer] [id number] BY: Robosoft TechnologiesKessler Institute for RehabilitationTiveiy4870 [facility] [id number] TSH 2.070 {uIU/mL} (Normal) Range: 0.450-4.500 :49 URINE ANNETTE CULTURE-IDENTIFICATN Comments: PATIENT NOT FASTINGPERFORMED BY: Robos[employer] TechnologiesKessler Institute for RehabilitationFnvjsq9401 [facility] [id number] Information: [id number] SRC:UC (14652) Result 1 MUG (Normal) Comments: Mixed urogenital flora10,000-25,000 colony forming units per mL Urine Final report (Normal) Culture,Comprehensive :47 Urinalysis, Office (31183) UA - LEUKOCYTE ESTERASE Small (Normal) UA - NITRITE Negative (Normal) URINE UROBILINGN TEMO TIMED 2 mg/dL (Normal) UA - PROTEIN Negative mg/dL (Normal) UA - PH 6.0 (Normal) UA - BLOOD Negative (Normal) UA - SPECIFIC GRAVITY 1.025 (Normal) UA - KETONES Negative mg/dL (Normal) UA - BILIRUBIN Negative (Normal) UA - GLUCOSE Negative (Normal) :47 HgA1C , Office (84703) HgA1C , Office 5.7 % (Normal) Range: 4.6 - 7.1 :11 HgA1C , Office (55139) HgA1C , Office 5.7 % (Normal) Range: 4.6 - 7.1 :43 TSH (83218) Comments: PATIENT WAS FASTINGPERFORMED BY: Datacastle1447 [facility] [id number] BY: [employer] Entertainmentlin6370 [facility] [id number] TSH 2.950 {uIU/mL} (Normal) Range: 0.450-4.500 :43 LIPOPROTEIN, BLD, BY NMR Comments: PATIENT WAS FASTINGPERFORMED BY: OrderUp[address] [id number] BY: [employer]teen IP [facility] [id number] (35091) LP-IR Score 39 (Normal) Comments: INSULIN RESISTANCE MARKER <--Insulin Sensitive Insulin Resistant--> Percentile in Reference PopulationInsulin Resistance ScoreLP-IR Score Low 25th 50th 75th High <27 27 45 63 >63LP-IR Score is inaccurate if patient is non-fasting. .The LP-IR score is a laboratory developed i [facility] that has beenassociated with insulin [...] were developed and their performance characteristicsdetermined by [employer]. These assays have not been cleared by [...] 1600 - 2000 Very High > 2000 61-Kiu-26576:43 CBC, Platelets & Auto Comments: PATIENT WAS FASTINGPERFORMED BY: BN [facility] [address] [id number] BY: CB [facility] Tavwrm1336 [facility] [id number] Diff (25784) Immature Grans (Abs) 0.0 {x10E3/uL} (Normal) Range: [...] 3.77-5.28 WBC 5.9 {x10E3/uL} (Normal) Range: 3.4-10.8 01-Rss-91239:43 Metabolic Panel, Comments: PATIENT WAS FASTINGPERFORMED BY: [facility] [address] [id number] BY: CB [facility] Llmrta1965 [facility] [id number]; fu 3-31 Comprehensive (17370) ALT (SGPT) 49 [iU]/L (Abnormal) Range: 0-32 [...] (Abnormal) Range: 65-99 :13 HgA1C , Office (35030) HgA1C , Office 5.8 % (Normal) Range: 4.6 - 7.1 :07 POTASSIUM SERUM (59089) Comments: one month; PATIENT WAS FASTINGPERFORMED BY: [employer] [id number] BY: [employer] Bgkmal2186 [facility] [id number] Potassium, Serum 4.5 mmol/L (Normal) Range: 3.5-5.2 :07 HEPATIC FUNCTION PANEL Comments: in one month and three months (approximately); PATIENT WAS FASTINGPERFORMED BY: [employer] [address] [id number] BY: [employer] Cwoagj1793 [facility] [id number] (05039) ALT (SGPT) 77 [iU]/L (Abnormal) Range: 0-32 AST (SGOT) 62 [iU]/L (Abnormal) Range: 0-40 Alkaline Phosphatase, S 69 [iU]/L (Normal) Range: 39-117 Bilirubin, Direct 0.11 mg/dL (Normal) Range: 0.00-0.40 Bilirubin, Total 0.4 mg/dL (Normal) Range: 0.0-1.2 Albumin, Serum 4.1 g/dL (Normal) Range: 3.6-4.8 Protein, Total, Serum 7.2 g/dL (Normal) Range: 6.0-8.5 78-Zxj-49910:07 LIPOPROTEIN, BLD, BY NMR Comments: in three months (approximately); PATIENT WAS FASTINGPERFORMED BY: BN [facility] [address] [id number] BY: CB [facility] Dkvbqn8577 [facility] [id number] (37632) LP-IR Score 77 (Abnormal) Comments: INSULIN RESISTANCE MARKER <--Insulin Sensitive Insulin Resistant--> Percentile in Reference PopulationInsulin Resistance ScoreLP-IR Score Low 25th 50th 75th High <27 27 45 63 >63LP-IR Score is inaccurate if patient is non-fasting. .The LP-IR score is a laboratory developed i [facility] that has beenassociated with insulin [...] were developed and their performance characteristicsdetermined by [employer]. These assays have not been cleared by [...] High > 2000 :10 HgA1C , Office (03464) HgA1C , Office 5.8 % (Normal) Range: 4.6 - 7.1 :47 CBC WITH MANUAL DIFF Comments: PATIENT NOT FASTINGPERFORMED BY: LabCoKessler Institute for RehabilitationImtdqr9718 [facility] [id number] Information: [id number],I88839 (86915) Immature Grans (Abs) 0.0 {x10E3/uL} (Normal) Range: [...] 5.8 {x10E3/uL} (Normal) Range: 3.4-10.8 :47 TSH (50378) Comments: PATIENT NOT FASTINGPERFORMED BY: [employer] [facility] [id number]; apt. 2-19 TSH 2.390 {uIU/mL} (Normal) Range: 0.450-4.500 :48 QQSWP-KTYTNKLQOUW-RSFQI (42317) Comments: PATIENT WAS FASTINGPERFORMED BY: [employer] IP [facility] [id number] AFP, Serum, Tumor Marker 1.7 ng/mL (Normal) Range: 0.0-8.3 Comments: Altagracia ECLIA methodology :48 HEPATITIS PANEL (43540) Comments: PATIENT WAS FASTINGPERFORMED BY: RealityMineKessler Institute for RehabilitationSiaaie4758 [facility] [id number] Hep C Virus Ab <0.1 {s/co_ratio} (Normal) Range: 0.0-0.9 Comments: Negative: < 0.8 Indeterminate: 0.8 - 0.9 Positive: > 0.9 . The CDC recommends that a positive HCV antibody result be followed up with a HCV Nucleic Acid Amplification test (240212). Hep B Core Ab, IgM Negative (Normal) HBsAg Screen Negative (Normal) Hep A Ab, IgM Negative (Normal) :48 LIPID PANEL (95913) Comments: PATIENT WAS FASTINGPERFORMED BY: Robosoft TechnologiesKessler Institute for RehabilitationSbllbr1152 [facility] [id number]; apt. 2-19 LDL/HDL Ratio 2.0 {ratio_units} (Normal) [...] METABOLIC PANEL, Comments: PATIENT WAS FASTINGPERFORMED BY: Robosoft TechnologiesKessler Institute for RehabilitationNceipw6777 [facility] [id number] Information: [id number],2ND ORDER COMPREHENSIVE (42855) ALT (SGPT) 36 [iU]/L (Abnormal) Range: 0-32 [...] Auto Diff Comments: PATIENT NOT FASTINGPERFORMED BY: LabCoKessler Institute for RehabilitationLnfmxo3271 [facility] [id number] Information: [id number] (88823) Immature Grans (Abs) 0.0 {x10E3/uL} (Normal) Range: [...] (Normal) Range: 3.4-10.8 :29 Renal function Panel (79263) Comments: PATIENT NOT FASTINGPERFORMED BY: [employer] StunableFirstHealth [facility] [id number] Albumin, Serum 3.8 g/dL (Normal) Range: 3.6-4.8 [...] mg/dL (Normal) Range: 65-99 :58 Rapid Flu (96804 x 2) Influenza A Ag Negative a/b (Normal) 97-Nrx-151097:09 URINE ANNETTE CULTURE-TEMO COL Comments: PATIENT NOT FASTINGPERFORMED BY: [employer]Plan[employer] LabCoKessler Institute for RehabilitationQyebyn4615 [facility] [id number] Information: SRC:URC [id number] COUNT (50923) Result 1 NG36 (Normal) Comments: No growth in 36 - 48 hours. Urine Culture,Comprehensive Final report (Normal) :05 Urinalysis, Office (57137) UA - LEUKOCYTE ESTERASE Trace (Normal) UA - NITRITE Negative (Normal) URINE UROBILINGN TEMO TIMED Normal mg/dL (Normal) UA - PROTEIN Negative mg/dL (Normal) UA - PH 5 (Abnormal) UA - BLOOD Negative (Normal) UA - SPECIFIC GRAVITY 1.030 (Abnormal) UA - KETONES Negative mg/dL (Normal) UA - BILIRUBIN Negative (Normal) UA - GLUCOSE Negative (Normal) 51-Fqx-48610:28 URINE ANNETTE CULTURE-IDENTIFICATN Comments: PATIENT NOT FASTINGPERFORMED BY: Robosoft TechnologiesNor-Lea General HospitalCvyaeg7294 [facility] [id number] Information: [id number] (52838) Result 1 NG36 (Normal) Comments: No growth in 36 - 48 hours. Urine Culture,Comprehensive Final report (Normal) :50 Urinalysis, Office (71619) UA - LEUKOCYTE ESTERASE Negative (Normal) UA - NITRITE Negative (Normal) URINE UROBILINGN TEMO TIMED 2 mg/dL (Normal) UA - PROTEIN Negative mg/dL (Normal) UA - PH 5.0 (Normal) UA - BLOOD Negative (Normal) UA - SPECIFIC GRAVITY 1.030 (Abnormal) UA - KETONES Negative mg/dL (Normal) UA - BILIRUBIN Negative (Normal) UA - GLUCOSE Negative (Normal) 58-Vmw-77780:01 URINE ANNETTE CULTURE-IDENTIFICATN Comments: PATIENT NOT FASTINGPERFORMED BY: [employer] Bbigir9401 [facility] [id number] Information: [id number] (30151) Result 2 MUG (Normal) Comments: Mixed urogenital [...] Culture,Comprehensi (Abnormal) ve :16 HgA1C , Office (65441) HgA1C , Office 5.6 % (Normal) Range: 4.6 - 7.1 :16 Blood Glucose , Office (80132) Blood Glucose , Office 110 (Normal) :59 Urinalysis, Office (76740) UA - LEUKOCYTE ESTERASE Trace (Normal) UA [...] Panel, Comprehensive Comments: PATIENT WAS FASTINGPERFORMED BY: LabCoKessler Institute for RehabilitationHdhrkd3153 [facility] [id number] (43861) ALT (SGPT) 30 [iU]/L (Normal) Range: 0-32 [...] Glucose, Serum 109 mg/dL (Abnormal) Range: 65-99 3-Pah-214376:41 Lipid Panel (09767) Comments: PATIENT WAS FASTINGPERFORMED BY: Skiipi70 [facility] [id number]; apt 9-11 LDL/HDL Ratio 2.3 {ratio_units} (Normal) [...] MANUAL DIFF Comments: PATIENT WAS FASTINGPERFORMED BY: OONi6370 [facility] [id number] Information: [id number] (64745) Immature Grans (Abs) 0.0 {x10E3/uL} (Normal) Range: [...] 6.5 {x10E3/uL} (Normal) Range: 3.4-10.8 :41 TSH (12643) Comments: PATIENT WAS FASTINGPERFORMED BY: [employer] of Essence FashionsCoKessler Institute for RehabilitationFmeaaz3171 [facility] [id number] TSH 2.690 {uIU/mL} (Normal) Range: 0.450-4.500 :40 HgA1C , Office (50355) HgA1C , Office 5.6 % (Normal) Range: 4.6 - 7.1 :40 Blood Glucose , Office (26338) Blood Glucose , Office 98 (Normal) :11 TSH (54833) Comments: PATIENT WAS FASTINGPERFORMED BY: LabCoKessler Institute for RehabilitationCpjcnl4714 [facility] [id number] TSH 2.680 {uIU/mL} (Normal) Range: 0.450-4.500 :11 METABOLIC PANEL, COMPREHENSIVE Comments: PATIENT WAS FASTINGPERFORMED BY: LabDryadKessler Institute for RehabilitationOvlest1807 [facility] [id number] (47084) ALT (SGPT) 35 [iU]/L (Abnormal) Range: 0-32 [...] Glucose, Serum 97 mg/dL (Normal) Range: 65-99 72-Bnu-49399:11 LIPID PANEL (00279) Comments: PATIENT WAS FASTINGPERFORMED BY: LabCoKessler Institute for RehabilitationEgxgmc5233 [facility] [id number] LDL/HDL Ratio 2.3 {ratio_units} (Normal) Range: 0.0-3.2 [...] DIFF WBC Comments: PATIENT WAS FASTINGPERFORMED BY: LabCoKessler Institute for RehabilitationFpisbf6127 [facility] [id number] Information: [id number] (33555) Immature Grans (Abs) 0.0 {x10E3/uL} (Normal) Range: [...] (Normal) Range: 3.4-10.8 :37 HgA1C , Office (66127) HgA1C , Office 5.9 % (Normal) Range: 4.6 - 7.1 :36 Blood Glucose , Office (10332) Blood Glucose , Office 107 (Normal) :44 Metabolic Panel, Comments: PATIENT WAS FASTINGPERFORMED BY: ARIADNE [employer] [facility] [id number] Information: [id number],2ND ORDER Comprehensive (52978) ALT (SGPT) 35 [iU]/L (Abnormal) Range: 0-32 [...] mg/dL (Normal) Range: 65-99 :44 HEPATITIS PANEL (46826) Comments: PATIENT WAS FASTINGPERFORMED BY: Skiipi70 [facility] [id number] Hep C Virus Ab <0.1 {s/co_ratio} (Normal) Range: 0.0-0.9 Comments: Negative: < 0.8 Indeterminate: 0.8 - 0.9 Positive: > 0.9 . In order to reduce the incidence of a false positive result, the CDC recommends that all s/co ratios between 1.0 and 10.9 be confirmed by a more specific supplemental or PCR testing. [facility] F[facility]ionsSaint [facility] offers HCV Ab w/Reflex to Verification test #[id number]. Hep B Core Ab, IgM Negative (Normal) HBsAg Screen Negative (Normal) Hep A Ab, IgM Negative (Normal) 18-Gwl-10272:44 FERRITIN (84208) Comments: PATIENT WAS FASTINGPERFORMED BY: [place] 4731370 [facility] [id number] Ferritin, Serum 72 ng/mL (Normal) Range: 15-150 :44 CBC WITH MANUAL DIFF Comments: PATIENT WAS FASTINGPERFORMED BY: [place] 4731370 [facility] [id number] Information: [id number] (53515) Immature Grans (Abs) 0.0 {x10E3/uL} (Normal) Range: [...] FUNCTION PANEL Comments: PATIENT WAS FASTINGPERFORMED BY: LabCoKessler Institute for RehabilitationIdvidt2684 GleasonSSM Health Cardinal Glennon Children's HospitalKisskissbankbank TechnologiesFirstHealth Montgomery Memorial Hospital [id number] (95386) ALT (SGPT) 36 [iU]/L (Abnormal) Range: 0-32 AST (SGOT) 29 [iU]/L (Normal) Range: 0-40 Alkaline Phosphatase, S 80 [iU]/L (Normal) Range: 39-117 Bilirubin, Direct 0.10 mg/dL (Normal) Range: 0.00-0.40 Bilirubin, Total 0.3 mg/dL (Normal) Range: 0.0-1.2 Albumin, Serum 4.2 g/dL (Normal) Range: 3.5-5.5 Protein, Total, Serum 7.0 g/dL (Normal) Range: 6.0-8.5 :13 HgA1C , Office (21956) HgA1C , Office 5.9 % (Normal) Range: 4.6 - 7.1 :13 Blood Glucose , Office (08099) Blood Glucose , Office 110 (Normal) :14 HEPATIC FUNCTION PANEL Comments: PATIENT WAS FASTINGPERFORMED BY: LabCoKessler Institute for RehabilitationIsarqo2997 [facility] [id number]; elevated but not critical -- has appt already sched (12929) ALT (SGPT) 43 [iU]/L (Abnormal) Range: 0-32 AST (SGOT) 39 [iU]/L (Normal) Range: 0-40 Alkaline Phosphatase, S 76 [iU]/L (Normal) Range: 39-117 Bilirubin, Direct 0.12 mg/dL (Normal) Range: 0.00-0.40 Bilirubin, Total 0.4 mg/dL (Normal) Range: 0.0-1.2 Albumin, Serum 4.2 g/dL (Normal) Range: 3.5-5.5 Protein, Total, Serum 7.0 g/dL (Normal) Range: 6.0-8.5 :14 LIPID PANEL (22033) Comments: PATIENT WAS FASTINGPERFORMED BY: [address] [id number] Information: [id number] LDL/HDL Ratio 2.0 {ratio_units} (Normal) Range: 0.0-3.2 [...] (THYROID STIMULATING Comments: PATIENT NOT FASTINGPERFORMED BY: [address] [id number] Information: [id number],2ND ORDER HORMONE) (99672) TSH 2.290 {uIU/mL} (Normal) Range: 0.450-4.500 :22 TSH (43415) Comments: PATIENT NOT FASTINGPERFORMED BY: [address] [id number] TSH 1.850 {uIU/mL} (Normal) Range: 0.450-4.500 :22 HEPATIC FUNCTION PANEL Comments: PATIENT NOT FASTINGPERFORMED BY: [address] [id number] Information: [id number] (00867) ALT (SGPT) 40 [iU]/L (Abnormal) Range: 0-32 Alkaline Phosphatase, S 70 [iU]/L (Normal) Range: 39-117 AST (SGOT) 34 [iU]/L (Normal) Range: 0-40 Bilirubin, Direct 0.09 mg/dL (Normal) Range: 0.00-0.40 Bilirubin, Total 0.3 mg/dL (Normal) Range: 0.0-1.2 Albumin, Serum 4.3 g/dL (Normal) Range: 3.5-5.5 Protein, Total, Serum 7.1 g/dL (Normal) Range: 6.0-8.5 :22 HgA1C , Office (73520) HgA1C , Office 6.0 % (Normal) Range: 4.6 - 7.1 :22 Blood Glucose , Office (50313) Blood Glucose , Office 113 (Normal) :51 METABOLIC PANEL, COMPREHENSIVE Comments: PATIENT WAS FASTINGPERFORMED BY: LabCoKessler Institute for RehabilitationBkinnx9827 [facility] [id number] (88730) ALT (SGPT) 40 [iU]/L (Abnormal) Range: 0-32 [...] Glucose, Serum 92 mg/dL (Normal) Range: 65-99 48-Vcw-60526:51 CBC WITH MANUAL DIFF Comments: PATIENT WAS FASTINGPERFORMED BY: LabCoKessler Institute for RehabilitationVqhgxz1394 [facility] [id number] Information: [id number] (37659) Immature Grans (Abs) 0.0 {x10E3/uL} (Normal) Range: [...] {x10E3/uL} (Normal) Range: 3.4-10.8 :51 LIPID PANEL (64403) Comments: PATIENT WAS FASTINGPERFORMED BY: [employer] Entertainmentlin6370 [facility] [id number] LDL/HDL Ratio 2.3 {ratio_units} (Normal) Range: 0.0-3.2 LDL Cholesterol Calc 138 mg/dL (Abnormal) Range: 0-99 VLDL Cholesterol Christopher 21 mg/dL (Normal) Range: 5-40 HDL Cholesterol 60 mg/dL (Normal) Comments: According to ATP-III Guidelines, HDL-C >59 mg/dL is considered anegative risk factor for CHD. Triglycerides 105 mg/dL (Normal) Range: 0-149 Cholesterol, Total 219 mg/dL (Abnormal) Range: 100-199 :17 TSH (73659) Comments: PATIENT WAS FASTINGPERFORMED BY: Teamer.net6370 [facility] [id number] TSH 1.960 {uIU/mL} (Normal) Range: 0.450-4.500 70-Dnw-60141:17 METABOLIC PANEL, Comments: PATIENT WAS FASTINGPERFORMED BY: [employer] Sports [employer] Entertainmentlin6370 [facility] [id number] Information: [id number] COMPREHENSIVE (64922) ALT (SGPT) 33 [iU]/L (Abnormal) Range: 0-32 [...] Glucose, Serum 88 mg/dL (Normal) Range: 65-99 :45 Blood Glucose , Office (51606) Blood Glucose , Office 89 (Normal) :45 HgA1C , Office (36643) HgA1C , Office 5.6 % (Normal) Range: 4.6 - 7.1 :22 FOOT MIN 3 VIEWS Radiology Report See [...] M.D.November 10, 2012 at 8:55 :21 AM [id number] Signed RU/RU If you are the referring physician and would like to consult with theradiologist who provided this interpretation, please contact Andree Mcleod. a t [phone]. If this radiologist is unavailable, youwillbe directed to another radiologist to assist. If you are a patient with a question regarding this report, pleasecontactyour referring physician directly. Professional Interpretation Provided By: [employer], Phone , These documents contain legally protected [...] destructionofthese documents. Dictated on 11/10/12 0855 by Robert Womack on 11/10/12 0859 by ITS IMPORTSign by Alexandre Womack on 11/10/12 0900 Sign by: Alexandre Womack :45 T4, FREE (THYROXINE) (51823) Comments: PATIENT WAS FASTINGPERFORMED BY: [employer] Viiwao5597 [facility] [place] [id number] T4,Free(Direct) 1.06 ng/dL (Normal) Range: 0.82-1.77 :45 T3, FREE (TRIDOTHYRONINE) (81935) Comments: PATIENT WAS FASTINGPERFORMED BY: [employer] Cjwafa[address] [facility] [place] [id number] Triiodothyronine,Free,Serum 3.7 pg/mL (Normal) Range: 2.0-4.4 :45 TSH (10196) Comments: PATIENT WAS FASTINGPERFORMED BY: [employer] Smzwid4822 [facility] [id number] TSH 1.670 {uIU/mL} (Normal) Range: 0.450-4.500 :45 METABOLIC PANEL, COMPREHENSIVE Comments: PATIENT WAS FASTINGPERFORMED BY: [employer] Yqczjk6107 [facility] [id number] (14347) ALT (SGPT) 31 [iU]/L (Normal) Range: 0-32 [...] mg/dL (Normal) Range: 65-99 :45 LIPID PANEL (30864) Comments: PATIENT WAS FASTINGPERFORMED BY: [employer] Jovvuv5847 [facility] [id number] LDL/HDL Ratio 2.7 {ratio_units} (Normal) Range: 0.0-3.2 [...] DIFF Comments: PATIENT WAS FASTINGPERFORMED BY: [facility] Xunspi8405 [facility] [id number] Information: [id number] (44389) Immature Grans (Abs) 0.0 {x10E3/uL} Range: 0.0-0.1 [...] 1.770 {uIU/mL} Comments: PATIENT WAS FASTINGPERFORMED BY: Robosoft TechnologiesKessler Institute for RehabilitationHqjpbh0560 [facility] [id number] Information: [id number] :02 (Normal) Range: 0.450-4.500 Written Authorization WAR (Normal) Comments: PATIENT WAS FASTINGPERFORMED BY: [facility] Beauty [facility] Essence FashionsMunson Medical Center6370 [facility] [id number] :02 Comments: Written Authorization Received.Authorization received from DR DIAL [id number] by Ignacia Lozano :02 LIPID PANEL (49456) Comments: PATIENT WAS FASTINGPERFORMED BY: [employer] Hcmrre1202 [facility] [id number] LDL/HDL Ratio 2.3 {ratio_units} (Normal) Range: 0.0-3.2 LDL Cholesterol Calc 133 mg/dL (Abnormal) Range: 0-99 VLDL Cholesterol Christopher 23 mg/dL (Normal) Range: 5-40 HDL Cholesterol 59 mg/dL (Normal) Comments: According to ATP-III Guidelines, HDL-C >59 mg/dL is considered anegative risk factor for CHD. Triglycerides 116 mg/dL (Normal) Range: 0-149 Cholesterol, Total 215 mg/dL (Abnormal) Range: 100-199 :02 CBC (Auto) (04484) Comments: PATIENT WAS FASTINGPERFORMED BY: [facility] Essence FashionsMunson Medical Center6370 [facility] [id number] Platelets 269 {x10E3/uL} (Normal) Range: 140-415 RDW 14.4 % (Normal) Range: 12.3-15.4 MCHC 33.6 g/dL (Normal) Range: 31.5-35.7 MCH 29.8 pg (Normal) Range: 26.6-33.0 MCV 89 fL (Normal) Range: 79-97 Hematocrit 40.5 % (Normal) Range: 34.0-46.6 Hemoglobin 13.6 g/dL (Normal) Range: 11.1-15.9 RBC 4.57 {x10E6/uL} (Normal) Range: 3.77-5.28 WBC 6.2 {x10E3/uL} (Normal) Range: 4.0-10.5 19-Sep-20129:02 Metabolic Panel, Comments: PATIENT WAS FASTINGPERFORMED BY: LabCoKessler Institute for RehabilitationDduwoa9088 [facility] [id number] Information: [id number] Comprehensive (49452) ALT (SGPT) 32 [iU]/L (Normal) Range: 0-32 [...] (Abnormal) Range: 65-99 :02 T3, FREE (TRIDOTHYRONINE) (27265) Comments: PATIENT WAS FASTINGPERFORMED BY: [facility]6370 [facility] [id number] Triiodothyronine,Free,Serum 3.9 pg/mL (Normal) Range: 2.0-4.4 :02 T4, FREE (THYROXINE) (23320) Comments: PATIENT WAS FASTINGPERFORMED BY: [address] [id number] T4,Free(Direct) 0.94 ng/dL (Normal) Range: 0.82-1.77 :02 T4, TOTAL (06605) Comments: PATIENT WAS FASTINGPERFORMED BY: [facility]6370 [facility] [id number] Thyroxine (T4) 7.3 ug/dL (Normal) Range: 4.5-12.0 :07 TSH (92079) Comments: PATIENT NOT FASTINGPERFORMED BY: [address] [id number] Information: [id number] TSH 1.970 {uIU/mL} (Normal) Range: 0.450-4.500 :35 URINE ANNETTE CULTURE (TEMO Comments: and sensitivity; PATIENT NOT FASTINGPERFORMED BY: [address] [id number] Information: SRC:UR [id number] COL COUNT) (96891) Result 1 BETAGB (Normal) Comments: Beta hemolytic [...] (CLSI 2011) Urine Final report (Normal) Culture,Comprehensive 11-Vco-055305:49 Urinalysis, Office (56552) UA - LEUKOCYTE ESTERASE Negative (Normal) UA - NITRITE Negative (Normal) URINE UROBILINGN TEMO TIMED Normal mg/dL (Normal) UA - PROTEIN Negative mg/dL (Normal) UA - PH 7.0 (Normal) UA - BLOOD Negative (Normal) UA - SPECIFIC GRAVITY 1.025 (Normal) UA - KETONES Negative mg/dL (Normal) UA - GLUCOSE Negative (Normal) 49-Tss-32742:15 CBC WITH MANUAL DIFF Comments: PATIENT WAS FASTINGPERFORMED BY: LabCoKessler Institute for RehabilitationYgvddg7970 [facility] [id number] Information: [id number] (21163) Immature Grans (Abs) 0.0 {x10E3/uL} (Normal) Range: [...] {x10E3/uL} (Normal) Range: 4.0-10.5 :15 LIPID PANEL (05040) Comments: PATIENT WAS FASTINGPERFORMED BY: Awdio70 [facility] [id number] LDL/HDL Ratio 2.5 {ratio_units} (Normal) Range: 0.0-3.2 [...] FUNCTION PANEL Comments: PATIENT WAS FASTINGPERFORMED BY: Awdio70 [facility] [id number] (13322) ALT (SGPT) 32 [iU]/L (Normal) Range: 0-40 AST (SGOT) 29 [iU]/L (Normal) Range: 0-40 Alkaline Phosphatase, S 69 [iU]/L (Normal) Range: 25-150 Bilirubin, Direct 0.10 mg/dL (Normal) Range: 0.00-0.40 Bilirubin, Total 0.4 mg/dL (Normal) Range: 0.0-1.2 Albumin, Serum 4.3 g/dL (Normal) Range: 3.5-5.5 Protein, Total, Serum 7.4 g/dL (Normal) Range: 6.0-8.5 :15 Metabolic Panel, Basic (02281) Comments: PATIENT WAS FASTINGPERFORMED BY: Awdio70 [facility] [id number] Calcium, Serum 9.6 mg/dL (Normal) Range: 8.7-10.2 [...] 96 mg/dL (Normal) Range: 65-99 :15 TSH (35940) Comments: PATIENT WAS FASTINGPERFORMED BY: Robosoft TechnologiesKessler Institute for RehabilitationRmatmq0650 [facility] [id number] TSH 1.500 {uIU/mL} (Normal) Range: 0.450-4.500 :15 T4, FREE (THYROXINE) (15230) Comments: PATIENT WAS FASTINGPERFORMED BY: Robosoft TechnologiesKessler Institute for RehabilitationNpsjzl5268 [facility] [id number] T4,Free(Direct) 0.96 ng/dL (Normal) Range: 0.82-1.77 :15 T3, FREE (TRIDOTHYRONINE) (62975) Comments: PATIENT WAS FASTINGPERFORMED BY: [place] 4731370 [facility] [id number] Triiodothyronine,Free,Serum 3.3 pg/mL (Normal) Range: 2.0-4.4 :02 FT3 4.0 pg/mL (Abnormal) Range: 2.18-3.98 :02 T4F 0.87 ng/dL (Normal) Range: 0.76-1.46 :02 TSH 0.76 {uIU/mL} (Normal) Range: 0.358-3.74 : BMP GAP 8 (Normal) Range: 5-15 [...] Range: 6.4-8.2 :37 Rapid Strep Test, Office (09499) Rapid Strep Test, Office Negative (Normal) :37 HgA1C , Office (04332) HgA1C , Office 6.0 % (Normal) Range: 4.6 - 7.1 :37 Blood Glucose , Office (20081) Blood Glucose , Office 122 (Normal) :26 [...] ronda isolated. No beta-hemolyticstreptococcus isolated. :07 EBVIgG/M 590320 EB-NAg SpI48280 > 8.0 {AI} (Abnormal) Range: 0.0-0.8 Comments: [...] esent - Antibody AbsentPerformed at: [facility] - [facility] [id number] Director: Melanie Hartman MD, Phone: [phone] EB-EA IgG 23039 1.3 {AI} (Abnormal) Range: 0.0-0.8 Comments: Negative <0.9 Equivocal 0.9 - 1.0 Positive >1.0 EB-VCA BhU49223 > 8.0 {AI} (Abnormal) Range: 0.0-0.8 Comments: Negative <0.9 Equivocal 0.9 - 1.0 Positive >1.0 EB-VCA OmR39020 < 0.2 {AI} (Normal) Range: 0.0-0.8 Comments: Negative <0.9 Equivocal 0.9 - 1.0 Positive >1.0 46-Hgj-17681:07 FREE T3 7.0 pg/mL (Abnormal) Range: 2.18-3.98 :07 T4 FREE DIRECT 0.46 ng/dL (Abnormal) Range: 0.76-1.46 :07 TSH 1.82 {uIU/mL} (Normal) Range: 0.358-3.74 :50 Rapid Strep Test, Office (03509) Rapid Strep Test, Negative (Normal) Office :36 EB-NAg JvV98617 > 8.0 {AI} (Abnormal) Range: 0.0-0.8 Comments: Negative <0.9 Equivocal 0.9 - 1.0 Positive >1.0 :36 EB-VCA CoE43545 > 8.0 {AI} (Abnormal) Range: 0.0-0.8 Comments: Negative <0.9 Equivocal 0.9 - 1.0 Positive >1.0 :36 EB-EA IgG 61115 1.5 {AI} (Abnormal) Range: 0.0-0.8 Comments: Negative <0.9 Equivocal 0.9 - 1.0 Positive >1.0Performed at: [facility] [id number] Director: Melanie Hartman MD, Phone: [phone] :[phone] CKMB Comments: Please Note: TROPONIN REFERENCE [...] NEGATIVE 0.06 - 0.59 AT RISK OF NC > OR = 0.60 SUGGEST NC :01 CKMB Comments: Please Note: TROPONIN REFERENCE [...] NEGATIVE 0.06 - 0.59 AT RISK OF NC > OR = 0.60 SUGGEST NC 58-Mbx-497480:40 TROPONIN-I < 0.02 ng/mL (Normal) Comments: Please Note: TROPONIN REFERENCE RANGE CHANGEEffective MAY 21, 2009. Comments: TROPONIN-I EXPECTED VALUES <0.05 NEGATIVE 0.06 - 0.59 AT RISK OF NC > OR = 0.60 SUGGEST NC :00 CORTISOL 11.41 ug/dL (Normal) Range: 3.09-22.40 Comments: Adult (AM) 4.30 - 22.40 ug/dLAdult (PM) 3.09 - 16.66 ug/dL :00 FREE T3 2.8 pg/mL (Normal) Range: 2.18-3.98 : T4 FREE DIRECT 0.51 ng/dL (Abnormal) Range: 0.76-1.46 :00 TSH 1.54 {uIU/mL} (Normal) Range: 0.358-3.74 :26 HgA1C , Office (46280) HgA1C , Office 5.4 % (Normal) Range: 4.6 - 7.1 :26 Blood Glucose , Office (98251) Blood Glucose , Office 89 (Normal) :54 CORTISOL 7.59 ug/dL (Normal) Range: 3.09-22.40 Comments: Adult (AM) 4.30 - 22.40 ug/dLAdult (PM) 3.09 - 16.66 ug/dL :54 DHEA SULF 4697 33.4 ug/dL (Normal) Range: 18.9-205.0 :54 ESTRADIOL 4515 28.9 pg/mL (Normal) Comments: Adult Female:Follicular phase 12.5 - 166.0Ovulation phase 85.8 - 498.0Luteal phase 43.8 - 211.0Postmenopausal <6.0 - 54.9Igctdvdnq9nw trimester 215.0 - >4300.0Girls (1- 10 years) 6.0 - 27.0Roche ECLIA methodology :54 FREE T3 2.1 pg/mL (Abnormal) Range: 2.18-3.98 :54 GLU 90 mg/dL (Normal) Range: 70-110 :54 INSULIN 4333 16.9 {uIU/mL} Range: 0.0-24.9 (Normal) Comments: Performed at: [address] [id number] Director: Melanie Hartman MD, Phone: [phone] :[phone] PROGESTER. 4317 2.7 ng/mL (Normal) Comments: [...] Female Indication: Bronchitis Planned Observations LDL CHOLESTEROL-DIRECT (28892)Indication: Hypercholesteremia (Renamed from Hypercholesterolemia) On: 28-Apr-20188:47 Request HEPATIC FUNCTION PANEL (81824)Indication: Hypercholesteremia (Renamed from Hypercholesterolemia) On: 28-Apr-20188:26 Request T3, FREE (TRIDOTHYRONINE) (25741)Indication: Hypothyroidism On: :19 Request T4, FREE (THYROXINE) (24802)Indication: Hypothyroidism On: :19 Request TSH (42377)Indication: Hypothyroidism On: :19 Request OCCULT BLOOD FECES SCREEN (94938)Indication: Dehydration On: :30 Request OVA & PARASITE DIR SMEAR (16275)Indication: Dehydration On: :30 Request LEUKOCYTE COUNT, FECAL (25777)Indication: Dehydration On: :30 Request C-DIFFICILE, STOOL (01738)Indication: Dehydration On: : Request ANNETTE CULTURE-STOOL ([id number])Indication: Dehydration On: :30 Request Metabolic Panel, Basic ([id number])Indication: Hypertension, benign On: :06 Request Comments: due in 1 week. Metabolic Panel, Basic ([id number])Indication: Hypertension, benign On: :40 Request ANNETTE CULTURE-OTHER ([id number])Indication: Pharyngitis, acute On: :37 Request TSH ([id number])Indication: Abnormal TSH On: :30 Request T4, FREE (THYROXINE) ([id number])Indication: Abnormal TSH On: :30 Request T3, FREE (TRIDOTHYRONINE) ([id number])Indication: Abnormal TSH On: :30 Request TSH ([id number])Indication: Abnormal TSH On: :57 Request T4, FREE (THYROXINE) ([id number])Indication: Abnormal TSH On: :57 Request T3, FREE (TRIDOTHYRONINE) ([id number])Indication: Abnormal TSH On: :57 Request ANNETTE CULTURE-OTHER ([id number])Indication: Pharyngitis, acute On: :50 Request EB ANTIBODY EARLY ANTIGN ([id number])Indication: Fatigue On: :00 Request Comments: today EB ANTIBODY VIRAL CAPSID ([id number]) [id number]: Fatigue On: :57 Request EB ANTIBODY NUCLR ANTIGN ([id number])Indication: Fatigue On: 28-Mar-20107:57 Request Planned Encounters Medical; KARELY 3 Month FU - On: 04-Aug-2018 7:00 [facility] Krysten Dial MD, MD, Dana M Planned Procedures Nerve ConductionBy: Krysten Dial MD On: 28-Apr-2018 Intent Krysten Dial MD Comments: both hands. will get back to splints Flu Vaccine (Quadrivalent) [id number]: On: 08-Apr-2018 Intent RITA Mendez Comments: Lot #:[id number] date: 8-97-94Yxotbh given:0.5mlRoute: IMSite given:L DltdGiven by: DBVIS and ABN signed Fluarix COMPLETE ELECTROMYOGRAPHY (EMG) WITH On: 19-Jun-2016 Intent NERVE CONDUCTION STUDIES OF EACH EXTREMITY ([id number])By: Krysten Dial MD, MD, Dana M Flu Vaccine (Quadrivalent) [id number]: On: 08-May-2016 Intent Krysten Dial MD, MD, Dana M Comments: Lot:[id number]:12/18/16Dose:0.5mLRoute:IMSite:L DltdGiven By:MLVIS signed Nuclear Stress Test/Stress On: 10-Feb-2016 Intent SPECT/TreadmillBy: Krysten Dial MD, MD, Dana M DEXA SCAN AXIAL SKELETON ([id number])By: On: 10-Feb-2016 Intent Krysten Dial MD, MD, Dana M TDAP VACCINE >7 IM ([id number])By: Nerissa On: 10-Feb-2016 Intent Krysten CASTELLANO MD, Dana M Comments: tdaplot:[id number]:07/12/18site:lt deltroute:IMDMARY ELLEN Luis IV Needle placement ([id number])By: Yusra On: 28-Jun-2015 Intent Francoise CRABTREE Ultrasound - GallbladderBy: Yusra CRABTREE, On: 28-Jun-2015 Intent Francoise Trotter INFUSION, NORMAL SALINE SOLUTION , On: 28-Jun-2015 Intent 1000 CC (Special Coverage Instructions Comments: lot [id number] ccright antecubas 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 See MCM: 2048) ([id number])By: Yusra CRABTREE [facility] - Foot - LeftBy: Yusra CRABTREE, On: 14-May-2015 Intent Francoise Trotter ADMINISTRATION OF INFLUENZA VIRUS On: 05-Apr-2015 Intent VACCINE ([id number])By: Krysten Dial MD, MD, Dana M Flu Vaccine (Quadrivalent) [id number]: On: 05-Apr-2015 Intent Krysten Dial MD, MD, Dana M Comments: Lot #:[id number] date:2015Amount given:0.5mlRoute: IMSite given:L DltdGiven by: Nnamdi and THANIA signed Quad Flu Flu Vaccine (Quadrivalent) [id number]: On: 19-Apr-2014 Intent Krysten Dial MD, MD, Dana M ADMINISTRATION OF INFLUENZA VIRUS On: 19-Apr-2014 Intent VACCINE (G0008)By: Aruna Amaral Venous Doppler - RightBy: Nerissa CASTELLANO, On: 18-Jan-2014 Intent Krysten Hogan MD EKG ([id number])By: Krysten Dial MD On: 01-Sep-2013 Intent Krysten [...] MD Eprescribed prescriptions ([id number])By: On: 02-Jun-2013 Intent Pancho PUMPER GAGER APPRENTICE, Kady L FLU VAC, SPLIT, >3 YEARS, INTRAMUSC On: 14-Apr-2013 Intent ([id number])By: Meagan Hoffman Comments: lot [id number] 2014site/route L latonya, IMamt 0.5mlVIS and ABN signed when applicableChelsea, CHEESE TESTER IMMUNIZ ADMNIN, 1 VAC, SNGL/COMBO On: 14-Apr-2013 Intent ([id number])By: Meagan Hoffman Radiology - Foot - RightBy: Nerissa On: 10-Nov-2012 Intent Krysten CASTELLANO MD, Dana M Comments: please call wet read Eprescribed prescriptions ([id number])By: On: 19-Sep-2012 Intent Pancho PUMPER GAGER APPRENTICEOscarn L EKG ([id number])By: RITA Mendez On: 20-Jun-2012 Intent Aerosol Treatment (96073)By: Ciesa On: 30-Nov-2011 Intent Francoise CRABTREE Spirometry ([id number])By: Nerissa CASTELLANO, On: 26-Sep-2010 Intent Krysten Hogan MD Comments: re do of one that was not abl eot be performed at last visit. Spirometry (62776)By: Nerissa CASTELLANO, On: 18-Sep-2010 Intent Krysten Hogan MD Pulse Oximetry ([id number])By: Jessie RN, On: 18-Sep-2010 Intent Leidy Pulse Oximetry ([id number])By: Andrea On: 17-Apr-2010 Intent RITA ELECTROCARDIOGRAM, COMPLETE (ECG) On: 01-Apr-2010 Intent ([id number])By: Vikki Wetzel Planned Medications INFUSION, NORMAL SALINE SOLUTION , 1000 CC Ordered: 28-Jun-2015 Pending CiFrancoise chawla CNP Instructions Name Dates Details Nonsmoker : [...] Advance Directives Name Dates Details Immunization Registry [place] - Effective on 04/28/2018. 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 [...] 3 day(s) ago. Onset followed foreign travel (formerly [facility] for new years). The symptoms occur intermittently. [...] inhaler and I had to see my dramatic teacher and my ENT dosent want me o [...] contact with a person with sore throat ([place]) and swelling of neck glands, whil e [...] (780.79), Menorrhagia(626.2) [facility] CenterEdith BANGURA; shanika guarantor
== END ==
PROVIDERS: Family Provider Internal Medicine; PCP Internal Medicine; Visit Provider Obstetrics & Gynecology
DX: N39.0 Urinary tract infection, site not specified (principal); Z12.4 Encounter for screening for malignant neoplasm of cervix
CPT/HCPCS: 87086; 87088; 88175; G0145

== ENCOUNTER → 2018-07-20 07:49 | Outpatient (CLI) | payer OTHER, SELFPAY ==
--- NOTE | 2018-07-20 09:31 | NEURO ---
NCS and/or EMG Patient Report Ordering Doctor: Krysten Multani DATE OF SERVICE: 07/20/18 Sugey Molina is a 63-year-old female presents for electrodiagnostic testing of the upper limbs. She reports progressively worsening numbness and tingling in the first 3 digits of both hands. Electrodiagnostic findings: Right median motor nerve demonstrates prolonged distal latency with normal amplitude and reduced conduction velocity. Left median motor nerve demonstrates prolonged distal latency with normal amplitude and reduced conduction velocity. Normal ulnar motor response bilaterally, including conduction across the elbow. Prolonged median F wave is noted bilaterally. Prolonged median sensory latency at the wrist bilaterally. Prolonged median palmar latency bilaterally. Normal ulnar and radial sensory responses. On needle EMG, all muscles tested showed no evidence of denervation with normal motor unit action potentials. Electrodiagnostic assessment: This is an abnormal study in the upper limbs. 1. Electrodiagnostic findings demonstrate bilateral median mononeuropathy. This is consistent with an advanced bilateral carpal tunnel syndrome. If there are any further questions, please do not hesitate to contact me
== END ==
PROVIDERS: Family Provider Internal Medicine; PCP Internal Medicine; Referring Provider Internal Medicine; Visit Provider Internal Medicine
DX: R20.2 Paresthesia of skin (principal)
CPT/HCPCS: 95886; 95913

== ENCOUNTER 2019-01-19 07:12 | Emergency (ER) | payer OTHER, SELFPAY ==
[2019-01-19 07:13] VITALS: BP 158/85; PULSE 82; RESP 14; TEMP 36.6; O2SAT 94; BMI 49.1
--- NOTE | 2019-01-19 07:29 | RAD_ITS ---
STUDY: X-RAY - LEFT FOOT CLINICAL: Injury with reduced dislocation of the second toe. TECHNIQUE: 3 view(s) of the foot. COMPARISON: Radiograph report 05/14/2015. FINDINGS: There is a plantar calcaneal enthesophyte. Otherwise, unremarkable talus and tarsal bones. There are marginal osteophytes and joint space narrowing of the first tarsometatarsal joint. Normal visualized subtalar, talonavicular, calcaneocuboid, and tarsal articulations. There is flattening of the heads of the second and third metatarsals as described on the prior report. There is joint space narrowing of the metatarsophalangeal joint of the great toe. Normal interphalangeal joint of the great toe. Normal phalanges of the great toe. There is reduction of the second metatarsophalangeal joint. Normal interphalangeal joints and phalanges of the lesser toes. The soft tissue structures are unremarkable. RAD/Foot min 3 Views IMPRESSION: Reduction of the second metatarsophalangeal joint. Flattening of the heads of the second and third metatarsals as on the prior report, either a sequelae of chronic stress fractures or avascular necrosis. 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 Electronically Signed: Torsten Gleason MD at 8:02 EDT Tel , Service support ,
[2019-01-19] MEDS: Naproxen 500 MG Tablet PO (07:42)
--- NOTE | 2019-01-19 07:51 | ED.VIS.GEN ---
History of Present Illness Chief Complaint: Lower Extremity Injury Informant: Patient Onset: Today Current Severity: Mild Narrative: Left second toe injury today when she was walking she slipped fell injured her left toe struck her knee abrading the skin she had no trouble walking however she noticed that her toe pain persisted and she looked down at her toe and noticed that the left second toe seems slightly curved away from the great toe she came in for evaluation, she did not hit her head she has no neck pain chest pain abdominal pain she has full range of motion of the knee no trouble walking, she has history of hypertension her health status is all been stable her review systems otherwise entirely negative Past Medical History - Allergies and Home Meds Allergies/Adverse Reactions: Allergies prochlorperazine [From Compazine] Allergy (Verified 01/19/19 07:13) Anaphylaxis Primary Care Physician: Krysten Multani MD [Primary Care Provider] - Past Medical History: - - Hypertension see above Smoking Status: Never smoker Review of Systems General: Denies: Chills, Fever, Sweats Eyes: Denies: Visual changes - bilaterally, Diplopia ENT: Denies: Rhinorrhea, Sore throat Cardiovascular: Denies: Chest pain, Palpitations Respiratory: Denies: Dyspnea, Cough, Dyspnea on exertion Gastrointestinal: Denies: Abdominal pain, Nausea, Vomiting, Diarrhea, Melena, Hematochezia Genitourinary: Denies: Dysuria, Hematuria, Frequency Musculoskeletal: Reports: - - Has full range of motion of both lower extremities she has an abrasion to the left knee but full range of motion without pain the patella in good position the knee is stable tib-fib left ankle and foot are generally unremarkable except for the left second toe there does appear to be a slight curve or deformity to the either proximal phalanx or MCP joint of that toe, there is some minimal discomfort the skin is intact, the great toe and the other toes are unremarkable, the rest of the foot is unremarkable plantar surface unremarkable, the area was cleansed with alcohol local anesthetic and then after anesthetic took effect the traction was applied to the toe and the toe straightened and it was ruthann taped to the great toe she tolerated the procedure well without difficulty. Denies: Back pain, Extremity Pain Skin: Denies: Rash, Wounds Neurological: Denies: Headache, Weakness, Numbness Physical Exam Vital Signs/Narrative: Vital Signs Temp Pulse Resp BP Pulse Ox 01/19/19 07:13 97.8 F 82 14 158/85 H 94 General: Well nourished, Well developed, No Acute Distress Head: Normocephalic, Atraumatic Eyes: Perrl, EOMI ENT: Moist mucous membranes, No rhinorrhea Neck: Supple, Nontender Cardiovascular: Regular rate, Regular rhythm, No murmurs Respiratory: No distress, CTA bilaterally, Chest nontender Abdomen: Soft, Nontender, Nondistended, Normal bowel sounds Back: Nontender, Normal Inspection Extremities: Nontender, No edema, - - Has full range of motion of both lower extremities she has an abrasion to the left knee but full range of motion without pain the patella in good position the knee is stable tib-fib left ankle and foot are generally unremarkable except for the left second toe there does appear to be a slight curve or deformity to the either proximal phalanx or MCP joint of that toe, there is some minimal discomfort the skin is intact, the great toe and the other toes are unremarkable, the rest of the foot is unremarkable plantar surface unremarkable, the area was cleansed with alcohol local anesthetic and then after anesthetic took effect the traction was applied to the toe and the toe straightened and it was ruthann taped to the great toe she tolerated the procedure well without difficulty Skin: Normal color, No rash Neurological: Alert, Oriented x3, Cranial nerves II-XII grossly intact, Normal Strength, Normal Sensation Psychological: Normal affect, Normal Mood Diagnostic/Tx/Re-eval - Medical Decision Making Certainly the possibility of fracture versus dislocation she is resting company the bed this time x-rays obtained, she has no other complaints The x-ray shows nothing acute some chronic changes no fracture dislocation see those reports, I explained all developed her she does have a champion of sustainable design that she seen in the past we discussed crutches walking devices postop shoe etc. she declined all the above she will use ice elevation [id number] pain medication she is feeling better now and follow-up with her champion of sustainable design, she will continue ruthann taping the toes Home stable Final impression Acute dislocation left second toe, status post reduction ED Disposition - Plan for ED Patient: Diagnosis: Toe dislocation Instructions: CONTUSION, Foot Referrals: Krysten Multani MD [Primary Care Provider] - Additional Instructions: Your x-ray is unremarkable for any fracture or dislocation there are some chronic changes, make sure you follow-up with your champion of sustainable design in a few days
[2019-01-19 08:24] VITALS: BP 114/76; PULSE 71; RESP 15; O2SAT 98
== END 2019-01-19 08:25 | disposition home or self-care (01) ==
PROVIDERS: Emergency Provider Emergency Medicine; Family Provider Internal Medicine; PCP Internal Medicine
DX: S80.212A Abrasion, left knee, initial encounter (principal); S93.106A Unspecified dislocation of unspecified toe(s), initial encounter; W01.0XXA Fall on same level from slipping, tripping and stumbling without subsequent striking against object, initial encounter; Y93.01 Activity, walking, marching and hiking; I10 Essential (primary) hypertension; Z88.8 Allergy status to other drugs, medicaments and biological substances
CPT/HCPCS: 73630; 99283

== ENCOUNTER → 2019-05-31 07:01 | Outpatient (CLI) | payer OTHER, SELFPAY ==
--- NOTE | 2019-05-31 07:03 | BI_ITS ---
MAMMOGRAPHY - BILATERAL SCREENING REASON FOR EXAM: Female, 64 years old. Routine annual screening examination. PERTINENT HISTORY: Mother with breast cancer. TECHNIQUE: Digital bilateral breast dennis (3D mammographic acquisition) in the CC and MLO projections. 2-D mediolateral oblique (MLO) and craniocaudad (CC) views of both breasts were obtained. CAD: Full Field Digital Mammography with Computer Added Detection was performed. COMPARISON: Comparison is made with prior study dated May 03, 2018 and November 30, 2006. FINDINGS: Breast Composition: There are scattered areas of fibroglandular density. There are no dominant masses or suspicious calcifications. Stable asymmetry of breast tissue with more breast tissue is seen in the upper outer quadrant of the right breast as compared to the left side. Stable appearance of the small bilateral axillary lymph nodes. No other significant abnormalities are identified. There has been no significant change since the prior study. BI/SCREEN MAMM (CAD) W/DENNIS BILAT IMPRESSION: Stable bilateral screening mammogram. Yearly follow-up mammogram recommended. (A) ASSESSMENT CATEGORY: BIRADS Category 2: Benign. A letter regarding these results will be sent to the patient by the facility within 30 days. Approximately 10% of breast cancers are not detected by mammography. A normal mammogram should not delay biopsy of a clinically suspicious abnormality. [id number] Electronically Signed: Albaro Pena, at 10:44 EST , Service support ,
== END ==
PROVIDERS: Family Provider Internal Medicine; PCP Internal Medicine; Referring Provider Internal Medicine; Visit Provider Internal Medicine
DX: Z12.31 Encounter for screening mammogram for malignant neoplasm of breast (principal)
CPT/HCPCS: 77063; 77067

== ENCOUNTER → 2019-06-01 08:19 | Outpatient (CLI) | payer OTHER, SELFPAY ==
--- NOTE | 2019-06-01 08:23 | BD_ITS ---
STUDY: DUAL ENERGY X-RAY ABSORPTIOMETRY / DXA REASON FOR EXAM: Female, 64 years old. The patient is postmenopausal. Loss of height. TECHNIQUE: Bone Mineral Density (BMD) measurements of lumbar spine and bilateral hips were obtained. COMPARISON: Comparison is made with prior study dated February 25, 2016. FINDINGS: Lumbar Spine (L1-L4): g/cm2 (1.129) / T-score (-0.3) / Z-score (1.3) Findings are suggestive of normal bone density with a low fracture risk. Left Femur Total: g/cm2 (1.163) / T-score (1.2) / Z-score (2.4) Left Femoral Neck: g/cm2 (1.127) / T-score (0.6) / Z-score (2.1) Right Femur Total: g/cm2 (1.117) / T-score (0.9) / Z-score (2.1) Right Femoral Neck: g/cm2 (1.060) / T-score (0.2) / Z-score (1.6) The T-Scores on the most recent prior examination were: Lumbar Spine (L1-L4): There has been worsening of bone density since the previous examination. Left Femur Total: which represents a worsening of 6.9%. Right Femur Total: which represents a worsening of 3.2%. BD/Dexa Bone Density Study IMPRESSION: The patient is considered normal as outlined below according to World [employer] Organization (WHO) criteria with a low fracture risk. There has been worsening of bone density since the previous examination. Reference Information: The T-score is the number of standard deviations above or below the standard which is normal for young adults at their peak bone mineral density. The World Health Organization (WHO) interprets the T-scores as follows: Above -1 Normal bone density Between -1 and -2.5 Osteopenia Equal to / or below -2.5 Osteoporosis As a practical clinical guideline, osteopenia may be graded as follows: Mild -1 through -1.5 Moderate -1.6 through -2.0 Severe -2.1 through -2.4 The Z-score is the number of standard deviations above or below age-matched controls. A Z-score of less than -1.5 would be considered abnormal. References: 1. NIH Osteoporosis and Related Bone Diseases http://www.osteo.org 2. International Society for Clinical Densitometry http://www.iscd.org 3. National Osteoporosis Foundation http://www.nof.org Electronically Signed: Albaro Pena, at 15:04 EST , Service support ,
== END ==
PROVIDERS: Family Provider Internal Medicine; PCP Internal Medicine; Referring Provider Internal Medicine; Visit Provider Internal Medicine
DX: Z78.0 Asymptomatic menopausal state (principal)
CPT/HCPCS: 77080

== ENCOUNTER → 2019-07-12 07:18 | Outpatient (CLI) | payer SELFPAY ==
--- NOTE | 2019-07-12 07:23 | CT_ITS ---
STUDY: CARDIAC CALCIUM SCORING - CT CHEST REASON FOR EXAM: Female, 64 years old. Hypertension, hyperlipidemia, limited CT chest over read ONLY. RADIATION DOSAGE (If Supplied By Facility): CTDIvol = ( 12.19 ) mGy, DLP = ( 219.42 ) mGycm TECHNIQUE: Axial non-enhanced images were acquired through the heart for the sole purpose of measuring coronary artery calcium. Individualized dose optimization techniques were used for this CT. COMPARISON: None. FINDINGS: Visualized surrounding anatomy: Clear lungs. Fatty liver. Please see the patient''s medical record for a person of this calcium score. CT/Limited Chest CT w/CCTA IMPRESSION: Please see the patient''s medical record for a personalized calcium score. Fatty liver. Please go to: [email or web address] , for a description of the calculator. Electronically Signed: Ilia Mauricio, at 19:44 EST Tel , Service support ,
[2019-07-12 07:35] VITALS: BP 164/83; PULSE 57; RESP 16; O2SAT 99; BMI 48.4
--- NOTE | 2019-07-13 13:25 | CA.SCORE ---
Calcium Scoring Date of Study:: 07/12/19 Coronary Calcium Scoring: High-resolution Computed Tomographic imaging of the chest was performed on [ ], with particular attention paid to the coronary arteries. Images from the examination were analyzed for the presence and extent of coronary artery calcification , using coronary calcium quantification software. The patient tolerated the procedure well and there were no complications. The results of the coronary calcification analysis are provided below. - Findings Left Main (LM): 1.59 Left Anterior Descending (LAD): 14.3 Left Circumflex (LCX): 0 Right Coronary Artery (RCA): 0 Total Agatston Score: 15.89 Percentile Rankin Calcium Scoring Interpretation: 11-100 Mild plaque burden. Likely mild or minimal coronary atherosclerosis.
== END ==
PROVIDERS: Family Provider Internal Medicine; PCP Internal Medicine; Referring Provider Internal Medicine; Visit Provider Internal Medicine
DX: I11.9 Hypertensive heart disease without heart failure (principal); E78.00 Pure hypercholesterolemia, unspecified
CPT/HCPCS: 75571; 76380

== ENCOUNTER → 2020-05-24 12:13 | Outpatient (CLI) | payer OTHER, SELFPAY ==
[2019-07-12 07:35] VITALS: BMI 48.4
--- NOTE | 2020-05-24 12:20 | US_ITS ---
STUDY: ULTRASOUND OF THE FEMALE PELVIS - COMPLETE REASON FOR EXAM: Female, 65 years old. PELVIC PAIN X 1 WEEK, HX OF HYSTERECTOMY AND BILATERAL SALPING OOPHORECTOMY. LMP: The patient is status post hysterectomy. TECHNIQUE: Transvaginal TECHNICAL QUALITY: Adequate. COMPARISON: None. FINDINGS: The patient is status post hysterectomy. The patient is status post right salpingo-oophorectomy. The patient is status post left salpingooophorectomy. There is no fluid in the cul-de-sac. US/Transvaginal Non- IMPRESSION: Status post hysterectomy and bilateral salpingo-oophorectomy. No acute abnormality is seen. Electronically Signed: Albaro Pena, at 13:04 EST , Service support ,
== END ==
PROVIDERS: PCP Internal Medicine; Referring Provider Internal Medicine; Visit Provider Internal Medicine
DX: R10.2 Pelvic and perineal pain (principal)
CPT/HCPCS: 76830

== ENCOUNTER → 2020-06-06 07:14 | Outpatient (CLI) | payer OTHER, SELFPAY ==
[2019-07-12 07:35] VITALS: BMI 48.4
--- NOTE | 2020-06-06 07:15 | BI_ITS ---
MAMMOGRAPHY - BILATERAL SCREENING REASON FOR EXAM: Female, 65 years old. Routine annual screening examination. PERTINENT HISTORY: Mother with breast cancer. TECHNIQUE: Digital bilateral breast dennis (3D mammographic acquisition) in the CC and MLO projections. 2-D mediolateral oblique (MLO) and craniocaudad (CC) views of both breasts were obtained. CAD: Full Field Digital Mammography with Computer Added Detection was performed. COMPARISON: Comparison is made with prior study dated 05/31/2019 and 05/03/2018. FINDINGS: Breast Composition: The breasts are heterogeneously dense, which may obscure small masses. There are no dominant masses or suspicious calcifications. Stable asymmetry of breast tissue were more breast tissue is seen in the upper outer quadrant of the right breast as compared to the left side. Stable benign-appearing bilateral axillary No other significant abnormalities are identified. There has been no significant change since the prior study. BI/SCREEN MAMM (CAD) W/DENNIS BILAT IMPRESSION: Stable bilateral screening mammogram. Yearly follow-up mammogram recommended. (A) ASSESSMENT CATEGORY: BIRADS Category 2: Benign. A letter regarding these results will be sent to the patient by the facility within 30 days. Approximately 10% of breast cancers are not detected by mammography. A normal mammogram should not delay biopsy of a clinically suspicious abnormality. [id number] Electronically Signed: Albaro Pena, at 8:40 EST , Service support ,
== END ==
PROVIDERS: PCP Internal Medicine; Referring Provider Internal Medicine; Visit Provider Internal Medicine
DX: Z12.31 Encounter for screening mammogram for malignant neoplasm of breast (principal); Z80.3 Family history of malignant neoplasm of breast
CPT/HCPCS: 77063; 77067

== ENCOUNTER 2020-10-01 07:00 | Outpatient (RCR) | payer OTHER, SELFPAY ==
[2019-07-12 07:35] VITALS: BMI 48.4
--- NOTE | 2020-09-03 08:22 | HP.PTEVAL_ITS ---
Patient's Visit Information ARCHANA BANGURA is a 65 year old F referred to Physical Therapy by Dr. Krysten Multani MD with a diagnosis of LEFT SCITAICA. Date of Evaluation: 09/03/20 Physical Therapist: Joe Bonner PT, Cert MDT, OCS - Visit Plan Frequency: 2x /Week Duration: 4 Weeks Plan: PT INTERVENTIONS POSTURAL EX'S,DLS,THEO EX'S,POSTURE BODY/MECHANICS - Subjective This 65 y/o female presents to physical therapy with left sciatica. Patient has had left leg pain 5 weeks .Patient noticed pain at night in left. Seen DR webb PT. Aggraveting factors extended sitting,night. Alleviating factors on the move and walking. Denies parathesia/tingling. Bowel/bladder - .Coughing/sneezing -.Pain is desribed as throbbing. Patient has no h/o back pain. Patient has no back pain. Patient wants a health program with fitness. Patient symptoms affects QOL and job demands. VOCATION: [employer] - Objective POSTURE: mild foward posture. GAIT: reciprocal pattern. NEURO: denies parathesia/tingling ,reflexes intact,L4-5,L5-S 2/3. SYMMTICAL: align. FLEXABLITY: hams WFL. MMT: quads/hams/hip/ankle 4/5. LUMBAR ROM: flexion WFL ,extension WFL ,side glides WFL - Special Tests L/S Slump test left side: Negative L/S Slump test right side: Negative L/S Left Straight Leg Raise: Negative L/S Right Straight Leg Raise: Negative Lumbar Standing: Flexion - Mechanical Response: No effect Lumbar Standing: Flexion - Symptoms During Testing: No effect Lumbar Standing: Flexion - Symptoms After Testing: No effect Lumbar Standing: Extension - Mechanical Response: No effect Lumbar Standing: Extension - Symptoms During Testing: No effect Lumbar Standing: Extension - Symptoms After Testing: No effect Lumbar Standing: Right Side Glides - Mechanical Response: No effect Lumbar Standing: Right Side Bristow - Symptoms During Testing: No effect Lumbar Standing: Right Side [place]ow - Symptoms After Testing: No effect Lumbar Standing: Left Side [place] - Mechanical Response: No effect Lumbar Standing: Left Side [place] - Symptoms During Testing: No effect Lumbar Standing: Left Side [place] - Symptoms After Testing: No effect Lumbar Lying: Flexion - Mechanical Response: No effect Lumbar Lying: Flexion - Symptoms During Testing: No effect Lumbar Lying: Flexion - Symptoms After Testing: No effect Lumbar Lying: Extension - Mechanical Response: No effect Lumbar Lying: Extension - Symptoms During Testing: No effect Lumbar Lying: Extension - Symptoms After Testing: No effect - Goals Goal 1:: Patient to I with HEP Goal Time Frame: 4-6 Weeks Goal 2:: Decrease leg symtoms by 75% or > to improve function Goal Time Frame: 4-6 Weeks Goal 3:: Patient improve postur to reduce symptoms in calf Goal Time Frame: 4-6 Weeks Goal 4:: Patient improve core strength to maintain neutral spine with function Goal Time Frame: 4-6 Weeks Goal 5:: Patient to improve back owestry score by 5 points or > to improve function Goal Time Frame: 4-6 Weeks - Rehabilitation Potential Physical Therapy Diagnosis: This patient has possible disc derrangement with with calf symptoms at night as well as decrease core muscle activation with pain with extended sitting thus will benifit from skilled PT Rehabilitation Potential: Good - Anticipated Interventions Patient/Client Instruction: Educate patient on: Condition, Plan of Care For the Purpose of:: To decrease pain, To increase ROM, To improve muscle performance and motor function, To improve ability to perform ADL's, To increase tolerance to activity/condition/position, To decrease level of supervision to perform tasks, To improve health of tissue, To decrease soft tissue restriction, To increase flexibility/ROM, To improve ability to perform tasks related to life management Therapeutic Exercise to Include: Strength training, Body mechanics, Postural training, Flexibilty training, Dynamic Lumbar Stabilization For the Purpose of:: To decrease pain, To improve muscle performance and motor function, To improve ability to perform ADL's, To increase tolerance to activity/condition/position, To improve ability of physical actions for home/community/work/leisure, To improve health of tissue, To decrease soft tissue restriction, To reduce risk of recurrence, To improve ability to perform tasks related to life management Thank you for the opportunity to evaluate your patient. For Medicare and Medicare HMO plans, please review the plan of care and approve it. It will need to be FAXED BACK to us at [phone] for Medicare purposes. For Medicare only, by signing this I certify the plan of care. Please let me know if there are questions or concerns regarding this plan of care. Physician Signature: Date:
--- NOTE | 2020-10-01 07:33 | HP.PTDCSUM ---
It has been my pleasure to treat ARCHANA BANGURA referred by Dr. Krysten Multani MD, with the diagnosis of LEFT SCITAICA for a total of 5 visit(s). Discharge Date: 10/01/20 Please see the following information for a summary of their discharge status. Subjective: Patient ready for d/c . Patient is alot better in legs. Bilateral Back Pain Intensity (Out of 10): 0 L LE Pain Intensity (Out of 10): 0 % Improvement: 85 Objective/Function: POSTURE: WFL. GAIT : RECIPROCAL PATTERN. MMT: QUADS/HAMS 4/5,HIP FLEXION 4/5,ANKLE 5/5. LUMBAR ROM: FLEXION MIN LOSS,EXT WFL Goal 1:: Patient to I with HEP Goal Progress: Goal Met Goal 2:: Decrease leg symtoms by 75% or > to improve function Goal Progress: Goal Met Goal 3:: Patient improve postur to reduce symptoms in calf Goal Progress: Goal Met Goal 4:: Patient improve core strength to maintain neutral spine with function Goal Progress: Goal Met Goal 5:: Patient to improve back owestry score by 5 points or > to improve function Goal Progress: Goal Met Plan: D/C Discharge Comments: HEP AND HP If there are questions or concerns regarding this patient's physical therapy, please feel free to call me at [phone]. Thank you for the referral of this patient. Sincerely, Joe Bonner PT, Cert MDT, OCS
== END 2020-10-01 14:25 | disposition home or self-care (01) ==
LOC: PT 07:00
PROVIDERS: PCP Internal Medicine; Referring Provider Internal Medicine; Visit Provider Internal Medicine
DX: M54.32 Sciatica, left side (principal); M79.605 Pain in left leg
CPT/HCPCS: 97110; 97162

== ENCOUNTER → 2020-10-29 06:03 | Outpatient (CLI) | payer OTHER, SELFPAY ==
[2019-07-12 07:35] VITALS: BMI 48.4
--- NOTE | 2020-10-29 08:36 | STRESSREP ---
Stress Test Report Date: 10-29-2020 Procedure: Exercise tolerance test/imaging study Indications: Chest pain; family history of CAD; abnormal coronary calcium score Consent: Per the patient Procedure: The patient exercised on a Mati protocol for 5 minutes completing Stage I and 2 minutes of Stage II achieving a peak heart rate of 151 bpm (98% predicted maximal heart rate) with a peak blood pressure 198/78 mmHg and a peak MET capacity of 7 METs. The baseline ECG demonstrated normal sinus rhythm; low voltage QRS. The peak exercise ECG demonstrated somatic/motion artifact with no obvious ECG changes. There was an occasional PVC during exercise and recovery. The functional capacity was considered average. There was no complaint of chest discomfort during exercise or recovery. The examination was discontinued secondary to dyspnea. Impression: 1. Technically adequate (percent predicted maximal heart rate greater than 85%) exercise tolerance test 2. Peak exercise ECG with somatic/motion artifact with no obvious ECG changes 3. There was an occasional PVC during exercise and recovery 4. Nuclear images pending Myocardial perfusion imaging study: Technique: The patient was injected with 14.9 mCi of technetium 99m Cardiolite and subsequently rest SPECT Cardiolite nuclear imaging was obtained in the horizontal long, vertical long, and short axis views. The patient exercised on a Mati protocol for 5 minutes completing Stage I and 2 minutes of Stage II achieving a peak heart rate of 151 bpm (98% predicted maximal heart rate) with a peak blood pressure 198/78 mmHg and a peak MET capacity of 7 METs. The patient was injected with 45.0 mCi of technetium 99m Cardiolite and subsequently stress SPECT Cardiolite nuclear imaging was obtained in the horizontal long, vertical long, and short axis views. A gated Cardiolite study at peak stress was obtained. Interpretation: Rest and stress SPECT Cardiolite nuclear imaging status post realignment, normalization, and attenuation correction, demonstrates the appearance of relative uniform tracer uptake and myocardial perfusion appearing within normal limits. There is end systolic thickening and brightening. The gated Cardiolite study demonstrates myocardial thickening and inward wall motion. The reported LVEF is 82%. Impression: 1. Rest and stress SPECT Cardiolite nuclear imaging demonstrate relative uniform tracer uptake and myocardial perfusion appearing within normal limits. 2. The gated Cardiolite study reports an LVEF of 82%. This note was generated with [employer] software. It may contain incorrect words, spelling, and punctuation that were not noted in checking the note before signing.
== END ==
PROVIDERS: PCP Internal Medicine; Referring Provider Internal Medicine; Visit Provider Internal Medicine
DX: R07.89 Other chest pain (principal)
CPT/HCPCS: 78452; 93017; A9500; A4216

== ENCOUNTER → 2021-06-09 07:02 | Outpatient (CLI) | payer OTHER, SELFPAY ==
--- NOTE | 2021-06-09 07:04 | BI_ITS ---
MAMMOGRAPHY - BILATERAL SCREENING REASON FOR EXAM: Female, 66 years old. Routine annual screening examination. PERTINENT HISTORY: Mother with breast cancer. TECHNIQUE: Digital bilateral breast dennis (3D mammographic acquisition) in the CC and MLO projections. 2-D mediolateral oblique (MLO) and craniocaudad (CC) views of both breasts were obtained. CAD: Full Field Digital Mammography with Computer Added Detection was performed. COMPARISON: Comparison is made with prior study dated 06/06/2020 and 05/31/2019. FINDINGS: Breast Composition: There are scattered areas of fibroglandular density. There are no dominant masses or suspicious calcifications. Stable asymmetry of breast tissue were more breast tissue is seen in the upper-outer quadrant of the right breast as compared to the left side. Stable benign-appearing bilateral axillary lymph nodes. No other significant abnormalities are identified. There has been no significant change since the prior study. BI/SCRN MAMM (CAD)W/DENNIS BILAT IMPRESSION: Stable bilateral screening mammogram. Yearly follow-up mammogram recommended. (A) ASSESSMENT CATEGORY: BIRADS Category 2: Benign. A letter regarding these results will be sent to the patient by the facility within 30 days. Approximately 10% of breast cancers are not detected by mammography. A normal mammogram should not delay biopsy of a clinically suspicious abnormality. [id number] Electronically Signed: Albaro Pena MD at 8:04 EST , Service support ,
== END ==
PROVIDERS: PCP Internal Medicine; Visit Provider Internal Medicine
DX: Z12.31 Encounter for screening mammogram for malignant neoplasm of breast (principal); Z80.3 Family history of malignant neoplasm of breast
CPT/HCPCS: 77063; 77067

== ENCOUNTER → 2021-10-29 | Outpatient (CLI) | payer OTHER, SELFPAY ==
[2021-10-29 10:32] LABS: Absolute Lymphocyte Count 1.19 X10^3/uL (0.83-4.51); Absolute Neutrophil Count 4.5 X10^3/uL (2.0-7.7); Basophil# 0.01 X10^3/uL; Basophil% 0.2 % (0-1); Eosinophils% 1.5 % (0-5); Hematocrit 41.7 % (37-47); Hemoglobin 14.1 g/dL (12.0-15.0); Lymphocyte # 1.19 X10^3/ul (0.83-4.51); Lymphocyte % 18.1 % (19-41); Mean Corp Hgb Conc 33.8 g/dL (32-36); Mean Corpuscular Hgb 30.9 pg (27.0-32.0); Mean Corpuscular Volume 91.2 fL (81-99); Mean Platelet Vol. 10.8 fl (6.2-12.0); Monocyte# 0.82 X10^3/uL; Monocyte% 12.5 % (0-10); NRBC Flagged by Analyzer 0 % (0-5); Neutrophil # 4.45 X10^3/uL (2.7-7.7); Neutrophil % 67.5 % (47-70); Platelet Count 260 K/mm3 (150-450); RBC Distribution Width CV 13.4 % (11.6-14.6); RBC Distribution Width SD 45.3 fl (35.1-43.9); Red Blood Count 4.57 M/mm3 (4.2-5.4); White Blood Count 6.6 K/mm3 (4.4-11.0)
[2021-10-29 10:44] LABS: AST(SGOT) 35 U/L (15-37); Alanine Aminotransfer ALT/SGPT 41 U/L (13-56); Albumin, Serum 3.7 g/dL (3.2-5.0); Alkaline Phosphatase 72 U/L (45-117); Amylase 41 U/L (25-115); Anion Gap 8 (5-15); BUN 16 mg/dL (7-18); BUN/Creat Ratio 19.6 RATIO (10-20); Chloride 107 mmol/L (98-107); Creatinine, Serum 0.82 mg/dL (0.55-1.02); EST Glomerular Filtration Rate 74 mL/min (>60); Est Glom Filt Rate - Afr Amer 90 mL/min (>60); Globulin 3.8 g/dL (2.2-4.2); Glucose 112 mg/dL (74-106); Lipase 55 U/L (73-393); Potassium 3.8 mmol/L (3.5-5.1); Protein, Total 7.5 g/dL (6.4-8.2); Sodium Level 140 mmol/L (136-145)
== END | disposition home or self-care (01) ==
LOC: LABSPEC 10:22
PROVIDERS: PCP Internal Medicine; Visit Provider Internal Medicine
DX: R68.89 Other general symptoms and signs (principal); R10.9 Unspecified abdominal pain
CPT/HCPCS: 80053; 82150; 83690; 85025; 87086; 87088

== ENCOUNTER → 2022-04-08 | Outpatient (CLI) | payer OTHER, SELFPAY ==
--- NOTE | 2022-04-08 08:56 | CDU_ITS ---
Reason For Study: Carotid Stenosis Rt. Velocities/BP Lt. Velocities/BP Prox CCA 85.3/16.3 cm/sec. Prox CCA 85.3/16.3 cm/sec. Mid CCA 59.8/11.6 cm/sec. Mid CCA 59.8/11.6 cm/sec. Dist CCA 76.8/19.2 cm/sec. Dist CCA 76.8/19.2 cm/sec. Prox ICA 50.4/12.6 cm/sec. Prox ICA 59.8/14.5 cm/sec. Mid ICA 45.6/17.6 cm/sec. Mid ICA 45.6/17.6 cm/sec. Dist ICA 56.0/17.3 cm/sec. Dist ICA 56.0/17.3 cm/sec. Rt. ICA/CCA = 0.5. Lt. ICA/CCA = 1.0. Prox ECA 75.9/6.0 cm/sec. Prox ECA 75.9/6.0 cm/sec. Rt. Vert. 45.3/15.8 cm/sec. Lt. Vert. 44.7/12.6 cm/sec. Right Extracranial There is heterogeneous, irregular atherosclerotic plaque noted in the right common carotid artery. There is heterogeneous, irregular atherosclerotic plaque noted in the right internal carotid artery. The right internal carotid artery is very tortuous. There is heterogeneous, irregular atherosclerotic plaque noted in the right external carotid artery. Antegrade flow is noted in the right vertebral artery. Left Extracranial There is intimal thickening but no significant atherosclerotic plaque noted in the left common carotid artery. There is heterogeneous, irregular atherosclerotic plaque noted in the left internal carotid artery. The left internal carotid artery is very tortuous. There is intimal thickening but no significant atherosclerotic plaque noted in the left external carotid artery. Antegrade flow is noted in the left vertebral artery. Procedure Carotid Duplex [id number]. This is a Carotid Duplex examination using B-mode, color flow and specral Doppler. The exam was diagnostic. Exam performed in department. VL/Carotid Duplex Ultrasound Interpretation Summary Mild (<50%) stenosis right extracranial internal carotid. Mild (<50%) stenosis left extracranial internal carotid. Patent and antegrade vertebrals bilaterally. Ordering Physician: Krysten Multani Referring Physician: Krysten Multani Performed By: Raj Lynch RVT
--- NOTE | 2022-04-08 08:56 | ECHOD_ITS ---
Reason For Study: TACHY Procedure This was a 2D Doppler, Color Flow transthoracic echocardiogram. The study was technically difficult. Exam performed in department. Left Ventricle Normal LV size. Mild concentric left ventricular hypertrophy. Left ventricular systolic function is normal. The estimated ejection fraction is 65 %. No evidence for diastolic dysfunction. No regional wall motion abnormalities noted. Right Ventricle Normal RV size. Normal systolic function. Atria Normal left atrium. Normal right atrium. No doppler evidence for ASD. Mitral Valve There is no mitral annular calcification. The mitral valve is structurally normal. No prolapse or stenosis seen. Trivial mitral valve insufficiency. Tricuspid Valve Normal tricuspid valve. Trivial tricuspid valve insufficiency. Unable to estimate RV systolic pressure due to insufficient tricuspid regurgitant envelope. Aortic Valve Normal aortic valve. Trivial aortic valve insufficiency. Pulmonic Valve The pulmonic valve is not well visualized. Great Vessels Normal aortic root. Pericardium/Pleural No pericardial effusion. MMode/2D Measurements & Calculations LVIDd: 4.6 cm IVSd: 1.4 cm Ao root diam: 3.5 cm LVIDs: 2.7 cm LVPWd: 1.4 cm FS: 40.8 % LAV(MOD-bp): 32.6 ml LVAd ap4: 24.4 cm2 SV(MOD-sp4): 39.9 ml LAV(MOD-bp) Indexed: 15.0 ml/m2 LVLd ap4: 7.7 cm LAV(MOD-sp2): 24.5 ml EDV(MOD-sp4): 63.4 ml LAV(MOD-sp4): 30.8 ml EDV(sp4-el): 65.9 ml LVAs ap4: 12.9 cm2 LVLs ap4: 6.0 cm ESV(MOD-sp4): 23.4 ml ESV(sp4-el): 23.6 ml EF(MOD-sp4): 63.0 % EF(sp4-el): 64.2 % SV(sp4-el): 42.3 ml LA A4 area: 13.3 cm2 RA A4 area: 20.6 cm2 Time Measurements MV dec time: 0.23 sec Doppler Measurements & Calculations MV E max thierry: 66.6 cm/sec Lat Peak E' Thierry: 8.4 cm/sec Med Peak E' Thierry: 10.3 cm/sec MV A max thierry: 68.1 cm/sec E/E' lat: 7.9 E/E' med: 6.5 MV E/A: 0.98 MV V2 max: 91.5 cm/sec Ao V2 max: 110.8 cm/sec MV max P.4 mmHg MV dec slope: 340.8 cm/sec2 Ao max P.9 mmHg MV V2 mean: 49.3 cm/sec MV mean P.2 mmHg MV V2 VTI: 27.6 cm LV V1 max: 102.4 cm/sec PA V2 max: 104.0 cm/sec LV V1 max P.2 mmHg LV V1 mean P.1 mmHg LV V1 mean: 67.8 cm/sec LV V1 VTI: 21.7 cm ECHO/Echo Complete Interpretation Summary Technically difficult study. Left ventricular systolic function is normal. The estimated ejection fraction is 65 %. Mild concentric left ventricular hypertrophy. Trivial mitral valve insufficiency. Trivial tricuspid valve insufficiency. Trivial aortic valve insufficiency. Unable to estimate RV systolic pressure due to insufficient tricuspid regurgita nt envelope. No evidence for diastolic dysfunction. Ordering Physician: Krysten Multani Referring Physician: Krysten Multani Performed By: Janine Alvarado RCS
== END | disposition home or self-care (01) ==
PROVIDERS: PCP Internal Medicine; Referring Provider Internal Medicine; Visit Provider Internal Medicine
DX: I65.23 Occlusion and stenosis of bilateral carotid arteries (principal); I47.1 Supraventricular tachycardia
CPT/HCPCS: 93306; 93880

== ENCOUNTER → 2022-04-10 | Outpatient (CLI) | payer OTHER, SELFPAY ==
--- NOTE | 2022-04-10 07:26 | US_ITS ---
STUDY: ABDOMINAL ULTRASOUND - RIGHT UPPER QUADRANT REASON FOR VISIT: Female, 66 years old Fatty Liver TECHNIQUE: Ultrasound evaluation of the right upper quadrant was performed with real-time and static downs-scale imaging. TECHNICAL QUALITY: Adequate. COMPARISON: Comparison is made with prior study dated 06/28/2015. FINDINGS: Liver: The liver is enlarged and measures 19.6 cm. There is increased echogenicity consistent with fatty infiltration. The bile ducts are within normal limits. There is hepatic color flow. The direction of portal flow is hepatopetal. There is no demonstrated mass lesion. Gallbladder: Normal distended gallbladder. The gallbladder wall measures 2.5 mm. There is a negative sonographic Funk''s sign. There is no pericholecystic fluid. There are no gallstones. Common Bile Duct (C.B.D.): The common bile duct measures 3.7 mm. Pancreas: Normal size of the head, body and tail of the pancreas. There is increased echogenicity of the pancreas. There is no demonstrated pancreatic mass or cyst. Right Kidney: Normal size of the right kidney. The right kidney measures 11.4 cm x 5.1 cm x 5.5 cm. Normal renal cortex. The right cortex measures 2.0 cm. There is no demonstrated renal mass or cyst. There is no right hydronephrosis. US/Abdomen Limited IMPRESSION: Hepatomegaly and fatty infiltration of the liver. Electronically Signed: Albaro Pena MD at 8:55 EDT ,
--- NOTE | 2022-04-10 07:26 | US_ITS ---
STUDY: ABDOMINAL ULTRASOUND - ELASTOGRAPHY REASON FOR VISIT: Female, 66 years old. Fatty infiltration of the liver. TECHNIQUE: Liver stiffness measurements were obtained on a [employer] RS 85 ultrasound machine using a CA 1-7 probe following the SRU guidelines. 3 measurements were obtained using a 2-D-SWE method. The IQR/M was 18% suggesting a quality data set. TECHNICAL QUALITY: Adequate. COMPARISON: Comparison is made with prior study done earlier in the day. FINDINGS: Liver: Fatty infiltration of the liver. Median liver stiffness measured 8.3 kPa. US/Elastography Parenchyma/Organ IMPRESSION: Liver stiffness measures 8.3 kPa compatible with F2-F3 (Mild to moderate liver fibrosis) Metavir score. Electronically Signed: Albaro Pena MD at 8:57 EDT ,
== END | disposition home or self-care (01) ==
LOC: US 07:25
PROVIDERS: PCP Internal Medicine; Referring Provider Internal Medicine; Visit Provider Internal Medicine
DX: K76.0 Fatty (change of) liver, not elsewhere classified (principal)
CPT/HCPCS: 76705; 76981

== ENCOUNTER → 2022-06-11 | Outpatient (CLI) | payer OTHER, SELFPAY ==
--- NOTE | 2022-06-11 15:56 | BI_ITS ---
MAMMOGRAPHY - BILATERAL SCREENING REASON FOR EXAM: Female, 67 years old. Routine annual screening examination. PERTINENT HISTORY: Mother with breast cancer. TECHNIQUE: Digital bilateral breast dennis (3D mammographic acquisition) in the CC and MLO projections. 2-D mediolateral oblique (MLO) and craniocaudad (CC) views of both breasts were obtained. CAD: Full Field Digital Mammography with Computer Added Detection was performed. COMPARISON: Comparison is made with prior study dated 06/09/2021 and 06/06/2020. FINDINGS: Breast Composition: There are scattered areas of fibroglandular density. There are no dominant masses or suspicious calcifications. Stable asymmetry of breast tissue where more breast tissue is seen in the upper outer quadrant of the right breast as compared to the left side. Stable small benign-appearing bilateral axillary lymph nodes. No other significant abnormalities are identified. There has been no significant change since the prior study. BI/SCRN MAMM (CAD)W/DENNIS BILAT IMPRESSION: Stable bilateral screening mammogram. Yearly follow-up mammogram recommended. (A) ASSESSMENT CATEGORY: BIRADS Category 2: Benign. A letter regarding these results will be sent to the patient by the facility within 30 days. Approximately 10% of breast cancers are not detected by mammography. A normal mammogram should not delay biopsy of a clinically suspicious abnormality. [id number] Electronically Signed: Albaro Pena MD at 8:33 EST ,
--- NOTE | 2022-06-11 15:59 | BD_ITS ---
STUDY: DUAL ENERGY X-RAY ABSORPTIOMETRY / DXA REASON FOR EXAM: Female, 67 years old. 627.8Menopausal postmenopausalBONE DENSITY REASON FOR EXAM TECHNIQUE: Bone Mineral Density (BMD) measurements of lumbar spine and bilateral hips were obtained. COMPARISON: Comparison is made with prior study dated 06/01/2019. FINDINGS: Lumbar Spine (L1-L4): g/cm2 (1.118) / T-score (0.6) / Z-score (2.6) Findings are suggestive of normal bone density with a low fracture risk. Left Femur Total: g/cm2 (1.127) / T-score (1.5) / Z-score (2.9) Left Femoral Neck: g/cm2 (0.941) / T-score (0.8) / Z-score (2.5) Right Femur Total: g/cm2 (1.042) / T-score (0.8) / Z-score (2.2) Right Femoral Neck: g/cm2 (0.842) / T-score (-0.1) / Z-score (1.6) The T-Scores on the most recent prior examination were: Lumbar Spine (L1-L4): There has been worsening of bone density since the previous examination. Left Femur Total: which represents an improvement of 3.2%. Right Femur Total: which represents a worsening of 0.6%. BD/Dexa Bone Density Study IMPRESSION: The patient is considered normal as outlined below according to World Trist[employer] Organization (WHO) criteria with a low fracture risk. There has been worsening of bone density since the previous examination. Reference Information: The T-score is the number of standard deviations above or below the standard which is normal for young adults at their peak bone mineral density. The World Health Organization (WHO) interprets the T-scores as follows: Above -1 Normal bone density Between -1 and -2.5 Osteopenia Equal to / or below -2.5 Osteoporosis As a practical clinical guideline, osteopenia may be graded as follows: Mild -1 through -1.5 Moderate -1.6 through -2.0 Severe -2.1 through -2.4 The Z-score is the number of standard deviations above or below age-matched controls. A Z-score of less than -1.5 would be considered abnormal. References: 1. NIH Osteoporosis and Related Bone Diseases www osteo.org 2. International Society for Clinical Densitometry www iscd.org 3. National Osteoporosis Foundation www nof.org Electronically Signed: Albaro Pena MD at 10:45 EST ,
== END | disposition home or self-care (01) ==
LOC: OPBD 15:53
PROVIDERS: PCP Internal Medicine; Referring Provider Internal Medicine; Visit Provider Internal Medicine
DX: Z12.31 Encounter for screening mammogram for malignant neoplasm of breast (principal); Z80.3 Family history of malignant neoplasm of breast; Z78.0 Asymptomatic menopausal state
CPT/HCPCS: 77063; 77067; 77080

== ENCOUNTER → 2023-07-02 | Outpatient (CLI) | payer MEDICARE, SELFPAY ==
--- NOTE | 2023-07-02 07:05 | BI_ITS ---
MAMMOGRAPHY - BILATERAL SCREENING REASON FOR EXAM: Female, 68 years old. Routine annual screening examination. PERTINENT HISTORY: Mother with breast cancer. TECHNIQUE: Digital bilateral breast dennis (3D mammographic acquisition) in the CC and MLO projections. 2-D mediolateral oblique (MLO) and craniocaudad (CC) views of both breasts were obtained. CAD: Full Field Digital Mammography with Computer Added Detection was performed. COMPARISON: Comparison is made with prior study of June 11, 2022 and June 09, 2021. FINDINGS: Breast Composition: There are scattered areas of fibroglandular density. There are no dominant masses or suspicious calcifications. Stable small benign-appearing bilateral axillary lymph nodes. No other significant abnormalities are identified. There has been no significant change since the prior study. BI/SCRN MAMM (CAD)W/DENNIS BILAT IMPRESSION: Stable bilateral screening mammogram. Yearly follow-up mammogram recommended. (A) ASSESSMENT CATEGORY: BIRADS Category 2: Benign. A letter regarding these results will be sent to the patient by the facility within 30 days. Approximately 10% of breast cancers are not detected by mammography. A normal mammogram should not delay biopsy of a clinically suspicious abnormality. [id number] Electronically Signed: Albaro Pena MD at 9:46 EST ,
== END | disposition home or self-care (01) ==
LOC: OPBI 07:03
PROVIDERS: PCP Internal Medicine; Referring Provider Internal Medicine; Visit Provider Internal Medicine
DX: Z12.31 Encounter for screening mammogram for malignant neoplasm of breast (principal); Z80.3 Family history of malignant neoplasm of breast
CPT/HCPCS: 77063; 77067

== ENCOUNTER → 2023-08-24 | Outpatient (CLI) | payer MEDICARE, SELFPAY ==
--- NOTE | 2023-08-24 07:23 | US_ITS ---
STUDY: ABDOMINAL ULTRASOUND - RIGHT UPPER QUADRANT; ELASTOGRAPHY REASON FOR VISIT: Female, 68 years old. NAFL D TECHNIQUE: Ultrasound evaluation of the right upper quadrant was performed with real-time and static downs-scale imaging. Point quantification shear wave elastography was performed ([employer]). TECHNICAL QUALITY: Adequate. COMPARISON: Comparison is made with prior study dated April 10, 2022. FINDINGS: Liver: The liver measures 16.1 cm. There is increased echogenicity consistent with fatty infiltration. The bile ducts are within normal limits. There is hepatic color flow. The direction of portal flow is hepatopetal. There is no demonstrated mass lesion. Median liver stiffness measured 7.7 kPa. Gallbladder: Normal distended gallbladder. The gallbladder wall measures 3.1 mm. There is a negative sonographic Funk''s sign. There is no pericholecystic fluid. There are no gallstones. Common Bile Duct (C.B.D.): The common bile duct measures 5.5 mm. Pancreas: There is normal echogenicity of the visualized pancreas. There is no demonstrated pancreatic mass or cyst. Right Kidney: Normal size of the right kidney. The right kidney measures 11.7 cm x 5.8 cm x 6.5 cm. Normal renal cortex. The right cortex measures 2.0 cm. There is no demonstrated renal mass or cyst. There is no right hydronephrosis. US/ABD Limited w/ Elastography IMPRESSION: 1. Liver stiffness measures 7.7 kPa compatible with F2-F3 (Mild to moderate liver fibrosis) Metavir score. Electronically Signed: Albaro Pena MD at 9:41 EDT ,
== END | disposition home or self-care (01) ==
LOC: US 07:22
PROVIDERS: PCP Internal Medicine; Referring Provider Internal Medicine; Visit Provider Internal Medicine
DX: K76.0 Fatty (change of) liver, not elsewhere classified (principal); E78.00 Pure hypercholesterolemia, unspecified
CPT/HCPCS: 76705; 76981

== ENCOUNTER → 2024-04-28 | Outpatient (CLI) | payer MEDICARE, SELFPAY | END | disposition home or self-care (01) | LOC: SL 20:14 | PROVIDERS: PCP Internal Medicine; Referring Provider Otolaryngology; Visit Provider Otolaryngology | DX: G47.33 Obstructive sleep apnea (adult) (pediatric) (principal) | CPT/HCPCS: 95811 ==

== ENCOUNTER → 2024-05-22 | Outpatient (CLI) | payer MEDICARE, SELFPAY | END | disposition home or self-care (01) | LOC: SL 07:18 | PROVIDERS: PCP Internal Medicine; Referring Provider Nurse Practitioner Acute Care; Visit Provider Nurse Practitioner Acute Care | DX: Z00.00 Encounter for general adult medical examination without abnormal findings (principal) ==

== ENCOUNTER → 2024-08-01 | Outpatient (CLI) | payer MEDICARE, SELFPAY ==
--- NOTE | 2024-08-01 07:10 | BI_ITS ---
PROCEDURE: SCRN MAMM (CAD)W/DENNIS BILAT REASON FOR EXAM: F, Age 69 y/o, family history of breast cancer in mother at age 71. TECHNIQUE: Bilateral screening digital breast tomosynthesis with 2D and 3D images. Computer aided detection. COMPARISON: 07/02/2023 FINDINGS: There are scattered areas of fibroglandular density. No suspicious masses, areas of developing architectural distortion, or suspicious calcifications. BI/SCRN MAMM (CAD)W/DENNIS BILAT IMPRESSION: There is no mammographic evidence of malignancy in either breast. BI-RADS 1: NEGATIVE. RECOMMEND ANNUAL MAMMOGRAPHIC SCREENING. Follow-up code: Routine Follow-up The patient will be notified of the results by letter. Reading Location: [id number]
--- NOTE | 2024-08-01 07:13 | BD_ITS ---
PROCEDURE: DEXA BONE DENSITY STUDY REASON FOR EXAM: F, age 69 y/o . Patient is postmenopausal.. TECHNIQUE: DEXA scan of the lumbar spine and both hips. COMPARISON: Comparison is made with prior study dated June 11, 2022. FINDINGS: Lumbar Spine (L1-L4): g/cm2 (1.167)/T-score (1.1)/Z-score (3 point) findings are suggestive of normal with a low fracture risk. Left Femur Total: g/cm2 (1.093)/T-score (1.2)/Z-score (2.8) Left Femoral Neck: g/cm2 (0.888)/T-score (0.4)/Z-score (2.2) Right Femur Total: g/cm2 (1.03 cm)/T-score (0.8)/Z-score (2.3) Right Femoral Neck: g/cm2 (0.84 cm)/T-score (0.0)/Z-score (1.8) The T-Scores on the most recent prior examination were: Lumbar Spine (L1-L4): There has been improvement of bone density since the previous examination. BD/Dexa Bone Density Study IMPRESSION: The patient is considered normal as outlined below according to [employer] (WHO) criteria with a low fracture risk. There has been worsening of bone density since the previous examination.. Reading Location: [id number]
== END | disposition home or self-care (01) ==
LOC: OPBD 07:08
PROVIDERS: PCP Internal Medicine; Referring Provider Internal Medicine; Visit Provider Internal Medicine
DX: Z12.31 Encounter for screening mammogram for malignant neoplasm of breast (principal); Z78.0 Asymptomatic menopausal state; Z80.3 Family history of malignant neoplasm of breast
CPT/HCPCS: 77063; 77067; 77080

== ENCOUNTER → 2024-08-14 | Outpatient (CLI) | payer MEDICARE, SELFPAY ==
--- NOTE | 2024-08-14 07:21 | US_ITS ---
PROCEDURE: ABD LIMITED W/ ELASTOGRAPHY REASON FOR EXAM: Fatty infiltration of the liver. COMPARISON: Comparison is made with prior study dated August 24, 2023. TECHNIQUE: Right upper quadrant abdominal ultrasound. [employer] ElastQ Imaging shear wave elastography for non-invasive assessment of liver tissue stiffness. [employer] EPIQ Elite. FINDINGS: LIVER: Size: Unremarkable Length: 16.7 cm Echotexture: Diffusely echogenic suggesting fatty infiltration Contour: Normal Lesions: None identified Elastography: EQI Med: 6.8 kPa EQI Med Thierry: 1.49 m/s IQR/Med: 22 %* GALLBLADDER: Normal COMMON BILE DUCT: Normal . PANCREAS: Obscured by bowel gas. Visualized portions of the right kidney are unremarkable. No right upper quadrant ascites. US/ABD Limited w/ Elastography IMPRESSION: NO TO MILD HEPATIC FIBROSIS Reference Values: SRU <1.37 m/s (5.7kPa): No to mild fibrosis 1.37 m/s - 2.2 m/s: Moderate to severe fibrosis >2.2 m/s (15kPa): Significant fibrosis / cirrhosis METAVIR Score F2 or higher: 1.34 m/s (5.7kPa) F3 or higher: 1.55 m/s (7.3kPa) F4: 1.80 m/s (10kPa) * If the IQR/Med is >30%, the variance in the measurements is a large and the a ccuracy of the measurement may be in question. Reading Location: [id number]
== END | disposition home or self-care (01) ==
PROVIDERS: PCP Internal Medicine; Referring Provider Student in an Organized Health Care Education/Training Program; Visit Provider Student in an Organized Health Care Education/Training Program
DX: K76.0 Fatty (change of) liver, not elsewhere classified (principal)
CPT/HCPCS: 76705; 76981

== ENCOUNTER → 2024-10-20 | Outpatient (CLI) | payer MEDICARE, SELFPAY | END | disposition home or self-care (01) | LOC: PSN 07:22 | PROVIDERS: PCP Internal Medicine; Referring Provider Nurse Practitioner Family; Visit Provider Nurse Practitioner Family | DX: J45.909 Unspecified asthma, uncomplicated (principal) | CPT/HCPCS: 94060; 94726; 94729 ==

== ENCOUNTER → 2024-10-23 | Outpatient (CLI) | payer MEDICARE, SELFPAY ==
[2024-10-23 09:03] LABS: Absolute Lymphocyte Count 1.57 X10^3/uL (0.83-4.51); Absolute Neutrophil Count 3.4 X10^3/uL (2.0-7.7); Basophil# 0.03 X10^3/uL; Basophil% 0.5 % (0-1); Eosinophil# 0.11 X10^3/uL; Eosinophils% 1.9 % (0-5); Hematocrit 40.5 % (37-47); Hemoglobin 14.2 g/dL (12.0-15.0); Lymphocyte # 1.57 X10^3/ul (0.83-4.51); Lymphocyte % 27.7 % (19-41); Mean Corp Hgb Conc 35.1 g/dL (32-36); Mean Corpuscular Hgb 31.3 pg (27.0-32.0); Mean Corpuscular Volume 89.4 fL (81-99); Mean Platelet Vol. 9.7 fl (6.2-12.0); Monocyte# 0.57 X10^3/uL; Monocyte% 10.1 % (0-10); NRBC Flagged by Analyzer 0 % (0-5); Neutrophil # 3.35 X10^3/uL (2.7-7.7); Neutrophil % 59.1 % (47-70); Platelet Count 245 K/mm3 (150-450); RBC Distribution Width CV 13.2 % (11.6-14.6); RBC Distribution Width SD 43.6 fl (35.1-43.9); Red Blood Count 4.53 M/mm3 (4.2-5.4); White Blood Count 5.7 K/mm3 (4.4-11.0)
[2024-10-23 09:29] LABS: International Normalized Ratio 0.9; Prothrombin Time (Protime)PT. 12.7 SECONDS (11.7-14.9)
[2024-10-23 10:28] LABS: Hemoglobin A1c 5.5 % (<=5.6)
[2024-10-23 10:43] LABS: ALB/GLOB Ratio 1.3 RATIO (0.9-2.4); AST(SGOT) 27 U/L (<=31); Alanine Aminotransfer ALT/SGPT 17 U/L (<=34); Albumin, Serum 4.2 g/dL (3.4-4.8); Alkaline Phosphatase 64 U/L (35-104); Anion Gap 10 (5-15); BUN 17 mg/dL (4-19); BUN/Creat Ratio 21.6 RATIO (10-20); Calcium,Total 9.4 mg/dL (7.6-11.0); Carbon Dioxide 22.9 mmol/L (21.0-32.0); Chloride 102 mmol/L (98-108); Cholesterol 158 mg/dL (<=200); Creatinine, Serum 0.77 mg/dL (0.70-1.20); EST Glomerular Filtration Rate 83 (>60); Ferritin 113 ng/mL (22-378); Globulin 3.3 g/dL (2.2-4.2); Glucose 96 mg/dL (70-99); High Density Lipoprotein 52 mg/dL; Low Density Lipoprotein Calc. 82 mg/dL; Potassium 3.9 mmol/L (3.3-5.1); Protein, Total 7.5 g/dL (5.9-8.4); Sodium Level 135 mmol/L (133-145); Total Bilirubin 0.53 mg/dL (0.00-1.30); Triglycerides 122 mg/dL; Very Low Density Lipoprotein 24 mg/dL (5-40); Vitamin D,25 Hydroxy 39.4 ng/mL (30-100); cholesterol:hdl ratio screen 3.04
[2024-10-23 11:23] LABS: Iron Binding Capacity,Total 265 ug/dL (250-450)
[2024-10-23 11:24] LABS: CRP < 3.00 mg/L (0.0-3.0); Iron 114 ug/dL (50-170); Iron Binding Capacity,Unsat 151 ug/dL (228-428)
[2024-10-24 11:08] LABS: ANTINUCLEAR ANTIBODIES DIRECT Negative (Negative)
[2024-10-24 17:08] LABS: AFP, Tumor Marker < 1.8 ng/mL (0.0-9.2); Angiotensin Convert Enzyme 44 U/L (14-82); Cytoplasmic Ab (C-ANCA) <1:20 titer (Neg:<1:20); Perinuclear Ab (P-ANCA) <1:20 titer (Neg:<1:20)
== END | disposition home or self-care (01) ==
LOC: LAB 08:33
PROVIDERS: PCP Internal Medicine; Referring Provider Internal Medicine; Visit Provider Internal Medicine
DX: K76.0 Fatty (change of) liver, not elsewhere classified (principal); E78.00 Pure hypercholesterolemia, unspecified
CPT/HCPCS: 36415; 80053; 80061; 82105; 82164; 82306; 82728; 83036; 83540; 83550; 85025; 85610; 86037; 86038; 86140; 86225; 86235

== ENCOUNTER → 2024-11-29 | Outpatient (CLI) | payer MEDICARE, SELFPAY ==
--- NOTE | 2024-11-29 11:39 | RAD_ITS ---
PROCEDURE: KNEE 4 OR MORE VIEWS 11/29/2024 REASON FOR EXAM: PAIN TECHNIQUE: Four views of the left knee were obtained. COMPARISON: None. FINDINGS: There is no evidence of fracture or dislocation. There is moderate arthritis of the patellofemoral joint. There is moderate arthritis of the medial joint space compartment of the knee. There is minimal arthritis of the lateral joint space compartment of the knee. There is no knee joint effusion. The periarticular soft tissues are normal. RAD/Knee 4 or More Views IMPRESSION: Minimal to moderate tricompartment arthritis without knee joint effusion. Reading Location: [id number]
== END | disposition home or self-care (01) ==
LOC: RAD 11:36
PROVIDERS: PCP Internal Medicine; Referring Provider Internal Medicine; Visit Provider Internal Medicine
DX: M25.562 Pain in left knee (principal)
CPT/HCPCS: 73564

== ENCOUNTER → 2025-04-19 | Outpatient (CLI) | payer MEDICARE, SELFPAY ==
[2025-04-19 14:31] LABS: Red Blood Cells-Urine 0 SEEN /hpf (0-5)
[2025-04-19 14:39] LABS: Color, Urine Yellow (Yellow); Glucose, Dipstick Normal (Normal); Ketone-Dipstick Negative (Negative); Leukocyte Esterase-Dipstick Negative /ul (Negative); Nitrite-Dipstick Negative (Negative); Occult Blood-Urine Negative /ul (Negative); Protein-Dipstick 15 mg/dl (Negative); Specific Gravity, Urine 1.015 (1.002-1.030); Urine Bilirubin Dipstick Negative (Negative)
[2025-04-19 14:48] LABS: Hematocrit 43.0 % (37-47); Hemoglobin 14.2 g/dL (12.0-15.0); Immature Granulocytes Count 0.030 X10^3/uL (0.0-0.0); Mean Corp Hgb Conc 33.0 g/dL (32-36); Mean Corpuscular Volume 94.3 fL (81-99); Mean Platelet Vol. 10.8 fl (6.2-12.0); Mucous, Urine 2+ /hpf (<or=2+); NRBC Flagged by Analyzer 0 % (0-5); Platelet Count 271 K/mm3 (150-450); RBC Distribution Width CV 13.7 % (11.6-14.6); RBC Distribution Width SD 47.7 fl (35.1-43.9); Red Blood Count 4.56 M/mm3 (4.2-5.4); Squamous Epithelial Cells - UA 0-5 SEEN /hpf (5-10); White Blood Count 7.2 K/mm3 (4.4-11.0)
[2025-04-19 15:00] LABS: Creatinine, Urine (random) 141.00 mg/dL (28.00-217.00); Microalbumin,Random Urine < 12.0 mg/L (<20 mg/L)
[2025-04-19 15:08] LABS: AST(SGOT) 27 U/L (<=31); Alanine Aminotransfer ALT/SGPT 23 U/L (<=34); Albumin, Serum 4.3 g/dL (3.4-4.8); Alkaline Phosphatase 62 U/L (35-104); Anion Gap 12 (5-15); BUN 24 mg/dL (4-19); BUN/Creat Ratio 30.4 RATIO (10-20); Calcium,Total 9.8 mg/dL (7.6-11.0); Carbon Dioxide 25.2 mmol/L (21.0-32.0); Chloride 101 mmol/L (98-108); Globulin 3.3 g/dL (2.2-4.2); Glucose 103 mg/dL (70-99); Potassium 4.5 mmol/L (3.3-5.1)
== END | disposition home or self-care (01) ==
LOC: LABSPEC 12:52
PROVIDERS: PCP Internal Medicine; Referring Provider Internal Medicine; Visit Provider Internal Medicine
DX: I11.9 Hypertensive heart disease without heart failure (principal); R73.01 Impaired fasting glucose
CPT/HCPCS: 80053; 81001; 82043; 82570; 85025; 87086; 87088